=== PATIENT | male | born 1950 | race Caucasian/White ===

== ENCOUNTER 2023-05-08 10:45 | Outpatient (OUT) | payer MEDICARE, BC, SELFPAY ==
[2023-05-08 12:44] LABS: SARS-CoV-2 Ag NEGATIVE (NEGATIVE)
[2023-05-08 15:11] LABS: SARS-CoV-2 NAA NOT DETECTED (NOT DETECTE)
== END 2023-05-08 10:46 | disposition home or self-care (01) ==
PROVIDERS: Family Provider Internal Medicine Interventional Cardiology; PCP Internal Medicine; Visit Provider Internal Medicine
DX: Z20.822 Contact with and (suspected) exposure to COVID-19 (principal)
CPT/HCPCS: 87635; 87811; U0003

== ENCOUNTER 2023-05-28 11:34 | Outpatient (OUT) | payer MEDICARE, BC, SELFPAY ==
--- NOTE | 2023-05-28 10:40 | NM_ITS ---
Patient: ML HASSAN Exam Date: 05/28/2023 : 1950 Gender:M Ordering : DR LIDIA HANDLEY M.D. Admission #: [id number] Family : DR Viet Proctor D.O. Order #: [id number] CLICK HERE TO VIEW EXAM RADIOLOGY REPORT PROCEDURE: NM MARIANELA PERF SPECT REST STR COMPARISON: None. INDICATIONS: CHEST PAIN, FATIGUE, CORONARY ARTERY DISEASE TECHNIQUE: Exam Description: Stress/Rest one day protocol gated SPECT Rest Imagin.0 mCi Tc-99m Cardiolite IV on 05/28/2023 Stress Imaging 30.3 mCi Tc-99m Cardiolite IV on 05/28/2023 Exercise Protocol: 0.4 mg Lexiscan given IV Heart Rate (bpm): Rest: 75 Max: 103 PMHR: 71 Blood Pressure: Rest: 136/78 Max: 162/78 Symptoms: Rest and peak stress ECG findings were normal and the exercise portion of the study was normal per attending physician Dr. Enrike Proctor . For more details please see separate cardiac stress test report. FINDINGS: QUALITY OF STUDY: Excellent. PERFUSION DEFECT: LOCATION: Basal inferior. Mid-inferior. Apical inferior. [place]. SIZE: Medium (3-4 segments). SEVERITY: Severe. TYPE: Persistent. WALL MOTION: Normal. LV SIZE: Normal. 121 mL. TID / TCD: None; 0.9 LVEF: Normal. Calculated EF 63%. SUMMARY: Myocardial perfusion imaging study has ABNORMAL findings. CONCLUSION: 1. No acute or reversible ischemia. 2. Significant fixed perfusion defect involving the apex and entire inferior wall. Diaphragm attenuation artifact is felt less likely. 3. Left ventricle volume is within normal limits, but approaches upper limits of normal. 4. Normal wall motion and ejection fraction. Dictated by: Huey Schilling M.D. on 05/29/2023 at 14:24 Approved by: Huey Schilling M.D. on 05/29/2023 at 14:27
[2023-05-28] MEDS: REGADENOSON 0.4 MG/5 ML SYRINGE IV (12:56)
--- NOTE | 2023-05-28 13:02 | PM.STRESS ---
Stress Test Stress Test Requesting physician: Willie Barfield Procedure: Lexiscan stress test General Information: Reason for Stress Test: [Evaluation of a patient with known coronary disease with exertional chest pain] Cardiac History and Risk Factors: [This patient is [age] years old with a personal history of coronary disease status post PTCA. Primary risk factors include remote history of tobacco use essential hypertension and hyperlipidemia.] Resting 12 - Lead Electrocardiogram: Normal sinus rhythm with a ventricular rate of 74 bpm. The IA interval is 0.48, QRS 0.16 and the QT is 0.40. There are Q waves inferiorly suggestive of remote inferior wall myocardial infarction. There is a right bundle stephen block with secondary ST-T wave changes. Stress Test: Protocol: [Lexiscan protocol] Exercise Capacity: [Not applicable] Blood Pressure Response: [The blood pressure decreased with an increase in heart rate which is appropriate for Lexiscan infusion] Rhythm: [The patient remained in sinus rhythm with rare PVCs during infusion] ST - Response: [There was no ST-T wave changes during infusion] Patient Response: [The patient denied chest pain during infusion] Interpretation: There was no objective evidence of myocardial ischemia during infusion. Cardiolite was injected with images in interpretation pending
== END 2023-05-28 11:35 | disposition home or self-care (01) ==
LOC: NM 11:34
PROVIDERS: Family Provider Internal Medicine Interventional Cardiology; PCP Internal Medicine; Visit Provider Internal Medicine Interventional Cardiology
DX: R07.9 Chest pain, unspecified (principal)
CPT/HCPCS: 78452; 93017; A9500; J2785

== ENCOUNTER 2023-09-30 13:11 | Outpatient (OUT) | payer MEDICARE, BC, SELFPAY ==
[2023-09-30 13:40] LABS: Erythrocyte Sedimentation Rate 8 mm/hr (<=20)
--- NOTE | 2023-09-30 14:00 | CA_ITS ---
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 PVR waveforms with normal upstroke and amplitude but loss of dicrotic notch. Right: - significant pressure gradient between the brachial and thigh cuff - abnormal SAHARA Left: - significant pressure gradient between the thigh and calf cuff - significant pressure gradient between the calf and DP cuff - abnormal SAHARA IMpression: - significant right inflow (femoral artery or above) arterial disease with moderate hemodynamic impairment of the right lower extremity at rest. (SAHARA 0.66) - significant left femoropopliteal and outflow (tibioperoneal) arterial disease with moderate hemodynamic impairment of the left lower extremity at rest. (SAHARA 0.71) Electronically Signed On 10-01-2023 6:47:11 EST by ELIZABETH CANNON
[2023-09-30 14:33] LABS: Uric Acid 7.3 mg/dL (3.5-7.2)
[2023-09-30 14:42] LABS: C Reactive Protein <0.50 mg/dL (<=0.50)
[2023-10-01 06:09] LABS: Rheumatoid Factor (RF) <10.0 IU/mL (<14.0)
[2023-10-02 15:09] LABS: Antinuclear Antibodies, IFA Positive (.)
== END 2023-09-30 13:12 | disposition home or self-care (01) ==
LOC: LAB 13:12
PROVIDERS: Family Provider Internal Medicine Interventional Cardiology; PCP Internal Medicine; Visit Provider Internal Medicine
DX: M06.4 Inflammatory polyarthropathy (principal); M35.3 Polymyalgia rheumatica; R25.2 Cramp and spasm; I70.213 Atherosclerosis of native arteries of extremities with intermittent claudication, bilateral legs
CPT/HCPCS: 36415; 84550; 85652; 86038; 86140; 86431; 93923

== ENCOUNTER 2023-11-05 07:56 | Outpatient (OUT) | payer MEDICARE, BC, SELFPAY ==
--- OUTSIDE RECORDS SUMMARY | 2023-11-05 08:00 | XMS_ITS | CCD ---
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 Name Role Phone ELTAHAWY, EHAB A Admitting Unavailable ELTAJENNIFERY, EHAB A Attending Unavailable VIET PROCTOR Referring Unavailable DAVIS, VITE Primary Care Unavailable Viet Proctor Primary Care Provider [phone] Viet Proctor Primary Care Provider VILMA DIOR Referring Unavailable VIET PROCTOR Primary Care Unavailable VILMA DIOR Admitting Unavailable VILMA DIOR Attending Unavailable VIET PROCTOR Primary Care Unavailable ABBY DANIELLE Referring Unavailable VIET PROCTOR Primary Care Unavailable Nick Montoya Unavailable Viet Proctor Unavailable Michael Maurer Unavailable DAVIS, DR JOHNSON Primary Care Unavailable Rajiv, Michael Attending Unavailable Rjaiv, Michael Admitting Unavailable BALL, DR JOHNSON Primary Care Unavailable BALL, DR JOHNSON Attending Unavailable BALL, DR JOHNSON Admitting Unavailable ELTAHAWY, DR MURILLO Consulting Unavailable DAVIS, DR JOHNSON Primary Care Unavailable DAVIS, DR JOHNSON Attending Unavailable BALL, DR JOHNSON Admitting Unavailable BALL, DR JOHNSON Consulting Unavailable DAVIS, DR JOHNSON Primary Care Unavailable DAVIS, DR JOHNSON Attending Unavailable BALL, DR JOHNSON Admitting Unavailable DANITZA, NICK Consulting Unavailable Rajiv, Michael Admitting Unavailable Rajiv, Michael Attending Unavailable BALL, DR JOHNSON Primary Care Unavailable Rajiv, Michael Consulting Unavailable ZIEBBERNADETTE, DR DUSTY Ledesma Consulting Unavailable BALL, DR JOHNSON Consulting Unavailable DAVIS, DR JOHNSON Primary Care Unavailable BALL, DR JOHNSON Attending Unavailable BALL, DR JOHNSON Admitting Unavailable ELTAHAWY, DR MURILLO Consulting Unavailable DAVIS, DR JOHNSON Consulting Unavailable DAVIS, DR JOHNSON Primary Care Unavailable DAVIS, DR JOHNSON Attending Unavailable BALL, DR JOHNSON Admitting Unavailable ZIEBER, DR DUSTY Ledesma Consulting Unavailable Rajiv, Michael Consulting Unavailable DAVIS, DR JOHNSON Primary Care Unavailable Rajiv, Michael Attending Unavailable Rajiv, Michael Admitting Unavailable West, Michael Consulting Unavailable West, Michael Admitting Unavailable West, Michael Attending Unavailable BALL, DR JOHNSON Primary Care Unavailable ZIEBER, DR DUSTY Ledesma Consulting Unavailable West, Michael Consulting Unavailable BALL, DR JOHNSON Primary Care Unavailable West, Michael Attending Unavailable West, Michael Admitting Unavailable ZIEBER, DR DUSTY Ledesma Consulting Unavailable West, Michael Consulting Unavailable BALL, DR JOHNSON Primary Care Unavailable West, Michael Attending Unavailable West, Michael Admitting Unavailable ZIEBER, DR DUSTY Ledesma Consulting Unavailable West, Michael Admitting Unavailable West, Michael Attending Unavailable BALL, DR JOHNSON Primary Care Unavailable West, Michael Consulting Unavailable West, Michael Consulting Unavailable BALL, DR JOHNSON Primary Care Unavailable West, Michael Attending Unavailable West, Michael Admitting Unavailable West, Michael Admitting Unavailable West, Michael Attending Unavailable BALL, DR JOHNSON Primary Care Unavailable West, Michael Consulting Unavailable West, Michael Admitting Unavailable West, Michael Attending Unavailable BALL, DR JOHNSON Primary Care Unavailable West, Michael Consulting Unavailable West, Michael Admitting Unavailable West, Michael Attending Unavailable BALL, DR JOHNSON Primary Care Unavailable West, Michael Consulting Unavailable West, Michael Admitting Unavailable West, Michael Attending Unavailable BALL, DR JOHNSON Primary Care Unavailable West, Michael Consulting Unavailable ELTAHAWY, DR MURILLO Admitting Unavailable ELTAHAWY, DR MURILLO Attending Unavailable BALL, DR JOHNSON Primary Care Unavailable ELTAHAWY, DR MURILLO Consulting Unavailable West, Michael Admitting Unavailable West, Michael Attending Unavailable BALL, DR JOHNSON Primary Care Unavailable West, Michael Consulting Unavailable ZIEBER, DR DUSTY Ledesma Consulting Unavailable West, Michael Admitting Unavailable West, Michael Attending Unavailable BALL, DR JOHNSON Primary Care Unavailable West, Michael Consulting Unavailable VIET PROCTOR Primary Care Unavailable GHAZARIAN, PRICILA Referring Unavailable DAVIS, VIET Primary Care Unavailable GHAZARIAN, PRICILA Referring Unavailable GHAZARIAN, PRICILA Referring Unavailable BALL, VIET Primary Care Unavailable DAVIS, VIET Primary Care Unavailable GHAZARIAN, PRICILA Admitting Unavailable GHAZARIAN, PRICILA Attending Unavailable EARL GOMEZ Consulting Unavailable ELTAHAWWILLIE Sdaler Attending Unavailable ELTAHAWYWILLIE Attending Unavailable FRENCH SANDOVAL Attending UnavailViet Brown DO Primary Care Provider Allergies Allergy Classification Reported Allergen(s) Allergy Type Date of Onset Reaction(s) Facility (3 sources) black walnut pollen extract; Translations: [[id number] A REDUCTASE INHIBITORS] Drug Allergy 3 [facility] Repository (20 sources) predniSONE; Translations: [PREDNISONE] Drug Allergy 3 dizziness [facility] Repository (5 sources) Hmg-Coa Reductase Inhibitors (Statins) Propensity to adverse reactions to drug 0 [place], [place] (6 sources) predniSONE Drug Allergy 3 Other (See Comments) [place] (1 source) black walnut pollen extract Drug Allergy 6 [place], [place] (20 sources) Statins Depletion Drug allergy anaphylaxis [facility] Other (1 source) ezetimibe Drug Allergy 2 [facility] Repository (1 source) Propofol Drug Allergy 0 [facility] Repository (7 sources) ezetimibe Drug Allergy 4 Unknown, Unknown Reaction [facility] (6 sources) HMG-CoA reductase inhibitor Drug allergy Unknown [employer] Other (6 sources) Statins Depletion *DIETARY PRODUCTS/DIETAR Y MANAGE Propensity to adverse reactions Unknown [employer] Other (4 sources) Allergies Reconciled Propensity to adverse reactions Unknown [employer] Other (2 sources) patient allergy list reviewed by nurse or physicia Propensity to adverse reactions 9 Comment:Done [employer] Other (1 source) [id number]-[id number] Reductase Inhibitor Allergy to substance 4 Anaphylaxis [facility] (1 source) HMG-CoA reductase inhibitor Propensity to adverse reactions to drug 3 Other (See Comments) [facility] Medications Current Medications Medication Drug Class(es) Dates Sig (Normalized) Sig (Original) acetaminophen 325 mg / HYDROcodone bitartrate 5 mg oral tablet (20 sources) Opioid Agonist Start: 09-22-2023 take 1 tablet by mouth every six hours Hydrocodone-Aceta minophen Active 1 TAB PO Every 6 hours September 22, 2023 12:00am Start: 01-01-2023 take 1 tablet by giovanni th every six hours HYDROcodone-Acetaminophen 5-325 MG 1 tab let as needed Orally every 6 hrs for 5 days Jan, Active Start: 05-30-2022 take 1 tablet by giovanni th every twelve hours HYDROcodone-Acetaminophen 5-325 MG 1 tab let Orally bid for 7 day(s) May, Active Start: 04-10-2020 End: 04-10-2020 HYDROcodone-acetaminophen (N ORCO) 5-325 MG per tablet 1 tablet [id number] actuat albuterol 0.09 mg/actuat metered dose inhaler (7 sources) beta2-Adrenergic Agonist Start: 09-22-2023 take 1 puff(s) by inhalation every six hours Albuterol Sulfate (Proair Hfa) 90 mcg/actuation HFA aerosol inhaler Active 2 PUFF INHALATION Every 6 hours September 22, 2023 12:00am Start: 02-22-2019 End: 09-22-2023 take 1 puff(s) by inhalation every four to six hours Albuterol Sulfate (Proair Hfa) 90 mcg/actuation Hfa Aerosol Inhaler Discontinued 1 PUFF INHALATION EVERY 4-6 HOURS February 21, 2019 11:00pm September 22, 2023 8:05am take 1 puff(s) by in halation every twelve hours albuterol (PROVENTIL HFA;VENTOLIN HFA) 90 mcg/actuation inhaler albuterol sulfate HFA 90 mcg/actuation aerosol inhaler INHALE 1 PUFF EVERY 12 HOURS 0 Active take 2 puff(s) by in halation every six hours as needed ProAir HFA 108 (90 Base) MCG/ACT 2 puffs as needed Inhalation every 6 hrs Active ALBUTEROL IN Inh reba into the lungs as needed 0 Active alendronic acid 70 mg oral tablet (20 sources) Bisphosphonate Start: 02-22-2019 take 1 tablet by mouth every week Alendronate (Fosamax) 70 mg Tablet Active 70 MG PO every week February 21, 2019 11:00pm 24 hr alfuzosin hydrochloride 10 mg extended release oral tablet (5 sources) alpha-Adrenergic Kp Start: 12-01-2019 take 1 tablet by mouth once daily alfuzosin (UROXATRAL) 10 MG extended release tablet Indications: Dysuria , BPH with obstruction/lower urinary tract symptoms Take 1 tablet by mouth daily 30 tablet 11 12/01/2019 Active 1 ml alirocumab 75 mg/ml auto-injector (20 sources) PCSK9 Inhibitor inject 1 mL by subcutaneous injection every other week alirocumab (PRALUENT PEN) 75 mg/mL pen injector Praluent Pen 75 mg/mL subcutaneous pen injector inject 1 (ONE) ml subcutaneously every 2 (TWO) weeks 0 Active Praluent 75 MG/M L as directed Subcutaneous Active Alirocumab (Praluent Pen) 75 mg/mL pen injector (1 source) Start: 09-22-2023 inject 75 mg by subcutaneous injection every other week Alirocumab (Praluent Pen) 75 mg/mL pen injector Active 75 MG SUBCUT Q14D September 22, 2023 12:00am ALPRAZolam 0.25 mg oral tablet (1 source) Benzodiazepine ALPRAZolam (XANAX) 0.25 mg tablet alprazolam 0.25 mg tablet 1 (one) Tablet 1-2 hours prior to testing 0 Active aspirin 325 mg oral tablet (20 sources) Platelet Aggregation Inhibitor, Nonsteroidal Anti-inflammatory Drug Start: 09-22-2023 take 325 mg by mouth once daily Aspirin Active 325 MG PO Daily September 22, 2023 12:00am aspirin 81 mg da rufina. 0 Active take 1 tablet by giovanni th every twenty-four hours Aspirin 325 MG 1 tablet Orally Once a da y Active azithromycin 250 mg oral tablet (6 sources) Macrolide Antimicrobial Start: 05-08-2023 Azithromycin 250 MG as directed Orally daily for 5 days May, Active calcium chloride 0.0014 meq/ml / potassium chloride 0.004 meq/ml / sodium chloride 0.103 meq/ml / sodium lactate 0.028 meq/ml injectable solution (2 sources) Start: 04-10-2020 lactated ringers infusion calcium citrate 250 mg / ergocalciferol 100 mg oral tablet (1 source) Provitamin D2 Compound take 1 tablet by mouth in the morning, then take 1 tablet by mouth once at bedtime calcium citrate-vitamin D2 250 mg-2.5 mcg (100 unit) per tablet Take 1 tablet by mouth in the morning and 1 tablet before bedtime. 0 Active carvedilol 3.125 mg oral tablet (5 sources) alpha-Adrenergic Kp, beta-Adrenergic Kp take 1 tablet by mouth in the morning, then take 1 tablet by mouth at bedtime carvediloL (COREG) 3.125 mg tablet Take 1 tablet (3.125 mg total) by mouth in the morning and 1 tablet (3.125 mg total) before bedtime. 0 Active clopidogrel 75 mg oral tablet (20 sources) P2Y12 Platelet Inhibitor Start: 02-22-2019 take 1 tablet by mouth once daily Clopidogrel (Plavix) 75 mg Tablet Active 75 MG PO Daily February 21, 2019 11:00pm docosahexaenoic acid 120 mg / eicosapentaenoic acid 180 mg oral capsule (4 sources) [place] 3 1000 MG CAPS Take by mouth daily 0 Active [place] 3 1000 MG CAPS Take by mouth 0 Active famotidine 40 mg oral tablet (20 sources) Histamine-2 Receptor Antagonist Start: 02-22-2019 take 40 mg by mouth twice daily Famotidine Active 40 MG PO Twice daily February 21, 2019 11:00pm take 1 tablet by mouth in the mo rning famotidine (PEPCID) 20 mg tablet Take 1 tablet (20 mg total) by mouth in the morning. 0 Active take 1 tablet by giovanni th every twenty-four hours Famotidine 40 MG 1 tablet at bedtime Ora ll Once a day for 30 day(s) Active 2 ml fentaNYL 0.05 mg/ml injection (4 sources) Opioid Agonist Start: 04-10-2020 fentaNYL (SUBL IMAZE) injection 50 mcg Start: 04-10-2020 fentaNYL (SUBL IMAZE) injection 25 mcg fluticasone propionate 0.05 mg/actuat metered dose nasal spray (20 sources) Corticosteroid Start: 02-22-2019 Fluticasone Pr opionate (Flonase Allergy Relief) 50 mcg/actuation [place],Suspension Active 1 SPRAY INTRANASAL Daily February 21, 2019 11:00pm take 1 spray(s) nasal route once daily Flonase 50 MCG/ACT 1 spray in each nostril Nasally Once a day for 30 day(s) Active fluticasone (MAILE NASE) 50 MCG/ACT nasal spray 1 spray by Each Nostril route as needed for Rhinitis 0 Active folic acid 0.8 mg oral capsule (20 sources) Start: 02-22-2019 take 0.8 mg by mouth once daily Folic Acid Active 0.8 MG PO Daily February 21, 2019 11:00pm take 1 tablet by giovanni th every twenty-four hours Folic Acid 1 MG 1 tablet Orally Once a day for 30 day(s) Active gabapentin 100 mg oral capsule (20 sources) Anti-epileptic Agent Start: 09-22-2023 take 2 capsules by mouth at bedtime Gabapentin Active 100 MG PO .COMPLEX September 22, 2023 12:00am 100 mg orally 1 capsule in the morning, 1 capsule in the afternoon and 2 capsules at bedtime; Start: 05-29-2022 take 2 capsules by m outh three times daily Gabapentin 100 MG 2 capsules Orally three times daily for 30 day(s) G89.29 Chronic pain May, Active Start: 05-29-2022 take 1 capsule by mo uth three times daily Gabapentin 100 MG 1 capsule Orally three times daily for 30 day(s) May, Active take 1 capsule by mo uth twice daily gabapentin (NEURONTIN) 300 mg capsule gabapentin 300 mg capsule TAKE 1 CAPSULE BY MOUTH TWICE DAILY 0 Active gemfibrozil 600 mg oral tablet (1 source) Peroxisome Proliferator Receptor alpha Agonist take 1 tablet by mouth twice daily before mealtime gemfibroziL (LOPID) 600 mg tablet gemfibrozil 600 mg tablet TAKE 1 TABLET BY MOUTH TWICE DAILY before meals 0 Active 1 ml hydrALAZINE hydrochloride 20 mg/ml injection (1 source) Arteriolar Vasodilator Start: 04-10-20 20 hydrALAZINE (APRESOLINE) injection 5 mg 4 ml labetalol hydrochloride 5 mg/ml cartridge (1 source) beta-Adrenergic Kp Start: 04-10-20 20 labetalol (NORMODYNE;TRANDATE) injection 5 mg lisinopril 2.5 mg oral tablet (20 sources) Angiotensin Converting Enzyme Inhibitor Start: 02-23-20 take 2.5 mg by mouth once daily Lisinopril Active 2.5 MG PO Daily February 21, 2019 11:00pm methotrexate 2.5 mg/ml oral solution (20 sources) Folate Analog Metabolic Inhibitor Start: 02-23-20 Methotrexate Active 8 TAB PO every 9 weeks February 21, 2019 11:00pm take 8 tablets by mouth once Met hotrexate 2.5 MG 8 tabs Orally every Thursday Active take 8 tablets by mouth once Met hotrexate 2.5 MG 8 tabs Orally every Thursday Active METHOTREXATE, ANTI-RHEUMATIC, PO (1 source) take 20 mg by mouth every week METHOTREXATE, ANTI-RHEUMATIC, PO Take 20 mg by mouth once a week thursday 0 Active methylPREDNISolone 4 mg oral tablet (6 sources) Corticosteroid take 1 tablet by mouth once daily methylPREDNISolone (MEDROL) 4 mg tablet methylprednisolone 4 mg tablet TAKE 1 TABLET BY MOUTH EVERY DAY 0 Active take 1 tablet by mouth once phoebe y methylPREDNISolone (MEDROL) 2 MG tablet Take 2 mg by mouth daily 0 Active montelukast 10 mg oral tablet (20 sources) Leukotriene Receptor Antagonist Start: 02-22-2019 take 1 tablet by mouth once daily in the evening Montelukast (Singulair) 10 mg Tablet Active 10 MG PO Every evening February 21, 2019 11:00pm Multiple Vitamins-Minerals (MULTIVITAMIN ADULT PO) (5 sources) Multiple Vitamins-Minerals (MULTIVITAMIN ADULT PO) Take by mouth 0 Active 24 hr niacin 500 mg extended release oral tablet (20 sources) Nicotinic Acid Start: 02-22-2019 take 1 tablet by mouth once daily at bedtime Niacin (Slo-Niacin) 500 mg Tablet Extended Release Active 500 MG PO Daily at bedtime February 21, 2019 11:00pm take 1 tablet by giovanni th once daily at breakfast niacin (VITAMIN B3) 500 mg tablet Take 1 tablet (500 mg total) by mouth daily with breakfast. 0 Active take 1 capsule by mouth once alison ly niacin 500 MG extended release capsule Take 500 mg by mouth nightly 0 Active nitroglycerin 0.4 mg sublingual tablet (20 sources) Nitrate Vasodilator Start: 02-22-2019 Nitroglyce rin (Nitrostat) 0.4 mg Tablet, Sublingual Active 0.4 MG SUBLINGUAL every 5 to 15 minutes February 21, 2019 11:00pm nitroglycerin (N ITROSTAT) 0.4 MG SL tablet nitroglycerin 0.[address] 1 tablet by sublingual route as needed. 0 Active omega 9-zzy-jyy-fish oil (Fish OiL) 300-1,000 mg capsule (1 source) omega 3-dha-epa- fish oil (Fish OiL) 300-1,000 mg capsule Take by mouth. 0 Active omega-3 acid ethyl esters (retirement) 1000 mg oral capsule (1 source) [place] 3 1000 MG CAPS Take by mouth 0 Active 2 ml ondansetron 2 mg/ml injection (1 source) Serotonin-3 Receptor Antagonist Start: End: ondansetron (ZOFRAN) injection 4 mg ProAir HFA 108 (90 Base) MCG/ACT (18 sources) take 2 puff(s) by inhalation every six hours as needed for cough ProAir HFA 108 (90 Base) MCG/ACT 2 puffs as needed Inhalation every 6 hrs as needed for SOB, cough for 30 days Active take 2 puff(s) by in halation every six hours as needed ProAir HFA 108 (90 Base) MCG/ACT 2 puffs as needed Inhalation every 6 hrs Active 3 ml sodium chloride 9 mg/ml injection (2 sources) Start: 04-10-2020 sodium chloride flush 0.9 % injection 10 mL spironolactone 25 mg oral tablet (20 sources) Aldosterone Antagonist Start: 09-22-2023 take 1 tablet by mouth once daily Spironolactone (Aldactone) 25 mg tablet Active 25 MG PO Daily September 22, 2023 12:00am sulfamethoxazole 800 mg / trimethoprim 160 mg oral tablet (17 sources) Dihydrofolate Reductase Inhibitor Antibacterial, Sulfonamide Antimicrobial Start: 08-27-2022 take 1 tablet by mouth every twelve hours Sulfamethoxazole-Tr imethoprim 800-160 MG 1 tablet Orally Twice a day for 5 days Aug, Active Start: 05-08-2020 End: 05-15-2020 take 1 tablet by mouth twice daily sulfamethoxazole-trimethoprim (BACTRIM D S) 800-160 MG per tablet Indications: Orchitis Take 1 tablet by mouth 2 times daily for 7 days 14 tablet 0 05/08/2020 05/15/2020 Active tiZANidine 4 mg oral capsule (20 sources) [place] alpha-2 Adrenergic Agonist Start: 02-22-2019 take 1 capsule by mouth once daily at bedtime Tizanidine (Zanaflex) 4 mg Capsule Active 4 MG PO Daily at bedtime February 21, 2019 11:00pm tiZANidine (MAHOGANY FLEX) 4 mg tablet tizanidine 4 mg tablet 0 Active take 2 tablets by mouth at bedti me Zanaflex 4 MG 2 tablets Orally at bedtime for 90 days Active traZODone hydrochloride 50 mg oral tablet (20 sources) Serotonin Reuptake Inhibitor Start: 02-22-2019 take 50 mg by mouth once daily Trazodone Active 50 MG PO Daily February 21, 2019 11:00pm take 2 tablets by mouth at bedti me traZODone (DESYREL) 50 mg tablet trazodone 50 mg tablet TAKE 2 TABLETS BY MOUTH AT BEDTIME 0 Active take 1 tablet by mouth once phoebe y traZODone (DESYREL) 100 MG tablet Take 100 mg by mouth nightly 0 Active Completed/Discontinued Medications Medication Drug Class(es) Dates Sig (Normalized) Sig (Original) acetaminophen 325 mg oral tablet (2 sources) Start: 04-10-2020 End: 04-10-2020 acetaminophen (TYLENOL) tablet 650 mg take 1 tablet by giovanni every six hours as needed for pain acetaminophen (TYLENOL EXTRA STRENGTH) 5 00 mg tablet Take 1 tablet (500 mg total) by mouth every 6 (six) hours as needed for pain. 0 Active 200 ml ciprofloxacin 2 mg/ml injection (1 source) Quinolone Antimicrobial Start: 04-10-2020 End: 04-10-2020 ciprofloxacin (CIPRO) IVPB 400 mg dimenhyDRINATE 50 mg oral tablet (1 source) Start: 04-10-2020 End: 04-10-2020 dimenhyDRINATE (DRAMAMINE) tablet 50 mg hydrocortisone acetate 25 mg rectal suppository (1 source) Corticosteroid Start: 02-22-2019 End: 09-22-2023 Hydrocortisone Acetate (Anusol-Hc) 25 mg Suppository Discontinued 25 MG LA Three times daily February 21, 2019 11:00pm September 22, 2023 8:06am Lidocaine (14 sources) Antiarrhythmic, Amide Local Anesthetic Start: 01-01-2023 Lidocaine Jan, 30 mg loratadine 10 mg oral capsule (1 source) Start: 02-22-2019 End: 09-22-2023 take 10 mg by mouth once daily Loratadine Discontinued 10 MG PO Daily February 21, 2019 11:00pm September 22, 2023 8:06am nebivolol 2.5 mg oral tablet (20 sources) Start: 02-22-2019 End: 09-22-2023 take 1 tablet by mouth once daily Nebivolol (Bystolic) 2.5 mg Tablet Discontinued 2.5 MG PO Daily February 21, 2019 11:00pm September 22, 2023 8:06am take 2 tablets by mo [facility] every twenty-four hours Bystolic 2.5 MG 2 tablets Orally Once a day for 30 day(s) Not-Taking oxyCODONE hydrochloride 5 mg oral tablet (20 sources) Opioid Agonist take 1 tablet by mouth every six hours oxyCODONE HCl 5 MG 1 tablet as needed Orally every 6 hrs Not-Taking pantoprazole 40 mg oral granules (20 sources) Proton Pump Inhibitor Start: 9 End: take 40 mg by mouth once daily Pantoprazole Discontinued 40 MG PO Daily February 21, 2019 11:00pm September 22, 2023 8:07am take 1 tablet by giovanni th every twenty-four hours Pantoprazole Sodium 40 MG 1 tablet Orall y Once a day for 30 day(s) Not-Taking pregabalin 75 mg oral capsule (1 source) Start: 02-22-2019 End: 09-22-2023 take 1 capsule by mouth twice daily Pregabalin (Lyrica) 75 mg Capsule Discontinued 75 MG PO Twice daily February 21, 2019 11:00pm September 22, 2023 8:07am tamsulosin hydrochloride 0.4 mg oral capsule (1 source) alpha-Adrenergic Kp Start: 02-22-2019 End: 09-22-2023 take 0.4 mg by mouth once daily Tamsulosin Discontinued 0.4 MG PO Daily February 21, 2019 11:00pm September 22, 2023 8:07am triamcinolone acetonide 40 mg/ml injectable suspension (14 sources) Corticosteroid Start: 01-01-2023 Kenalog-40 Jan, 40 mg 7 actuat umeclidinium 0.0625 mg/actuat / vilanterol 0.025 mg/actuat dry powder inhaler (1 source) Anticholinergic, beta2-Adrenergic Agonist Start: 02-22-2019 End: 09-22-2023 Umeclidinium-Alfonso nterol (Anoro Ellipta) 62.5-25 mcg/actuation Blister With Device Discontinued 1 INH INHALATION Q24H February 21, 2019 11:00pm September 22, 2023 8:08am Problems Active Problems Problem Classification Problem Date Documented Da te Episodic/Chronic Acute bronchitis (13 sources) Acute bronchitis; Translations: [Acute bronchitis due to other specified organisms] Onset: 5 Episodic Anxiety disorders (20 sources) Generalized anxiety disorder; Translations: [Generalized anxiety disorder] Onset: 5 Chronic Aortic and peripheral arterial embolism or thrombosis (5 sources) Thromboembolic disorder; 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 and thrombosis of unspecified site] Chronic Chronic obstructive pulmonary disease and bronchiectasis (20 sources) Mucopurulent chronic bronchitis; Translations: [Mucopurulent chronic bronchitis] Onset: 8 Chronic Coronary atherosclerosis and other heart disease (20 sources) Coronary arteriosclerosis; Translations: [Atherosclerotic heart disease of [place] coronary artery without angina pectoris] Onset: 2 Chronic Disorders of lipid metabolism (20 sources) Hypercholesterolemia; Translations: [Pure hypercholesterolemia, unspecified] Onset: 0 Chronic Diverticulosis and diverticulitis (11 sources) Diverticulosis of colon; Translations: [Diverticulosis of colon] Onset: 4 Chronic Esophageal disorders (10 sources) Gastro-esophageal reflux disease with esophagitis; Translations: [Gastroesophageal reflux disease with esophagitis without hemorrhage] Chronic Esophageal disorders (13 sources) Esophageal disorders; Translations: [Gastroesophageal reflux disease with esophagitis without hemorrhage] Essential hypertension (20 sources) Essential hypertension; Translations: [Essential (primary) hypertension] Onset: 3 Chronic Hyperplasia of prostate (20 sources) Benign prostatic hypertrophy with outflow obstruction; Translations: [Benign prostatic hypertrophy without outflow obstruction] Onset: 6 03-27-2020 Chronic Immunity disorders (5 sources) Drug-induced immunodeficiency ; 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 Immunizations and screening for infectious disease (13 sources) Encounter for immunization; Translations: [Contact with and (suspected) exposure to other viral communicable diseases] Onset: 2 Resolved: 1 Episodic Inflammatory conditions of male genital organs (1 source) Epididymitis Episodic Intestinal infection (9 sources) Infectious colitis, enteritis and gastroenteritis; Translations: [Infectious gastroenteritis and colitis, unspecified] Onset: 3 Resolved: 1 Episodic Mood disorders (16 sources) Recurrent major depression in remission; Translations: [Major depressive disorder, recurrent, in partial remission] Chronic Nausea and vomiting (1 source) Vomiting, unspecified; Translations: [Vomiting, unspecified] Onset: 3 Episodic Nonspecific chest pain (20 sources) Chest wall pain; Translations: [Other chest pain] Onset: 8 Episodic Nutritional deficiencies (6 sources) Vitamin D deficiency; Translations: [Vitamin D deficiency, unspecified] Onset: 8 Chronic Osteoarthritis (20 sources) Osteoarthritis of knee; Translations: [Unilateral primary osteoarthritis, left knee] Onset: 6 Chronic Other aftercare (2 sources) 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; Translations: [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] Onset: 3 Episodic Other circulatory disease (20 sources) History of cerebrovascular accident without residual deficits; Translations: [Personal history of transient ischemic attack (TIA), and cerebral infarction without residual deficits] Episodic Other circulatory disease (1 source) Personal history of transient ischemic attack (TIA), and cerebral infarction without residual deficits; Translations: [Prsnl hx of TIA (TIA), and cereb infrc w/o resid deficits] Episodic Other congenital anomalies (5 sources) Congenital spondylolysis of lumbosacral region; Translations: [Congenital spondylolysis, lumbosacral region] Onset: 7 Chronic Other connective tissue disease (8 sources) Polymyalgia rheumatica; Translations: [Polymyalgia rheumatica] Onset: 2 09-22-2023 Chronic Other connective tissue disease (1 source) Polymyalgia rheumatica; Translations: [Polymyalgia rheumatica] 09-22-2023 Chronic Other connective tissue disease (6 sources) H/O: musculoskeletal disease; Translations: [Personal history of other diseases of the musculoskeletal system and connective tissue] Episodic Other connective tissue disease (6 sources) Pain in limb; Translations: [Pain in soft tissues of limb] Episodic Other connective tissue disease (5 sources) Disorder of musculoskeletal system; Translations: [Other symptoms and signs involving the musculoskeletal system] Episodic Other connective tissue disease (1 source) Other symptoms and signs involving the musculoskeletal system; Translations: [Other symptoms and signs involving the musculoskeletal system] Episodic Other connective tissue disease (1 source) Cramp in lower limb; Translations: [Cramp and spasm] 09-22-2023 Episodic Other diseases of veins and lymphatics (20 sources) Peripheral venous insufficiency; Translations: [Venous insufficiency (chronic) (peripheral)] Episodic Other diseases of veins and lymphatics (1 source) Venous insufficiency (chronic) (peripheral); Translations: [Chronic venous insufficiency] Episodic Other ear and sense organ disorders (6 sources) Acute otitis externa; Translations: [Acute swimmers' ear] Episodic Other gastrointestinal disorders (1 source) Diarrhea, unspecified; Translations: [Diarrhea, unspecified] Onset: 3 Episodic Other injuries and conditions due to external causes (6 sources) History of fall; Translations: [History of falling] Episodic Other lower respiratory disease (2 sources) Other forms of dyspnea; Translations: [Other forms of dyspnea] Onset: 3 Episodic Other male genital disorders (5 sources) Torsion of testis; Translations: [Torsion of testis, unspecified] Episodic Other male genital disorders (1 source) Torsion of testis, unspecified; Translations: [Torsion of testis, unspecified] Episodic Other male genital disorders (1 source) Left testicular pain; Translations: [Left testicular pain] Other nervous system disorders (20 sources) Chronic pain; Translations: [Other chronic pain] Chronic Other nervous system disorders (20 sources) Intercostal neuralgia; Translations: [Other specified mononeuropathies] Chronic Other nervous system disorders (2 sources) Other chronic pain Chronic Other non-traumatic joint disorders (1 source) Pain in right knee Episodic Other non-traumatic joint disorders (1 source) Pain in left knee Episodic Other non-traumatic joint disorders (6 sources) Arthralgia of the pelvic region and thigh; Translations: [Pain in left hip] Episodic Other nutritional; endocrine; and metabolic disorders (20 sources) Obese class I; Translations: [Obesity, unspecified] Onset: 0 Chronic Other nutritional; endocrine; and metabolic disorders (2 sources) Obesity, unspecified; Translations: [Obesity, unspecified] Chronic Other nutritional; endocrine; and metabolic disorders (12 sources) Obesity; Translations: [Other obesity due to excess calories] Chronic Other nutritional; endocrine; and metabolic disorders (7 sources) Body mass index 30+ - obesity; Translations: [Body mass index (BMI) 33.0-33.9, adult] Chronic Other nutritional; endocrine; and metabolic disorders (1 source) Other obesity due to excess calories Chronic Other nutritional; endocrine; and metabolic disorders (1 source) Body mass index (BMI) 33.0-33.9, adult Chronic Other nutritional; endocrine; and metabolic disorders (6 sources) Morbid obesity; Translations: [Morbid (severe) obesity due to excess calories] Onset: 0 Chronic Other nutritional; endocrine; and metabolic disorders (5 sources) Obese class II; Translations: [Body mass index 35.0-35.9, adult] Onset: 0 Chronic Other skin disorders (6 sources) Actinic keratosis; Translations: [Actinic keratosis] Episodic Other skin disorders (6 sources) Other seborrheic keratosis; Translations: [Seborrheic keratosis] Episodic Other upper respiratory disease (5 sources) Seasonal allergic rhinitis; Translations: [Other seasonal allergic rhinitis] Chronic Other upper respiratory disease (6 sources) Allergic rhinitis; Translations: [Other allergic rhinitis] Onset: 8 Chronic Other upper respiratory disease (1 source) Other seasonal allergic rhinitis; Translations: [Other seasonal allergic rhinitis] Chronic Other upper respiratory infections (18 sources) Acute maxillary sinusitis; Translations: [Acute recurrent maxillary sinusitis] Onset: 7 Episodic Peripheral and visceral atherosclerosis (20 sources) Peripheral vascular disease, unspecified; Translations: [Atherosclerosis of [place] arteries of extremities with rest pain, bilateral legs] Onset: 2 Chronic Phlebitis; thrombophlebitis and thromboembolism (20 sources) Phlebitis and thrombophlebitis of superficial vessels of left lower extremity; Translations: [Phlebitis and thrombophlebitis of superficial vessels of right lower extremity] Onset: 2 Episodic Pulmonary heart disease (7 sources) Chronic pulmonary heart disease; Translations: [Other chronic pulmonary heart diseases] Onset: 5 01-08-2022 Chronic Residual codes; unclassified (20 sources) Obstructive sleep apnea syndrome; Translations: [Obstructive sleep apnea (adult) (pediatric)] Onset: 6 09-22-2023 Chronic Residual codes; unclassified (3 sources) Obstructive sleep apnea (adult) (pediatric); Translations: [Obstructive sleep apnea] Chronic Rheumatoid arthritis and related disease (2 sources) Inflammatory polyarthropathy; Translations: [Inflammatory polyarthropathy] 09-22-2023 Chronic Spondylosis; intervertebral disc disorders; other back problems (20 sources) Degeneration of thoracic intervertebral disc; Translations: [Other intervertebral disc degeneration, thoracic region] Onset: 2 Chronic Spondylosis; intervertebral disc disorders; other back problems (20 sources) Lumbar radiculopathy; Translations: [Radiculopathy, lumbar region] Onset: 5 Episodic Sprains and strains (6 sources) Strain of muscle of right shoulder; Translations: [Strain of muscle(s) and tendon(s) of the rotator cuff of right shoulder, initial encounter] Episodic Substance-related disorders (20 sources) Tobacco user; Translations: [Nicotine dependence, cigarettes, in remission] Chronic Unclassified (1 source) Patient encounter status; Translations: [Pre-op testing] Unclassified (1 source) Low back pain, unspecified; Translations: [Low back pain, unspecified] Onset: 7 Unclassified (1 source) Immunodeficiency due to drugs; Translations: [Immunodeficiency due to drugs] Varicose veins of lower extremity (13 sources) Varicose veins of bilateral lower extremities with pain; Translations: [Pain co-occurrent and due to varicose veins of bilateral legs] Onset: 2 Episodic Viral infection (10 sources) COVID-19; Translations: [Disease caused by 2019-nCoV] Onset: 2 Past or Other Problems Problem Classification Problem Date Documented Da te Episodic/Chronic Abdominal pain (7 sources) Left lower quadrant pain; Translations: [Abdominal pain] Onset: 10-17-2014 Episodic Bacterial infection; unspecified site (5 sources) Bacterial infectious disease; Translations: [Bacterial infection, unspecified, in conditions classified elsewhere and of unspecified site] Onset: 08-06-2017 Episodic Gastrointestinal hemorrhage (6 sources) Hemorrhage of rectum and anus; Translations: [Hemorrhage of rectum and anus] Onset: 11-26-2017 Episodic Genitourinary symptoms and ill-defined conditions (16 sources) Dysuria; Translations: [Must strain to pass urine] Onset: 04-09-2016 03-27-2020 Episodic Inflammation; infection of eye (except that caused by tuberculosis or sexually transmitteddisease) (6 sources) Serous conjunctivitis, except viral; Translations: [Serous conjunctivitis, except viral] Onset: 03-22-2018 Episodic Malaise and fatigue (9 sources) Malaise and fatigue; Translations: [Other malaise and fatigue] Onset: 03-11-2016 Episodic Other aftercare (4 sources) Encounter for surgical aftercare following surgery on the circulatory system; Translations: [ENC SURG [facility] FLW SURG CIRC SYS] Onset: 03-11-2022 Episodic Other and unspecified benign neoplasm (5 sources) Benign lipomatous tumor; Translations: [Benign lipomatous neoplasm of other sites] Onset: 12-14-2013 Episodic Other and unspecified benign neoplasm (1 source) Benign lipomatous neoplasm of other sites; Translations: [Benign lipomatous neoplasm of other sites] Onset: 12-14-2013 Episodic Other connective tissue disease (2 sources) Myalgia/myositis - multiple; Translations: [Unspecified myalgia and myositis] Onset: 12-15-2014 Episodic Other connective tissue disease (6 sources) Enthesopathy of hip region; Translations: [Enthesopathy of hip region] Onset: 04-09-2016 Episodic Other connective tissue disease (3 sources) Muscle pain; Translations: [Unspecified myalgia and myositis] Onset: 12-15-2014 Episodic Other ear and sense organ disorders (6 sources) Otitis externa; Translations: [Unspecified otitis externa, unspecified ear] Resolved: 10-14-2021 Chronic Other gastrointestinal disorders (6 sources) Smearing feces; Translations: [Fecal smearing] Onset: 11-26-2017 Episodic Other lower respiratory disease (13 sources) Dyspnea; Translations: [Other forms of dyspnea] Onset: 05-08-2014 01-08-2022 Episodic Other nervous system disorders (5 sources) Paresthesia; Translations: [Paresthesia of skin] Onset: 10-17-2014 Episodic Other nervous system disorders (1 source) Paresthesia of skin; Translations: [Paresthesia of skin] Onset: 10-17-2014 Episodic Other non-traumatic joint disorders (4 sources) Pain in right shoulder; Translations: [PAIN IN RIGHT SHOULDER] Onset: 04-22-2022 Episodic Other non-traumatic joint disorders (1 source) Trochanteric bursitis; Translations: [Pain in unspecified hip] Onset: 01-08-2022 01-08-2022 Episodic Other nutritional; endocrine; and metabolic disorders (6 sources) Overweight; Translations: [Overweight] Onset: 08-03-1959 Episodic Other nutritional; endocrine; and metabolic disorders (6 sources) Body mass index 25-29 - overweight; Translations: [Body mass index 29.0-29.9, adult] Onset: 08-03-1959 Episodic Other screening for suspected conditions (not mental disorders or infectious disease) (8 sources) Encounter for screening for malignant neoplasm of prostate; Translations: [Blood chemistry abnormal] Onset: 12-15-2014 Episodic Other upper respiratory infections (6 sources) Chronic sinusitis; Translations: [Chronic sinusitis, unspecified] Resolved: 10-24-2020 Chronic Otitis media and related conditions (6 sources) Eustachian tube salpingitis; Translations: [Unspecified Eustachian salpingitis, right ear] Onset: 01-07-2018 Episodic Residual codes; unclassified (5 sources) C/O - a back symptom; Translations: [Other symptoms referable to back] Onset: 10-12-2017 Episodic Screening and history of mental health and substance abuse codes (6 sources) History of tobacco use; Translations: [Personal history of tobacco use, presenting hazards to health] Onset: 08-27-2016 Episodic Spondylosis; intervertebral disc disorders; other back problems (1 source) Spondylosis; intervertebral disc disorders; other back problems; Translations: [Congenital spondylolysis, lumbosacral region] Onset: 08-27-2016 Superficial injury; contusion (6 sources) Nonvenomous insect bite of trunk without infection; Translations: [Insect bite (nonvenomous) of abdominal wall, initial encounter] Resolved: 10-14-2021 Episodic Unclassified (1 source) Unspecified myalgia and myositis; Translations: [Unspecified myalgia and myositis] Onset: 12-15-2014 Unclassified (1 source) Personal history of tobacco use, presenting hazards to health; Translations: [Personal history of tobacco use, presenting hazards to health] Onset: 08-27-2016 Unclassified (1 source) Unspecified retention of urine; Translations: [Unspecified retention of urine] Onset: 01-07-2018 Unclassified (1 source) Embolism and thrombosis of unspecified site; 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 and thrombosis of unspecified site] Unclassified (1 source) Special screening for malignant neoplasm of prostate; Translations: [Special screening for malignant neoplasm of prostate] Onset: 04-09-2016 Unclassified (1 source) Body mass index 33.0-33.9, adult; Translations: [Body mass index 33.0-33.9, adult] Onset: 08-03-1959 Unclassified (1 source) Body mass index 34.0-34.9, adult; Translations: [Body mass index 34.0-34.9, adult] Onset: 08-03-1959 Unclassified (1 source) Body mass index 35.0-35.9, adult; Translations: [Body mass index 35.0-35.9, adult] Onset: 08-03-1959 Unclassified (1 source) Diverticulosis of colon; Translations: [Diverticulosis of colon] Onset: 05-04-2018 Unclassified (1 source) Bacterial infection, unspecified, in conditions classified elsewhere and of unspecified site; Translations: [Bacterial infection, unspecified, in conditions classified elsewhere and of unspecified site] Onset: 08-06-2017 Unclassified (1 source) Osteoarthrosis, unspecified whether generalized or localized, pelvic region and thigh; Translations: [Osteoarthrosis, unspecified whether generalized or localized, pelvic region and thigh] Onset: 04-09-2016 Unclassified (1 source) Obstructive chronic bronchitis with acute bronchitis; Translations: [Obstructive chronic bronchitis with acute bronchitis] Onset: 08-06-2017 Unclassified (1 source) Thoracic or lumbosacral neuritis or radiculitis, unspecified; Translations: [Thoracic or lumbosacral neuritis or radiculitis, unspecified] Onset: 10-17-2014 Results Test Name Value Interpretation Reference Range Facility Office Visiton 06-18-2023 Follow-up visit [id number] Rick Hassan 1950 M Date Provider Department Center 06/18/2023 [facility] [place] Family History Problem Relation Age of Onset Lung cancer Mother Lung cancer Father Family Status - Relation Status Age at Mother Father Level of Service:46415 LA OFFICE/OUTPATIENT ESTABLISHED LOW MDM 20-29 MIN Normal [facility] Cult,Bloodon 06-17-2023 Cult,Blood Specimen Description .BLOOD Special Requests RIGHT AC 20ML Culture NO GROWTH 6 DAYS Report Status FINAL 06/17/2023 [facility] Comment on above: Performed By: #### T ROPI, LIP, BMP, LACDS, CDP #### [facility] [address] [place] [address] [employer]azier Apprentice: Michael Gamez MD Cult,Blood Specimen Description .BLOOD Special Requests RIGHT HAND 20ML Culture NO GROWTH 6 DAYS Report Status FINAL 06/17/2023 [facility] Comment on above: Performed By: #### T ROPI, LIP, BMP, LACDS, CDP #### [facility] [address], [place] [id number] [employer] Apprentice: Michael Gamez MD Organism ID [id number]/ Sension [id number] Organism ID w/ Sensi Specimen Description .FECES Culture SALMONELLA SPECIES Susceptibility to follow. Report Status FINAL 06/13/2023 [facility] Comment on above: Performed By: #### T ROPI, LIP, BMP, LACDS, CDP #### [facility] [address], [place] [id number] [employer] Apprentice: Michael Gamez MD Basic Metabolic Profon 06-13 Anion gap [Moles/Vol] 10 mmol/L Normal 9-17 [facility] Comment on above: Performed By: #### B JEANNA, MG #### [facility] [address], [place] [id number] [employer] Apprentice: Michael Gamez MD BUN/CRE Ratio 10 Normal 9-20 [facility] Comment on above: Performed By: #### B JEANNA, MG #### [facility] [address], [place] [id number] [employer] Apprentice: Michael Gamez MD Calcium [Mass/Vol] 8.8 mg/dL Normal 8.6-10.4 [facility] Comment on above: Performed By: #### B MP, MG #### [facility] [address], [place] [id number] [employer]ier Apprentice: Michael Gamez MD Chloride [Moles/Vol] 105 mmol/L Normal 98-107 [facility] Comment on above: Performed By: #### B MP, MG #### [facility] [address], [place] [phone] [employer]ier Apprentice: Michael Gamez MD CO2 [Moles/Vol] 19 mmol/L Low 20-31 [facility] Comment on above: Performed By: #### B MP, MG #### [facility] [address], [place] [id number] [employer] Apprentice: Michael Gamez MD Creatinine [Mass/Vol] 1.8 mg/dL High 0.7-1.2 [facility] Comment on above: Performed By: #### B MP, MG #### [facility] [address], [place] [id number] [employer]ier Apprentice: Michael Gamez MD GFR/1.73 sq M.predicted among non-blacks MDRD (S/P/Bld) [Vol rate/Area] 39 mL/min/{1.73_m2} Low >60 [facility] Comment on above: Result Comment: These results are not intended for use in patients <18 years of age. eGFR results are calculated without a race factor using the 2020 CKD-EPI equation. Careful clinical correlation is recommended, particularly when comparing to results calculated using previous equations. The CKD-EPI equation is less accurate in patients with extremes of muscle mass, extra-renal metabolism of creatine, excessive creatine ingestion, or following therapy that affects renal tubular secretion. Performed By: #### B MP, MG #### [facility] [address] [place] [address] [employer]ier Apprentice: Michael Gamez MD Glucose [Mass/Vol] 105 mg/dL High 70-99 [facility] Comment on above: Performed By: #### B MP, MG #### [facility] [address], [place] [id number] [employer] Apprentice: Michael Gamez MD Potassium [Moles/Vol] 3.9 mmol/L Normal 3.7-5.3 [facility] Comment on above: Performed By: #### B MP, MG #### [facility] [address], [place] [id number] [employer]ier Apprentice: Michael Gamez MD Sodium [Moles/Vol] 134 mmol/L Low 135-144 [facility] Comment on above: Performed By: #### B MP, MG #### [facility] [address], [place] [id number] [employer]ier Apprentice: Michael Gamez MD Urea nitrogen [Mass/Vol] 18 mg/dL Normal 8- [facility] Comment on above: Performed By: #### B MP, MG #### [facility] [address], [place] [id number] [employer]ier Apprentice: Michael Gamez MD Magnesiumon 06-13-2023 Magnesium [Mass/Vol] 2.1 mg/dL Normal 1.6-2.6 [facility] Comment on above: Performed By: #### B MP, MG #### [facility] [address], [place] [phone] [employer] Apprentice: Michael Gamez MD Basic Metabolic Profon 06-12 Anion gap [Moles/Vol] 9 mmol/L Normal - [facility] Comment on above: Performed By: #### T SHAAN, LIP, BMP, LACDS, CDP #### [facility] [address], [place] [id number] [employer] Apprentice: Michael Gamez MD BUN/CRE Ratio 14 Normal - [facility] Comment on above: Performed By: #### T SHAAN, LIP, BMP, LACDS, CDP #### [facility] [address], [place] [phone] [employer] Apprentice: Michael Gamez MD Calcium [Mass/Vol] 8.8 mg/dL Normal 8.6-10.4 [facility] Comment on above: Performed By: #### T ROPI, LIP, BMP, LACDS, CDP #### [facility] [address], [place] [id number] [employer] Apprentice: Michael Gamez MD Chloride [Moles/Vol] 108 mmol/L High 98-107 [facility] Comment on above: Performed By: #### T ROPI, LIP, BMP, LACDS, CDP #### [facility] [address] [place] [place], [place] [id number] [employer]ier Apprentice: Michael Gamez MD CO2 [Moles/Vol] 19 mmol/L Low 20-31 [facility] Comment on above: Performed By: #### T ROPI, LIP, BMP, LACDS, CDP #### [facility] [address], [place] [id number] [employer] Apprentice: Michael Gamez MD Creatinine [Mass/Vol] 2.2 mg/dL High 0.7-1.2 [facility] Comment on above: Performed By: #### T ROPDarlene, LIP, BMP, LACDS, CDP #### [facility] [address] [place] [address] [employer] Apprentice: Michael Gamez MD GFR/1.73 sq M.predicted among non-blacks MDRD (S/P/Bld) [Vol rate/Area] 30 mL/min/{1.73_m2} Low >60 [facility] Comment on above: Result Comment: These results are not intended for use in patients <18 years of age. eGFR results are calculated without a race factor using the 2020 CKD-EPI equation. Careful clinical correlation is recommended, particularly when comparing to results calculated using previous equations. The CKD-EPI equation is less accurate in patients with extremes of muscle mass, extra-renal metabolism of creatine, excessive creatine ingestion, or following therapy that affects renal tubular secretion. Performed By: #### T ROPI, LIP, BMP, LACDS, CDP #### [facility] [address] [place] [address] [employer] Apprentice: Michael Gamez MD Glucose [Mass/Vol] 120 mg/dL High 70-99 [facility] Comment on above: Performed By: #### T ROPI, LIP, BMP, LACDS, CDP #### [facility] [address], [place] [phone] [employer] Apprentice: Michael Gamez MD Potassium [Moles/Vol] 3.6 mmol/L Low 3.7-5.3 [facility] Comment on above: Performed By: #### T ROPI, LIP, BMP, LACDS, CDP #### [facility] [address] [place] [id number] [employer] Apprentice: Michael Gamez MD Sodium [Moles/Vol] 136 mmol/L Normal 135-144 [facility] Comment on above: Performed By: #### T ROPI, LIP, BMP, LACDS, CDP #### [facility] [address] [place] [address] [employer] Apprentice: Michael Gamez MD Urea nitrogen [Mass/Vol] 30 mg/dL High 8-23 [facility] Comment on above: Performed By: #### T ROPI, LIP, BMP, LACDS, CDP #### [facility] [address] [place] [address] [employer] Apprentice: Michael Gamez MD CBC with Diffon 06-12-2023 Abs. Basophil 0.04 k/uL Normal 0.00-0.20 [facility] Comment on above: Performed By: #### T ROPI, LIP, BMP, LACDS, CDP #### [facility] [address] [place] [id number] [employer] Apprentice: Michael Gamez MD Abs.Imm.Granulocyte 0.05 k/uL Normal 0.00-0.30 [facility] Comment on above: Performed By: #### T ROPI, LIP, BMP, LACDS, CDP #### [facility] [address] [place] [phone] [employer] Apprentice: Michael Gamez MD Abs.Neutrophil (Seg) 7.42 k/uL High 2.1-6.5 [facility] Comment on above: Performed By: #### T ROPI, LIP, BMP, LACDS, CDP #### [facility] [address] [place] [address] [employer] Apprentice: Michael Gamez MD Basophils/100 WBC (Bld) 0 % Normal 0-2 [facility] Comment on above: Performed By: #### T ROPI, LIP, BMP, LACDS, CDP #### [facility] [address] [place] [address] [employer] Apprentice: Michael Gamez MD Eosinophils (Bld) [#/Vol] 0.05 10*3/uL Normal 0.00-0.40 [facility] Comment on above: Performed By: #### T ROPI, LIP, BMP, LACDS, CDP #### [facility] [address] [place] [id number] [employer] Apprentice: Michael Gamez MD Eosinophils/100 WBC (Bld) 1 % Normal 0-5 [facility] Comment on above: Performed By: #### T ROPI, LIP, BMP, LACDS, CDP #### [facility] [address] [id number] [employer] Apprentice: Michael Gamez MD Erythrocyte distribution width (RBC) [Ratio] 13.4 % Normal 12.1-15.2 [facility] Comment on above: Performed By: #### T ROPI, LIP, BMP, LACDS, CDP #### [facility] [address] [phone] [employer] Apprentice: Michael Gamez MD Hematocrit (Bld) [Volume fraction] 36.7 % Low 41.0-53.0 [facility] Comment on above: Performed By: #### T ROPI, LIP, BMP, LACDS, CDP #### [facility] [address] [place] [address] [employer] Apprentice: Michael Gamez MD Hemoglobin (Bld) [Mass/Vol] 12.3 g/dL Low 13.5-17.5 [facility] Comment on above: Performed By: #### T ROPI, LIP, BMP, LACDS, CDP #### [facility] [address] [place] [address] [employer] Apprentice: Michael Gamez MD Immature granulocytes/100 WBC (Bld) 1 % Normal 0-5 [facility] Comment on above: Performed By: #### T ROPI, LIP, BMP, LACDS, CDP #### [facility] [address] [place] [address] [employer] Apprentice: Michael Gamez MD Lymphocytes (Bld) [#/Vol] 0.84 10*3/uL Low 1.00-4.80 [facility] Comment on above: Performed By: #### T ROPI, LIP, BMP, LACDS, CDP #### [facility] [address] [place] [address] [employer] Apprentice: Michael Gamez MD Lymphocytes/100 WBC (Bld) 9 % Low 13-44 [facility] Comment on above: Performed By: #### T ROPI, LIP, BMP, LACDS, CDP #### [facility] [address] [place] [address] [employer] Apprentice: Michael Gamez MD MCH (RBC) [Entitic mass] 30.4 pg Normal 26.0-34.0 [facility] Comment on above: Performed By: #### T ROPI, LIP, BMP, LACDS, CDP #### [facility] [address] [place] [address] [employer] Apprentice: Michael Gamez MD MCHC (RBC) [Mass/Vol] 33.5 g/dL Normal 31.0-37.0 [facility] Comment on above: Performed By: #### T ROPI, LIP, BMP, LACDS, CDP #### [facility] [address] [place] [address] [employer] Apprentice: Michael Gamez MD MCV (RBC) [Entitic vol] 90.6 fL Normal 80.0-100.0 [facility] Comment on above: Performed By: #### T ROPI, LIP, BMP, LACDS, CDP #### [facility] [address] [place] [address] [phone] [employer] Apprentice: Michael Gamez MD Monocytes (Bld) [#/Vol] 1.30 10*3/uL High 0.00-1.00 [facility] Comment on above: Performed By: #### T ROPI, LIP, BMP, LACDS, CDP #### [facility] [address] [place] [address] ([phone] [employer] Apprentice: Michael Gamez MD Monocytes/100 WBC (Bld) 13 % High 5-9 [facility] Comment on above: Performed By: #### T ROPI, LIP, BMP, LACDS, CDP #### [facility] [address] [place] [address] ([phone] [employer] Apprentice: Michael Gamez MD Neutrophil (Seg) 77 % High 39-75 [facility] Comment on above: Performed By: #### T ROPI, LIP, BMP, LACDS, CDP #### [facility] [address] [place] [address] ([phone] [employer] Apprentice: Michael Gamez MD Platelet mean volume (Bld) [Entitic vol] 11.1 fL Normal 6.0-12.0 [facility] Comment on above: Performed By: #### T ROPI, LIP, BMP, LACDS, CDP #### [facility] [address] [place] [address] [phone] [employer] Apprentice: Michael Gamez MD Platelets (Bld) [#/Vol] 143 10*3/uL Normal 140-450 [facility] Comment on above: Performed By: #### T ROPI, LIP, BMP, LACDS, CDP #### [facility] [address] [place] [address] [phone] [employer] Apprentice: Michael Gamez MD RBC (Bld) [#/Vol] 4.05 10*6/uL Low 4.50-5.90 [facility] Comment on above: Performed By: #### T ROPI, LIP, BMP, LACDS, CDP #### [facility] [address] [place] [address] [employer] Apprentice: Michael Gamez MD WBC (Bld) [#/Vol] 9.7 10*3/uL Normal 3.5-11.0 [facility] Comment on above: Performed By: #### T ROPI, LIP, BMP, LACDS, CDP #### [facility] [address] [place] [address] [employer] Apprentice: Michael Gamez MD Magnesiumon 06-12-2023 Magnesium [Mass/Vol] 2.2 mg/dL Normal 1.6-2.6 [facility] Comment on above: Performed By: #### T SHAAN, LIP, BMP, LACDS, CDP #### [facility] [address] [place] [address] [employer] Apprentice: Michael Gamez MD XR CHEST (2 VW)on 06-12-2023 XR CHEST (2 VW) EXAM: XR CHEST (2 VW ) HISTORY: SOB COMPARISON: 06/09/2023 IMPRESSION: FINDINGS/IMPRESSION: 1. Heart size upper normal. 2. Lungs clear. Interpreted by: Miguel Lucia Jr., MD Signed by: Miguel Lucia Jr., MD 06/12/23 Final result Normal [facility] Basic Metabolic Profon 06-11 Anion gap [Moles/Vol] 12 mmol/L Normal 9-17 [facility] Comment on above: Performed By: #### B MP, MG #### [facility] [address] [place] [address] [employer] Apprentice: Michael Gamez MD BUN/CRE Ratio 12 Normal - [facility] Comment on above: Performed By: #### B MP, MG #### [facility] [address], [place] [phone] [employer] Apprentice: Michael Gamez MD Calcium [Mass/Vol] 8.3 mg/dL Low 8.6-10.4 [facility] Comment on above: Performed By: #### B MP, MG #### [facility] [address], [place] [id number] [employer] Apprentice: Michael Gamez MD Chloride [Moles/Vol] 101 mmol/L Normal 98-107 [facility] Comment on above: Performed By: #### B MP, MG #### [facility] [address], [place] [id number] [employer] Apprentice: Michael Gamez MD CO2 [Moles/Vol] 18 mmol/L Low 20-31 [facility] Comment on above: Performed By: #### B MP, MG #### [facility] [address], [place] [phone] [employer] Apprentice: Michael Gamez MD Creatinine [Mass/Vol] 2.3 mg/dL High 0.7-1.2 [facility] Comment on above: Performed By: #### B MP, MG #### [facility] [address], [place] [phone] [employer] Apprentice: Michael Gamez MD GFR/1.73 sq M.predicted among non-blacks MDRD (S/P/Bld) [Vol rate/Area] 29 mL/min/{1.73_m2} Low >60 [facility] Comment on above: Result Comment: These results are not intended for use in patients <18 years of age. eGFR results are calculated without a race factor using the 2020 CKD-EPI equation. Careful clinical correlation is recommended, particularly when comparing to results calculated using previous equations. The CKD-EPI equation is less accurate in patients with extremes of muscle mass, extra-renal metabolism of creatine, excessive creatine ingestion, or following therapy that affects renal tubular secretion. Performed By: #### B MP, MG #### [facility] [address], [place] [phone] [employer] Apprentice: Michael Gamez MD Glucose [Mass/Vol] 122 mg/dL High 70-99 [facility] Comment on above: Performed By: #### B MP, MG #### [facility] [address], [place] [phone] [employer] Apprentice: Michael Gamez MD Potassium [Moles/Vol] 3.5 mmol/L Low 3.7-5.3 [facility] Comment on above: Performed By: #### B MP, MG #### [facility] [address], [place] [phone] [employer] Apprentice: Michael Gamez MD Sodium [Moles/Vol] 131 mmol/L Low 135-144 [facility] Comment on above: Performed By: #### B JEANNA, MG #### [facility] [address] [phone] [employer] Apprentice: Michael Gamez MD Urea nitrogen [Mass/Vol] 28 mg/dL High 8-23 [facility] Comment on above: Performed By: #### B JEANNA, MG #### [facility] [address] [phone] [employer] Apprentice: Michael Gamez MD C diff Ag + Toxinon 06-11-20 23 C diff Ag + Toxin Negative Normal NEG [facility] Comment on above: Result Comment: No C . difficile antigen and Toxin Detected. Performed By: #### T HIRAM GARDUNO, BMP, LACDS, CDP #### [facility] [address] [place] [address] [employer] Apprentice: Michael Gamez MD CBC with Diffon 06-11-2023 Abs. Basophil 0.04 k/uL Normal 0.00-0.20 [facility] Comment on above: Performed By: #### T HIRAM GARDUNO, BMP, LACDS, CDP #### [facility] [address] [phone] [employer] Apprentice: Michael Gamez MD Abs.Imm.Granulocyte 0.05 k/uL Normal 0.00-0.30 [facility] Comment on above: Performed By: #### T ROPI, LIP, BMP, LACDS, CDP #### [facility] [address] [phone] [employer] Apprentice: Michael Gamez MD Abs.Neutrophil (Seg) 6.91 k/uL High 2.1-6.5 [facility] Comment on above: Performed By: #### T ROPI, LIP, BMP, LACDS, CDP #### [facility] [address] [place] [address] [employer] Apprentice: Michael Gamez MD Basophils/100 WBC (Bld) 1 % Normal 0-2 [facility] Comment on above: Performed By: #### T ROPI, LIP, BMP, LACDS, CDP #### [facility] [address] [phone] [employer] Apprentice: Michael Gamez MD Eosinophils (Bld) [#/Vol] 0.01 10*3/uL Normal 0.00-0.40 [facility] Comment on above: Performed By: #### T ROPI, LIP, BMP, LACDS, CDP #### [facility] [address] [place] [address] [employer] Apprentice: Michael Gamez MD Eosinophils/100 WBC (Bld) 0 % Normal 0-5 [facility] Comment on above: Performed By: #### T ROPI, LIP, BMP, LACDS, CDP #### [facility] [address] [phone] Gl[employer] Apprentice: Michael Gamez MD Erythrocyte distribution width (RBC) [Ratio] 13.4 % Normal 12.1-15.2 [facility] Comment on above: Performed By: #### T ROPI, LIP, BMP, LACDS, CDP #### [facility] [address] [place] [address] [employer] Apprentice: Michael Gamez MD Hematocrit (Bld) [Volume fraction] 38.7 % Low 41.0-53.0 [facility] Comment on above: Performed By: #### T ROPI, LIP, BMP, LACDS, CDP #### [facility] [address] [place] [address] [employer] Apprentice: Michael Gamez MD Hemoglobin (Bld) [Mass/Vol] 12.9 g/dL Low 13.5-17.5 [facility] Comment on above: Performed By: #### T ROPI, LIP, BMP, LACDS, CDP #### [facility] [address] [place] [address] [employer] Apprentice: Michael Gamez MD Immature granulocytes/100 WBC (Bld) 1 % Normal 0-5 [facility] Comment on above: Performed By: #### T ROPI, LIP, BMP, LACDS, CDP #### [facility] [address] [place] [address] [employer] Apprentice: Michael Gamez MD Lymphocytes (Bld) [#/Vol] 0.81 10*3/uL Low 1.00-4.80 [facility] Comment on above: Performed By: #### T ROPI, LIP, BMP, LACDS, CDP #### [facility] [address] [place] [address] [employer] Apprentice: Michael Gamez MD Lymphocytes/100 WBC (Bld) 9 % Low 13-44 [facility] Comment on above: Performed By: #### T ROPI, LIP, BMP, LACDS, CDP #### [facility] [address] [phone] Glaz[employer] Apprentice: Michael Gamez MD MCH (RBC) [Entitic mass] 30.0 pg Normal 26.0-34.0 [facility] Comment on above: Performed By: #### T ROPI, LIP, BMP, LACDS, CDP #### [facility] [address] [place] [address] [employer] Apprentice: Michael Gamez MD MCHC (RBC) [Mass/Vol] 33.3 g/dL Normal 31.0-37.0 [facility] Comment on above: Performed By: #### T ROPI, LIP, BMP, LACDS, CDP #### [facility] [address] [place] [address] [employer] Apprentice: Michael Gamez MD MCV (RBC) [Entitic vol] 90.0 fL Normal 80.0-100.0 [facility] Comment on above: Performed By: #### T ROPI, LIP, BMP, LACDS, CDP #### [facility] [address] [place] [address] [employer] Apprentice: Michael Gamez MD Monocytes (Bld) [#/Vol] 0.82 10*3/uL Normal 0.00-1.00 [facility] Comment on above: Performed By: #### T ROPI, LIP, BMP, LACDS, CDP #### [facility] [address] [place] [address] [employer] Apprentice: Michael Gamez MD Monocytes/100 WBC (Bld) 10 % High 5-9 [facility] Comment on above: Performed By: #### T ROPI, LIP, BMP, LACDS, CDP #### [facility] [address] [place] [address] [employer] Apprentice: Michael Gamez MD Neutrophil (Seg) 80 % High 39-75 [facility] Comment on above: Performed By: #### T ROPI, LIP, BMP, LACDS, CDP #### [facility] [address] [place] [address] [employer] Apprentice: Michael Gamez MD Platelet mean volume (Bld) [Entitic vol] 10.6 fL Normal 6.0-12.0 [facility] Comment on above: Performed By: #### T ROPI, LIP, BMP, LACDS, CDP #### [facility] [address] [place], [place] [phone] ([phone] Glazier Apprentice: Michael Gamez MD Platelets (Bld) [#/Vol] 154 10*3/uL Normal 140-450 [facility] Comment on above: Performed By: #### T ROPI, LIP, BMP, LACDS, CDP #### [facility] [address], [place] [phone] ([phone] Glazier Apprentice: Michael Gamez MD RBC (Bld) [#/Vol] 4.30 10*6/uL Low 4.50-5.90 [facility] Comment on above: Performed By: #### T ROPI, LIP, BMP, LACDS, CDP #### [facility] [address], [place] [phone] ([phone] Glazier Apprentice: Michael Gamez MD WBC (Bld) [#/Vol] 8.6 10*3/uL Normal 3.5-11.0 [facility] Comment on above: Performed By: #### T ROPI, LIP, BMP, LACDS, CDP #### [facility] [address] [place] [address] ([phone]) [employer] Apprentice: Michael Gamez MD CT ABDOMEN PELVIS WO CONTRAS Ton 06-11-2023 CT ABDOMEN PELVIS WO CONTRAST EXAMINATION: CT ABDOMEN PELVIS WO CONTRAST, 06/11/2023 8:27 AM EST HISTORY: worsening renal failure, diarrhea COMPARISON: [place] CT abdomen pelvis TECHNIQUE: CT scan of the abdomen and pelvis was performed without IV contrast. CT dose reduction technique was used, including Automated Exposure Control. POSITIVES related to history: Slight stranding around the ascending colon raises the possibility of colitis. This is new from the prior study. There is marked diverticulosis of the sigmoid colon, without acute diverticulitis. NEGATIVES related to history: No hydronephrosis or urinary tract stones. COINCIDENTAL, unrelated to history: Enlarged prostate at 5.3 cm diameter. Plaque aorta, without aneurysm. Cholecystectomy. Hepatic steatosis. Heavy coronary artery calcifications. Likely subcutaneous injection site lower left abdominal wall. ROUTINE: Normal spleen, adrenal glands, pancreas and bladder. Bone windows negative. IMPRESSION: Consider the possibility of colitis in the ascending colon. Interpreted by: Miguel Lucia Jr., MD Signed by: Miguel Lucia Jr., MD 06/11/23 Final result Normal [facility] Lactic Acidon 06-11-2023 Lactate [Moles/Vol] 0.6 mmol/L Normal 0.5-2.2 [facility] Comment on above: Performed By: #### T ROPI, LIP, BMP, LACDS, CDP #### [facility] [address] [place] [address] [employer] Apprentice: Michael Gamez MD Liver Profileon 06-11-2023 Albumin [Mass/Vol] 3.7 g/dL Normal 3.5-5.2 [facility] Comment on above: Performed By: #### T ROPI, LIP, BMP, LACDS, CDP #### [facility] [address], [place] [phone] [employer] Apprentice: Michael Gamez MD Alkaline Phos 38 U/L Low 40-129 [facility] Comment on above: Performed By: #### T ROPI, LIP, BMP, LACDS, CDP #### [facility] [address] [place] [address] [employer] Apprentice: Michael Gamez MD ALT [Catalytic activity/Vol] 19 U/L Normal 5-41 [facility] Comment on above: Performed By: #### T ROPI, LIP, BMP, LACDS, CDP #### [facility] [address], [place] [phone] [employer] Apprentice: Michael Gamez MD AST [Catalytic activity/Vol] 43 U/L High <40 [facility] Comment on above: Performed By: #### T ROPI, LIP, BMP, LACDS, CDP #### [facility] [address], [place] [phone] [employer] Apprentice: Michael Gamez MD Bilirubin [Mass/Vol] 0.7 mg/dL Normal 0.3-1.2 [facility] Comment on above: Performed By: #### T ROPI, LIP, BMP, LACDS, CDP #### [facility] [address] [place] [address] [employer] Apprentice: Michael Gamez MD Bilirubin, Indirect Can not be calculated Normal 0.0-1 .0 [facility] Comment on above: Performed By: #### T ROPI, LIP, BMP, LACDS, CDP #### [facility] [address] [place] [address] Gl[employer] Apprentice: Michael Gamez MD Bilirubin.indirect [Mass/Vol] mg/dL Normal <0.3 [facility] Comment on above: Performed By: #### T ROPI, LIP, BMP, LACDS, CDP #### [facility] [address], [place] [phone] [employer]ier Apprentice: Michael Gamez MD Protein [Mass/Vol] 6.6 g/dL Normal 6.4-8.3 [facility] Comment on above: Performed By: #### T ROPI, LIP, BMP, LACDS, CDP #### [facility] [address] [place] [address] [employer] Apprentice: Michael Gamez MD Magnesiumon 06-11-2023 Magnesium [Mass/Vol] 2.0 mg/dL Normal 1.6-2.6 [facility] Comment on above: Performed By: #### B MP, MG #### [facility] [address] [place] [address] [employer] Apprentice: Michael Gamez MD Stool PCR [place] 06-11-20 Campylobacter sp PCR NEGATIVE: No Campylobacter spp. (jejuni or coli) DNA Detected Normal CAMNEG [facility] Comment on above: Performed By: #### T ROPI, LIP, BMP, LACDS, CDP #### [facility] [address] [place] [address] [employer] Apprentice: Michael Gamez MD E coli enterotox PCR NEGATIVE: No Enterotoxigenic E. coli (ETEC) Heat-labile and heat-stable (LT/ST) Normal EECNEG [facility] Comment on above: Result Comment: DNA Detected Performed By: #### T ROPI, LIP, BMP, LACDS, CDP #### [facility] [address] [place] [address] [employer]ier Apprentice: Michael Gamez MD Plesiomonas sp PCR Negative [facility] Comment on above: Performed By: #### T ROPI, LIP, BMP, LACDS, CDP #### [facility] [address] [place] [address] [employer]ier Apprentice: Michael Gamez MD Salmonella sp PCR Positive Abnormal SALNEG [facility] Comment on above: Result Comment: Resu lts reported to the appropriate Health Department Performed By: #### T ROPI, LIP, BMP, LACDS, CDP #### [facility] [address] [place] [address] [employer] Apprentice: Michael Gamez MD Shigatoxin gene PCR Negative Normal STXNEG [facility] Comment on above: Performed By: #### T ROPI, LIP, BMP, LACDS, CDP #### [facility] [address] [place] [address] [employer] Apprentice: Michael Gamez MD Shigella sp PCR Negative Normal SHINEG [facility] Comment on above: Performed By: #### T ROPI, LIP, BMP, LACDS, CDP #### [facility] [address] [facility] [place] [phone] [employer] Apprentice: Michael Gamez MD Vibrio sp PCR NEGATIVE: No Vibrio (V. vulnificus, V, parahaemolyticus and V. cholerae) DNA Normal VIBNEG [facility] Comment on above: Result Comment: Dete cted Performed By: #### T ROPI, LIP, BMP, LACDS, CDP #### [facility] [address] [place] [address] Gl[employer]ier Apprentice: Michael Gamez MD Yersinia gene PCR Negative Normal YERNEG [facility] Comment on above: Performed By: #### T ROPI, LIP, BMP, LACDS, CDP #### [facility] [address] [place] [address] [employer] Apprentice: Michael Gamez MD Basic Metab w/rfx MGon 06-10 Anion gap [Moles/Vol] 13 mmol/L Normal 9-17 [facility] Comment on above: Performed By: #### T ROPI, LIP, BMP, LACDS, CDP #### [facility] [address] [place] [address] [employer] Apprentice: Michael Gamez MD BUN/CRE Ratio 17 Normal 9-20 [facility] Comment on above: Performed By: #### T ROPI, LIP, BMP, LACDS, CDP #### [facility] [address] [place] [address] [employer] Apprentice: Michael Gamez MD Calcium [Mass/Vol] 9.2 mg/dL Normal 8.6-10.4 [facility] Comment on above: Performed By: #### T ROPI, LIP, BMP, LACDS, CDP #### [facility] [address] [place] [address] [employer] Apprentice: Michael Gamez MD Chloride [Moles/Vol] 97 mmol/L Low 98-107 [facility] Comment on above: Performed By: #### T ROPI, LIP, BMP, LACDS, CDP #### [facility] [address], [place] [phone] [employer] Apprentice: Michael Gamez MD CO2 [Moles/Vol] 20 mmol/L Normal 20-31 [facility] Comment on above: Performed By: #### T ROPI, LIP, BMP, LACDS, CDP #### [facility] [address] [facility] [address] Gl[employer]ier Apprentice: Michael Gamez MD Creatinine [Mass/Vol] 1.5 mg/dL High 0.7-1.2 [facility] Comment on above: Performed By: #### T ROPI, LIP, BMP, LACDS, CDP #### [facility] [address] [place] [address] [employer] Apprentice: Michael Gamez MD GFR/1.73 sq M.predicted among non-blacks MDRD (S/P/Bld) [Vol rate/Area] 48 mL/min/{1.73_m2} Low >60 [facility] Comment on above: Result Comment: These results are not intended for use in patients <18 years of age. eGFR results are calculated without a race factor using the 2020 CKD-EPI equation. Careful clinical correlation is recommended, particularly when comparing to results calculated using previous equations. The CKD-EPI equation is less accurate in patients with extremes of muscle mass, extra-renal metabolism of creatine, excessive creatine ingestion, or following therapy that affects renal tubular secretion. Performed By: #### T ROPI, LIP, BMP, LACDS, CDP #### [facility] [address] [place] [address] [employer] Apprentice: Michael Gamez MD Glucose [Mass/Vol] 147 mg/dL High 70-99 [facility] Comment on above: Performed By: #### T ROPI, LIP, BMP, LACDS, CDP #### [facility] [address] [place] [address] [employer] Apprentice: Michael Gamez MD Potassium [Moles/Vol] 3.9 mmol/L Normal 3.7-5.3 [facility] Comment on above: Performed By: #### T ROPI, LIP, BMP, LACDS, CDP #### [facility] [address], [place] [phone] [employer] Apprentice: Michael Gamez MD Sodium [Moles/Vol] 130 mmol/L Low 135-144 [facility] Comment on above: Performed By: #### T ROPI, LIP, BMP, LACDS, CDP #### [facility] [address], [place] [phone] [employer] Apprentice: Michael Gamez MD Urea nitrogen [Mass/Vol] 25 mg/dL High 8-23 [facility] Comment on above: Performed By: #### T ROPI, LIP, BMP, LACDS, CDP #### [facility] [address], [place] [phone] [employer] Apprentice: Michael Gamez MD Basic Metabolic Profon 06-10 Anion gap [Moles/Vol] 12 mmol/L Normal 9-17 [facility] Comment on above: Performed By: #### B MP #### [facility] [address], [place] [phone] [employer] Apprentice: Michael Gamez MD BUN/CRE Ratio 14 Normal 9-20 [facility] Comment on above: Performed By: #### B MP #### [facility] [address], [place] 09[address] [employer] Apprentice: Michael Gamez MD Calcium [Mass/Vol] 8.3 mg/dL Low 8.6-10.4 [facility] Comment on above: Performed By: #### B MP #### [facility] [address], [place] [phone] [employer] Apprentice: Michael Gamez MD Chloride [Moles/Vol] 103 mmol/L Normal 98-107 [facility] Comment on above: Performed By: #### B MP #### [facility] [address], [place] [phone] [employer] Apprentice: Michael Gamez MD CO2 [Moles/Vol] 18 mmol/L Low 20-31 [facility] Comment on above: Performed By: #### B MP #### [facility] [address] [place] [address] [employer] Apprentice: Michael Gamez MD Creatinine [Mass/Vol] 1.6 mg/dL High 0.7-1.2 [facility] Comment on above: Performed By: #### B MP #### [facility] [address], [place] [phone] [employer] Apprentice: Michael Gamez MD GFR/1.73 sq M.predicted among non-blacks MDRD (S/P/Bld) [Vol rate/Area] 45 mL/min/{1.73_m2} Low >60 [facility] Comment on above: Result Comment: These results are not intended for use in patients <18 years of age. eGFR results are calculated without a race factor using the 2020 CKD-EPI equation. Careful clinical correlation is recommended, particularly when comparing to results calculated using previous equations. The CKD-EPI equation is less accurate in patients with extremes of muscle mass, extra-renal metabolism of creatine, excessive creatine ingestion, or following therapy that affects renal tubular secretion. Performed By: #### B MP #### [facility] [address] [place] [address] [employer]azier Apprentice: Michael Gamez MD Glucose [Mass/Vol] 119 mg/dL High 70-99 [facility] Comment on above: Performed By: #### B MP #### [facility] [address] [place] [address] [employer]azier Apprentice: Michael Gamez MD Potassium [Moles/Vol] 3.4 mmol/L Low 3.7-5.3 [facility] Comment on above: Performed By: #### B MP #### [facility] [address] [place] [address] Glazier Apprentice: Michael Gamez MD Sodium [Moles/Vol] 133 mmol/L Low 135-144 [facility] Comment on above: Performed By: #### B MP #### [facility] [address], [place] [id number] [employer]ier Apprentice: Michael Gamez MD Urea nitrogen [Mass/Vol] 23 mg/dL Normal 8-23 [facility] Comment on above: Performed By: #### B MP #### [facility] [address] [id number] Glazier Apprentice: Michael Gamez MD C diff Ag + Toxinon 06-10-20 23 Specimen Description .FECES Normal [facility] Comment on above: Performed By: #### T HIRAM GARDUNO, BMP, LACNOEL, CDP #### [facility] [address] [id number] Glazier Apprentice: Michael Gamez MD CBC with Diffon 06-10-2023 Abs. Basophil 0.03 k/uL Normal 0.00-0.20 [facility] Comment on above: Performed By: #### T SHAAN, LIP, BMP, LACDS, CDP #### [facility] [address] [id number] Glazier Apprentice: Michael Gamez MD Abs.Imm.Granulocyte 0.08 k/uL Normal 0.00-0.30 [facility] Comment on above: Performed By: #### T SHAAN, LIP, BMP, LACDS, CDP #### [facility] [address] [id number] Glazier Apprentice: Michael Gamez MD Abs.Neutrophil (Seg) 12.23 k/uL High 2.1-6.5 [facility] Comment on above: Performed By: #### T SHAAN, LIP, BMP, LACDS, CDP #### [facility] [address] [id number] Glazier Apprentice: Michael Gamez MD Basophils/100 WBC (Bld) 0 % Normal 0-2 [facility] Comment on above: Performed By: #### T ROPI, LIP, BMP, LACDS, CDP #### [facility] [address] [place] [address] Gl[employer]ier Apprentice: Michael Gamez MD Eosinophils (Bld) [#/Vol] 0.00 10*3/uL Normal 0.00-0.40 [facility] Comment on above: Performed By: #### T ROPI, LIP, BMP, LACDS, CDP #### [facility] [address] [place] [address] [employer]ier Apprentice: Michael Gamez MD Eosinophils/100 WBC (Bld) 0 % Normal 0-5 [facility] Comment on above: Performed By: #### T ROPI, LIP, BMP, LACDS, CDP #### [facility] [address] [id number] Glazier Apprentice: Michael Gamez MD Erythrocyte distribution width (RBC) [Ratio] 13.3 % Normal 12.1-15.2 [facility] Comment on above: Performed By: #### T ROPI, LIP, BMP, LACDS, CDP #### [facility] [address] [place] [address] Glazier Apprentice: Michael Gamez MD Hematocrit (Bld) [Volume fraction] 44.6 % Normal 41.0-53.0 [facility] Comment on above: Performed By: #### T ROPI, LIP, BMP, LACDS, CDP #### [facility] [address] [place] [address] Glazier Apprentice: Michael Gamez MD Hemoglobin (Bld) [Mass/Vol] 15.0 g/dL Normal 13.5-17.5 [facility] Comment on above: Performed By: #### T ROPI, LIP, BMP, LACDS, CDP #### [facility] [address] [place] [address] [employer]ier Apprentice: Michael Gamez MD Immature granulocytes/100 WBC (Bld) 1 % Normal 0-5 [facility] Comment on above: Performed By: #### T ROPI, LIP, BMP, LACDS, CDP #### [facility] [address] [place] [address] Glazier Apprentice: Michael Gamez MD Lymphocytes (Bld) [#/Vol] 0.68 10*3/uL Low 1.00-4.80 [facility] Comment on above: Performed By: #### T ROPI, LIP, BMP, LACDS, CDP #### [facility] [address] [place] [address] Gl[employer]ier Apprentice: Michael Gamez MD Lymphocytes/100 WBC (Bld) 5 % Low 13-44 [facility] Comment on above: Performed By: #### T ROPI, LIP, BMP, LACDS, CDP #### [facility] [address] [place] [address] Glazier Apprentice: Michael Gamez MD MCH (RBC) [Entitic mass] 30.6 pg Normal 26.0-34.0 [facility] Comment on above: Performed By: #### T ROPI, LIP, BMP, LACDS, CDP #### [facility] [address] [place] [address] Glazier Apprentice: Mihcael Gamez MD MCHC (RBC) [Mass/Vol] 33.6 g/dL Normal 31.0-37.0 [facility] Comment on above: Performed By: #### T ROPI, LIP, BMP, LACDS, CDP #### [facility] [address] [place] [address] Glazier Apprentice: Michael Gamez MD MCV (RBC) [Entitic vol] 91.0 fL Normal 80.0-100.0 [facility] Comment on above: Performed By: #### T ROPI, LIP, BMP, LACDS, CDP #### [facility] [address] [place] [address] [phone] Gl[employer] Apprentice: Michael Gamez MD Monocytes (Bld) [#/Vol] 0.98 10*3/uL Normal 0.00-1.00 [facility] Comment on above: Performed By: #### T ROPI, LIP, BMP, LACDS, CDP #### [facility] [address] [place] [address] [phone] Gl[employer]ier Apprentice: Michael Gamez MD Monocytes/100 WBC (Bld) 7 % Normal 5-9 [facility] Comment on above: Performed By: #### T ROPI, LIP, BMP, LACDS, CDP #### [facility] [address] [place] [address] [phone] Glazier Apprentice: Michael Gamez MD Neutrophil (Seg) 87 % High 39-75 [facility] Comment on above: Performed By: #### T ROPI, LIP, BMP, LACDS, CDP #### [facility] [address] [place] [address] [phone] Glazier Apprentice: Michael Gamez MD Platelet mean volume (Bld) [Entitic vol] 10.2 fL Normal 6.0-12.0 [facility] Comment on above: Performed By: #### T ROPI, LIP, BMP, LACDS, CDP #### [facility] [address] [place] [address] [phone] Glazier Apprentice: Michael Gamez MD Platelets (Bld) [#/Vol] 164 10*3/uL Normal 140-450 [facility] Comment on above: Performed By: #### T ROPI, LIP, BMP, LACDS, CDP #### [facility] [address] [place] [address] [phone] Glazier Apprentice: Michael Gamez MD RBC (Bld) [#/Vol] 4.90 10*6/uL Normal 4.50-5.90 [facility] Comment on above: Performed By: #### T ROPI, LIP, BMP, LACDS, CDP #### [facility] [address] [place] [address] Glazier Apprentice: Michael Gamez MD WBC (Bld) [#/Vol] 14.0 10*3/uL High 3.5-11.0 [facility] Comment on above: Performed By: #### T ROPI, LIP, BMP, LACDS, CDP #### [facility] [address], [place] [phone] Gl[employer]ier Apprentice: Michael Gamez MD Magnesiumon 06-10-2023 Magnesium [Mass/Vol] 2.0 mg/dL Normal 1.6-2.6 [facility] Comment on above: Performed By: #### T ROPI, LIP, BMP, LACDS, CDP #### [facility] [address] [place] [address] [employer]ier Apprentice: Michael Gamez MD Basic Metabolic Profon 06-09 Anion gap [Moles/Vol] 15 mmol/L Normal 9-17 [facility] Comment on above: Performed By: #### T ROPI, LIP, BMP, LACDS, CDP #### [facility] [address] [place] [address] [employer]azier Apprentice: Michael Gamez MD BUN/CRE Ratio 20 Normal - [facility] Comment on above: Performed By: #### T ROPI, LIP, BMP, LACDS, CDP #### [facility] [address], [place] [id number] Glazier Apprentice: Michael Gamez MD Calcium [Mass/Vol] 10.3 mg/dL Normal 8.6-10.4 [facility] Comment on above: Performed By: #### T ROPI, LIP, BMP, LACDS, CDP #### [facility] [address] [place] [address] Glazier Apprentice: Michael Gamez MD Chloride [Moles/Vol] 99 mmol/L Normal 98-107 [facility] Comment on above: Performed By: #### T ROPI, LIP, BMP, LACDS, CDP #### [facility] [address] [place] [address] Glazier Apprentice: Michael Gamez MD CO2 [Moles/Vol] 20 mmol/L Normal 20-31 [facility] Comment on above: Performed By: #### T ROPI, LIP, BMP, LACDS, CDP #### [facility] [address] [place] [address] Glazier Apprentice: Michael Gamez MD Creatinine [Mass/Vol] 1.2 mg/dL Normal 0.7-1.2 [facility] Comment on above: Performed By: #### T SHAAN, LIP, BMP, LACDS, CDP #### [facility] [address] [place] [address] [employer]ier Apprentice: Michael Gamez MD GFR/1.73 sq M.predicted among non-blacks MDRD (S/P/Bld) [Vol rate/Area] mL/min/{1.73_m2} Normal >60 [facility] Comment on above: Result Comment: These results are not intended for use in patients <18 years of age. eGFR results are calculated without a race factor using the 2020 CKD-EPI equation. Careful clinical correlation is recommended, particularly when comparing to results calculated using previous equations. The CKD-EPI equation is less accurate in patients with extremes of muscle mass, extra-renal metabolism of creatine, excessive creatine ingestion, or following therapy that affects renal tubular secretion. Performed By: #### T ROPI, LIP, BMP, LACDS, CDP #### [facility] [address] [place] [address] Glazier Apprentice: Michael Gamez MD Glucose [Mass/Vol] 162 mg/dL High 70-99 [facility] Comment on above: Performed By: #### T ROPI, LIP, BMP, LACDS, CDP #### [facility] [address], [place] [phone] Gl[employer]ier Apprentice: Michael Gamez MD Potassium [Moles/Vol] 3.5 mmol/L Low 3.7-5.3 [facility] Comment on above: Performed By: #### T SHAAN, LIP, BMP, LACDS, CDP #### [facility] [address], [place] [id number] [employer]ier Apprentice: Michael Gamez MD Sodium [Moles/Vol] 134 mmol/L Low 135-144 [facility] Comment on above: Performed By: #### T SHAAN, LIP, BMP, LACDS, CDP #### [facility] [address] [place] [address] Glazier Apprentice: Michael Gamez MD Urea nitrogen [Mass/Vol] 24 mg/dL High 8-23 [facility] Comment on above: Performed By: #### T SHAAN, LIP, BMP, LACDS, CDP #### [facility] [address] [place] [address] Glazier Apprentice: Michael Gamez MD C diff Ag + Toxinon 06-09-20 23 C diff Ag + Toxin Negative Normal NEG [facility] Comment on above: Result Comment: No C . difficile antigen and Toxin Detected. Performed By: #### T SHAAN, LIP, BMP, LACDS, CDP #### [facility] [address] [place] [address] Glazier Apprentice: Michael Gamez MD Specimen Description .FECES Normal [facility] Comment on above: Performed By: #### T SHAAN LIP, BMP, LACDS, CDP #### [facility] [address] [place] [address] Glazier Apprentice: Michael Gamez MD CBC with Diffon 06-09-[address] (Bld) [Interp] Platelet morphology normal. Normal [facility] Comment on above: Result Comment: Scan manas to verify automated differential. Performed By: #### T ROPI, LIP, BMP, LACDS, CDP #### [facility] [address] [place] [address] Glazier Apprentice: Michael Gamez MD Abs. Basophil 0.02 k/uL Normal 0.00-0.20 [facility] Comment on above: Performed By: #### T ROPI, LIP, BMP, LACDS, CDP #### [facility] [address] [place] [address] Glazier Apprentice: Michael Gamez MD Abs.Imm.Granulocyte 0.07 k/uL Normal 0.00-0.30 [facility] Comment on above: Performed By: #### T ROPI, LIP, BMP, LACDS, CDP #### [facility] [address] [place] [address] Glazier Apprentice: Michael Gamez MD Abs.Neutrophil (Seg) 13.43 k/uL High 2.1-6.5 [facility] Comment on above: Performed By: #### T ROPI, LIP, BMP, LACDS, CDP #### [facility] [address] [place] [address] Gl[employer]ier Apprentice: Michael Gamez MD Basophils/100 WBC (Bld) 0 % Normal 0-2 [facility] Comment on above: Performed By: #### T ROPI, LIP, BMP, LACDS, CDP #### [facility] [address] [place] [address] Glazier Apprentice: Michael Gamez MD Eosinophils (Bld) [#/Vol] 0.01 10*3/uL Normal 0.00-0.40 [facility] Comment on above: Performed By: #### T ROPI, LIP, BMP, LACDS, CDP #### [facility] [address] [place] [address] Glazier Apprentice: Michael Gamez MD Eosinophils/100 WBC (Bld) 0 % Normal 0-5 [facility] Comment on above: Performed By: #### T ROPI, LIP, BMP, LACDS, CDP #### [facility] [address] [phone] Glazier Apprentice: Michael Gamez MD Erythrocyte distribution width (RBC) [Ratio] 13.1 % Normal 12.1-15.2 [facility] Comment on above: Performed By: #### T ROPI, LIP, BMP, LACDS, CDP #### [facility] [address] [place] [address] Glazier Apprentice: Michael Gamez MD Hematocrit (Bld) [Volume fraction] 46.9 % Normal 41.0-53.0 [facility] Comment on above: Performed By: #### T ROPI, LIP, BMP, LACDS, CDP #### [facility] [address] [place] [address] Glazier Apprentice: Michael Gamez MD Hemoglobin (Bld) [Mass/Vol] 15.9 g/dL Normal 13.5-17.5 [facility] Comment on above: Performed By: #### T ROPI, LIP, BMP, LACDS, CDP #### [facility] [address] [phone] Glazier Apprentice: Michael Gamez MD Immature granulocytes/100 WBC (Bld) 1 % Normal 0-5 [facility] Comment on above: Performed By: #### T ROPI, LIP, BMP, LACDS, CDP #### [facility] [address] [phone] Glazier Apprentice: Michael Gamez MD Lymphocytes (Bld) [#/Vol] 0.74 10*3/uL Low 1.00-4.80 [facility] Comment on above: Performed By: #### T ROPI, LIP, BMP, LACDS, CDP #### [facility] [address] [phone] Glazier Apprentice: Michael Gamez MD Lymphocytes/100 WBC (Bld) 5 % Low 13-44 [facility] Comment on above: Performed By: #### T ROPI, LIP, BMP, LACDS, CDP #### [facility] [address] [place] [address] Glazier Apprentice: Michael Gamez MD MCH (RBC) [Entitic mass] 30.1 pg Normal 26.0-34.0 [facility] Comment on above: Performed By: #### T ROPI, LIP, BMP, LACDS, CDP #### [facility] [address] [place] [address] Glazier Apprentice: Michael Gamez MD MCHC (RBC) [Mass/Vol] 33.9 g/dL Normal 31.0-37.0 [facility] Comment on above: Performed By: #### T ROPI, LIP, BMP, LACDS, CDP #### [facility] [address] [place] [address] Glazier Apprentice: Michael Gamez MD MCV (RBC) [Entitic vol] 88.8 fL Normal 80.0-100.0 [facility] Comment on above: Performed By: #### T ROPI, LIP, BMP, LACDS, CDP #### [facility] [address] [place] [address] Glazier Apprentice: Michael Gamez MD Monocytes (Bld) [#/Vol] 1.22 10*3/uL High 0.00-1.00 [facility] Comment on above: Performed By: #### T ROPI, LIP, BMP, LACDS, CDP #### [facility] [address] [place] [address] Glazier Apprentice: Michael Gamez MD Monocytes/100 WBC (Bld) 8 % Normal 5-9 [facility] Comment on above: Performed By: #### T ROPI, LIP, BMP, LACDS, CDP #### [facility] [address] [place] [address] ([phone]) Glazier Apprentice: Michael Gamez MD Neutrophil (Seg) 87 % High 39-75 [facility] Comment on above: Performed By: #### T ROPI, LIP, BMP, LACDS, CDP #### [facility] [address] [place] [address] ([phone]) Glazier Apprentice: Michael Gamez MD Platelet mean volume (Bld) [Entitic vol] 10.7 fL Normal 6.0-12.0 [facility] Comment on above: Performed By: #### T ROPI, LIP, BMP, LACDS, CDP #### [facility] [address] [place] [address] (500) Glazier Apprentice: Michael Gamez MD Platelets (Bld) [#/Vol] 178 10*3/uL Normal 140-450 [facility] Comment on above: Performed By: #### T ROPI, LIP, BMP, LACDS, CDP #### [facility] [address] [place] [address] (106) Glazier Apprentice: Michael Gamez MD RBC (Bld) [#/Vol] 5.28 10*6/uL Normal 4.50-5.90 [facility] Comment on above: Performed By: #### T ROPI, LIP, BMP, LACDS, CDP #### [facility] [address], [place] [phone] ([phone] Glazier Apprentice: Michael Gamez MD WBC (Bld) [#/Vol] 15.5 10*3/uL High 3.5-11.0 [facility] Comment on above: Performed By: #### T ROPI, LIP, BMP, LACDS, CDP #### [facility] [address] [place] [address] (435) Glazier Apprentice: Michael Gamez MD Lactate, Sepsison 06-09-2023 Lactic Acid, Sepsis 1.5 mmol/L Normal 0.5-1.9 [facility] Comment on above: Performed By: #### T SHAAN, LIP, BMP, LACDS, CDP #### [facility] [address] [place] [address] Glazier Apprentice: Michael Gamez MD Lipaseon 06-09-2023 Lipase [Catalytic activity/Vol] 21 U/L Normal 13-60 [facility] Comment on above: Performed By: #### T SHAAN LIP, BMP, LACDS, CDP #### [facility] [address] [place] [address] Glazier Apprentice: Michael Gamez MD [id number] 06-09-2023 SARS-CoV-2 (COVID-19) RNA SUSAN+probe Ql (Unsp spec) Not detected Normal NOTDET [facility] Comment on above: Result Comment: Rapid NAAT: The specimen is NEGATIVE for SARS-CoV-2, the novel coronavirus associated with COVID-19. The ID NOW COVID-19 assay is designed to detect the virus that causes COVID-19 in patients with signs and symptoms of infection who are suspected of COVID-19. An individual without symptoms of COVID-19 and who is not shedding SARS-CoV-2 virus would expect to have a negative (not detected) result in this assay. Negative results should be treated as presumptive and, if inconsistent with clinical signs and symptoms or necessary for patient management, should be tested with an alternative molecular assay. Negative results do not preclude SARS-CoV-2 infection and should not be used as the sole basis for patient management decisions. Fact sheet for Healthcare Providers: https://www.fda.gov/media/280285/download Fact sheet for Patients: https://www.fda.gov/media/561654/download Methodology: Isothermal Nucleic Acid Amplification Performed By: #### T SHAAN LIP, BMP, LACDS, CDP #### [facility] [address] [place] [address] Glazier Apprentice: Michael Gamez MD Troponinon 06-09-2023 Troponin, High Sens 33 ng/L High 0-22 [facility] Comment on above: Result Comment: High Sensitivity Troponin values cannot be compared with other Troponin methodologies. Performed By: #### T ROPI, LIP, BMP, LACDS, CDP #### [facility] [address], [place] [id number] Glazier Apprentice: Michael Gamez MD Troponin, High Sens 30 ng/L High 0-22 [facility] Comment on above: Result Comment: High Sensitivity Troponin values cannot be compared with other Troponin methodologies. Performed By: #### T ROPI, LIP, BMP, LACDS, CDP #### [facility] [address] [place] [address] Glazier Apprentice: Michael Gamez MD Urinalysis, Routineon 2022 Bilirubin, SemiQt,Ur Negative Normal NEG [facility] Comment on above: Performed By: #### T ROPI, LIP, BMP, LACDS, CDP #### [facility] [address] [place] [address] Glazier Apprentice: Michael Gamez MD Blood, Urine 2+ Abnormal NEG [facility] Comment on above: Performed By: #### T ROPI, LIP, BMP, LACDS, CDP #### [facility] [address] [place] [address] Glazier Apprentice: Michael Gamez MD Clarity (U) Clear Normal CLEAR [facility] Comment on above: Performed By: #### T ROPI, LIP, BMP, LACDS, CDP #### [facility] [address] [place] [address] Glazier Apprentice: Michael Gamez MD Color (U) Yellow Normal YEL [facility] Comment on above: Performed By: #### T ROPI, LIP, BMP, LACDS, CDP #### [facility] [address], [place] [phone] Glazier Apprentice: Michael Gamez MD Comment Normal [facility] Comment on above: Performed By: #### T ROPI, LIP, BMP, LACDS, CDP #### [facility] [address] [place] [address] Glazier Apprentice: Michael Gamez MD Glucose Ql (U) Negative Normal NEG [facility] Comment on above: Performed By: #### T ROPI, LIP, BMP, LACDS, CDP #### [facility] [address] [place] [address] Glazier Apprentice: Michael Gamez MD Ketones Ql (U) Negative Normal NEG [facility] Comment on above: Performed By: #### T ROPI, LIP, BMP, LACDS, CDP #### [facility] [address] [place] [address] Glazier Apprentice: Michael aGmez MD Leukocyte esterase Test strip Ql (U) Negative Normal NEG [facility] Comment on above: Performed By: #### T ROPI, LIP, BMP, LACDS, CDP #### [facility] [address] [place] [address] [employer]azier Apprentice: Michael Gamez MD Nitrite,Ur Negative Normal NEG [facility] Comment on above: Performed By: #### T ROPI, LIP, BMP, LACDS, CDP #### [facility] [address] [place] [address] Glazier Apprentice: Michael Gamez MD PH,Ur 5.0 Normal 5.0-8.0 [facility] Comment on above: Performed By: #### T ROPI, LIP, BMP, LACDS, CDP #### [facility] [address] [place] [address] Glazier Apprentice: Michael Gamez MD Protein Ql (U) 2+ mg/dL Abnormal NEG [facility] Comment on above: Performed By: #### T ROPI, LIP, BMP, LACDS, CDP #### [facility] [address], [place] [id number] Gl[employer]ier Apprentice: Michael Gamez MD Spec. [place],Ur 1.025 Normal 1.005-1.030 [facility] Comment on above: Performed By: #### T ROPI, LIP, BMP, LACDS, CDP #### [facility] [address], [place] [phone] Gl[employer]ier Apprentice: Michael Gamez MD Urobilinogen,Ur Normal Normal 0.0-1.0 [facility] Comment on above: Performed By: #### T ROPI, LIP, BMP, LACDS, CDP #### [facility] [address] [place] [address] Glazier Apprentice: Michael Gamez MD Urinalysis,Microon 3 ----- Normal [facility] Comment on above: Performed By: #### T ROPI, LIP, BMP, LACDS, CDP #### [facility] [address] [place] [address] Glazier Apprentice: Michael Gamez MD Casts 0 TO 2 Normal [facility] Comment on above: Result Comment: FINE GRANULAR Performed By: #### T ROPI, LIP, BMP, LACDS, CDP #### [facility] [address] [place] [address] Glazier Apprentice: Michael Gamez MD Epithelial cells LM Ql (Urine sed) NONE SEEN Normal [facility] Comment on above: Performed By: #### T ROPI, LIP, BMP, LACDS, CDP #### [facility] [address], [place] [id number] Gl[employer]ier Apprentice: Michael Gamez MD Mucus Strands 1+ Abnormal NONE [facility] Comment on above: Performed By: #### T ROPI, LIP, BMP, LACDS, CDP #### [facility] [address], [place] [id number] Gl[employer]ier Apprentice: Michael Gamez MD Urine RBC's 2 TO 5 Normal 0-2 [facility] Comment on above: Performed By: #### T SHAAN LIP, BMP, LACDS, CDP #### [facility] [address] [place], [place] [id number] Glazier Apprentice: Michael Gamez MD Urine WBC's 0 TO 2 Normal 0 [facility] Comment on above: Performed By: #### T SHAAN LIP, BMP, LACDS, CDP #### [facility] [address] [place] [address] [employer]azier Apprentice: Michael Gamez MD XR CHEST PORTABLEon 06-09-20 XR CHEST PORTABLE EXAM: XR CHEST LEO BLE HISTORY: sob COMPARISON: None. TECHNIQUE: An AP upright portable view of the chest FINDINGS: The lungs are clear of consolidations and no effusions are identified. The heart size is within normal limits, with note made of a coronary arterial stent. There are mild to moderate degenerative changes of the spine. IMPRESSION: No acute pulmonary findings. Interpreted by: Callie Valencia MD Signed by: Callie Valencia MD 06/09/23 Final result Normal [facility] Office Visiton 05-21-2023 Follow-up visit [id number] Rick Hassan H 1950 M Date Provider Department Center 05/21/2023 271-WILLIE BARFIELD [facility] Family History Problem Relation Age of Onset Lung cancer Mother Lung cancer Father Family Status - Relation Status Age at Mother Father Level of Service:99700 LA OFFICE/OUTPATIENT ESTABLISHED MOD MDM 30-39 MIN Normal [facility] Orders Onlyon 05-21-2023 Orders Only [id number] Rick Hassan er H 1950 M Date Provider Department Center 05/21/2023 VEENA BANKS Family History Problem Relation Age of Onset Lung cancer Mother Lung cancer Father Family Status - Relation Status Age at Mother Father Normal [facility] CBC AUTO DIFFon 11-11-2022 BASO # 0.1 103/ul Normal 0.0-0.1 [facility] Comment on above: Performed By: #### C BC ####[facility] [address] [place] [id number]. Selam Card Basophils/100 WBC (Bld) 1.0 % Normal 0.2-2.0 [facility] Comment on above: Performed By: #### C BC ####[facility] S[address]voo[address] [place] [id number]. Selam Card EO # 0.3 103/ul Normal 0.0-0.7 [facility] Comment on above: Performed By: #### C BC ####[facility] [address] [place], [place] [id number]. Selam Card Eosinophils/100 WBC (Bld) 4.1 % Normal 0.9-7.0 [facility] Comment on above: Performed By: #### C BC ####[facility] [address] [place], [place] [address]Dr. Selam Card Erythrocyte distribution width (RBC) [Ratio] 12.9 % Normal 11.0-15.0 [facility] Comment on above: Performed By: #### C BC ####[facility] Y[address] [place], [place] [id number]. Selam Card Hematocrit (Bld) [Volume fraction] 42.8 % Normal 42.0-54.0 [facility] Comment on above: Performed By: #### C BC ####[facility] [address]qs[address] [place], [place] [id number]. Selam Card Hemoglobin (Bld) [Mass/Vol] 14.0 g/dL Normal 14.0-18.0 [facility] Comment on above: Performed By: #### C BC ####[facility] Z[address]vftzaiz[address] [place] [id number]. Selam Card IG # 0.06 10e3/ul Critically high 0.00-0.03 [facility] Comment on above: Performed By: #### C BC ####[facility] P[address]ziwnind[address] [place] [id number]. Selam Card IG % 0.9 % Critically high 0.0-0.5 [facility] Comment on above: Performed By: #### C BC ####[facility] Rfahxvvteu[address] [place] [id number]. Selam Card LYMPH # 1.5 103/ul Normal 1.2-3.8 [facility] Comment on above: Performed By: #### C BC ####[facility] I[address]scamb[address]ux[address] [place] [id number]. Selam Card Lymphocytes/100 WBC (Bld) 20.7 % Normal 20.5-60.0 [facility] Comment on above: Performed By: #### C BC ####[facility] V[address]ukicxrx[address] [place] [id number]. Selam Card MANUAL DIFF REQ NO Normal [facility] Comment on above: Performed By: #### C BC ####[facility] Skxmq[address]fggw[address] [place] [id number]. Selam Card MCH (RBC) [Entitic mass] 30.1 pg Normal 25.9-34.0 [facility] Comment on above: Performed By: #### C BC ####[facility] Qjrpboqsae[address] [place] [id number]. Selam Card MCHC (RBC) [Mass/Vol] 32.7 g/dL Normal 29.9-35.2 [facility] Comment on above: Performed By: #### C BC ####[facility] B[address]jbbtqllo[address] [place] [id number]. Selam Card MCV (RBC) [Entitic vol] 92.0 fL Normal 80.0-94.0 [facility] Comment on above: Performed By: #### C BC ####[facility] Ngxtzkzrer[address] [place] [id number]. Selam Card MONO # 0.9 103/ul Critically high 0.3-0.8 [facility] Comment on above: Performed By: #### C BC ####[facility] Se[address]ai[address]hyh[address] [place] [id number]. Selam Card Monocytes/100 WBC (Bld) 13.0 % Critically high 1.7-12.0 [facility] Comment on above: Performed By: #### C BC ####[facility] Cehijlznwj[address] [place] [id number]. Selam Card NEUT # 4.2 103/ul Normal 1.4-6.5 [facility] Comment on above: Performed By: #### C BC ####[facility] Ynmxyuxmmo[address] [place] [id number]. Selam Card Neutrophils/100 WBC (Bld) 60.3 % Normal 43.0-75.0 [facility] Comment on above: Performed By: #### C BC ####[facility] U[address]ocfrv[address] [place] [id number]. Selam Card Platelet mean volume (Bld) [Entitic vol] 10.3 fL Normal 9.5-13.5 [facility] Comment on above: Performed By: #### C BC ####[facility] Mcllovntmg[address] [place] [id number]. Selam Card PLT 201 103/ul Normal 150-450 [facility] Comment on above: Performed By: #### C BC ####[facility] Dqyvdfowru68[address] [place] [id number]. Selam Card RBC 4.65 106/ul Critically low 4.70-6.10 [facility] Comment on above: Performed By: #### C BC ####[facility] Jehhsgowrq46[address] [place] [id number]. Selam Card WBC 7.0 103/ul Normal 4.0-11.0 [facility] Comment on above: Performed By: #### C BC ####[facility] Gcodhxajyd[address] [place] [id number]. Selam Card LIPID PROFILEon 11-11-2022 CHOL-HDL RATIO NORM SEE BELOW Normal [facility] Comment on above: Result Comment: 3.3 - 4.4 LOW RISK 4.4 - 7.1 AVERAGE RISK 7.1 - 11.0 MODERATE RISK >11.0 HIGH RISK Performed By: #### L IPID, BMP ####[facility] F[address]ydkljeu[address] [place] [id number]. Selam Card Cholesterol [Mass/Vol] 140 mg/dL Normal <=200 [facility] Comment on above: Performed By: #### L IPID, BMP ####[facility] [address]umn[address] [place] [id number]. Selam Card Cholesterol in HDL [Mass/Vol] 50 mg/dL Normal 40-60 [facility] Comment on above: Performed By: #### L IPID, BMP ####[facility] Rmpwchubxn4[address] [place] [phone]. Selam Card Cholesterol in LDL [Mass/Vol] 55.2 mg/dL Normal [facility] Comment on above: Performed By: #### L IPID, BMP ####[facility] [address] [place] [address]Dr. Irinatevin Kyaw Cholesterol.total/C holesterol in HDL [Mass ratio] 2.8 {ratio} Normal [facility] Comment on above: Performed By: #### L IPID, BMP ####[facility] Gfmevnvxpx[address] [place] [id number]. Selam Card HDL NORMAL > or = 60 mg/dl - LO W CARDIOVASCULAR RISK <40 mg/dl - HIGH CARDIOVASCULAR RISK Normal [facility] Comment on above: Performed By: #### L IPID, BMP ####[facility] Bkmidvudex70[address] [place] [id number]. Selam Card LDL CALC NORMAL SEE BELOW Normal [facility] Comment on above: Result Comment: <100 mg/dl OPTIMAL 100 - 129 mg/dl NEAR OR ABOVE OPTIMAL 130 - 159 mg/dl BORDERLINE HIGH 160 - 189 mg/dl HIGH >190 mg/dl VERY HIGH Performed By: #### L IPID, BMP ####[facility] Oty[address]jwpbwb[address] [place] [address]Dr. Irinatevin Card Triglyceride [Mass/Vol] 174 mg/dL Critically high <=150 [facility] Comment on above: Performed By: #### L IPID, BMP ####[facility] Ffgffltrvx8[address] [place] [id number]. Irinatevin Kyaw VLDL CALC 34.8 mg/dL Normal [facility] Comment on above: Performed By: #### L IPID, BMP ####[facility] [address] [place], [place] [address]Dr. Selam Card PROF CHEM 8 (BAS METB)on Anion gap [Moles/Vol] 11.1 mmol/L Normal [facility] Comment on above: Performed By: #### L IPID, BMP ####[facility] [address] [place], [place] [address]Dr. Selam Card Calcium [Mass/Vol] 9.6 mg/dL Normal 8.5-10.1 [facility] Comment on above: Performed By: #### L IPID, BMP ####[facility] [address]os[address] [place], [place] [address]Dr. Selam Card Chloride [Moles/Vol] 104 mmol/L Normal 98-107 [facility] Comment on above: Performed By: #### L IPID, BMP ####[facility] Bh[address]ef[address]ord[address] [place], [place] [address]Dr. Selam Card CO2 [Moles/Vol] 29.1 mmol/L Normal 21.0-32.0 [facility] Comment on above: Performed By: #### L IPID, BMP ####[facility] Qe[address]rztxuc[address] [place], [place] [address]Dr. Selam Card Creatinine [Mass/Vol] 1.13 mg/dL Normal 0.70-1.30 [facility] Comment on above: Performed By: #### L IPID, BMP ####[facility] [address]dfgc[address] [place], [place] [address]Dr. Selam Card EGFR-AF VENEZUELAN >60 Normal >=60 [facility] Comment on above: Performed By: #### L IPID, BMP ####[facility] [address]rs[address] [place], [place] [address]Dr. Selam Card EGFR-NON AF VENEZUELAN >60 Normal >=60 [facility] Comment on above: Performed By: #### L IPID, BMP ####[facility] Ll[address]azxjnm[address] [place], [place] [address]Dr. Selam Card Glucose [Mass/Vol] 113 mg/dL Critically high 74-106 [facility] Comment on above: Performed By: #### L IPID, BMP ####[facility] Jszzvhvegc[address] [place] [address]Dr. Selam Card Potassium [Moles/Vol] 4.2 mmol/L Normal 3.5-5.1 [facility] Comment on above: Performed By: #### L IPID, BMP ####[facility] Lak[address]yx[address] [place] [address]Dr. Selam Card Sodium [Moles/Vol] 140 mmol/L Normal 136-145 [facility] Comment on above: Performed By: #### L IPID, BMP ####[facility] Oinlcgqdvx[address] [place] [address]Dr. Selam Card Urea nitrogen [Mass/Vol] 23.0 mg/dL Critically high 7.0-18.0 [facility] Comment on above: Performed By: #### L IPID, BMP ####[facility] [address]et[address]vyed[address] [place], [place] [address]Dr. Selam Card Urea nitrogen/Creatinine [Mass ratio] 20.4 mg/mg Normal [facility] Comment on above: Performed By: #### L IPID, BMP ####[facility] [address] [place], [place] [address]Dr. Selam Card XR SHOULDER RT INJon 022 XR SHOULDER RT INJ EXAMINATION: XR SHOULDER RT INJ HISTORY: Pain of right shoulder joint , chronic COMPARISON: No relevant comparison available. FLUOROSCOPY TIME: Fluoro time measures 40 seconds and 4 images were obtained. TECHNIQUE: A joint injection was performed in the usual sterile manner after obtaining informed consent. Standard level fluoroscopic mode of operation utilized. FINDINGS: JOINT: Right hip. NEEDLE: 22 gauge, 3.5 spinal needle. MEDICATION: 2cc buffered 1% lidocaine for subcutaneous anesthesia 2cc Omnipaque-300 iodinated contrast to visualize the joint space Mixture of Kenalog 40 mg, 0.5% Bupivacaine 2 mL and Omnipaque 300 7 mL was injected into the joint space. TECHNIQUE: Anterior approach with prior localization of the femoral artery. A single stick was successful in gaining access to the joint space. CLINICAL: Minimal improvement following injection (6/10 preinjection; 5/10 post injection). COMPLICATIONS: None. OTHER: Negative. IMPRESSION: 1. Technically successful right shoulder injection. 2. Clinical follow-up for long-term results. Electronically authenticated by: DUSTY SCHILLING Date: 2022-04-22 14:35 Normal [facility] VC CONSULT FOLLOWUPon 2021 VC CONSULT FOLLOWUP Patient: NICHOLAS HASSAN Exam Date: 04/15/2022 : 1950 Gender:M Ordering : DR MICHAEL MAURER M.D. Admission #: [id number] Family : Order #: [id number] CLICK HERE TO VIEW EXAM RADIOLOGY REPORT PROCEDURE: VEIN CENTER CONSULTATION FOLLOWUP VEIN CENTER - OFFICE VISIT FOLLOW UP COMPARISON: VC CONSULT FOLLOWUP, 03/11/2022. VC CONSULT FOLLOWUP, 02/24/2022. PROGRESS NOTES: The patient reports no significant discomfort following micro foam chemical ablation of the right leg. The patient did not require oral analgesics. The patient did wear his compression stocking as directed. The patient has followed our recommendations to walk 20-30 minutes once or twice per day since the procedure. The patient reports marked improvement in his initial presenting symptoms. The he did express concern over multiple thrombosed varicosities. I discussed with him that these would continue to resolve likely taking 6-12 months before completely disappearing. The hemosiderin staining would continue to improve for 12-24 months, additional permanent staining could be treated with a piqo laser in the aesthetics portion of our practice, self pay cosmetic procedures. Review of the ultrasound performed the same day demonstrates occlusive thrombus extending throughout the treated right leg incompetent varicose veins. No significant residual incompetent varicose veins are observed. The patient had extensive bilateral reticular and spider veins which he did not want treatment of at this time. At this time the patient's treatments are complete, I encouraged him to return in 1-2 years for follow-up examination to track the progression of his venous disease. IMPRESSION: 1. Successful ablation of right leg incompetent varicose veins 2. Persistent bilateral reticular and spider veins which are not painful and the patient did not want treated PLAN: Follow-up in 1-2 years, sooner if needed Nurse notes, history and physical were reviewed and confirmed, see attached forms. The nurse was present throughout the physical exam and consultation Dictated by: Michael Maurer MD on 04/15/2022 at 10:57 Approved by: Michael Maurer MD on 04/15/2022 at 11:00 Normal [facility] VC EXT VENOUS LT LIMITEDon 0 04-15-2022 VC EXT VENOUS LT LIMITED Patient: ML HASSAN Exam Date: 04/15/2022 : 1950 Gender:M Ordering : DR MICHAEL MAURER M.D. Admission #: [id number] Family : Order #: [id number] CLICK HERE TO VIEW EXAM RADIOLOGY REPORT PROCEDURE: VEIN CENTER EXTREMITY VENOUS LEFT LIMITED COMPARISON: VC EXT VENOUS LT LIMITED, 01/29/2022. VC EXT VENOUS LT LIMITED, 01/01/2022. INDICATIONS: Phlebitis of superficial veins of lower extremity I80.02 TECHNIQUE: Lower extremity townsend scale and Duplex Doppler evaluation of the deep venous system from the inguinal ligament through the calf veins. FINDINGS: REGION: Left lower extremity. THROMBI: Negative for DVT. Varithena induced thrombus seen at dist/ant calf and is seen through to prox/med calf. COMPRESSIBILITY: Noncompressibility corresponding to thrombus FLOW: Absent flow corresponding to thrombus *Exam performed in accordance with [facility] practice guidelines- Peripheral venous ultrasound, October 27, 2009. CONCLUSION: Post ablation occlusion of left leg treated varicose veins Dictated by: Michael Maurer MD on 04/15/2022 at 10:56 Approved by: Michael Maurer MD on 04/15/2022 at 10:57 Normal [facility] VC INJ FOAM SCLERO W US MLTI on 04-10-2022 VC INJ FOAM SCLERO W US MLTI Patient: ML HASSAN Exam Date: 04/10/2022 : 1950 Gender:M Ordering : DR MICHAEL MAURER M.D. Admission #: [id number] Family : Order #: [id number] CLICK HERE TO VIEW EXAM RADIOLOGY REPORT PROCEDURE: VEIN CENTER INJECTION FOAM SCLEROSING SOLUTION WITH ULTRASOUND MULTIPLE VEINS COMPARISON: VC INJ FOAM SCLERO W US MLTI, 02/25/2022. VC INJ FOAM SCLERO W US MLTI, 02/18/2022. Pre-operative Diagnosis: CEAP class C5 venous insufficiency with pain, tenderness, edema and incompetent left great saphenous vein and branch saphenous tributary/varicose veins, chronic venous insufficiency left leg secondary to venous incompetence Post-operative Diagnosis: CEAP class C5 venous insufficiency with pain, tenderness, edema and incompetent left great saphenous vein and branch saphenous tributary/varicose veins, chronic venous insufficiency left leg secondary to venous incompetence Procedure Performed: 1. Ultrasound-guided microfoam chemical ablation with Varithena(r) 2. Intraoperative ultrasound guidance Physician: Michael Maurer M.D. Anesthesia: None Indications for Procedure: 71-year-old male who presents with a long history of lower extremity pain since dilated varicose veins swelling resulting in leg ulcerations. The patient failed o conservative medical therapy including medical compression stockings, exercise and analgesics. Prior procedures include intravenous laser ablation and micro foam chemical ablation Multiple incompetent varicosities of the left leg. Duplex scan showed reflux and enlarged diameters up to 4 mm. The patient underwent informed consent including management options where the complications of infection, bleeding, pain, and skin injury were discussed. Particular attention was spent discussing thrombus extension and deep vein thrombosis as well as the possibility of pulmonary embolus and treatment with oral or injectable blood thinners. Procedure: The patient walked to the procedure room. All applicable staff donned appropriate apparel. A procedure timeout was performed to confirm correct patient, correct extremity, correct procedure, and correct room set-up including presence of all applicable supplies, devices, and drugs. A duplex ultrasound, performed by myself confirmed the location and incompetence of left leg varicose veins and their course marked on the skin together with the dilated tributaries. The extent of treatment of the vein and the associated varicosities was determined through ultrasound mapping. The patient was placed on the operating room table. The limb was prepped. The skin was punctured with a butterfly needle through the skin with the venous access needle and advanced under ultrasound guidance. The target limb was positioned at 45 degrees of elevation in relation to the torso. The Varithena(r) canister was previously activated and the canister was primed and purged as required in the instructions for use. A 5 mL aliquot of Varithena(r) was drawn into a sterile syringe. Injection into a 4 mm varicose vein anteromedial proximal lower leg, this flowed into multiple varicose veins in the thigh ventrally reaching what appears to be tributaries of the great saphenous vein. Varithena(r) was slowly administered at 0.5-1.0 cc/second with close observation by ultrasound of its course in the injected vein. A total volume of 5 mL of Varithena(r) was used. During administration of Varithena(r), the patient was asked to dorsiflex the ankle to limit flow of Varithena(r) into perforating veins. Once appropriate spasm had been confirmed in the treated veins, the vascular catheter was removed from the leg and light pressure was applied over the puncture site for hemostasis The common femoral and deep superficial veins were then evaluated for flow and compressibility prior to dressing placement. The lower extremity was kept elevated at 45 degrees above the horizontal and cording material was applied over the saphenous segments and tributaries to allow for eccentric compression over the target vessels including the targeted saphenous vein(s). A multilayer dressing was applied consisting of foam pads, coban and thigh-high 20-30 mm Hg compression elastic support hose were placed on the patient. The leg was lowered only after compression had been applied and the patient was immediately ambulatory. The patient ambulated 10 minutes under supervision and was without apparent concerns at time of release Post-care instructions include advising patient to keep post-treatment bandages in place and dry for 48 hours, avoid extended periods of inactivity, avoid heavy exercise for one week, wear compression stockings on the treated leg continuously for two weeks, to walk daily for 10 minutes over the next month. The patient was instructed to take an anti-inflammatory medicine as needed and to follow up for color duplex scan of the GSV, the treate (more content not included)... Normal [facility] VC CONSULT FOLLOWUPon 2021 VC CONSULT FOLLOWUP Patient: NICHOLAS HASSAN Exam Date: 03/11/2022 : 1950 Gender:M Ordering : DR MICHAEL MAURER M.D. Admission #: [id number] Family : Order #: [id number] CLICK HERE TO VIEW EXAM RADIOLOGY REPORT PROCEDURE: VEIN CENTER CONSULTATION FOLLOWUP VEIN CENTER - OFFICE VISIT FOLLOW UP COMPARISON: VC CONSULT FOLLOWUP, 02/24/2022. VC CONSULT FOLLOWUP, 01/29/2022. PROGRESS NOTES: The patient reports that moderate discomfort of the right medial calf and mild discomfort of the left leg related to micro foam chemical ablation. The patient has worn his compression stockings as directed. The patient has not required oral analgesics. The patient has followed our recommendations to walk 20-30 minutes once or twice per day since the procedure. Physical exam demonstrates multiple thrombosed varicose veins along the medial right lower leg corresponding to the patient's pain. Multiple thrombosed varicose veins throughout the left leg to be palpated. No areas of erythema or warmth to suggest cellulitis. No active ulceration. Scattered areas of hemosiderin staining are observed. Review of the ultrasound performed the same day demonstrates occlusive thrombus extending throughout the bilateral varicose veins. 2 cm short segment of deep vein thrombus is again observed in the right mid posterior tibial vein with no clot propagation compared to the previous exam. The patient expressed a desire to pause treatments to allow some healing to occur. The patient did not want to continue aspirin which I do not feel is necessary at this time given the lack of clot propagation in the right posterior tibial vein. IMPRESSION: 1. Successful ablation of left leg incompetent varicose veins 2. Mild right leg thrombophlebitis related to superficial vein treatments PLAN: 1. Discontinue aspirin 2. Micro foam chemical ablation , to be scheduled by the patient when desired Nurse notes, history and physical were reviewed and confirmed, see attached forms. The nurse was present throughout the physical exam and consultation Dictated by: Michael Maurer MD on 03/11/2022 at 11:23 Approved by: Michael Maurer MD on 03/11/2022 at 11:28 Normal [facility] VC EXT VENOUS KG LIMITEDon 03-11-2022 VC EXT VENOUS KG LIMITED Patient: ML HASSAN Exam Date: 03/11/2022 : 1950 Gender:M Ordering : DR MICHAEL MAURER M.D. Admission #: [id number] Family : Order #: [id number] CLICK HERE TO VIEW EXAM RADIOLOGY REPORT PROCEDURE: VEIN CENTER EXTREMITY VENOUS BILATERAL LIMITED COMPARISON: None. INDICATIONS: Phlebitis of superficial veins of lower extremity I80.03 TECHNIQUE: Lower extremity townsend scale and Duplex Doppler evaluation of the deep venous system from the inguinal ligament through the calf veins. FINDINGS: REGION: Right lower extremity. THROMBI: 2 cm echogenic thrombus mid calf in the posterior tibial vein. COMPRESSIBILITY: Noncompressibility corresponding to thrombus REGION: Left lower extremity. THROMBI: Micro foam chemically induced thrombus visualized in all areas treated including distal/medial calf and proximal/lateral calf. COMPRESSIBILITY: Noncompressibility corresponding to thrombus FLOW: Absent flow corresponding to thrombus OTHER: Patent varicose vein visualized mid/medial thigh 5.0 mm with 0.7s reflux. Patent varicose vein mid/posterior thigh 4.0 mm with 0.7s reflux. *Exam performed in accordance with [facility] practice guidelines- Peripheral venous ultrasound, October 27, 2009. CONCLUSION: 1. Stable small segment 2 cm thrombus in the right posterior tibial vein 2. Post ablation occlusion of left leg varicose veins with residual varicose veins measuring up to 5 mm Dictated by: Michael Maurer MD on 03/11/2022 at 11:08 Approved by: Michael Maurer MD on 03/11/2022 at 11:10 Normal [facility] VC INJ FOAM SCLERO W US MLTI on 02-25-2022 VC INJ FOAM SCLERO W US MLTI Patient: ML HASSAN Exam Date: 02/25/2022 : 1950 Gender:M Ordering : DR MICHAEL MAURER M.D. Admission #: [id number] Family : Order #: [id number] CLICK HERE TO VIEW EXAM RADIOLOGY REPORT PROCEDURE: VEIN CENTER INJECTION FOAM SCLEROSING SOLUTION WITH ULTRASOUND MULTIPLE VEINS COMPARISON: VC INJ FOAM SCLERO W US MLTI, 02/18/2022. Pre-operative Diagnosis: CEAP class C5 venous insufficiency with pain, tenderness, edema and incompetent branch saphenous vein, chronic venous insufficiency left leg secondary to venous incompetence Post-operative Diagnosis: CEAP class C5 venous insufficiency with pain, tenderness, edema and incompetent branch saphenous vein, chronic venous insufficiency left leg secondary to venous incompetence Procedure Performed: 1. Ultrasound-guided microfoam chemical ablation with Varithena(r) 2. Intraoperative ultrasound guidance Physician: Dusty Schilling M.D. Anesthesia: None. Indications for Procedure: 71 year old male. Symptoms including muscle cramping, pain, dilated veins for many years despite conservative medical therapy including medical compression stockings, exercise and analgesics. Prior procedures include: Endovenous laser ablation and microfoam chemical ablation. Multiple incompetent varicosities of the left leg. Duplex scan showed reflux and enlarged diameters up to 5 mm. The patient has undergone informed consent including management options where the complications of infection, bleeding, pain, and skin injury were discussed. Particular attention was spent discussing thrombus extension and deep vein thrombosis as well as the possibility of pulmonary embolus and treatment with oral or injectable blood thinners. Procedure: The patient walked to the procedure room. All applicable staff donned appropriate apparel. A procedure timeout was performed to confirm correct patient, correct extremity, correct procedure, and correct room set-up including presence of all applicable supplies, devices, and drugs. A duplex ultrasound, performed by myself confirmed the location and incompetence of branch saphenous varicosities and their course was marked on the skin together with the dilated tributaries. The extent of treatment of the veins and the associated varicosities was determined through ultrasound mapping. The skin was prepped and then punctured with a butterfly needle and advanced under ultrasound guidance. The Varithena(r) canister was activated and the canister was primed and purged as required in the instructions for use. Varithena(r) was drawn into a sterile syringe. Varithena(r) was slowly administered at 0.5-1.0 cc/second with close observation by ultrasound of its course in the vessels. Total volume utilized was: 12 mL (8 mL within an incompetent 5 mm branch saphenous varicosity of the distal medial lower leg; 4 Ruth within an incompetent 4 mm branch saphenous varicosity within the proximal lateral lower leg). Following administration of Varithena(r), the leg was elevated and the patient was asked to repeatedly dorsiflex the ankle to limit flow of Varithena(r) into perforating veins. Once appropriate spasm had been confirmed in the treated veins, the vascular catheter was removed from the leg and light pressure was applied over the puncture site for hemostasis The common femoral and deep superficial veins were then evaluated for flow and compressibility prior to dressing placement. The lower extremity was kept elevated at 45 degrees above the horizontal and cording material was applied over the saphenous segments and tributaries to allow for eccentric compression over the target vessels including the targeted saphenous vein(s). A multilayer dressing was applied consisting of foam pads, coban and thigh-high 20-30 mm Hg compression elastic support hose were placed on the patient. The leg was lowered only after compression had been applied and the patient was immediately ambulatory. The patient ambulated 10 minutes under supervision and was without apparent concerns at time of release Post-care instructions include advising patient to keep post-treatment bandages in place and dry for 48 hours, avoid extended periods of inactivity, avoid heavy exercise for one week, wear compression stockings on the treated leg continuously for two weeks, to walk daily for 10 minutes over the next month. The patient was instructed to take an anti-inflammatory medicine as needed and to follow up for color duplex scan of the Saphenous veins, the treated branch saphenous varicosities, the adjacent deep veins, and additional treatment within 7 days. PERSONNEL: Mg Garvey R.N. Dictated by: Dusty Schilling M.D. on 02/25/2022 at 12:34 Approved by: Dusty Schilling M.D. on 02/25/2022 at 13:14 Normal [facility] VC CONSULT FOLLOWUPon 2021 VC CONSULT FOLLOWUP Patient: NICHOLAS HASSAN Exam Date: 02/24/2022 : 1950 Gender:M Ordering : DR MICHAEL MAURER M.D. Admission #: [id number] Family : Order #: [id number] CLICK HERE TO VIEW EXAM RADIOLOGY REPORT PROCEDURE: VEIN CENTER CONSULTATION FOLLOWUP VEIN CENTER - OFFICE VISIT FOLLOW UP COMPARISON: VC EXT VENOUS RT LIMITED, 02/24/2022. VC CONSULT FOLLOWUP, 01/29/2022. PROGRESS NOTES: The patient reports that tenderness within medial calf region in area of recent treatment. There has been interval reduction in varicosities. The patient has followed our recommendations to walk 20-30 minutes once or twice per day since the procedure. Physical exam demonstrates firm, thrombosed superficial veins within treated right leg. Persistent varicosities are identified along the left. Review of the ultrasound performed the same day demonstrates occlusive thrombus extending throughout the treated vein, see separate report, consistent with a successful ablation. Short segment of thrombus within 1 of the posterior tibial veins. The patient expressed a desire to proceed with treatment of remaining incompetent branch saphenous varicosities. The patient was informed that treatment was a process and would require several procedures/sessions. IMPRESSION: 1. Successful ablation of the treated branch saphenous veins of right lower extremity 2. Persistent incompetent branch saphenous veins and leg symptoms on left. 3. Short segment of deep vein thrombus within 1 of the right posterior tibial veins. PLAN: 1. Patient is currently on Plavix and baby aspirin. Will increase aspirin to a full strength 325 mg for 3 weeks and monitor deep vein thrombus within the posterior tibial vein. 2. Microfoam chemical ablation of incompetent branch saphenous varicosities within left leg. Nurse notes, history and physical were reviewed and confirmed, see attached forms. The nurse was present throughout the physical exam and consultation Dictated by: Dusty Schilling M.D. on 02/24/2022 at 09:30 Approved by: Dusty Schilling M.D. on 02/24/2022 at 09:39 Normal [facility] VC EXT VENOUS RT LIMITEDon 0 02-24-2022 VC EXT VENOUS RT LIMITED Patient: ML HASSAN. Exam Date: 02/24/2022 : 1950 Gender:M Ordering : DR MICHAEL MAURER M.D. Admission #: [id number] Family : Order #: [id number] CLICK HERE TO VIEW EXAM RADIOLOGY REPORT PROCEDURE: VEIN CENTER EXTREMITY VENOUS RIGHT LIMITED COMPARISON: VC EXT VENOUS RT LIMITED, 12/11/2021. INDICATIONS: Phlebitis and thrombophlebitis of superficial veins of right lower extremity I80.01 TECHNIQUE: Lower extremity townsend scale and Duplex Doppler evaluation of the deep venous system from the inguinal ligament through the calf veins. FINDINGS: REGION: Right lower extremity. THROMBI: Positive for DVT. Positive for DVT in right anterior PTV at proximal and mid. Varithena induced thrombus visualized at mid/med calf extending to proximal calf and at dist/med thigh extending to mid. COMPRESSIBILITY: Non-compressible segments. FLOW: Areas of no flow. OTHER: CONCLUSION: 1. Successful ablation of treated branch saphenous varicosities within left lower extremity. 2. Segment of deep vein thrombus within 1 of the posterior tibial veins. Dictated by: Dusty Schilling M.D. on 02/24/2022 at 09:05 Approved by: Dusty Schilling M.D. on 02/24/2022 at 09:07 Normal [facility] VC INJ FOAM SCLERO W US MLTI on 02-18-2022 VC INJ FOAM SCLERO W US MLTI Patient: ML HASSANElizabeth Exam Date: 02/18/2022 : 1950 Gender:M Ordering : DR MICHAEL MAURER M.D. Admission #: [id number] Family : Order #: [id number] CLICK HERE TO VIEW EXAM RADIOLOGY REPORT PROCEDURE: VEIN CENTER INJECTION FOAM SCLEROSING SOLUTION WITH ULTRASOUND MULTIPLE VEINS COMPARISON: None. Pre-operative Diagnosis: CEAP class C5 venous insufficiency with pain, tenderness, edema and incompetent branch saphenous vein, chronic venous insufficiency right leg secondary to venous incompetence Post-operative Diagnosis: CEAP class C5 venous insufficiency with pain, tenderness, edema and incompetent branch saphenous vein, chronic venous insufficiency right leg secondary to venous incompetence Procedure Performed: 1. Ultrasound-guided microfoam chemical ablation with Varithena(r) 2. Intraoperative ultrasound guidance Physician: Dusty Schilling M.D. Anesthesia: None. Indications for Procedure: 71 year old male. Symptoms including lower extremity varicose veins, pain, muscle cramping for many years despite conservative medical therapy including medical compression stockings, exercise and analgesics. Prior procedures include: Endovenous laser ablation. Endovenous laser ablation was initially planned for today, but upon preparing for the procedure thrombus was noted within the right small saphenous vein head its proximal extent, which while gaining access to the small saphenous vein propagated throughout the remainder of the small saphenous vein except for the distal 4 cm. Endovenous laser ablation of the small saphenous vein was not performed. 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 Duplex scan showed reflux and enlarged diameters up to 5 mm. The patient has undergone informed consent including management options where the complications of infection, bleeding, pain, and skin injury were discussed. Particular attention was spent discussing thrombus extension and deep vein thrombosis as well as the possibility of pulmonary embolus and treatment with oral or injectable blood thinners. Procedure: The patient walked to the procedure room. All applicable staff donned appropriate apparel. A procedure timeout was performed to confirm correct patient, correct extremity, correct procedure, and correct room set-up including presence of all applicable supplies, devices, and drugs. A duplex ultrasound, performed by myself confirmed the location and incompetence of branch saphenous varicosities and their course was marked on the skin together with the dilated tributaries. The extent of treatment of the veins and the associated varicosities was determined through ultrasound mapping. The skin was prepped and then punctured with a butterfly needle and advanced under ultrasound guidance. The Varithena(r) canister was activated and the canister was primed and purged as required in the instructions for use. Varithena(r) was drawn into a sterile syringe. Varithena(r) was slowly administered at 0.5-1.0 cc/second with close observation by ultrasound of its course in the vessels. Total volume utilized was: 12 mL (8 mL within a 5 mm incompetent branch saphenous varicosity of the right mid anterior medial lower leg; 4 mL within an incompetent 5 mm branch saphenous varicosity of the right mid medial upper leg). Following administration of Varithena(r), the leg was elevated and the patient was asked to repeatedly dorsiflex the ankle to limit flow of Varithena(r) into perforating veins. Once appropriate spasm had been confirmed in the treated veins, the vascular catheter was removed from the leg and light pressure was applied over the puncture site for hemostasis The common femoral and deep superficial veins were then evaluated for flow and compressibility prior to dressing placement. The lower extremity was kept elevated at 45 degrees above the horizontal and cording material was applied over the saphenous segments and tributaries to allow for eccentric compression over the target vessels including the targeted saphenous vein(s). A multilayer dressing was applied consisting of foam pads, coban and thigh-high 20-30 mm Hg compression elastic support hose were placed on the patient. The leg was lowered only after compression had been applied and the patient was immediately ambulatory. The patient ambulated 10 minutes under supervision and was without apparent concerns at time of release Post-care instructions include advising patient to keep post-treatment bandages in place and dry for 48 hours, avoid extended periods of inactivity, avoid heavy exercise for one week, wear compression stockings on the treated leg continuously for two weeks, to walk daily for 10 minutes over the next month. The patient was instructed to take an anti-inflammatory medicine as needed and to follow up for color duplex scan of the Saphenous veins, the treated branch saphenous jordin (more content not included)... Normal [facility] VC CONSULT FOLLOWUPon 2021 VC CONSULT FOLLOWUP Patient: NICHOLAS HASSAN BRIAN ColeenElizabeth Exam Date: 01/29/2022 : 1950 Gender:M Ordering : DR MICHAEL MAURER M.D. Admission #: [id number] Family : Order #: [id number] CLICK HERE TO VIEW EXAM RADIOLOGY REPORT PROCEDURE: VEIN CENTER CONSULTATION FOLLOWUP VEIN CENTER - OFFICE VISIT FOLLOW UP COMPARISON: VC CONSULT FOLLOWUP, 01/01/2022. VC CONSULT FOLLOWUP, 12/11/2021. PROGRESS NOTES: The patient reports no significant discomfort following intravenous laser ablation of the left small saphenous vein. The patient did wear his compression stocking. The patient has followed our recommendations to walk 20-30 minutes once or twice per day since the procedure. Patient reports significant improvement in his initial presenting symptoms in the left leg and is very happy with the progress to date. Physical exam demonstrates minimal scattered bruising related to tumescence injection. No areas of erythema or warmth to suggest cellulitis or thrombophlebitis. No active ulceration. Multiple thrombosed varicose veins are visualized and palpated throughout the left lower leg. Review of the ultrasound performed the same day demonstrates occlusive thrombus extending throughout the treated left small saphenous vein with heat induced thrombus 4.7 mm from the saphenous popliteal junction. Small segment of nonocclusive deep vein thrombus identified in in associated single gastrocnemius vein. I did not recommend any treatment for this at this time. The patient expressed a desire to proceed with treatment of incompetent right small saphenous vein with intravenous laser ablation. IMPRESSION: 1. Successful ablation of the left small saphenous vein 2. Persistent incompetent right small saphenous vein PLAN: Intravenous laser ablation right small saphenous vein Nurse notes, history and physical were reviewed and confirmed, see attached forms. The nurse was present throughout the physical exam and consultation Dictated by: Michael Maurer MD on 01/29/2022 at 09:45 Approved by: Michael Maurer MD on 01/29/2022 at 09:48 Normal [facility] VC EXT VENOUS LT LIMITEDon 0 01-29-2022 VC EXT VENOUS LT LIMITED Patient: ML HASSAN Exam Date: 01/29/2022 : 1950 Gender:M Ordering : DR MICHAEL MAURER M.D. Admission #: [id number] Family : Order #: [id number] CLICK HERE TO VIEW EXAM RADIOLOGY REPORT PROCEDURE: VEIN CENTER EXTREMITY VENOUS LEFT LIMITED COMPARISON: VC EXT VENOUS LT LIMITED, 01/01/2022. INDICATIONS: Phlebitis and thrombophlebitis of superficial veins of left lower extremity I80.02 TECHNIQUE: Lower extremity townsend scale and Duplex Doppler evaluation of the deep venous system from the inguinal ligament through the calf veins. FINDINGS: REGION: Left lower extremity. THROMBI: Heat induced thrombus in the SSV 4.7mm from the SPJ and extends to the distal calf. Non-occlusive short-segment thrombus and a single gastrocnemius vein consistent with clot propagation. COMPRESSIBILITY: Noncompressibility corresponding to thrombus FLOW: Decreased flow corresponding thrombus OTHER: Multiple incompetent varicosities remain. *Exam performed in accordance with [facility] practice guidelines- Peripheral venous ultrasound, October 27, 2009. CONCLUSION: Post ablation occlusion of the small saphenous vein with heat induced thrombus 4.7 mm from the saphenous popliteal junction Short-segment of associated deep vein thrombus from clot propagation in a single gastrocnemius vein Dictated by: Michael Maurer MD on 01/29/2022 at 09:33 Approved by: Michael Maurer MD on 01/29/2022 at 09:35 Normal [facility] VC ENDOVENOUS ABL 1ST V LTon 01-22-2022 VC ENDOVENOUS ABL 1ST V LT Patient: ML HASSAN Exam Date: 01/22/2022 : 1950 Gender:M Ordering : DR MICHAEL MAURER M.D. Admission #: [id number] Family : Order #: [id number] CLICK HERE TO VIEW EXAM RADIOLOGY REPORT PROCEDURE: VEIN CENTER ENDOVENOUS ABLATION FIRST VEIN LEFT COMPARISON: VC ENDOVENOUS ABL 1ST V LT, 12/25/2021. INDICATIONS: Pain co-occurrent and due to varicose veins of bilateral legs I83.813 OPERATIVE REPORT: The risks and benefits of the procedure had been previously discussed, and were rediscussed at length. Informed written consent was obtained by and Mg Garvey assisted. Time out procedure was performed. The left lower extremity was prepared and draped in the usual sterile fashion to allow knee flexion in the sterile field. Duplex ultrasound probe was draped in a sterile cover, sterile transmission gel was used. Venous mapping was performed with the areas of dilation and large tributaries marked. The total length was 12 cm from the entry mid calf to 3 cm below the saphenous popliteal junction. The diameter of the greater saphenous vein ranged from 7.0 mm. A 30 gauge needle and 1% buffered lidocaine was used to anesthetize the entry site. A 4 mm incision was made with a scalpel and the saphenous vein was entered percutaneously under direct ultrasound guidance with a micropuncture set, a single stick was successful in gaining access. A micro-guide wire was inserted and the needle removed. A micro-set including a dilator was inserted over the microwire and the needle and dilator were removed. A 0.018 guide wire was inserted through the micro-set and threaded through the saphenous vein to the saphenofemoral junction. The dilator was removed and an introducer sheath was inserted over the wire until the end of the sheath entered the saphenofemoral junction. The dilator and wire were removed and the 600 micron fiber was introduced and placed and positioned so that it extended beyond the sheath and was 3 cm peripheral to the saphenofemoral femoral junction. Final position of the fiber was determined by ultrasound guidance and duplex imaging. Tumescent anesthetic was delivered by ultrasound guidance. One hundred cc of fluid was delivered along the entire course of the saphenous vein. The solution consisted of 500 cc of normal saline with 20mL of 1% lidocaine and 10 mL of sodium bicarbonate. A final positioning check was made. The energy source was turned on by means of the foot pedal and the fiber and sheath were withdrawn. The total number of Joules delivered was 671. The laser was active for 84 seconds under continuous pulse, average laser use of 8 J. Laser start time 1:44 p.m. January 22, 2022. Laser stop time 1:45 p.m. January 22, 2022. A duplex ultrasound revealed compressibility and flow at the saphenofemoral junction immediately after the procedure. Hemostasis at the access site was achieved. The skin incision of the saphenous vein was closed with a 4 x 4. A compression stocking was applied. Postop instructions were given. A follow up appointment was recommended and scheduled. The patient tolerated the procedure well and was discharged in good condition. CONCLUSION: 1. Technically successful endovenous laser ablation of the left small saphenous vein. Dictated by: Dusty Schilling M.D. on 01/22/2022 at 13:53 Approved by: Dusty Schilling M.D. on 01/22/2022 at 13:55 Normal [facility] VC CONSULT FOLLOWUPon 2021 VC CONSULT FOLLOWUP Patient: NICHOLAS HASSAN Exam Date: 01/01/2022 : 1950 Gender:M Ordering : DR MICHAEL MAURER M.D. Admission #: [id number] Family : Order #: [id number] CLICK HERE TO VIEW EXAM RADIOLOGY REPORT PROCEDURE: VEIN CENTER CONSULTATION FOLLOWUP VEIN CENTER - OFFICE VISIT FOLLOW UP COMPARISON: VC CONSULT FOLLOWUP, 12/11/2021. PROGRESS NOTES: The patient reports mild pain following intravenous laser ablation of the left great saphenous vein. The patient did wear his compression stocking. The patient did not require oral analgesics. The patient has followed our recommendations to walk 20-30 minutes once or twice per day since the procedure. Physical exam demonstrates moderate bruising with the largest area measuring 20 x 10 cm along the medial mid to distal left thigh. Thrombosed left great saphenous vein can be palpated. There is small amount of raised erythema at the insertion site of the catheter possibly related to adhesive from a bandage. The patient does report that this area itches. No mass or flocculence could be palpated to suggest an abscess. Review of the ultrasound performed the same day demonstrates occlusive thrombus extending throughout the left great saphenous vein with heat induced thrombus 1.7 cm from the saphenofemoral junction. The patient expressed a desire to proceed with treatment of incompetent left small saphenous vein with intravenous laser ablation. IMPRESSION: 1. Successful ablation of the left great saphenous vein 2. Persistent incompetent bilateral small saphenous veins PLAN: Intravenous laser ablation left small saphenous vein Nurse notes, history and physical were reviewed and confirmed, see attached forms. The nurse was present throughout the physical exam and consultation Dictated by: Michael Maurer MD on 01/01/2022 at 09:57 Approved by: Michael Maurer MD on 01/01/2022 at 10:10 Normal [facility] VC EXT VENOUS LT LIMITEDon 0 01-01-2022 VC EXT VENOUS LT LIMITED Patient: ML HASSAN Exam Date: 01/01/2022 : 1950 Gender:M Ordering : DR MICHAEL MAURER M.D. Admission #: [id number] Family : Order #: [id number] CLICK HERE TO VIEW EXAM RADIOLOGY REPORT PROCEDURE: VEIN CENTER EXTREMITY VENOUS LEFT LIMITED COMPARISON: None. INDICATIONS: Phlebitis and thrombophlebitis of superficial veins of left lower extremity I80.02 TECHNIQUE: Lower extremity townsend scale and Duplex Doppler evaluation of the deep venous system from the inguinal ligament through the calf veins. FINDINGS: REGION: Left lower extremity. THROMBI: Negative for DVT. Heat induced thrombus in the GSV 1.7 cm from the SFJ and extends to the mid calf. Associated varicosities in mid calf also partially thrombosed. COMPRESSIBILITY: Noncompressibility corresponding to thrombus FLOW: Absent flow corresponding to thrombus *Exam performed in accordance with [facility] practice guidelines- Peripheral venous ultrasound, October 27, 2009. CONCLUSION: Post ablation occlusion of the left great saphenous vein with heat induced thrombus 1.7 cm from the saphenofemoral junction Dictated by: Michael Maurer MD on 01/01/2022 at 09:55 Approved by: Michael Maurer MD on 01/01/2022 at 09:56 Normal [facility] VC ENDOVENOUS ABL 1ST V LTon 12-25-2021 VC ENDOVENOUS ABL 1ST V LT Patient: ML HASSAN Exam Date: 12/25/2021 : 1950 Gender:M Ordering : DR MICHAEL MAURER M.D. Admission #: [id number] Family : Order #: [id number] CLICK HERE TO VIEW EXAM RADIOLOGY REPORT PROCEDURE: VEIN CENTER ENDOVENOUS ABLATION FIRST VEIN LEFT GREAT SAPHENOUS VEIN COMPARISON: VC VENOUS REFLUX KG LMT, 11/25/2021. INDICATIONS: Pain co-occurrent and due to varicose veins of bilateral legs I83.813 OPERATIVE REPORT: The risks and benefits of the procedure had been previously discussed, and were rediscussed at length. Informed written consent was obtained by and Mg verduzco. Time out procedure was performed. The left lower extremity was prepared and draped in the usual sterile fashion to allow knee flexion in the sterile field. Duplex ultrasound probe was draped in a sterile cover, sterile transmission gel was used. Venous mapping was performed with the areas of dilation and large tributaries marked. The total length was 41 cm from the entry mid calf to 3 cm below the saphenofemoral junction. The vein beneath this area was tortuous and not amenable to laser ablation. The diameter of the greater saphenous vein ranged from 5-11 mm. A 30 gauge needle and 1% buffered lidocaine was used to anesthetize the entry site. A 4 mm incision was made with a scalpel and the saphenous vein was entered percutaneously under direct ultrasound guidance with a micropuncture set, a single stick was successful in gaining access. A micro-guide wire was inserted and the needle removed. A micro-set including a dilator was inserted over the microwire and the needle and dilator were removed. A 0.018 guide wire was inserted through the micro-set and threaded through the saphenous vein to the saphenofemoral junction. The dilator was removed and an introducer sheath was inserted over the wire until the end of the sheath entered the saphenofemoral junction. The dilator and wire were removed and the 600 micron fiber was introduced and placed and positioned so that it extended beyond the sheath and was 3 cm peripheral to the saphenofemoral femoral junction. Final position of the fiber was determined by ultrasound guidance and duplex imaging. Tumescent anesthetic was delivered by ultrasound guidance. 275 cc of fluid was delivered along the entire course of the saphenous vein. The solution consisted of 500 cc of normal saline with 20mL of 1% lidocaine and 10 mL of sodium bicarbonate. A final positioning check was made. The energy source was turned on by means of the foot pedal and the fiber and sheath were withdrawn. The total number of Joules delivered was 1964. The laser was active for 246 seconds under continuous pulse, average laser use of 8 J. Laser start time 1:04 p.m. December 25, 2021. Laser stop time 1:09 p.m. December 25, 2021. A duplex ultrasound revealed compressibility and flow at the saphenofemoral junction immediately after the procedure. Hemostasis at the access site was achieved. The skin incision of the saphenous vein was closed with a 4 x 4. A compression stocking was applied. Postop instructions were given. A follow up appointment was recommended and scheduled. The patient tolerated the procedure well and was discharged in good condition. CONCLUSION: 1. Technically successful endovenous laser ablation of the left great saphenous vein. Dictated by: Michael Maurer MD on 12/25/2021 at 14:07 Approved by: Michael Maurer MD on 12/25/2021 at 14:09 Normal [facility] VC CONSULT FOLLOWUPon 2021 VC CONSULT FOLLOWUP Patient: NICHOLAS HASSAN BRIAN Mana Exam Date: 12/11/2021 : 1950 Gender:M Ordering : DR MICHAEL MAURER M.D. Admission #: [id number] Family : Order #: [id number] CLICK HERE TO VIEW EXAM RADIOLOGY REPORT PROCEDURE: VEIN CENTER CONSULTATION FOLLOWUP VEIN CENTER - OFFICE VISIT FOLLOW UP COMPARISON: None. PROGRESS NOTES: The patient reports mild to moderate discomfort of the right leg following intravenous laser ablation. The patient also complains of numbness along the anterior distal ankle and distal foot. The patient did not take any oral analgesics. The patient did wear his compression stocking as directed. The patient has followed our recommendations to walk 20-30 minutes once or twice per day since the procedure. Physical exam demonstrates 2 areas of bruising along the medial thigh related to tumescent injection. The patient has an area of numbness estimated to be approximately 20 x 10 cm along the anterior and medial ankle extending to the dorsal foot and distal dorsal forefoot. No areas of ulceration. No areas of warmth or erythema to suggest cellulitis or thrombophlebitis. Review of the ultrasound performed the same day demonstrates occlusive thrombus extending throughout the treated right great saphenous vein with heat induced thrombus 8 mm from the saphenofemoral junction. No deep vein thrombus. The patient expressed a desire to proceed with treatment of the left great saphenous vein with intravenous laser ablation. After this the patient would like to continue with treatment of incompetent varicose veins/tributaries with micro foam chemical ablation before treatment of the small saphenous veins. IMPRESSION: 1. Successful ablation of the right great saphenous vein 2. Persistent incompetent left great saphenous vein PLAN: Endovenous laser ablation left great saphenous vein Nurse notes, history and physical were reviewed and confirmed, see attached forms. The nurse was present throughout the physical exam and consultation Dictated by: Michael Maurer MD on 12/11/2021 at 08:55 Approved by: Michael Maurer MD on 12/11/2021 at 08:57 Normal [facility] VC EXT VENOUS RT LIMITEDon 0 12-11-2021 VC EXT VENOUS RT LIMITED Patient: SONYA ML Mana Exam Date: 12/11/2021 : 1950 Gender:M Ordering : DR MICHAEL MAURER M.D. Admission #: [id number] Family : Order #: [id number] CLICK HERE TO VIEW EXAM RADIOLOGY REPORT PROCEDURE: VEIN CENTER EXTREMITY VENOUS RIGHT LIMITED COMPARISON: None. INDICATIONS: Phlebitis and thrombophlebitis of superficial veins of right lower extremity I80.01 TECHNIQUE: Lower extremity townsend scale and Duplex Doppler evaluation of the deep venous system from the inguinal ligament through the calf veins. FINDINGS: REGION: Right lower extremity. THROMBI: Negative for DVT. Heat induced thrombus in right GSV 8.6 mm from SFJ and extends to the distal calf. COMPRESSIBILITY: Noncompressibility corresponding to thrombus FLOW: Absent flow corresponding to thrombus. *Exam performed in accordance with [facility] practice guidelines- Peripheral venous ultrasound, October 27, 2009. CONCLUSION: Post ablation occlusion of the right great saphenous vein with heat induced thrombus 8.6 mm from the saphenofemoral junction Dictated by: Michael Maurer MD on 12/11/2021 at 08:33 Approved by: Michael Maurer MD on 12/11/2021 at 08:38 Normal [facility] LIPID PROFILEon 12-03-2021 CHOL-HDL RATIO NORM SEE BELOW Normal [facility] Comment on above: Result Comment: 3.3 - 4.4 LOW RISK 4.4 - 7.1 AVERAGE RISK 7.1 - 11.0 MODERATE RISK >11.0 HIGH RISK Performed By: #### L IPID, LIVER #### [facility] [address] [address] [address] Selam Card Cholesterol [Mass/Vol] 131 mg/dL Normal <=200 [facility] Comment on above: Performed By: #### L IPID, LIVER #### [facility] [address] [address] [address] Selam Card Cholesterol in HDL [Mass/Vol] 50 mg/dL Normal 40-60 [facility] Comment on above: Performed By: #### L IPID, LIVER #### [facility] [address] [address] [address] Selam aCrd Cholesterol in LDL [Mass/Vol] 45.8 mg/dL Normal [facility] Comment on above: Performed By: #### L IPID, LIVER #### [facility] [address] [address] [address] Selam Card Cholesterol.total/C holesterol in HDL [Mass ratio] 2.6 {ratio} Normal [facility] Comment on above: Performed By: #### L IPID, LIVER #### [facility] [address] [address] [address] Selam Card HDL NORMAL > or = 60 mg/dl - LO W CARDIOVASCULAR RISK <40 mg/dl - HIGH CARDIOVASCULAR RISK Normal [facility] Comment on above: Performed By: #### L IPID, LIVER #### [facility] [address] [address] [address] Selam Card LDL CALC NORMAL SEE BELOW Normal [facility] Comment on above: Result Comment: <100 mg/dl OPTIMAL 100 - 129 mg/dl NEAR OR ABOVE OPTIMAL 130 - 159 mg/dl BORDERLINE HIGH 160 - 189 mg/dl HIGH >190 mg/dl VERY HIGH Performed By: #### L IPID, LIVER #### [facility] [address] [address] [address] Selam Card Triglyceride [Mass/Vol] 176 mg/dL Critically high <=150 [facility] Comment on above: Performed By: #### L IPID, LIVER #### [facility] [address] [address] [address] Selam Card VLDL CALC 35.2 mg/dL Normal [facility] Comment on above: Performed By: #### L IPID, LIVER #### [facility] [address] [address] [address] Selam Card LIVER PROFILEon 12-03-2021 Albumin [Mass/Vol] 4.0 g/dL Normal 3.4-5.0 [facility] Comment on above: Performed By: #### L IPID, LIVER #### [facility] [address] [place] [address] Dr. Selam Card Albumin/Globulin [Mass ratio] 1.3 {ratio} Normal [facility] Comment on above: Performed By: #### L IPID, LIVER #### [facility] [address] [address] [address] Selam Card ALP [Catalytic activity/Vol] 44 U/L Critically low 46-116 [facility] Comment on above: Performed By: #### L IPID, LIVER #### [facility] [address] [address] [address] Selam Card ALT [Catalytic activity/Vol] 27 U/L Normal 16-63 [facility] Comment on above: Performed By: #### L IPID, LIVER #### [facility] [id number] Selam Card AST [Catalytic activity/Vol] 25 U/L Normal 15-37 [facility] Comment on above: Performed By: #### L IPID, LIVER #### [facility] [address] [address] [address] Selam Card BILI, CONJUGATED 0.2 mg/dL Normal 0.0-0.2 [facility] Comment on above: Performed By: #### L IPID, LIVER #### [facility] [address] [address] [address] Selam Card Bilirubin [Mass/Vol] 1.0 mg/dL Normal 0.2-1.0 [facility] Comment on above: Performed By: #### L IPID, LIVER #### [facility] [address] [address] [address] Selam Card Globulin (S) [Mass/Vol] 3.1 g/dL Normal [facility] Comment on above: Performed By: #### L IPID, LIVER #### [facility] [id number] Selam Card Protein [Mass/Vol] 7.1 g/dL Normal 6.1-8.2 [facility] Comment on above: Performed By: #### L IPID, LIVER #### [facility] [id number] Selam Card VC ENDOVENOUS ABL 1ST V RTon 12-02-2021 VC ENDOVENOUS ABL 1ST V RT Patient: ML HASSAN Exam Date: 12/02/2021 : 1950 Gender:M Ordering : DR MICHAEL MAURER M.D. Admission #: [id number] Family : Order #: [id number] CLICK HERE TO VIEW EXAM RADIOLOGY REPORT PROCEDURE: VEIN CENTER ENDOVENOUS ABLATION FIRST VEIN RIGHT GREAT SAPHENOUS VEIN COMPARISON: VC VENOUS REFLUX KG LMT, 11/25/2021. INDICATIONS: Pain co-occurrent and due to varicose veins of bilateral legs I83.813 OPERATIVE REPORT: The risks and benefits of the procedure had been previously discussed, and were rediscussed at length. Informed written consent was obtained by and Mg verduzco. Time out procedure was performed. The right lower extremity was prepared and draped in the usual sterile fashion to allow knee flexion in the sterile field. Duplex ultrasound probe was draped in a sterile cover, sterile transmission gel was used. Venous mapping was performed with the areas of dilation and large tributaries marked. The total length was 67 cm from the entry 3 cm above the medial malleolus to 3 cm below the saphenofemoral junction. The diameter of the greater saphenous vein ranged from 4-10 mm. A 30 gauge needle and 1% buffered lidocaine was used to anesthetize the entry site. A 4 mm incision was made with a scalpel and the saphenous vein was entered percutaneously under direct ultrasound guidance with a micropuncture set, a single stick was successful in gaining access. A micro-guide wire was inserted and the needle removed. A micro-set including a dilator was inserted over the microwire and the needle and dilator were removed. A 0.018 guide wire was inserted through the micro-set and threaded through the saphenous vein to the saphenofemoral junction. The dilator was removed and an introducer sheath was inserted over the wire until the end of the sheath entered the saphenofemoral junction. The dilator and wire were removed and the 600 micron fiber was introduced and placed and positioned so that it extended beyond the sheath and was 3 cm peripheral to the saphenofemoral femoral junction. Final position of the fiber was determined by ultrasound guidance and duplex imaging. Tumescent anesthetic was delivered by ultrasound guidance. 350 cc of fluid was delivered along the entire course of the saphenous vein. The solution consisted of 500 cc of normal saline with 20mL of 1% lidocaine and 10 mL of sodium bicarbonate. A final positioning check was made. The energy source was turned on by means of the foot pedal and the fiber and sheath were withdrawn. The total number of Joules delivered was 3191. The laser was active for 399 seconds under continuous pulse, average laser use of 8 J. Laser start time 11:59 a.m. December 02, 2021. Laser stop time 12:08 a.m. December 02, 2021. A duplex ultrasound revealed compressibility and flow at the saphenofemoral junction immediately after the procedure. Hemostasis at the access site was achieved. The skin incision of the saphenous vein was closed with a 4 x 4. A compression stocking was applied. Postop instructions were given. A follow up appointment was recommended and scheduled. The patient tolerated the procedure well and was discharged in good condition. CONCLUSION: 1. Technically successful endovenous laser ablation of the right great saphenous vein. Dictated by: Michael Maurer MD on 12/02/2021 at 12:11 Approved by: Michael Maurer MD on 12/02/2021 at 12:13 Normal [facility] CREATININEon 11-27-2021 Creatinine [Mass/Vol] 1.03 mg/dL Normal 0.70-1.30 [facility] Comment on above: Performed By: #### C AMANDA ####[facility] [place], [place] [address]Dr. Selam Card EGFR-AF VENEZUELAN >60 Normal >=60 [facility] Comment on above: Performed By: #### C AMANDA ####[facility] [address] [place], [place] [address]Dr. Selam Card EGFR-NON AF VENEZUELAN >60 Normal >=60 [facility] Comment on above: Performed By: #### C AMANDA ####[facility] [address] [place], [place] [address]Dr. Selam Card CTA ABD ARIAS WWO CON LE RUNO FFon 11-27-2021 CTA ABD ARIAS WWO CON LE RUNOFF EXAMINATION: CTA ABD ARIAS WWO CON LE RUNOFF HISTORY: Atherosclerosis of arteries of the extremities COMPARISON: No relevant comparison available. TECHNIQUE: After obtaining the patient's consent, CT images of the abdomen, pelvis, and lower extremities were obtained without and with non-ionic intravenous contrast material. Multi-planar reformatted/3-D images were created to optimize visualization of vascular anatomy. Dose reduction techniques were achieved by using automated exposure control and/or adjustment of mA and/or kV according to patient size and/or use of iterative reconstruction technique. FINDINGS: AORTA: No aneurysm or dissection. Mild-moderate atherosclerotic disease of aorta and major branches. ILIAC: Mild atherosclerotic disease. No aneurysm or dissection. RIGHT LEG: Moderate atherosclerotic narrowing of the popliteal artery; otherwise mild atherosclerotic disease of the right leg. LEFT LEG: Mild-moderate atherosclerotic narrowing of the popliteal artery; otherwise mild atherosclerotic disease of the left leg. LUNG BASES: No visible pulmonary or pleural disease. LIVER: Fatty infiltration. BILIARY: Cholecystectomy. PANCREAS: No lesion, fluid collection, ductal dilatation, or atrophy. SPLEEN: No enlargement or focal lesion. ADRENALS: No mass or enlargement. KIDNEYS: No mass, obstruction, or calcification. BOWEL/MESENTERY: Marked diverticulosis of the descending and sigmoid colon without acute inflammatory changes. No visible mass, obstruction, or bowel wall thickening. Normal appendix. RETROPERITONEUM: No mass or adenopathy. ABDOMINAL WALL: No mass or hernia. URINARY BLADDER: No visible focal wall thickening, lesion, or calculus. PELVIC NODES: No adenopathy. PELVIC ORGANS: No visible mass. Pelvic organs appropriate for patient age. BONES: No bony lesion or fracture. OTHER: IMPRESSION: 1. Moderate atherosclerotic narrowing of the popliteal arteries, right greater than left. Otherwise overall mild atherosclerotic disease of the aorta, iliac arteries, and lower extremities. Electronically authenticated by: DUSYT SCHILLING Date: 2021-11-27 10:48 Normal [facility] VC COMP CONSULTATIONon 11-25 VC COMP CONSULTATION Patient: ML HASSAN Exam Date: 11/25/2021 : 1950 Gender:M Ordering : DR MICHAEL MAURER M.D. Admission #: [id number] Family : Order #: [id number] CLICK HERE TO VIEW EXAM RADIOLOGY REPORT PROCEDURE: VC VEIN CENTER CONSULTATION VEIN CENTER - OFFICE VISIT INITIAL COMPARISON: None. PROGRESS NOTES: 71-year-old male who presents with a 20 year history of lower extremity varicose veins with bulging dilated pains and muscle cramps. The patient's symptoms are bilateral, left greater than right. The patient describes the pain which is aching burning itching and rates the pain as a 5 on a scale of 1-10. The patient's symptoms have progressively increased most severe in the last several years. The patient's symptoms are significantly exacerbated by prolonged sitting or standing and partially relieved by rest, leg elevation, knee high compression stockings and over the counter Tylenol. The patient has itching has become severe, left greater than right. Scratching results and tenderness with a subsequent 2 cm wound along the left medial mid lower leg which is now closed. The patient denies any signs and symptoms to suggest arterial ischemia and is able to walk 1.5 miles on a track which he does almost daily. 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 The patient a family history of varicose veins. The patient has a history unprovoked deep vein thrombus 45 years ago with no recurrence. Past surgical history significant for deep to or pedraza of the right testicle, coronary artery angioplasty with stent placement. Medical history significant for BPH, allergic rhinitis, lumbar and cervical disc disease, transit ischemic attack, polymyalgia rheumatica, obstructive sleep apnea, generalized anxiety disorder and gastroesophageal reflux disease. Long medical history, see separate report. See separate history and physical for medication list. No prior treatment for varicose or spider veins. Nursing notes were reviewed. After history and physical exam I discussed at length the pathophysiology of venous hypertension and possible treatments, therapies and strategies available. We discussed at length the importance of elevating the lower extremities above the level of the heart, increased physical activity and compression stocking use. We discussed alternatives including conservative therapy with bilateral thigh-high compression stockings, surgical interventions including ligation and stripping and phlebectomy. We discussed intravenous laser ablation, micro foam chemical ablation and injection sclerotherapy at length. The patient's questions were answered. I discussed at length the patient's arterial disease and recommended CT angiogram with bilateral lower extremity runoff for further evaluation. Ultrasound venous reflux study performed the same day was discussed at length with the patient. The report demonstrates severe bilateral great saphenous vein venous insufficiency. Moderate bilateral small saphenous vein venous insufficiency. Mild right anterior accessory saphenous vein venous insufficiency. Extensive bilateral arterial atherosclerotic plaque most significant in the left popliteal artery. Bilateral incompetent branch saphenous tributary/varicose veins PHYSICAL EXAM: The right leg demonstrates moderate hemosiderin staining below the knee. Mild subcutaneous edema. Moderate to severe diffuse varicose, reticular and spider veins. The left leg demonstrates moderate hemosiderin staining below the knee. Mild subcutaneous edema. Moderate to severe diffuse varicose, reticular and spider veins. 2 cm healing ulceration medial mid lower leg. Both thighs, legs and feet were symmetrically warm to the touch. Good posterior tibial and dorsalis pedis pulses were present bilaterally. IMPRESSION: 1. Severe bilateral great saphenous vein, moderate bilateral small saphenous vein, mild right anterior accessory saphenous vein venous insufficiency with associated dilatation 2. Moderate bilateral lower extremity incompetent branch saphenous tributaries/varicose veins 3. Mild bilateral lower extremity subcutaneous edema with hemosiderin staining and healing left leg venous stasis ulcer 4. Bilateral flow significant arterial disease 5. CEAP: C5, Ep, Asp, Pr PLAN: 1. CT angiogram abdomen and pelvis with bilateral lower extremity runoff to evaluate atherosclerotic disease 2. Endovenous laser ablation left great saphenous vein followed by right great saphenous vein followed by left small saphenous vein followed by right small saphenous vein 3. Bilateral micro foam chemical ablation incompetent branch saphenous tributary/varicose veins 4. Injection sclerotherapy bilateral reticular and spider veins 5. Long-term use of bilateral thigh-high 20-30 mm compression stockings 6. Elevated legs and increased physical activity for sy (more content not included)... Normal [facility] VC VENOUS REFLUX KG LMTon 0 11-25-2021 VC VENOUS REFLUX KG LMT Patient: ML HASSAN Exam Date: 11/25/2021 : 1950 Gender:M Ordering : DR MICHAEL MAURER M.D. Admission #: [id number] Family : Order #: [id number] CLICK HERE TO VIEW EXAM RADIOLOGY REPORT PROCEDURE: VEIN CENTER ULTRASOUND VENOUS REFLUX BILATERAL LIMTED COMPARISON: None. INDICATIONS: Pain co-occurrent and due to varicose veins of bilateral legs I83.813 TECHNIQUE: Duplex imaging of the lower extremity to assess the deep and superficial venous system for the presence of deep or superficial venous incompetence and to document the location and severity of disease. The study includes evaluation of the great saphenous vein (GSV), anterior accessory saphenous vein (AASV) and small saphenous vein (SSV). Patient scanned in reverse Trendelenburg and standing. FINDINGS: RIGHT LOWER EXTREMITY: Saphenofemoral Junction Reflux: Yes 10.0mm 1.4 sec GSV: Diam (mm) Reflux/ Time (sec) Proximal Thigh 7.4 Yes 3.0 Mid Thigh 9.0 Yes 4.9 Distal Thigh 7.3 Yes 4.9 Prox Calf 10.7 Yes 3.2 Mid Calf 6.9 Yes 1.1 Saphenopopliteal Junction Reflux: 7.3mm Yes 2.6 SSV: Proximal Calf 5.5 Yes 0.6 Mid Calf 4.3 Yes 1.8 AASV: Proximal Thigh 5.6 Yes 0.8 Mid Thigh 3.6 Yes 2.2 Distal Thigh Thrombi: Chronic non occlusive thrombus in the SSV. Compressibility: Partially compressible segements in the SSV. Flow: Deep venous reflux noted. Preforator: Multiple perforators in the lower leg medial and lateral. Largest is 5.2 mm with 1.6s reflux. Tech Note: 70% area of reduction in right SUPPLY CHAIN ENGINEER noted. Incompetent SFJ/GSV, SPJ/SSV, AASV, and multiple varicose veins throughout leg. Incompetent varicosity mid/medial lower leg measures 4.7 mm with 1.2 seconds of reflux. Distal/medial thigh varicose vein measures 4.7 mm with 2.8 seconds of reflux. LEFT LOWER EXTREMITY: Saphenofemoral Junction Reflux: Yes 10.6 mm 4.0 sec GSV: Diam (mm) Reflux/Time (sec) Proximal Thigh 12.1 Yes 1.7 Mid Thigh 10.9 Yes 5.0 Distal Thigh 9.9 Yes 2.0 Prox Calf 8.5 Yes 3.8 Mid Calf 4.8 Yes 2.8 Saphenopopliteal Junction Relux: 7.0 mm Yes 0.7 SSV: Proximal Calf 7.0 Yes 3.5 Mid Calf 4.2 Yes 1.2 AASV: Proximal Thigh 6.2 Yes 0.5 Mid Thigh 5.5 Yes 0.4 Distal Thigh Thrombi: Chronic non occlusive thrombus in the GSV and SSV. Compressibility: Non compressible and partially compressible segments of GSV and SSV. Flow: Deep venous reflux visualized. Editing Intern: Multiple perforators lower leg. Largest is mid/medial calf and measures 3.9 mm with 0.6 s reflux. Tech Note: Significant area of plaque in left popliteal artery with elevated velocities up to 373 cm/s. Incompetent SFJ/GSV, SPJ/SSV, AASV, and multiple varicosities. Varicose vein posterior lateral calf measures 3.9 mm with 0.4 seconds of reflux. Incompetent varicosity medial/prox calf measures 4.6 mm with 1.8 seconds of reflux. Medial/anterior mid lower leg varicose vein measures 6.4 mm with 1.6 seconds of reflux. CONCLUSION: 1. Severe bilateral great saphenous vein venous insufficiency with associated dilatation 2. Moderate bilateral small saphenous vein venous insufficiency with associated dilatation 3. Mild right anterior accessory saphenous vein venous insufficiency 4. Chronic bilateral nonocclusive small saphenous and left great saphenous vein thrombus 5. Extensive bilateral atherosclerotic plaque with elevated flow velocities bilaterally most significant along the left popliteal artery 6. Bilateral incompetent branch saphenous tributaries/varicose veins Dictated by: Michael Maurer MD on 11/25/2021 at 12:58 Approved by: Michael Maurer MD on 11/25/2021 at 13:02 Normal [facility] Cult,Urineon 05-09-2020 Cult,Urine Specimen Description .CLEAN CATCH URINE Special Requests NOT REPORTED Culture NO GROWTH Report Status FINAL 05/09/2020 Normal [facility] [facility] Comment on above: Performed By: #### U RC #### [facility] [employer] [address] [place] [address] Glazier Apprentice: Andrei Pryor MD [facility] [address] [place] [address] [place] [address] Glazier Apprentice: Clifford Fofana MD Urinalysis w/ Microon 2019 ----- Normal [facility] Comment on above: Performed By: #### U AMIC #### [facility] [address] [place] [place] [address] Glazier Apprentice: Clifford Fofana MD Bacteria LM.HPF (Urine sed) [#/Area] TRACE Abnormal NONE [facility] Comment on above: Performed By: #### U AMIC #### [facility] [address] [place] [address] Glazier Apprentice: Clifford Fofana MD Epithelial cells LM.HPF (Urine sed) [#/Area] 0 TO 2 Normal 0-5 [facility] Comment on above: Performed By: #### U AMIC #### [facility] [address] [place] [address] Glazier Apprentice: Clifford Fofana MD RBC (U) [#/Vol] 2 TO 5 Normal 0-2 [facility] Comment on above: Performed By: #### U AMIC #### [facility] [address] [place] [address] Glazier Apprentice: Clifford Fofana MD WBC (U) [#/Vol] 5 TO 10 Normal 0-5 [facility] Comment on above: Performed By: #### U AMIC #### [facility] [address] [place] [address] [place] [place], [place] [id number] Glazier Apprentice: Clifford Fofana MD Acetoacetic Acid,Ur Negative Normal NEG [facility] Comment on above: Performed By: #### U AMIC #### [facility] [address] [place] [address] [place] [place], [place] [id number] Glazier Apprentice: Clifford Fofana MD Bilirubin, SemiQt,Ur Negative Normal NEG [facility] Comment on above: Performed By: #### U AMIC #### [facility] [address] [place] [address] [place] [place], [place] [id number] Glazier Apprentice: Clifford Fofana MD Color (U) YELLOW Normal YEL [facility] Comment on above: Performed By: #### U AMIC #### [facility] [address] [place] [address] Glazier Apprentice: Clifford Fofana MD Glucose Ql (U) Negative Normal NEG [facility] Comment on above: Performed By: #### U AMIC #### [facility] [address] [place], [place] [id number] Glazier Apprentice: Clifford Fofana MD Hemoglobin, Ur 2+ Abnormal NEG [facility] Comment on above: Performed By: #### U AMIC #### [facility] [address] [place], [place] [id number] Glazier Apprentice: Clifford Fofana MD Leukocyte esterase Test strip Ql (U) TRACE Abnormal NEG [facility] Comment on above: Performed By: #### U AMIC #### [facility] [address] [place], [facility]83 Glazier Apprentice: Clifford Fofana MD Nitrite,Ur Negative Normal NEG [facility] Comment on above: Performed By: #### U AMIC #### [facility] [address] [place] [id number] Glazier Apprentice: Clifford Fofana MD pH (U) 6.0 [pH] Normal 5.0-9.0 [facility] Comment on above: Performed By: #### U AMIC #### [facility] [address] [place], [facility]83 Glazier Apprentice: Clifford Fofana MD Protein Ql (U) Negative Normal NEG [facility] Comment on above: Performed By: #### U AMIC #### [address] [place] [id number] Glazier Apprentice: Clifford Fofana MD Specific gravity (U) [Rel density] 1.020 Normal 1.010-1.020 [facility] Comment on above: Performed By: #### U AMIC #### [facility] [address] [place], [facility]83 Glazier Apprentice: Clifford Fofana MD Turbidity CLEAR Normal CLEAR [facility] Comment on above: Performed By: #### U AMIC #### [facility] [address] [place] [address] Glazier Apprentice: Clifford Fofana MD Urobilinogen,Ur Normal Normal NORM [facility] Comment on above: Performed By: #### U AMIC #### [facility] [address] [place] [address] Glazier Apprentice: Clifford Fofana MD Amorphous sediment LM Ql (Urine sed) NOT REPORTED Normal [facility] Comment on above: Performed By: #### U AMIC #### [facility] [address] [place] [address] Glazier Apprentice: Clifford Fofana MD Casts LM.LPF (Urine sed) [#/Area] NOT REPORTED Normal [facility] Comment on above: Performed By: #### U AMIC #### [facility] [address] [place] [place] [address] Glazier Apprentice: Clifford Fofana MD Comment NOT REPORTED Normal [facility] Comment on above: Performed By: #### U AMIC #### [facility] [address] [place] [place] [address] Glazier Apprentice: Clifford Fofana MD Crystals LM Nom (Urine sed) NOT REPORTED Normal [facility] Comment on above: Performed By: #### U AMIC #### [facility] [address] [place] [address] Glazier Apprentice: Clifford Fofana MD Epithelial, Renal NOT REPORTED Normal 0 [facility] Comment on above: Performed By: #### U AMIC #### [facility] [address] [place], [place] [id number] Glazier Apprentice: Clifford Fofana MD Mucus Strands NOT REPORTED Normal [facility] Comment on above: Performed By: #### U AMIC #### [facility] [address] [place], [place] [id number] Glazier Apprentice: Clifford Fofana MD Other Observations NOT REPORTED [facility] Comment on above: Performed By: #### U AMIC #### [facility] [address] [place], [place] 145[address]83 Glazier Apprentice: Clifford Fofana MD Trichomonas NOT REPORTED Normal NONE [facility] Comment on above: Performed By: #### U AMIC #### [facility] [address] [place] [place] [address] Glazier Apprentice: Clifford Fofana MD Yeast LM Ql (Urine sed) NOT REPORTED Normal NONE [facility] Comment on above: Performed By: #### U AMIC #### [facility] [address] [place] [place] [address] Glazier Apprentice: Clifford Fofana MD Urinalysis with Microscopico n 05-08-2020 Amorphous, UA NOT REPORTED None [facility] Bacteria, UA TRACE Abnormal None [place], [place] Bilirubin Urine Negative NEGATIVE [facility], [place] Casts UA NOT REPORTED /LPF [place], [place] Color, UA YELLOW YELLOW [place], [place] Crystals, UA NOT REPORTED None /HPF [facility], [place] Epithelial Cells UA 0 TO 2 [place] Glucose, Ur Negative NEGATIVE [place] Interpretation and review of laboratory results Abnormal [place] Ketones Ql (U) Negative NEGATIVE [place], [place] Leukocyte esterase Test strip Ql (U) TRACE Abnormal NEGATIVE [place] Mucus, UA NOT REPORTED None [place], [place] Nitrite, Urine Negative NEGATIVE [place], [place] Other Observations UA NOT REPORTED NOT REQ. [facility], [place] pH, UA 6.0 [place] Protein (U) [Mass/Vol] Negative NEGATIVE [place] RBC (U) [#/Vol] 2 TO 5 [facility] [place] Renal Epithelial, UA NOT REPORTED 0 /HPF [facility], [place] Specific [place], UA 1.020 [place], [place] Trichomonas, UA NOT REPORTED None [facility] [place] Turbidity UA CLEAR CLEAR [place] Urinalysis Comments NOT REPORTED [facility], [place] Urine Hgb 2+ Abnormal NEGATIVE [facility], [place] Urobilinogen, Urine Normal Normal [place], [place] WBC, UA 5 TO 10 [place] Yeast, UA NOT REPORTED None [facility], [place] OPERATIVE REPORTon 0 OPERATIVE REPORT [address] [address] OPERATIVE REPORT PATIENT NAME: ML HASSAN : 1950 MED REC NO: [id number] ROOM: ACCOUNT NO: [id number] ADMIT DATE: 04/10/2020 PROVIDER: Vilma Dior DATE OF PROCEDURE: 04/10/2020 SURGEON: Dr. Vilma Dior. SENIOR INSIGHT MANAGER: None. PREOPERATIVE DIAGNOSES: 1. BPH with lower urinary tract symptoms. 2. Urinary urgency. 3. Urinary frequency. 4. Urinary weak stream. POSTOPERATIVE DIAGNOSES: 1. BPH with lower urinary tract symptoms. 2. Urinary urgency. 3. Urinary frequency. 4. Urinary weak stream. PROCEDURE PERFORMED: Photoselective vaporization of the prostate with GreenLight laser XPS. ANESTHESIA: General. COMPLICATIONS: None. ESTIMATED BLOOD LOSS: Minimal. SPECIMENS: Previous UroLift tabs, given to the patient. PROSTHESIS: A 22-Afghan three-way Arellano catheter. DISPOSITION: Stable. FINDINGS: Trilobar hyperplasia of the prostate. INDICATIONS: The patient is a 69-year-old male with previous history of UroLift, now here for definitive therapy in the form of PVP GreenLight. DESCRIPTION OF PROCEDURE: The patient was taken back to the operating room after informed consent including all risks, benefits, and alternatives were obtained. The patient was transferred from the [facility] onto the operating table, where he was induced under general anesthesia, given IV Cipro for preoperative antibiotic prophylaxis. To begin the case, he was prepped and draped in normal sterile fashion, placed in dorsal lithotomy. He had a 24-Afghan sheath with 30-degree lens passed through the urethra and into the bladder. Once in the bladder, we identified the ureteral orifices. They were somewhat distorted due to the previous UroLift procedure. We were able to then ablate the prostate. We used power level of 80 up to 160. We did encounter several UroLift tabs. Once these were identified, we did grasp them and removed them to the back table. We did give this specimen cup full of these tabs to the patient. At this point in time, care and precaution were taken not to resect past the verumontanum. We did create an adequate TUR defect and hemostasis was achieved. We did use 165,000 joules of energy. We then removed the scope, inserted a 22-Afghan three-way Arellano catheter, hand irrigated to clear. He was then awoken from general anesthesia, transferred to the [facility], and taken to the PACU in satisfactory condition by Nursing and Anesthesia Teams. PLAN: The patient will be discharged home per PACU criteria and follow up with us in two days for Arellano catheter removal. VILMA CHACONDAYAMI [id number] Doc#: [id number] CC: Normal [facility] CBC Auto Differentialon Basophils (Bld) [#/Vol] 0.00 10*3/uL [place] Basophils/100 WBC (Bld) 0 % 0 - 2 % [place] Differential Type YES [place], [place] Eosinophils (Bld) [#/Vol] 0.20 10*3/uL [place] Eosinophils/100 WBC (Bld) 3 % 0 - 5 % [place] Erythrocyte distribution width (RBC) [Ratio] 13.4 % 12.1 - 15.2 % [place] Hematocrit (Bld) [Volume fraction] 42.7 % 41 - 53 % [place] Hemoglobin (Bld) [Mass/Vol] 14.4 g/dL 13.5 - 17.5 g/dL [place] Lymphocytes (Bld) [#/Vol] 1.40 10*3/uL [place] Lymphocytes/100 WBC (Bld) 17 % 13 - 44 % [place] MCH (RBC) [Entitic mass] 31.3 pg 26 - 34 pg [place] MCHC (RBC) [Mass/Vol] 33.8 g/dL 31 - 37 g/dL [place] MCV (RBC) [Entitic vol] 92.6 fL 80 - 100 fL [place] Monocytes (Bld) [#/Vol] 0.70 10*3/uL [place] Monocytes/100 WBC (Bld) 9 % 5 - 9 % [place] Platelet mean volume (Bld) [Entitic vol] NOT REPORTED 6 - 12 fL [place], [place] Platelets (Bld) [#/Vol] NOT REPORTED [place] Platelets (Bld) [#/Vol] 207 10*3/uL [place] RBC (Bld) [#/Vol] 4.61 10*6/uL 4.5 - 5.9 m/uL [place] RBC morphology finding Nom (Bld) NOT REPORTED [place] Segmented neutrophils/100 WBC (Bld) 71 % 39 - 75 % [place] Segs Absolute 5.60 [place], [place] WBC (Bld) [#/Vol] NOT REPORTED per 100 WBC [place], [place] WBC (Bld) [#/Vol] 7.9 10*3/uL [place] WBC Morphology NOT REPORTED [place], [place] COVID-19on 04-06-2020 SARS-CoV-2 Not Detected Not Detected [place], [place] Comment on above: The specimen is NEGATIVE for SARS-CoV-2, the novel coronavirus associated with COVID-19. A negative result does not rule out COVID-19. This test has been authorized by the FDA under an Emergency Use Authorization (EUA) for use by authorized laboratories. [place] SARS-CoV-2 Reagents for [employer] are designed to detect the virus that causes COVID-19 in patients with signs and symptoms of infection who are suspected of COVID-19. An individual without symptoms of COVID-19 and who is not shedding SARS-CoV-2 virus would expect to have a negative (not detected) result in this assay. Fact sheet for Healthcare Providers: https://www.fda.gov/media/879207/download Fact sheet for Patients: https://www.fda.gov/media/914505/download METHODOLOGY: RT-PCR SARS-CoV-2, PCR [place], [place] SARS-CoV-2, Rapid [place], [place] Source .NASOPHARYNGEAL SWAB [facility] AMY Otheron 04-06-2020 Immature granulocytes (Bld) [#/Vol] NOT REPORTED [place] Cult,Urineon 12-03-2019 Cult,Urine Specimen Description .CLEAN CATCH URINE Special Requests NOT REPORTED Culture NO GROWTH Report Status FINAL 12/02/2019 Normal [facility] Comment on above: Performed By: #### U RC #### [facility] [address] [place], [place] [id number] Glazier Apprentice: Andrei Pryor MD [facility] [address] [place] [address] Glazier Apprentice: Clifford Fofana MD Urinalysis w/ Microon 2019 ----- Normal [facility] Comment on above: Performed By: #### U AMIC #### [facility] [address] [place] [place] [address] Glazier Apprentice: Clifford Fofana MD Acetoacetic Acid,Ur Negative Normal NEG [facility] Comment on above: Performed By: #### U AMIC #### [facility] [address] [place] [place] [address] Glazier Apprentice: Clifford Fofana MD Bacteria LM.HPF (Urine sed) [#/Area] TRACE Abnormal NONE [facility] Comment on above: Performed By: #### U AMIC #### [facility] [address] [place] [address] Glazier Apprentice: Clifford Fofana MD Bilirubin, SemiQt,Ur Negative Normal NEG [facility] Comment on above: Performed By: #### U AMIC #### [facility] [address] [place] [address] Glazier Apprentice: Clifford Fofana MD Color (U) YELLOW Normal YEL [facility] Comment on above: Performed By: #### U AMIC #### [facility] [address] [place] [address] Glazier Apprentice: Clifford Fofana MD Epithelial cells LM.HPF (Urine sed) [#/Area] None Normal 0-5 [facility] Comment on above: Performed By: #### U AMIC #### [facility] [address] [place], [place] [id number] Glazier Apprentice: Clifford Fofana MD Glucose Ql (U) Negative Normal NEG [facility] Comment on above: Performed By: #### U AMIC #### [facility] [address] [place], [place] [phone] Glazier Apprentice: Clifford Fofana MD Hemoglobin, Ur Negative Normal NEG [facility] Comment on above: Performed By: #### U AMIC #### [facility] [address] [place] [address] [place]. [place], [place] 6637183 Glazier Apprentice: Clifford Fofana MD Leukocyte esterase Test strip Ql (U) Negative Normal NEG [facility] Comment on above: Performed By: #### U AMIC #### [facility] [address] [place] [address] [place]. [place], [place] [id number] Glazier Apprentice: Clifford Fofana MD Nitrite,Ur Negative Normal NEG [facility] Comment on above: Performed By: #### U AMIC #### [facility] [address] [place] [address] Dr. [place], [place] 998[address]83 Glazier Apprentice: Clifford Fofana MD pH (U) 5.5 [pH] Normal 5.0-9.0 [facility] Comment on above: Performed By: #### U AMIC #### [facility] [address] [place], [place] [phone] Glazier Apprentice: Clifford Fofana MD Protein Ql (U) Negative Normal NEG [facility] Comment on above: Performed By: #### U AMIC #### [facility] [address] [place], [place] [id number] Glazier Apprentice: Clifford Fofana MD RBC (U) [#/Vol] None Normal 0-2 [facility] Comment on above: Performed By: #### U AMIC #### [facility] [address] [place], [place] [address]83 Glazier Apprentice: Clifford Fofana MD Specific gravity (U) [Rel density] >1.030 High 1.010-1.020 [facility] Comment on above: Performed By: #### U AMIC #### [facility] [address] [place], [place] [id number] Glazier Apprentice: Clifford Fofana MD Turbidity CLEAR Normal CLEAR [facility] Comment on above: Performed By: #### U AMIC #### [facility] [address] [place] [place] [address] Glazier Apprentice: Clifford Fofana MD Urobilinogen,Ur Normal Normal NORM [facility] Comment on above: Performed By: #### U AMIC #### [facility] [address] [place] [address] Glazier Apprentice: Clifford Fofana MD WBC (U) [#/Vol] None Normal 0-5 [facility] Comment on above: Performed By: #### U AMIC #### [facility] [address] [place] [address] Glazier Apprentice: Clifford Fofana MD Amorphous sediment LM Ql (Urine sed) NOT REPORTED Normal [facility] Comment on above: Performed By: #### U AMIC #### [facility] [address] [place], [facility]83 Glazier Apprentice: Clifford Fofana MD Casts LM.LPF (Urine sed) [#/Area] NOT REPORTED Normal [facility] Comment on above: Performed By: #### U AMIC #### [facility] [address] [place] [address] Glazier Apprentice: Clifford Fofana MD Comment NOT REPORTED Normal [facility] Comment on above: Performed By: #### U AMIC #### [facility] [address] [place] [address] Glazier Apprentice: Clifford Fofana MD Crystals LM Nom (Urine sed) NOT REPORTED Normal [facility] Comment on above: Performed By: #### U AMIC #### [facility] [address] [place] [address] Glazier Apprentice: Clifford Fofana MD Epithelial, Renal NOT REPORTED Normal 0 [facility] Comment on above: Performed By: #### U AMIC #### [facility] [address] [place] [address] Glazier Apprentice: Clifford Fofana MD Mucus Strands NOT REPORTED Normal [facility] Comment on above: Performed By: #### U AMIC #### [facility] [address] [place] [place] [address] Glazier Apprentice: Clifford Fofana MD Other Observations NOT REPORTED [facility] Comment on above: Performed By: #### U AMIC #### [facility] [address] [place] [address] Glazier Apprentice: Clifford Fofana MD Trichomonas NOT REPORTED Normal [facility] Comment on above: Performed By: #### U AMIC #### [facility] [address] [place] [address] Glazier Apprentice: Clifford Fofana MD Yeast LM Ql (Urine sed) NOT REPORTED Normal [facility] Comment on above: Performed By: #### U AMIC #### [facility] [address] [place], [place] [address] Glazier Apprentice: Clifford Fofana MD Urinalysis with Microscopico n 12-01-2019 Amorphous, UA NOT REPORTED None [facility] [place] [place] Bacteria, UA TRACE Abnormal None [facility] [place] Bilirubin Urine Negative NEGATIVE [facility] [place] Casts UA NOT REPORTED /LPF [facility] [place] Color, UA YELLOW YELLOW [facility], [place] Crystals, UA NOT REPORTED None /HPF [facility] [place] Epithelial Cells UA None [facility], [place] Glucose, Ur Negative NEGATIVE [facility], [place] Interpretation and review of laboratory results Abnormal [facility], [place] Ketones Ql (U) Negative NEGATIVE [facility] Leukocyte esterase Test strip Ql (U) Negative NEGATIVE [facility], [place] Mucus, UA NOT REPORTED None [facility], [place] Nitrite, Urine Negative NEGATIVE [facility], [place] Other Observations UA NOT REPORTED NOT REQ. [facility], [place] pH, UA 5.5 [facility], [place] Protein (U) [Mass/Vol] Negative NEGATIVE [facility], [place] RBC (U) [#/Vol] None [facility] Renal Epithelial, UA NOT REPORTED 0 /HPF [facility], [place] Specific [place], UA >1.030 High [facility], [place] Trichomonas, UA NOT REPORTED None [facility] [place] Turbidity UA CLEAR CLEAR [facility], [place] Urinalysis Comments NOT REPORTED [facility] Urine Hgb Negative NEGATIVE [facility] Urobilinogen, Urine Normal Normal [facility], [place] WBC, UA None [facility], [place] Yeast, UA NOT REPORTED None [facility], [place] - [facility], [place] Cardiovascular Lab Reporton 07-29-2018 Cardiovascular Lab Report [facility] Patient Name: [facility]a [facility] MR #: [id number] Physician: Willie Barfield, Department of M.D. Medicine Service Date: 07/29/2018 Division of Birthdate: 1950 Cardiology Room #: 3AB [id number] Adult Cardiovascular Services [place] [address] Cardiovascular Laboratory Report FINAL IMPRESSIONS: 1. Severe de Thanh stenosis of the left anterior descending coronary artery successfully treated by balloon angioplasty and Synergy drug-eluting stent placement. 2. Patent stents in the left anterior descending with mild in-stent restenosis. 3. Mild plaque disease of the left circumflex coronary artery. 4. Normal global left ventricular systolic function by noninvasive imaging. RECOMMENDATIONS/PLAN: 1. Aspirin 81 mg lifelong. 2. Plavix 75 mg daily for minimum of 6 months. 3. Aggressive cardiovascular risk factor modification. 4. Optimization of medical management; high-intensity statin therapy, a beta-kp, +/- an angiotensin-converting enzyme inhibitor are indicated. 5. Follow up with ok in the [facility] in the next 2-4 weeks. 6. Follow up with Dr. Proctor as scheduled. PROCEDURES: Bilateral selective coronary angiography, percutaneous balloon angioplasty and Synergy drug-eluting stent placement of the left anterior descending coronary artery, placement of a 6-Afghan MynxGrip closure device. METHODS: After risks, benefits, and alternatives were explained, written informed consent was obtained. The patient was prepped and draped in usual sterile fashion over the right groin. Using 1% lidocaine solution, local infiltration anesthesia was achieved. This was accomplished using a micropuncture kit. A 6-Afghan 11 cm sheath was exchanged in without difficulty. Baseline femoral angiography was performed. Bilateral selective coronary angiography was performed using JL4 and JR4 catheters. After reviewing the images, it was elected to proceed with an interventional procedure. A 6-Afghan XB 3.5 guide catheter was advanced over J-wire and coaxially engaged into the left coronary ostium. A 0.014 run-through NS wire was advanced through the catheter across the target lesion and positioned distally. Balloon angioplasty was performed using a 3.0 x 15 mm noncompliant balloon. An inadequate result was treated using a 3.5 x 24 mm Synergy drug-eluting stent. Repeat imaging showed an optimal result. The wire was removed. Final images showed JOSELIN-3 flow with no dissection, thrombus, or distal wire trauma. At this point, it was elected to conclude the procedure. A 6-Afghan MynxGrip closure device was deployed; however, hemostasis was not secured. Therefore, manual pressure was held. Overall, the patient tolerated the procedure well. There were no overt complications. He was to be transferred to the holding area in stable condition. FINDINGS: Hemodynamics: AO 139/67 (95). LEFT VENTRICULOGRAPHY: This was not performed. Ejection fraction is 55% by noninvasive imaging. CORONARY ARTERIES: Left main coronary artery. This arises from the left coronary cusp. It bifurcates into the left anterior descending and left circumflex coronary arteries and is free of significant stenoses. Left anterior descending coronary artery. This is a large co-dominant vessel giving rise to the posterior descending artery. It shows evidence of previously placed stent in the proximal and distal portion of the vessel with mild in-stent restenosis. The proximal stent has a 30% in-stent restenosis. In the midportion of the vessel, there is an 85%-90%. eccentric stenosis. This was reduced to 0% by balloon angioplasty and placement of a 3.5 x 24 mm Synergy drug-eluting stent. Final images showed JOSELIN-3 flow with no dissection, thrombus, or distal wire trauma. Left circumflex coronary artery. This shows mild plaque in mid vessel 30% stenosis and gives rise to three moderate to large obtuse marginal branches before continuing as a small AV groove branch. It appears to be a co-dominant vessel, giving rise to posterolateral branches also. Right coronary artery. This is a small nondominant vessel that shows mild plaque. Limited femoral angiography that shows mild plaque and anatomy suitable for closure device. INDICATIONS: Angina and abnormal stress test. Electronically Signed by: Willie Barfield M.D. 08/13/2018 02:44 P Willie Barfield M.D. Date Dict: 07/29/2018/09:07 Linda/Willie Barfield M.D. Date Trans: 07/29/2018 10:45 Leonardo [id number] cc: Viet Proctor D.O. [address] [place] [id number] [facility] Coding Summary.on 05-28-2018 Coding Summary. CODING DATE: 018 FINAL [facility] STATUS: Home (Routine DC) PAYOR: [facility] APC DESCRIPTION 5376 Level 6 Urology and Related Services ADMIT DX: REASON FOR VISIT DX: N40.1 Benign prostatic hyperplasia with lower urinary tract symptoms FINAL DX: PRINCIPAL: N40.1 Benign prostatic hyperplasia with lower urinary tract symptoms SECONDARY: R39.11 Hesitancy of micturition N39.43 Post-void dribbling Z87.891 Personal history of nicotine dependence M19.90 Unspecified osteoarthritis, unspecified site J44.9 Chronic obstructive pulmonary disease, unspecified F32.9 Major depressive disorder, single episode, unspecified I10 Essential (primary) hypertension I25.2 Old myocardial infarction PYMT PROC APC STAT DESCRIPTION DOCTOR NAME DATE NOTE: The code number assigned matches the documented diagnosis and / or procedure in the patient's chart. However, the narrative phrase printed from the coding software may appear abbreviated, or result in slightly different terminology. Revised Coded By: Emely Bravo Revised Date Saved: 05/28/2018 10:45 am Normal [facility] Main OR Intraoperative Recor don 05-27-2018 Main OR Intraoperative Record IntraOp Document Type FTURO Summary Primary Physician: Ariel Santiago Jr., MD Finalized Date/Time: 05/27/18 15:05:27 Pt. Name: ML HASSAN /Sex: 1950 Male Med Rec #: [id number] Physician: Ariel Santiago Jr., MD Financial #: [id number] Pt. Type: O Room/Bed: / Admit/Disch: 05/27/18 13:43:59 - Institution: Case Times FTURO Entry 1 Patient Times In Room 05/27/18 14:36:00 Out Room 05/27/18 15:07:00 Procedure Times Start 05/27/18 14:40:00 Stop 05/27/18 15:00:00 Anesthesia Times Last Modified By: Iliana GAN, DIEGOORLiz 05/27/18 15:05:10 Case Attendance FTURO Entry 1 Entry 2 Entry 3 Case Attendee Ariel Santiago Jr., MD, RN, DIEGOORLiz CST, Umu Mitchell Role Performed Surgeon - Primary Manager Application Development - Primary Scrub - Primary Time In 05/27/18 14:40:00 05/27/18 14:36:00 05/27/18 14:36:00 Time Out 05/27/18 15:07:00 05/27/18 15:07:00 05/27/18 15:07:00 Procedure CYSTOSCOPY LOCAL CYSTOSCOPY LOCAL CYSTOSCOPY LOCAL UROLIFT(.) UROLIFT(.) UROLIFT(.) Comments Last Modified By: RUSLAN Barrientos RN, Lou Ann Blank RN, CNOR, Lou Ann Blank RN, CNOR, Lou Ann 05/27/18 15:05:11 05/27/18 15:05:11 05/27/18 15:05:11 Surgical Procedures FTURO Entry 1 Procedure Description Procedure CYSTOSCOPY LOCAL UROLIFT Modifiers . Surgeon Description CYSTOSCOPY LOCAL WITH UROLIFT [id number] x 4 and arellano insertion Primary Procedure Yes Primary Surgeon Ariel Santiago Jr., MD Start 05/27/18 14:40:00 Stop 05/27/18 15:00:00 Anesthesia Type Local Surgical Service Urology Wound Class 2 - Clean-Contaminated Last Modified By: RUSLAN Barrientos RN, Lou Ann 05/27/18 15:00:48 General Case Data FTURO Pre-Care Text: Classifies surgical wound, implements aseptic technique, initiates traffic control Entry 1 Case Information OR URO 1 FT Case Level None Wound Class 2 - Clean-Contaminated Specialty Urology Preop Diagnosis BPH WITH LUTS Postop Same As Preop Yes Postop Diagnosis BPH WITH LUTS Outcomes Met? Yes Last Modified By: RUSLAN Barrientos RN, Lou Ann 05/27/18 12:41:21 Post-Care Text: The patient is free from signs and symptoms of infection EU IntraOp - FTURO Pre-Care Text: Implements protective measures prior to operative or invasive procedure, confirms identity before the operative or invasive procedure, verifies operative procedure, surgical site, and laterality Entry 1 EU Perioperative Protocols Procedure(s) CYSTOSCOPY LOCAL Patient Identity ID Band Check, Patient UROLIFT(.) Verified (select at Participation least 2): Consents / H and P HandP, Surgery/Procedure Operative Site N/A Verified Consent Marking Verified Surgical Site Yes Laterality Verified n/a Verified Procedure Verified Yes Correct Patient Yes Position Verified Availability Equipment, Implant, Time Out Ariel Santiago Jr., MD, Verified (If Medication Participants [place] Chapel[place]mu salazar CST, Applicable) RUSLAN Barrientos RN, Lou Ann Time Out Complete 05/27/18 14:41:00 Allergies Reviewed? Yes Allergies Reviewed Self/Patient With Body Position Low Lithotomy Prep Area penis Prep Agents Betadine Solution Skin. Condition Warm, Dry Additional None Specimens Collected Vitals - EU Blood Pressure Pulse Respirations SPO2 EBL 0 IandO - EU Total Intake 0 mL Total Output 0 mL Outcomes Met? Yes Last Modified By: RUSLAN Barrientos RN, Lou Ann 05/27/18 15:01:33 Post-Care Text: The patient is free from signs and symptoms of injury caused by extraneous objects Implant Log FTURO Pre-Care Text: Records devices implanted during the operative or invasive procedure Entry 1 Implant/Explant Implant Implant Identification Description urolift Lot Number [id number] [employer] neotract Expiration Date 09/11/19 Usage Data Implant Site prostate Quantity 4 Outcomes Met? Yes Last Modified By: RUSLAN Barrientos RN, Lou Ann 05/27/18 14:38:02 Post-Care Text: The patient is free from signs and symptoms of injury caused by extraneous objects General Comments: one missed fired for total of 5 open Case Comments Finalized By: RUSLAN Barrientos RN, Lou Ann Document Signatures Signed By: RUSLAN Barrientos RN, Lou Ann 05/27/18 15:05 Normal [facility] Main OR Preoperative Recordo n 05-27-2018 Main OR Preoperative Record Holding Area Document Type FTURO Summary Primary Physician: Ariel Santiago Jr., MD Finalized Date/Time: 05/27/18 15:39:25 Pt. Name: ML HASSAN Coleen Morrell/Sex: 1950 Male Med Rec #: [id number] Physician: Ariel Santiago Jr., MD Financial #: [id number] Pt. Type: O Room/Bed: / Admit/Disch: 05/27/18 13:43:59 - Institution: Case Times Holding FTURO Pre-Care Text: Verifies consent for planned procedure, identifies individual values and wishes concerning care, includes family members in perioperative teaching Secures patient's records' belongings, and valuables, maintains patient's dignity and privacy, and maintains patient confidentiality Entry 1 In Holding 05/27/18 13:53:00 Outcomes Met? Yes Last Modified By: Susan Carranza LPN 05/27/18 13:54:01 Post-Care Text: The patient participates in decisions affecting his or her perioperative plan of care The patient's right to privacy is maintained Surgery Checklist FTURO Entry 1 Patient Birthday, ID Band Procedure History and Physical, Identification: Check, Patient Verification: Surgical Consent, With Participation Patient NPO after Midnight: n/a Personal Items: Jewelry Personal Items ring Complaints of Pain: Yes Comment: Skin Integrity Intact, Tiro, Warm, & Dry Vitals - EU Blood Pressure 146/71 Pulse 73 bpm Respirations 18 br/min SPO2 RN Reviewed Yes Last Modified By: RUSLAN Barrientos RN, Lou Ann 05/27/18 15:16:57 Finalized By: RUSLAN Barrientos RN, Lou Ann Document Signatures Signed By: Susan Carranza LPN 05/27/18 13:57 RUSLAN Barrientos RN, Lou Ann 05/27/18 15:16 RUSLAN Barrientos RN, Lou Ann 05/27/18 15:39 Normal [facility] Operative Reporton Operative Report Patient: NICHOLAS HASSAN Age: 68 years Sex: Male : 1950 Associated Diagnoses: None Author: Jack Bolaños MD, Ariel Read Procedure Operative Information Details: Date/ Time: 05/27/18 15:02:00. Pre-Op Dx: BPH w/ LUTS - N40.1. Post-Op Dx: Same. Anesthesia Type: Local. Procedure: Cystoscopy with UroLift Prostatic Urethral Lift. Complications: None. Risks/Benefits/Informed Consent: Surgical risks, benefits, details of the procedure have been explained to the patient, Full informed consent has been obtained. Indications: This patient has bladder outlet obstructive symptoms refractory to medications, He is strongly desirous to try the Urolift procedure. Intraoperative Information Prepped: Patient received 1 hour prior to procedure (10 mg diazepam, 5/325 mg of [place]), Local Anesthesia (60cc 2% Xylocaine liquid inserted into bladder, 20cc Xylocaine 2% jelly inserted into urethra, Penile clamp applied for 20 min dwell prior to procedure with patient in sitting position). Procedure: A 20F cystoscope was inserted into the bladder, The cystoscopy bridge was replaced with a UroLift delivery device, The first treatment site was the patient's left side approximately 1.5 cm distal to the bladder neck, The distal tip of the delivery device was then angled laterally approximately 20 degrees at this position to compress the lateral lobe, The trigger was pulled, thereby deploying a needle containing the implant through the prostate, The needle was then retracted, allowing one end of the implant to be delivered to the capsular surface of the prostate, The implant was then tensioned to assure capsular seating and removal of slack monofilament, The device was then angled back toward midline and slowly advanced proximally (typically 3-4mm) until cystoscopic verification of the monofilament being centered in the delivery bay, The urethral end piece was then affixed to the monofilament thereby tailoring the size of the implant, Excess filament was then severed, The delivery device was then readvanced into the bladder, The delivery device was then replaced with cystoscope and bridge and the implant location and opening effect was confirmed cystoscopically, The same procedure was then repeated on the right side, Two additional implants were delivered just proximal to the veru montanum, again one on right and one on left side of the prostate, following the same technique, A persistent area of obstruction was identified and a fifth Urolift implant was inserted following the same technique, A final cystoscopy was conducted first to inspect the location and state of each implant, And second, to confirm the presence of a continuous anterior channel was present through the prostatic urethra with irrigation flow turned off, All instruments were removed, The patient was then allowed to sit up, A 16 Fr Arellano catheter was placed at the end of the procedure, It was noted that the first implant placed on the patient's left side failed to do deploy correctly. This was removed with grasping forceps at the conclusion of the implant procedure.. Specimens Removed: None. Devices Implanted: 5 Urolift implants. Postoperative Information Discharge: The patient tolerated the procedure well and was subsequently discharged home. Normal [facility] Comment on above: Result Comment: Elec tronically Signed By: Jack Bolaños MD, Ariel Read\.braxton\Date and Time Signed: 05/27/18 15:05 EDT Vital Signs Date Time Vital Sign Value Performing Clinician Facility 10-30-2023 12:08-0400 Diastolic blood pressure 76 mm[Hg] Harry Ledesma MD Work Phone: [facility] 10-30-2023 12:08-0400 Heart rate 74 /min Harry Ledesma MD Work Phone: [facility] 10-30-2023 12:08-0400 Systolic blood pressure 128 mm[Hg] Harry Ledesma MD Work Phone: [facility] 10-30-2023 12:07-0400 Body height 180.3 cm Harry Ledesma MD Work Phone: [facility] 10-30-2023 12:07-0400 Body mass index (BMI) [Ratio] 33.89 kg/m2 Harry Ledesma MD Work Phone: [facility] 10-30-2023 12:07-0400 Body weight 110.22 kg Harry Ledesma MD Work Phone: [facility] 10-30-2023 12:07-0400 Respiratory rate 18 /min Harry Ledesma MD Work Phone: [facility] 09-22-2023 10:31-0500 Body height 180.34 cm [facility] 09-22-2023 10:31-0500 Body mass index (BMI) [Ratio] 33.7 kg/m2 [facility] 09-22-2023 10:31-0500 Body weight 109.54 kg [facility] 09-22-2023 10:31-0500 Diastolic blood pressure 80 mm[Hg] [facility] 09-22-2023 10:31-0500 Heart rate 67 /min [facility] 09-22-2023 10:31-0500 Respiratory rate 12 /min [facility] 09-22-2023 10:31-0500 Systolic blood pressure 156 mm[Hg] [facility] 06-17-2023 15:45-0500 Body height 180.34 cm Viet Ball Other [facility] Other 06-17-2023 15:45-0500 Body mass index (BMI) [Ratio] 33.36 kg/m2 Viet Ball Other [employer] [facility] Other 06-17-2023 15:45-0500 Body weight 108.5 kg Viet Ball Other [employer] Other 06-17-2023 15:45-0500 Diastolic blood pressure 81 mm[Hg] Viet Ball Other [employer] Other 06-17-2023 15:45-0500 Respiratory rate 12 /min Viet Ball Other [employer] Other 06-17-2023 15:45-0500 Systolic blood pressure 175 mm[Hg] Viet Ball Other [employer] Other 01-01-2023 11:00-0400 Body height 180.34 cm Viet Ball Other [employer] Other 01-01-2023 11:00-0400 Body mass index (BMI) [Ratio] 33.5 kg/m2 Viet Ball Other [employer] Other 01-01-2023 11:00-0400 Body weight 108.95 kg Viet Ball Other [employer] Other 01-01-2023 11:00-0400 Diastolic blood pressure 69 mm[Hg] Viet Ball Other [employer] Other 01-01-2023 11:00-0400 Respiratory rate 12 /min Viet Ball Other [employer] Other 01-01-2023 11:00-0400 Systolic blood pressure 127 mm[Hg] Viet Ball Other [employer] Other 11-10-2022 15:00-0400 Body height 180.34 cm Viet Ball Other [employer] Other 11-10-2022 15:00-0400 Body mass index (BMI) [Ratio] 34.06 kg/m2 Viet Ball Other [employer] Other 11-10-2022 15:00-0400 Body weight 110.77 kg Viet Ball Other [employer] Other 11-10-2022 15:00-0400 Diastolic blood pressure 70 mm[Hg] Viet Ball Other [employer] Other 11-10-2022 15:00-0400 Respiratory rate 12 /min Viet Ball Other [employer] Other 11-10-2022 15:00-0400 Systolic blood pressure 128 mm[Hg] Viet Ball Other [employer] Other 08-27-2022 11:30-0500 Body height 180.34 cm Viet Ball Other [employer] Other 08-27-2022 11:30-0500 Body mass index (BMI) [Ratio] 33.02 kg/m2 Viet Ball Other [employer] Other 08-27-2022 11:30-0500 Body temperature 96.9 [degF] Viet Ball Other [employer] Other 08-27-2022 11:30-0500 Body weight 107.41 kg Viet Ball Other [employer] Other 08-27-2022 11:30-0500 Diastolic blood pressure 84 mm[Hg] Viet Ball Other [employer] Other 08-27-2022 11:30-0500 SaO2% (BldA) [Mass fraction] 95 % Viet Ball Other [employer] Other 08-27-2022 11:30-0500 Systolic blood pressure 132 mm[Hg] Viet Ball Other [employer] Other 07-03-2022 16:30-0500 Body height 180.34 cm Nick Montoya Other [employer] Other 07-03-2022 16:30-0500 Body mass index (BMI) [Ratio] 33.75 kg/m2 Nick Danitza Other [employer] Other 07-03-2022 16:30-0500 Body weight 109.77 kg Nick Danitza Other [employer] Other 07-03-2022 16:30-0500 Diastolic blood pressure 60 mm[Hg] Nick Danitza Other [employer] Other 07-03-2022 16:30-0500 SaO2% (BldA) [Mass fraction] 97 % Nick Montoya Other [employer] Other 07-03-2022 16:30-0500 Systolic blood pressure 110 mm[Hg] Nick Danitza Other [employer] Other 06-16-2022 11:30-0500 Body height 180.34 cm Nick Montoya Other [employer] Other 06-16-2022 11:30-0500 Body mass index (BMI) [Ratio] 33.47 kg/m2 Nickbethany Montoya Other [employer] Other 06-16-2022 11:30-0500 Body weight 108.86 kg Nick Danitza Other [employer] Other 06-16-2022 11:30-0500 Diastolic blood pressure 60 mm[Hg] Nick Danitza Other [employer] Other 06-16-2022 11:30-0500 SaO2% (BldA) [Mass fraction] 97 % Nick Montoya Other [employer] Other 06-16-2022 11:30-0500 Systolic blood pressure 120 mm[Hg] Nick Montoya Other [employer] Other 05-29-2022 15:00-0400 Body height 180.34 cm Nick Montoya Other [employer] Other 05-29-2022 15:00-0400 Body mass index (BMI) [Ratio] 34.59 kg/m2 Nick Montoya Other [employer] Other 05-29-2022 15:00-0400 Body weight 112.49 kg Nick Montoya Other [employer] Other 05-29-2022 15:00-0400 SaO2% (BldA) [Mass fraction] 97 % Nick Montoya Other [employer] Other 04-10-2020 16:15-0400 BP Diastolic 74 mm[Hg] [facility] [place] 04-10-2020 16:15-0400 BP Systolic 170 mm[Hg] [facility]am [facility] [place] , [place] 04-10-2020 16:15-0400 Pulse (Heart Rate) 72 /min [facility] [place] 04-10-2020 16:15-0400 Pulse Oximetry 96 % [facility] [place] 04-10-2020 16:00-0400 Respiratory Rate 16 /min [facility]ma Simpson[facility] [place] 04-10-2020 15:15-0400 Body Temperature 97.2 [degF] [facility] [place] 04-10-2020 11:43-0400 BMI (Body Mass Index) 33.47 kg/m2 Vilma Carter [facility] 04-10-2020 11:43-0400 Body weight 108.86 kg [facility] [place] 04-10-2020 11:43-0400 Height 180.3 cm [facility] Encounters Encounter Date Encounter Type Care Provider Facility Start: 10-29-2023 End: 10-29-2023 Office outpatient new 45 minutes Harry Ledesma MD Work Phone: [facility] Comment on above: Claudication (CMS-HC C) (Primary Dx); PAD (peripheral artery disease) (CMS-HCC); Varicose veins of bilateral lower extremities with pain Start: 10-13-2023 End: 10-13-2023 ambulatory FRENCH SANDOVAL Not Available Start: 09-22-2023 End: 09-22-2023 ambulatory [facility] Work Phone: Start: 09-22-2023 End: 09-22-2023 Patient encounter procedure [facility] Work Phone: Start: 06-18-2023 End: 06-18-2023 ambulatory [facility] Start: 06-17-2023 End: 06-17-2023 ambulatory Viet Proctor Other [place] [employer] Other Start: 06-17-2023 Telephone encounter Viet Narayan [facility] Start: 06-17-2023 Transitional care manage srvc 14 day discharge Viet Proctor [facility] Start: 06-16-2023 End: 06-17-2023 [facility] Start: 06-15-2023 End: 06-16-2023 ambulatory [facility] Start: 06-14-2023 Telephone encounter Viet Narayan [facility] Start: 06-14-2023 End: 06-15-2023 ambulatory VIET PROCTOR [facility] Other Start: 06-09-2023 End: 06-13-2023 Evaluation and management of inpatient VIET PROCTOR [facility] Start: 05-21-2023 End: 05-21-2023 [facility] Start: 05-08-2023 End: 05-08-2023 ambulatory Viet Proctor Other [employer] Other Start: 05-08-2023 Office outpatient vi sit 15 minutes Viet Proctor [facility] Start: 05-08-2023 Telephone encounter Viet Proctor [facility] Start: 01-01-2023 End: 01-01-2023 ambulatory Viet Proctor Other [employer] Other Start: 01-01-2023 Office outpatient vi sit 15 minutes Viet Prcotor [facility] Start: 12-10-2022 End: 12-10-2022 ambulatory Viet Proctor Other [employer] Other Start: 12-10-2022 Telephone encounter Viet Davis [facility] Start: 11-11-2022 End: 11-12-[address] WILLIE BARFIELD Facility:[facility] Start: 11-10-2022 End: 11-10-2022 ambulatory Viet Proctor Other [employer] Other Start: 11-10-2022 Patient encounter procedure Viet Proctor [facility] Start: 10-06-2022 End: 10-06-2022 ambulatory Viet Davis Other [employer] Other Start: 10-06-2022 Telephone encounter Viet Davis RICE [facility] Start: 09-10-2022 End: 09-11-[address] VIET PROCTOR Facility:[facility] Start: 09-02-2022 End: 09-02-2022 ambulatory Viet Davis Other [employer] Other Start: 09-02-2022 Telephone encounter Viet RICE [facility] Start: 09-01-2022 End: 09-01-2022 ambulatory Viet Proctor Other [employer] Other Start: 09-01-2022 Telephone encounter Viet RICE [facility] Start: 08-27-2022 End: 08-27-2022 ambulatory Viet Proctor Other [employer] Other Start: 08-27-2022 Office outpatient vi sit 25 minutes Viet Proctor [facility] Start: 08-22-2022 End: 08-22-2022 ambulatory Viet Proctor Other [employer] Other Start: 08-22-2022 Telephone encounter Viet RICE [facility] Start: 08-15-2022 End: 08-15-2022 ambulatory Viet Proctor Other [employer] Other Start: 08-15-2022 Telephone encounter Viet RICE [facility] Start: 07-03-2022 End: 07-03-2022 ambulatory Nick Montoya Other [employer] Other Start: 07-03-2022 Office outpatient vi sit 25 minutes Nick Danitza [facility] Start: 06-24-2022 (Procedure) Short Nick Montoya [facility] Start: 06-24-2022 End: 06-24-2022 ambulatory Nick Danitza Other [employer] Other Start: 06-16-2022 End: 06-16-2022 ambulatory Nick Danitza Other [employer] Other Start: 06-16-2022 Office outpatient vi sit 25 minutes Nick Danitza [facility] Start: 06-05-2022 (Procedure) Short Nick Montoya [facility] Start: 06-05-2022 End: 06-05-2022 ambulatory Nick Danitza Other [employer] Other Start: 05-29-2022 End: 05-29-2022 ambulatory Nick Montoya Other [employer] Other Start: 05-29-2022 Office outpatient ne w 45 minutes Nick Montoya [facility] Start: 05-15-2022 End: 06-20-[address] VIET PROCTOR Facility:[facility] Start: 04-22-2022 End: 04-22-[address] VIET PROCTOR Facility:[facility] Start: 04-15-2022 Adult health examination Viet Proctor Other [employer] Other Start: 04-15-2022 End: 04-16-2022 ambulatory Michael Maurer Facility:H1 Start: 04-10-2022 End: 04-11-2022 ambulatory Michael Maurer Facility:H1 Start: 03-11-2022 End: 03-12-2022 ambulatory Michael Maurer Facility:H1 Start: 02-28-2022 End: 02-28-[address] VIET PROCTOR Facility:H1 Start: 02-25-2022 End: 02-26-2022 ambulatory Michael Maurer Facility:H1 Start: 02-24-2022 End: 02-25-2022 ambulatory Michael Maurer Facility:H1 Start: 02-18-2022 End: 02-19-2022 ambulatory Michael Maurer Facility:H1 Start: 01-29-2022 End: 01-30-2022 ambulatory Michael Maurer Facility:H1 Start: 01-22-2022 End: 01-23-2022 ambulatory Michael West Facility:H1 Start: 01-01-2022 End: 01-02-2022 ambulatory Michael Maurer Facility:H1 Start: 12-25-2021 End: 12-26-2021 ambulatory Michael West Facility:H1 Start: 12-11-2021 End: 12-12-2021 ambulatory Michael West Facility:H1 Start: 12-03-2021 End: 12-04-[address] WILLIE BARFIELD Facility:H1 Start: 12-02-2021 End: 12-03-2021 ambulatory Michael Maurer Facility:H1 Start: 11-27-2021 End: 11-28-2021 ambulatory [facility] Facility:H1 Start: 11-25-2021 End: 11-26-2021 ambulatory [facility] Facility:H1 Start: 05-08-2020 End: 05-09-2020 Patient encounter procedure ABBY Jakub [facility] Start: 05-08-2020 End: 05-08-2020 Subsequent hospital visit by physician Viet Proctor [facility] Laboratory Comment on above: Groin pain, left; Left testicular pain Start: 04-10-2020 End: 04-10-2020 Patient encounter procedure [facility] Start: 04-10-2020 End: 04-10-2020 Subsequent hospital visit by physician Vilma Dior Work Phone: [facility] OR Start: 04-06-2020 End: 04-06-2020 Subsequent hospital visit by physician Viet Proctor [facility] Laboratory Comment on above: BPH with obstruction /lower urinary tract symptoms; Pre-op testing Start: 04-06-2020 End: 04-06-2020 Subsequent hospital visit by physician Dwight Covid19 Pat Screening Schedule [facility] PRE ADMIT Comment on above: Arrived Start: 12-01-2019 End: 12-02-2019 Patient encounter procedure [facility] Start: 12-01-2019 End: 12-01-2019 Subsequent hospital visit by physician Viet Proctor [facility] Laboratory Comment on above: Dysuria Start: 07-29-2018 End: 07-30-2018 Patient encounter procedure WILLIE Linda BARFIELD Facility:[facility] Procedures Date Procedure Procedure Detail Performing Clinician Start: 11-11-2022 PSA screening Michael vicente Comment on above: Performed By: #### P [facility] ####[facility] [id number] [place], [place] [address]NsElizabeth Irinatevin Card Start: 05-08-2020 Culture bacterial quanttative colony count urine VILMA DIOR Start: 05-08-2020 Urnls dip stick/tabl et reagent auto microscopy VILMA DIOR Start: 05-08-2020 Urnls dip stick/tabl et reagent auto microscopy Abby Danielle Work Phone: Start: 04-10-2020 DISCHARGE PATIENT DANIELA DIOR Start: 04-10-2020 Continuous pulse oximetry VILMA DIOR Start: 04-10-2020 ENCOURAGE DEEP BREAT OSCAR AND COUGHING VILMA DIOR Start: 04-10-2020 INITIATE OXYGEN THER APY PROTOCOL VILMA DIOR Start: 04-10-2020 NURSING COMMUNICATION Leandro DIOR Start: 04-10-2020 BEDREST VILMA CHACONAudra HECK Start: 04-10-2020 NOTIFY PHYSICIAN (SPECIFY) VILMA DIOR Start: 04-10-2020 VITAL SIGNS VILMA HECK Start: 04-10-2020 DIET NPO, NOW VILMA CHACON DAYAMI Start: 04-10-2020 INITIATE OXYGEN THER APY PROTOCOL VILMA DIOR Start: 04-10-2020 NOTIFY PHYSICIAN (SPECIFY) VILMA DIOR Start: 04-10-2020 NURSING COMMUNICATION Leandro DIOR Start: 04-10-2020 PLACE INTERMITTENT PNEUMATIC COMPRESSION DEVICE VILMA DIOR Start: 04-10-2020 VOID FINAL ASSEMBLER BOAT TO OR BEN LETY DIOR Start: 04-10-2020 FULL CODE VILMA HECK Start: 04-10-2020 INSERT PERIPHERAL IV TH RICHARD DIOR Start: 04-10-2020 VERIFY INFORMED CONSENT VILMA DIOR Start: 04-10-2020 VITAL SIGNS VILMA AVNI HECK Start: 04-06-2020 COVID-19 Earl goss Work Phone: Start: 04-06-2020 Blood count complete auto&auto difrntl wbc Kristina Penaloza [employer] Work Phone: Start: 12-01-2019 Culture bacterial quanttative colony count urine VILMA DIOR Start: 12-01-2019 Urnls dip stick/tabl et reagent auto microscopy VILMA DIOR Start: 12-01-2019 Urnls dip stick/tabl et reagent auto microscopy Vilma Dior Work Phone: Start: 11-26-2017 Screening for malign ant neoplasm of colon Viet Proctor Other Start: 09-16-2017 General examination of patient Viet Proctor Other Start: 04-09-2016 Screening for malign ant neoplasm of prostate Viet Proctor Other Depression screening Benjami juana Proctor Other Plan of Treatment Date Care Activity Detail Author Start: 01-14-2024 End: 01-14-2024 Patient encounter procedure 01/14/2024 10:40 AM EDT Office Visit [facility] [address] [place] [address] Harry Ledesma MD [address] [place] [address] [facility] Start: 04-03-2023 COVID-19 Vaccine ( season) COVID-19 Vaccine () [facility] Start: 04-03-2023 Influenza vaccination Influenza Vacc ine [facility] Start: 01-09-2023 Adult BMI Screening Adult BMI Screen ing [facility] Start: 05-31-2020 End: 05-31-2020 Office Visit 05/31/2020 Office Visit Urology Abby Danielle, PA-C [address] [place] [address] [facility] [address] [place] [address] [facility]rology Start: 04-12-2020 End: 04-12-2020 Office Visit 04/12/2020 Office Visit Urology Vilma Dior MD [address] [place] [address], [address] [place] [address] [facility]rology Start: 04-10-2020 End: 04-10-2020 Hospital Encounter [facility] OR Comment on above: CYSTOSCOPY TRANSURET HRAL RESECTION PROSTATE LASER-PVP GREENLIGHT Start: 04-03-2020 Influenza vaccination [facility] [place] Start: 01-09-2020 End: 01-09-2020 Office Visit 01/09/2020 Office Visit Urology Vilma Dior MD [address] [place] [address], [address] [place] [address] [facility] Start: 12-01-2019 Annual Wellness Visi t (AWV) Annual Wellness Visit (AWV) [place], [place] Start: 2013 Fall Risk Screening Fall Risk Screen ing [facility] Start: 2013 Pneumococcal 65+ yea rs Vaccine (1 of 1 - PPSV23) Pneumococcal 65+ years Vaccine (1 of 1 - PPSV23) [place], [place] Start: 1998 Administration of varicella zoster vaccine Zoster (Shingles) Vaccine (1 of 2) [facility] Start: 1998 Screening for malign ant neoplasm of colon Colon cancer screen colonoscopy [place], [place] Start: 1998 Shingles Vaccine (1 of 2) Pedraza gles Vaccine (1 of 2) [place], [place] Start: 1988 Lipid panel Lipid screen [place], [place] Start: 1967 DTaP,Tdap and Td Vac cines (1 - Tdap) DTaP,Tdap and Td Vaccines (1 - Tdap) [facility] Start: 1967 DTaP/Tdap/Td vaccine (1 - Tdap) DTaP/Tdap/Td vaccine (1 - Tdap) [place], [place] Start: 1966 Adult BMI Follow Up Plan Adult BMI Follow Up Plan [facility] Start: 1960 Depression Screening Depression Scre ening [facility] Start: 1960 Tobacco Screening Tobacco Screening [facility] Start: 1948 Abdominal aortic ane urysm screening AAA screen [place], [place] Start: 1948 Creatinine measurement Creatinine mo nitoring [place], [place] Start: 1948 Hepatitis C screening Hepatitis C sc reen [place], [place] Start: 1948 Medicare Annual Well ness Visit Medicare Annual Wellness Visit [facility] Start: 1948 Potassium monitoring Potassium monit oring [place], [place] End: 12-01-2019 Culture, Urine Culture, Urine Microbiology Routine Dysuria 1 Occurrences starting 12/01/2019 until 12/01/2019 [place] Comment on above: 1 Occurrences starti ng 12/01/2019 until 12/01/2019 Culture, Urine [place] End: 05-08-2020 Culture, Urine Culture, Urine Microbiology Routine Groin pain, left Left testicular pain 1 Occurrences starting 05/08/2020 until 05/08/2020 [place] Comment on above: 1 Occurrences starti ng 05/08/2020 until 05/08/2020 Oxygen therapy [[facility]ini [facility]] Initiate Oxygen Therapy Protocol Respiratory Care Routine Daily until discontinued starting 04/10/2020 [facility], [place] Comment on above: Daily until disconti nued starting 04/10/2020 Phase I & II - meter ed glucose Phase I & II - metered glucose Point of Care Testing Routine As Needed until discontinued starting 04/10/2020 [facility] [place] Comment on above: As Needed until disc ontinued starting 04/10/2020 Rheumatoid factor [Units/volume] in Serum or Plasma [facility] Immunizations Immunization Date Immunization Notes Care Provider Fa itz 06-04-2023 influenza virus vaccine, unspecified formulation [facility] 06-04-2023 influenza, high dose seasonal, preservative-free Viet Proctor Other [facility] Other 05-21-2022 influenza, high dose seasonal, preservative-free Viet Proctor Other [facility] Other 05-21-2022 influenza virus vaccine, split virus (incl. purified surface antigen) Viet Proctor Other [facility] Other 05-21-2022 influenza virus vaccine, unspecified formulation [facility] 06-26-2021 COVID-19 Vaccine Moderna - Documentation Purposes Only Viet Proctor Other [facility] 06-12-2021 COVID-19 Vaccine Moderna - Documentation Purposes Only Viet Proctor Other [facility] 05-13-2021 influenza virus vaccine, split virus (incl. purified surface antigen) Viet Proctor Other [facility] Other 05-13-2021 influenza virus vaccine, unspecified formulation [facility] 10-12-2020 COVID-19 Vaccine Moderna - Documentation Purposes Only Viet Proctor Other [facility] 09-14-2020 COVID-19 Vaccine Moderna - Documentation Purposes Only Viet Proctor Other [facility] 05-15-2020 influenza virus vaccine, split virus (incl. purified surface antigen) Viet Proctor Other [place] [employer] Other 05-15-2020 influenza virus vaccine, unspecified formulation [facility] 05-09-2019 influenza virus vaccine, split virus (incl. purified surface antigen) Viet Proctor Other [facility] Other 05-09-2019 influenza virus vaccine, unspecified formulation [facility] 04-20-2018 influenza virus vaccine, split virus (incl. purified surface antigen) Viet Proctor Other [facility] Other 04-20-2018 influenza virus vaccine, unspecified formulation [facility] 05-13-2017 influenza virus vaccine, split virus (incl. purified surface antigen) Viet Proctor Other [facility] Other 05-13-2017 influenza virus vaccine, unspecified formulation [facility] 06-02-2016 pneumococcal polysaccharide vaccine, 23 valent Viet Proctor Other [facility] 04-09-2016 influenza virus vaccine, split virus (incl. purified surface antigen) Viet Proctor Other [facility] Other 04-09-2016 influenza virus vaccine, unspecified formulation [facility] 05-17-2015 pneumococcal conjuga te vaccine, 13 valent Viet Proctor Other [facility] 05-10-2015 influenza virus vaccine, split virus (incl. purified surface antigen) Viet Proctor Other [facility] Other 05-10-2015 influenza virus vaccine, unspecified formulation [facility] 05-18-2013 tetanus and diphther ia toxoids, adsorbed, preservative free, for adult use (5 Lf of tetanus toxoid and 2 Lf of diphtheria toxoid) Viet Proctor Other [facility] pneumococcal Conjuga te, unspecified formulation; Translations: [Need for prophylactic vaccination against Streptococcus pneumoniae (pneumococcus)] Viet Proctor Other [employer] Other Payers Date Payer Category Payer Medicare MEDICARE MEDICAR E PART A AND B xxxxxxxxxxx 2019-Present [phone] [address] [address] [place] [address] xxxxxxxxxxx [id number] 2019 Unknown BCBS ANTHEM MEDI CARE SUPP xxxxxxxxxxxx 2019-Present [address] [place] [address] xxxxxxxxxxxx [id number] 2019 Unknown ANTHEM TRADITION AL [id number] 2019-Present [phone] [address] [place] [address] [id number] .[id number] 2013 Medicare MEDICARE MEDICAR E PART A & B [id number] 2013-Present [phone] [address] [place] [address] [id number] .[id number] 1959 Medicare [id number] [id number] .[id number] 1959 Unknown [id number] 1.2.840.263071.1.13.239.2.7.3 .[id number] 1948 Unknown [id number] 2.16.840.1.574959.3.579.2.647 1948 Unknown [id number] 2.16.840.1.598850.3.579.2.173 1948 Unknown [id number] 2.16.840.1.917926.3.579.2.173 1948 Unknown [id number] 2.16.840.1.120660.3.579.2.173 1948 Unknown [id number] 2.16.840.1.868899.3.579.2.593 1948 Unknown [id number] 2.16.840.1.926766.3.579.2.593 1948 Unknown [id number] 2.16.840.1.790188.3.579.2.593 1948 Unknown [id number] 2.16.840.1.624247.3.579.2.593 1948 Unknown [id number] 2.16.840.1.395454.3.579.2.593 1948 Unknown [id number] 2.16.840.1.850257.3.579.2.593 1948 Unknown [id number] 2.16.840.1.399598.3.579.2.593 1948 Unknown [id number] 2.16.840.1.647469.3.579.2.593 1948 Unknown [id number] 2.16.840.1.882806.3.579.2.593 1948 Unknown [id number] 2.16.840.1.941659.3.579.2.593 1948 Unknown [id number] 2.16.840.1.102410.3.579.2.593 1948 Unknown [id number] 2.16.840.1.811263.3.579.2.593 1948 Unknown [id number] 2.16.840.1.465464.3.579.2.593 1948 Unknown [id number] 2.16.840.1.269073.3.579.2.593 1948 Unknown [id number] 2.16.840.1.209535.3.579.2.593 1948 Unknown [id number] 2.16.840.1.189082.3.579.2.593 1948 Unknown [id number] 2.16.840.1.103639.3.579.2.593 1948 Unknown [id number] 2.16.840.1.983380.3.579.2.593 1948 Unknown [id number] 2.16.840.1.645774.3.579.2.593 1948 Unknown [id number] 2.16.840.1.666203.3.579.2.593 1948 Unknown [id number] 2.16.840.1.092872.3.579.2.174 1948 Unknown [id number] 2.16.840.1.021117.3.579.2.174 1948 Unknown [id number] 2.16.840.1.067947.3.579.2.174 1948 Unknown [id number] 2.16.840.1.797107.3.579.2.174 1948 Unknown [id number] 2.16.840.1.579037.3.579.2.125 9 Medicare Medicare-OP No Part B [id number] Self-pay Self Pay [id number] Unknown [id number] Unknown [facility] [id number] Social History Date Type Detail Facility Start: 12-01-2019 End: 09-22-2023 Tobacco smoking status NHIS Former smoker [facility] End: 08-03-1989 History of tobacco use [facility]Y HESS Start: 12-01-2019 End: 10-30-2023 Cigarettes smoked current (pack per day) - Reported [facility] Start: 12-01-2019 End: 05-08-2020 Alcohol intake [facility] (finding) [facility] Pieter HESS Y Start: 12-01-2019 [facility] Comment [facility] Start: [facility]igned At Not on file [facility] Start: 03-30-2020 End: 05-08-2020 Tobacco use and exposure Never used [facility] Exposure to SARS-CoV -2 (event) Not sure [facility] Start: 01-10-2019 End: 10-30-2023 Sex Assigned At [facility] [employer] Other Start: 1950 Sex Assigned At Male [facility] Start: 01-09-2022 Tobacco smoking status [facility] Tobacco smoking consumption unknown [facility] Unknown [facility] Clinical Notes 05-29-2022 to 10-29-2023 Harry Ledesma MD - 10/29/2023 2:00 PM EDT Note Date & Type Note Facility 10-29-2023 History of Present illness Narrative Images from the original note were not included. [facility] [address] [facility] [address] Subjective: Patient ID: Ml Hassan is a 73 y.o. male. Chief Complaint No chief complaint on file. History of Present Illness: 73-year-old gentleman with history of bilateral lower extremity varicose veins and pain had ablation in the past done. Does not use compression stockings regularly. Comes in with bilateral lower extremity claudication. He has an SAHARA with PVR that I have personally evaluated and interpreted. He has SAHARA of 0.6 6 in the right and 0.71 in the left. His claudication is not associated with rest pain or tissue loss. He does not smoke. He is on aspirin Plavix. I discussed with him in length the management of claudication with supervised walking program. We will refer him to the cardiac rehab for supervised walking program. I advised continuing aspirin and Plavix and we will prescribe it as needed. We discussed cilostazol but we will hold off for now. We will also do compression stockings for his varicose veins and pain. Patient Active Problem List Diagnosis Coronary arteriosclerosis Pulmonary HTN (CMS-HCC) Polymyalgia rheumatica (CMS-HCC) Dyspnea Greater trochanteric pain syndrome Fatigue Claudication (CMS-HCC) Varicose veins of bilateral lower extremities with pain Current Outpatient Medications: acetaminophen (TYLENOL EXTRA STRENGTH) 500 mg tablet, Take 500 mg by mouth every 6 (six) hours as needed for pain., Disp: , Rfl: albuterol (PROVENTIL HFA;VENTOLIN HFA) 90 mcg/actuation inhaler, albuterol sulfate HFA 90 mcg/actuation aerosol inhaler INHALE 1 PUFF EVERY 12 HOURS, Disp: , Rfl: alirocumab (PRALUENT PEN) 75 mg/mL pen injector, Praluent Pen 75 mg/mL subcutaneous pen injector inject 1 (ONE) ml subcutaneously every 2 (TWO) weeks, Disp: , Rfl: ALPRAZolam (XANAX) 0.25 mg tablet, alprazolam 0.25 mg tablet 1 (one) Tablet 1-2 hours prior to testing, Disp: , Rfl: aspirin 81 mg, daily., Disp: , Rfl: calcium citrate-vitamin D2 250 mg-2.5 mcg (100 unit) per tablet, Take 1 tablet by mouth in the morning and 1 tablet before bedtime., Disp: , Rfl: carvediloL (COREG) 3.125 mg tablet, Take 3.125 mg by mouth in the morning and 3.125 mg before bedtime., Disp: , Rfl: clopidogreL (PLAVIX) 75 mg tablet, Take 75 mg by mouth in the morning., Disp: , Rfl: famotidine (PEPCID) 20 mg tablet, Take 20 mg by mouth in the morning., Disp: , Rfl: gabapentin (NEURONTIN) 300 mg capsule, gabapentin 300 mg capsule TAKE 1 CAPSULE BY MOUTH TWICE DAILY, Disp: , Rfl: gemfibroziL (LOPID) 600 mg tablet, gemfibrozil 600 mg tablet TAKE 1 TABLET BY MOUTH TWICE DAILY before meals, Disp: , Rfl: lisinopriL (PRINIVIL,ZESTRIL) 2.5 mg tablet, lisinopril 2.5 mg tablet TAKE 1 TABLET BY MOUTH EVERY DAY, Disp: , Rfl: methylPREDNISolone (MEDROL) 4 mg tablet, methylprednisolone 4 mg tablet TAKE 1 TABLET BY MOUTH EVERY DAY, Disp: , Rfl: montelukast (SINGULAIR) 10 mg tablet, Take 10 mg by mouth nightly., Disp: , Rfl: niacin (VITAMIN B3) 500 mg tablet, Take 500 mg by mouth daily with breakfast., Disp: , Rfl: nitroglycerin (NITROSTAT) 0.4 MG SL tablet, nitroglycerin 0.[address] 1 tablet by sublingual route as needed., Disp: , Rfl: omega 8-uth-oav-fish oil (Fish OiL) 300-1,000 mg capsule, Take by mouth., Disp: , Rfl: spironolactone (ALDACTONE) 25 mg tablet, spironolactone 25 mg tablet TAKE 1 TABLET BY MOUTH EVERY DAY or as directed, Disp: , Rfl: tiZANidine (ZANAFLEX) 4 mg tablet, tizanidine 4 mg tablet, Disp: , Rfl: traZODone (DESYREL) 50 mg tablet, trazodone 50 mg tablet TAKE 2 TABLETS BY MOUTH AT BEDTIME, Disp: , Rfl: Past Medical History: Diagnosis Date CAD (coronary artery disease) Diverticulosis Episode of recurrent major depressive disorder ([facility]) Gastroesophageal reflux disease without esophagitis Hyperlipidemia Primary hypertension Past Surgical History: Procedure Laterality Date CARDIAC CATHETERIZATION Left 07/29/2018 CHOLECYSTECTOMY HERNIA REPAIR OTHER SURGICAL HISTORY 02/29/2016 CATHETER PLACEMENT FOR CORONARY ANGIOGRAPHY WITH RIGHT AND LEFT HEART CATHETERIZATION INCLUDING INTRAPROCEDUREAL INJECTION(S) FOR LEFT VENTRICULOGRAPHY, WHEN PERFORMED No family history on file. Social History Socioeconomic History Marital status: Spouse name: Not on file Number of children: Not on file Years of education: Not on file Highest education level: Not on file Occupational History Not on file Tobacco Use Smoking status: Unknown Smokeless tobacco: Not on file Substance and Sexual Activity Alcohol use: Not on file Drug use: Never Sexual activity: Not on file Other Topics Concern Not on file Social History Narrative Not on file Social Determinants of Health Financial Resource Strain: Not on file Food Insecurity: Not on file Transportation Needs: Not on file Physical Activity: Not on file Stress: Not on file Social Connections: Not on file Interpersonal Safety: Not on file Housing Instability: Not on file Allergies Allergen Reactions Prednisone Other (See Comments) Other reaction(s): Intolerance Nervousness, hyper Bbkxykz-Xhs-Rad Reductase Inhibitors Other (See Comments) Other reaction(s): Intolerance Muscle aches and pains The following portions of the patient's history were reviewed and updated as appropriate: allergies, current medications, past family history, past medical history, past social history, past surgical history and problem list. Review of Systems: Review of Systems Constitutional: Negative. HENT: Negative. Respiratory: Negative. Cardiovascular: Negative. Gastrointestinal: Negative. Endocrine: Negative. Genitourinary: Negative. Musculoskeletal: Negative. Skin: Negative. Neurological: Negative. Hematological: Negative. Objective: Vitals There were no vitals taken for this visit. Physical Exam Physical Exam Constitutional: Appearance: Normal appearance. HENT: Head: Normocephalic and atraumatic. Eyes: Pupils: Pupils are equal, round, and reactive to light. Cardiovascular: Rate and Rhythm: Normal rate and regular rhythm. Pulmonary: Effort: Pulmonary effort is normal. Abdominal: General: Abdomen is flat. Musculoskeletal: General: Normal range of motion. Cervical back: Normal range of motion. Skin: General: Skin is warm. Comments: Bilateral lower extremity varicose veins Neurological: General: No focal deficit present. Mental Status: He is alert and oriented to person, place, and time. Studies Reviewed SAHARA PVR Assesment: Diagnoses and all orders for this visit: Claudication ([facility]) PAD (peripheral artery disease) ([facility]) - [facility] [place], [place] Varicose veins of bilateral lower extremities with pain Plan Plan: 73-year-old gentleman with history of bilateral lower extremity varicose veins and pain had ablation in the past done. Does not use compression stockings regularly. Comes in with bilateral lower extremity claudication. He has an SAHARA with PVR that I have personally evaluated and interpreted. He has SAHARA of 0.6 6 in the right and 0.71 in the left. His claudication is not associated with rest pain or tissue loss. He does not smoke. He is on aspirin Plavix. I discussed with him in length the management of claudication with supervised walking program. We will refer him to the cardiac rehab for supervised walking program. I advised continuing aspirin and Plavix and we will prescribe it as needed. We discussed cilostazol but we will hold off for now. We will also do compression stockings for his varicose veins and pain. I will see him in 3 months. Harry Ledesma MD documented in this encounter [facility] 06-18-2023 Note [facility] Cardiology Clinic Note Chief Complaint: Patient here for follow up stress test. Was recently hospitalized at [facility] with salmonella poisoning. Denies chest pain. HPI: Ml Hassan is a 73 y.o. male Here in routine follow-up Has no new cardiac complaints Spent a considerable amount of time explaining the results of his stress test which understandably were confusing. In addition, our own office staff had informed him that it was abnormal and that he would need a cath. Cardiology ROS: Review of Systems Constitutional: Positive for malaise/fatigue. Cardiovascular: Positive for dyspnea on exertion. Musculoskeletal: Positive for back pain. All other systems reviewed and are negative. Past Medical History He has a past medical history of Sciatica. Surgical History He has a past surgical history that includes Cholecystectomy; Hernia repair; and Cardiac catheterization (Left, 07/29/2018). Social History He reports that he quit smoking about 33 years ago. His smoking use included cigarettes. He has been exposed to tobacco smoke. He has never used smokeless tobacco. He reports that he does not currently use alcohol. No history on file for drug use. Family History Family History Problem Relation Name Age of Onset Lung cancer Mother Lung cancer Father Allergies Prednisone and Afmcazi-mtr-ykq reductase inhibitors Medications Current Outpatient Medications: albuterol 90 mcg/actuation inhaler, INHALE 1 PUFF EVERY 12 HOURS, Disp: , Rfl: alirocumab (Praluent Pen) 75 mg/mL pen injector, inject 1 (ONE) ml subcutaneously every 2 (TWO) weeks, Disp: , Rfl: ALPRAZolam (Xanax) 0.25 mg tablet, 1 (one) Tablet 1-2 hours prior to testing, Disp: , Rfl: aspirin 81 mg EC tablet, Take 1 tablet every day by oral route., Disp: , Rfl: carvedilol (Coreg) 3.125 mg tablet, Take 1 tablet (3.125 mg) by mouth in the morning and at bedtime., Disp: 180 tablet, Rfl: 3 clopidogrel (Plavix) 75 mg tablet, Take 1 tablet (75 mg) by mouth in the morning., Disp: 90 tablet, Rfl: 3 famotidine (Pepcid) 20 mg tablet, Take 1 tablet by mouth in the morning and at bedtime., Disp: , Rfl: folic acid (Folvite) 1 mg tablet, TAKE 1 TABLET BY MOUTH EVERY DAY after A meal, Disp: , Rfl: gabapentin (Neurontin) 300 mg capsule, Take 1 capsule by mouth in the morning and at bedtime., Disp: , Rfl: gemfibrozil (Lopid) 600 mg tablet, Take 1 tablet (600 mg) by mouth before breakfast and before evening meal., Disp: 180 tablet, Rfl: 3 lisinopril 2.5 mg tablet, Take 1 tablet (2.5 mg) by mouth in the morning., Disp: 90 tablet, Rfl: 3 methylPREDNISolone (Medrol) 2 mg tablet, Take 1 tablet every other day by oral route with meals., Disp: , Rfl: montelukast (Singulair) 10 mg tablet, Take 1 tablet by mouth in the morning., Disp: , Rfl: nitroglycerin (Nitrostat) 0.4 mg SL tablet, Place 1 tablet by sublingual route as needed., Disp: 100 tablet, Rfl: 2 spironolactone (Aldactone) 25 mg tablet, TAKE 1 TABLET BY MOUTH EVERY DAY or as directed, Disp: 90 tablet, Rfl: 3 tiZANidine (Zanaflex) 4 mg tablet, TAKE 2 TABLETS BY MOUTH EVERY DAY AT BEDTIME, Disp: , Rfl: traZODone (Desyrel) 50 mg tablet, Take 2 tablets by mouth at bedtime., Disp: , Rfl: Last Recorded Vitals BP 148/70 (BP Location: Right arm, Patient Position: Sitting) Pulse 72 Ht 1.803 m (5' 11 ) Wt 108 kg (239 lb) SpO2 99% BMI 33.33 kg/m??? Physical Examination: GENERAL: alert and oriented x3, well developed, in no acute distress. HEAD: atraumatic, normocephalic. EYES: REYNALDO, EOMI. NECK: trachea midline, no JVD present, no carotid bruits present. CARDIAC: S1, S2 present. RRR. No murmur, rubs, or gallops. RESPIRATORY: CTAB, no increased effort of breathing, no rales, rhonchi, or wheezing. ABDOMEN: soft, nontender, nondistended. EXTREMITIES: no lower extremity edema, peripheral pulses are 2+ bilaterally. No rash/skin discoloration present. NEURO: strength/sensation equal and symmetric in bilateral upper and lower extremities. PSYCH: appropriate mood, affect, and judgement. Investigations: His stress test was nonischemic. The inferior defect with diaphragm attenuation. He had no high risk findings such as 3 times daily. His ejection fraction was preserved. Wall motion was normal. Assessment: 1. Coronary arteriosclerosis I25.10: Atherosclerotic heart disease of [place] coronary artery without angina pectoris 2. Diastolic dysfunction - Euvolemic I50.30: Unspecified diastolic (congestive) heart failure lisinopril 2.5 mg tablet - TAKE 1 TABLET BY MOUTH EVERY DAY Qty: 90 tablet(s) Refills: 3 Pharmacy: [id number] 3. Polymyalgia rheumatica M35.3: Polymyalgia rheumatica POLYMYALGIA RHEUMATICA: CARE INSTRUCTIONS 4. Statin not tolerated - Rhabdomyolysis on prior statin therapy Z78.9: Other specified health status 5. Dyslipidemia E78.5: Hyperlipidemia, unspecified 6. Chronic venous insufficiency (more content not included)... [facility] 06-17-2023 Evaluation note Encounter Date Diagnosis Assessment Notes Jun, Obstructive sleep apnea (ICD-10 - G47.33) Not satisfied w/ how he feels in morning and wondering if he needs adjustments. This patient is aware of the benefits associated with GUADALUPE: With continued use, the patient reduces the risk for AR, CVA, HTN, cardiac dysrhythmias and sudden cardiac deaths.The patient is also aware of the association between GUADALUPE and morning headaches, daytime somnolence, fatigue and obesity, which also has been improved with continued use.The patient is compliant with treatment, wearing the equipment every night for greater than 4 hours.The patient is instructed to continue use of the CPAP for GUADALUPE treatment. Recommend retitration study Jun, Salmonella gastroenteritis (ICD-10 - A02.0) Most symptoms have resolved. Completed antibiotics therapy. [place] diet, avoid salads, juice, milk etc Jun, ASHD (arteriosclerotic heart disease) (ICD-10 - I25.10) This patient is stable without activity related CP, dyspnea or lightheadedness. They are instructed to continue exercise and AHA diet plan. Continue secondary prevention measures. Recently completed stress testing w/ fixed inferior wall defect. Jun, Primary hypertension (ICD-10 - I10) This patient is instructed to consume a healthy, low-fat, low-salt diet. They are also encouraged to continue exercise to achieve/maintain a normal BMI. Jun, Elevated cholesterol (ICD-10 - E78.00) Instructed on diet and exercise with continued statin therapy.Discussed the beneficial effects of lowering cholesterol in reducing the risk for cerebrovascular and cardiovascular disease. Jun, Mucopurulent chronic bronchitis (ICD-10 - J41.1) Continue inhalers as needed. Avoid smoke, fumes and dust. JESSICA as needed: allergies, exercise etc Push fluids, Mucolytics as needed, JESSICA as needed. Increase activity, continue abstinence [facility] Chief Complaint: Patient here for 1 year follow up CAD, pulmonary hypertension, and diastolic dysfunction. C/o severe fatigue, but mild SOB. Denies chest pain and LE edema. Hasn't been sleeping well and wonders if he needs another titration study for his cpap. Had SAHARA's in Sep 2022. C/o claudication. Saw Dr. Lester in January 2022. HPI: Ml Hassan is a 73 y.o. male With a history of coronary artery disease, hypertensionAnd claudication here in routine follow-up Has been experiencing more fatigue than usual recently. Particular when he walks to the [place] back he feels tired. He denies chest pain or chest burning which was his symptom prior to previous revascularization. He has no worsening shortness of breath. No orthopnea, no proximal nocturnal dyspnea, no lower extremity edema and no unintentional weight gain. He complains of a persistent cough that is likely related to gastroesophageal reflux disease. He is on trazodone and has been for many years Cardiology ROS: Review of Systems Constitutional: Positive for malaise/fatigue. Cardiovascular: Positive for dyspnea on exertion. Musculoskeletal: Positive for back pain. Past Medical History He has a past medical history of Sciatica. Surgical History He has a past surgical history that includes Cholecystectomy; Hernia repair; and Cardiac catheterization (Left, 07/29/2018). Social History He reports that he quit smoking about 33 years ago. His smoking use included cigarettes. He has been exposed to tobacco smoke. He has never used smokeless tobacco. He reports that he does not currently use alcohol. No history on file for drug use. Family History Family History Problem Relation Name Age of Onset Lung cancer Mother Lung cancer Father Allergies Prednisone and Fepechc-ylc-wms reductase inhibitors Medications Current Outpatient Medications: albuterol 90 mcg/actuation inhaler, INHALE 1 PUFF EVERY 12 HOURS, Disp: , Rfl: alirocumab (Praluent Pen) 75 mg/mL pen injector, inject 1 (ONE) ml subcutaneously every 2 (TWO) weeks, Disp: , Rfl: ALPRAZolam (Xanax) 0.25 mg tablet, 1 (one) Tablet 1-2 hours prior to testing, Disp: , Rfl: aspirin 81 mg EC tablet, Take 1 tablet every day by oral route., Disp: , Rfl: carvedilol (Coreg) 3.125 mg tablet, Take 1 tablet (3.125 mg) by mouth in the morning and at bedtime., Disp: 180 tablet, Rfl: 3 clopidogrel (Plavix) 75 mg tablet, Take 1 tablet (75 mg) by mouth in the morning., Disp: 90 tablet, Rfl: 3 famotidine (Pepcid) 20 mg tablet, Take 1 tablet by mouth in the morning and at bedtime., Disp: , Rfl: folic acid (Folvite) 1 mg tablet, TAKE 1 TABLET BY MOUTH EVERY DAY after A meal, Disp: , Rfl: gabapentin (Neurontin) 300 mg capsule, Take 1 capsule by mouth in the morning and at bedtime., Disp: , Rfl: gemfibrozil (Lopid) 600 mg tablet, Take 1 tablet by mouth before breakfast and before evening meal., Disp: , Rfl: lisinopril 2.5 mg tablet, Take 1 tablet (2.5 mg) by mouth in the morning., Disp: 90 tablet, Rfl: 3 methylPREDNISolone (Medrol) 2 mg tablet, Take 1 tablet every other day by oral route with meals., Disp: , Rfl: montelukast (Singulair) 10 mg tablet, Take 1 tablet by mouth in the morning., Disp: , Rfl: nitroglycerin (Nitrostat) 0.4 mg SL tablet, Place 1 tablet by sublingual route as needed., Disp: 100 tablet, Rfl: 2 spironolactone (Aldactone) 25 mg tablet, TAKE 1 TABLET BY MOUTH EVERY DAY or as directed, Disp: 90 tablet, Rfl: 3 tiZANidine (Zanaflex) 4 mg tablet, TAKE 2 TABLETS BY MOUTH EVERY DAY AT BEDTIME, Disp: , Rfl: traZODone (Desyrel) 50 mg tablet, Take 2 tablets by mouth at bedtime., Disp: , Rfl: Last Recorded Vitals BP 145/70 (BP Location: Left arm, Patient Position: Sitting) Pulse 73 Ht 1.803 m (5' 11 ) Wt 110 kg (243 lb) SpO2 99% BMI 33.89 kg/m??? Physical Examination: GENERAL: alert and oriented x3, well developed, in no acute distress. HEAD: atraumatic, normocephalic. EYES: REYNALDO, EOMI. NECK: trachea midline, no JVD present, no carotid bruits present. CARDIAC: S1, S2 present. RRR. No murmur, rubs, or gallops. RESPIRATORY: CTAB, no increased effort of breathing, no rales, rhonchi, or wheezing. ABDOMEN: soft, nontender, nondistended. EXTREMITIES: no lower extremity edema, peripheral pulses are 2+ bilaterally. No rash/skin discoloration present. NEURO: strength/sensation equal and symmetric in bilateral upper and lower extremities. PSYCH: appropriate mood, affect, and judgement. Assessment: 1. Coronary arteriosclerosis I25.10: Atherosclerotic heart disease of [place] coronary artery without angina pectoris 2. Diastolic dysfunction - Euvolemic I50.30: Unspecified diastolic (congestive) heart failure lisinopril 2.5 mg tablet - TAKE 1 TABLET BY MOUTH EVERY DAY Qty: 90 tablet(s) Refills: 3 Pharmacy: [id number] 3. Polymyalgia rheumatica M35.3: Polymyalgia rhe (more content not included)...[facility]10[facility] Evaluation note* Encounter Date Diagnosis Assessment Notes Treatment Notes Treatment Clinical Notes May, Acute bronchitis due to other specified organisms (ICD-10 - J20.8) Instructed to use robitussin or mucinex for cough, saline or flonase NS for congestion, tylenol for pain and fever. Instructed to use Robitussin or Mucinex for cough, saline or Flonase NS for congestion, Tylenol for pain and fever. May, Chronic obstructive pulmonary disease with (acute) lower respiratory infection (ICD-10 - J44.0) Continue Mucinex and saline NS. May, Chronic obstructive pulmonary disease with (acute) exacerbation (ICD-10 - J44.1) Continue inhalers for cough and pulmonary secretion clearance [facility] Other 06-01-2023 Evaluation note* Encounter Date Diagnosis Assessment Notes Treatment Notes Treatment Clinical Notes Jan, Primary osteoarthritis of both knees (ICD-10 - M17.0) Quad exercises, ice, heat and Voltaren Gel. Avoid squatting or kneeling. Jan, Primary hypertension (ICD-10 - I10) Jan, Pain in right knee (ICD-10 - M25.561) IA injection using anterior approach w/o complications. Instructed to rest and ice for today. May get worse before it improves. Jan, Pain in left knee (ICD-10 - M25.562) IA injection using anterior approach w/o complications. Instructed to rest and ice for today. May get worse before it improves. Jan, Other chronic pain (ICD-10 - G89.29) Jan, Other obesity due to excess calories (ICD-10 - E66.09) This patient has been instructed on a low-fat, high-fiber diet. They are instructed to reduce calories, portion sizes and snacks. It is recommended that they exercise for 30 minutes, 3-5 times weekly. Jan, Body mass index [BMI ] 33.0-33.9, adult (ICD-10 - Z68.33) [facility] Other 04-10-2023 Evaluation note* Encounter Date Diagnosis Assessment Notes Treatment Notes Treatment Clinical Notes Nov, ASHD (arteriosclerot ic heart disease) (ICD-10 - I25.10) Nov, Essential hypertensi on (ICD-10 - I10) This patient is instructed to consume a healthy, low-fat, low-salt diet. They are also encouraged to continue exercise to achieve/maintain a normal BMI. Nov, Elevated cholesterol (ICD-10 - E78.00) Diet and exercise with continued statin therapy. Nov, Obstructive sleep apnea (ICD-10 - G47.33) This patient is aware of the benefits associated with GUADALUPE: With continued use, the patient reduces the risk for AR, CVA, HTN, cardiac dysrhythmias and sudden cardiac deaths.The patient is also aware of the association between GUADALUPE and morning headaches, daytime somnolence, fatigue and obesity, which also has been improved with continued use.The patient is compliant with treatment, wearing the equipment every night for greater than 4 hours.The patient is instructed to continue use of the CPAP for GUADALUPE treatment. Nov, Chronic bronchitis, mucopurulent (ICD-10 - J41.1) Continued abstinence. Mucinex as needed for cough Nov, RICARDO (generalized anxiety disorder) (ICD-10 - F41.1) Healthy diet, exercise and keep active Nov, Gastroesophageal reflux disease with esophagitis without hemorrhage (ICD-10 - K21.00) Diet instructions: Smaller portions, avoid eating and laying flat, avoid eating or drinking prior to bedtime. Weight loss. Nov, Medicare annual wellness visit, subsequent (ICD-10 - Z00.00) Personalized health advice was given to the beneficiary including a written plan for screenings discussed and provided. Advanced care planning reviewed and/or information given as requested. Additional counseling was provided here today in regards to, [ ]. The above visit was performed by [ ], under direct supervision of [ ]. Document reviewed and amended by provider signed below. Nov, Screening PSA (prostate specific antigen) (ICD-10 - Z12.5) Nov, High risk medication use (ICD-10 - Z79.899) [facility] Other 01-31-2023 Evaluation note* Encounter Date Diagnosis Assessment Notes Treatment Notes Treatment Clinical Notes Aug, PAD (peripheral artery disease) (ICD-10 - I73.9) [facility] Other 01-30-2023 Evaluation note* Encounter Date Diagnosis Assessment Notes Treatment Notes Treatment Clinical Notes Aug, PAD (peripheral artery disease) (ICD-10 - I73.9) [facility] Other 01-25-2023 Evaluation note* Encounter Date Diagnosis Assessment Notes Treatment Notes Treatment Clinical Notes Aug, Essential hypertension (ICD-10 - I10) This patient is instructed to consume a healthy, low-fat, low-salt diet. They are also encouraged to continue exercise to achieve/maintain a normal BMI. Aug, ASCVD (arteriosclerotic cardiovascular disease) (ICD-10 - I25.10) This patient is stable without activity related CP, dyspnea or lightheadedness. They are instructed to continue exercise and AHA diet plan. Aug, Elevated cholesterol (ICD-10 - E78.00) Diet and exercise with continued Praluent injections. Will be discussing, w/ the Display Dec[employer], the benefits of once monthly dosing in order to save money. Aug, Epididymitis, left (ICD-10 - N45.1) Good support, avoid jarring activity. Increase Medrol to 16mg qd x 5 days. Add antibiotics Aug, Primary osteoarthritis of left knee (ICD-10 - M17.12) Quad exercises, ice/heat and Voltaren Gel. Aug, Chronic bronchitis, mucopurulent (ICD-10 - J41.1) Mucinex as needed. Aug, Lumbar spondylosis (ICD-10 - M47.816) The patient is instructed to avoid bending, twisting or lifting. They are to use intermittent heat and ice as needed. They may schedule a massage or gentle manipulation. They may safely use Tylenol as needed. Aug, Obesity (BMI 30.0-34.9) (ICD-10 - E66.9) This patient has been instructed on a low-fat, high-fiber diet. They are instructed to reduce calories, portion sizes and snacks. It is recommended that they exercise for 30 minutes, 3-5 times weekly. [facility] Other 12-01-2022 Evaluation note* Encounter Date Diagnosis Assessment Notes Treatment Notes Treatment Clinical Notes Jul, Lumbar radiculopathy (ICD-10 - M54.16) 72 y/o male here for follow up status post right L5 and S1 transforaminal epidural steroid injection under fluoroscopic guidance. Patient reports 50% pain relief as well as improved function in walking, standing and daily activities following the procedure. He continues to complain of residual pain and numbness in the right lower extremity. He is currently taking Tylenol ES as needed. Different treatment options were discussed in detail with the patient, and I recommend he gradually increase Gabapentin to 200mg three times daily as tolerated. If his symptoms persist, we can consider proceeding with another steroid injection in the future. Jul, Lumbosacral spondylosis (ICD-10 - M47.817) If his low back pain becomes more bothersome, we can consider proceeding with a lumbar facet medial branch nerve block followed by a RFA if applicable under fluoroscopic guidance. Jul, Chronic pain (ICD-10 - G89.29) Patient is aware he must hold Plavix 7 days prior to procedure. [facility] Other 11-14-2022 Evaluation note* Encounter Date Diagnosis Assessment Notes Treatment Notes Treatment Clinical Notes Jun, Lumbar degenerative disc disease (ICD-10 - M51.36) Continue with current treatment plan. Jun, Lumbar radiculopathy (ICD-10 - M54.16) 72 year old male here for follow up status post right L4 and L5 transforaminal epidural steroid injection under fluoroscopic guidance. Patient reports 60% pain relief as well as improved walking, standing and daily functions following procedure. He continues to complain of low back pain with residual right lower extremity pain, more so at night. Anatomy of spine as well as different treatment options were discussed in detail with patient in regards to patients condition.I recommend we proceed with another right L4, L5 transforaminal epidural steroid injection. Risks and benefits of procedure explained to patient; patient verbalizes understanding. In the meantime he can continue taking Gabapentin as prescribed. Jun, Lumbosacral spondylosis (ICD-10 - M47.817) Stable. Consider lumbar facet medial branch nerve blocks in the future if needed [facility] Other 10-27-2022 Evaluation note* Encounter Date Diagnosis Assessment Notes Treatment Notes Treatment Clinical Notes May, Lumbar degenerative disc disease (ICD-10 - M51.36) Proceed with treatment plan. May, Lumbar radiculopathy (ICD-10 - M54.16) 72 year old male presents with complaints of low back pain with radiation down the outer aspect of the right lower extremity to the foot. Prior to examining the patient I reviewed recent progress notes from the refering provider, Dr. Proctor. I independently reviewed his recent lumbar spine MRI which shows a disc bulge at L4-5 and narrowing at L5-S1 level. History, physical examination and available images are consistent with lumbar degenerative disc disease, lumbar radiculopathy and lumbosacral spondylosis. Discussed with patient different treatment options, patient is a candidate for a right L4, L5 transforaminal epidural steroid injection. Risks and benefits of procedure explained to patient; patient verbalizes understanding. In the meantime I will order Hydrocodone/Acetamin ophen as needed. I will also add Gabapentin. May, Lumbosacral spondylosis (ICD-10 - M47.817) Consider lumbar facet medial branch nerve blocks in the future if needed May, Other Medical deci phoebe making shows a new problem to me with further workup planned or suggested with the potential for extensive treatment options that were considered with the most applicable given this patient's situation as noted above. Treatment options considered include a combination of physical therapy approaches, pharmacologic management, and interventional procedures. Those most applicable to the patient were discussed at this time. Risk of complications and/or morbidity and mortality is high given that acute and chronic pain poses a threat to life and bodily function if undertreated, poorly treated or with failure to maintain adequate treatment and timely followup. Given the serious and fluctuating nature of pain with extensive consideration for whenever pain changes, there always remains the possibility of prolonged functional impairment requiring constant patient reassessment and high-level medical decision making. The amount and complexity of data reviewed is high given that patient labs, radiology reports, and other test were obtained, reviewed and summarized as applicable from the physician portal and/or outside medical records. Pertinent positive and negative findings were considered in medical decision-making. [facility] Other Evaluation noteNo InformationNort [employer] Other Evaluation note* Diagnosis Onset Date Resolution Status Inflammatory polyarthritis a cute Lumbar spondylosis acute PMR (polymyalgia rheumatica) acute Primary osteoarthritis of knees, bilateral acute [facility] Work Phone: Evaluation note* Diagnosis Claudication ([facility])- Primary Unspecified peripheral vascular disease PAD (peripheral artery disease) ([facility]) Unspecified peripheral vascular disease Varicose veins of bilateral lower extremities with pain documented in this encounter [facility] SystemHistory general Narrative - Reported* Type Description Date Medical History Polymyalgia rheumatica Medical History Stent placement -- heart attack 2006 Surgical History Stent placement, multiple Hospitalization History see above [facility] Other History general Narrative - Reported* Type Description Date Medical History Polymyalgia rheumatica Medical History Stent placement -- heart attack 2005 Medical History Obstructive sleep apnea Medical History Herniated intervertebral disc of lumbar spine Medical History Cigarette nicotine dependence in remission Medical History Lumbosacral spondylosis with rad iculopathy Medical History Chronic venous insufficiency Medical History Chronic bronchitis, mucopurulent Medical History ASCVD (arteriosclerotic cardiova scular disease) Medical History Essential hypertension Medical History Superficial phlebiti s and thrombophlebitis of left leg Medical History Superficial phlebiti s and thrombophlebitis of right lower extremity Medical History Varicose veins of lo wer extremity with pain, bilateral Medical History COPD with acute exacerbation Medical History Chronic obstructive pulmonary disease with (acute) lower respiratory infection Medical History History of TIA (transient ischem ic attack) Medical History Transient left leg weakness Medical History Dyspnea on effort Medical History BPH (benign prostati c hypertrophy) with urinary obstruction Medical History Acute seasonal aller gic rhinitis, unspecified trigger Medical History Lumbar spondylosis Medical History Major depressive dis order, recurrent, in partial remission Medical History RICARDO (generalized anxiety disorde r) Medical History Hyperlipidemia type II Medical History Other atherosclerosi s of [place] arteries of extremities, bilateral legs Medical History Mild obesity Medical History Gastroesophageal ref lux disease with esophagitis without hemorrhage Medical History Cervical spondylosis Medical History PMR (polymyalgia rheumatica) Medical History Acute recurrent maxillary sinusi tis Medical History Immunodeficiency due to drugs Medical History Actinic keratosis of scalp Medical History Seborrheic keratoses Surgical History Stent placement, multiple Surgical History Cystoscopy 09/27/2019 Surgical History Detorsed Right Testes 9 Surgical History Cholecystectomy 2010 Surgical History Colonoscopy 2008 Surgical History PCI/Stent 07/2018 Surgical History EGD 01/2018 Hospitalization History see above Tangible Play Other InstructionsNot on filedocumented in this encounter [facility] Family History Relationship Condition Age at Onset Recorded Date/T little daughter Crohn's disease Unknown Not Specified Diabetes mellitus Unknown Malignant neoplasm Unknown father Malignant neoplasm Unknown Unknown Advance Directives Documents on File Type Date Recorded Patient Rehabilitation Director Expl anation Advance Directives and Living Will Power of Planner Documents on File Type Date Recorded Patient Rehabilitation Director Expl anation ACP-Advance Directive ACP-Power of Planner Documents on File Type Date Recorded Patient Rehabilitation Director Expl anation ACP-Advance Directive ACP-Power of Planner Latest Code Status on File Code Status Date Activated Date Inactivated Comments Full Code 04/10/2020 11:22 AM Latest Code Status on File Code Status Date Activated Date Inactivated Comments Full Code 04/10/2020 11:22 AM 04/10/2020 6:55 PM Advance Directive Response Recorded Date/ Time Advance Directives No February 23 8:54am Assessments Diagnosis Dysuria Diagnosis BPH with obstruction/lower urinary tract symptoms Hypertrophy of prostate with urinary obstruction and other lower urinary tract symptoms (LUTS) Pre-op testing Preoperative examination, unspecified Diagnosis BPH with obstruction/lower urinary tract symptoms Hypertrophy of prostate with urinary obstruction and other lower urinary tract symptoms (LUTS) Diagnosis Groin pain, left Left testicular pain Discharge Instructions * Instructions* Breanna Beltran RN - 04/10/2020 SAME DAY SURGERY DISCHARGE INSTRUCTIONS 1. Do not drive or operate hazardous machinery for 24 hours. 2. Do not make important personal or business decisions for 24 hours. 3. Do not drink alcoholic beverages for 24 hours. 4. Do not smoke tobacco products for 24 hours. 5. Eat light foods (Jell-O, soups, etc....) and drink plenty of fluids (water, Sprite, etc...) up to 8 glasses per day, as you can tolerate. 6. Limit your activities for 24 hours. Do not engage in heavy work until your surgeon gives you permission. 7. Report the following signs or any questions regarding your physical condition to your surgeon immediately: Excessive swelling of, or around the wound area. Redness. Temperature of 100 degrees (F) or above. Excessive pain. 8. Call your surgeon for any questions regarding your surgery. CYSTOSCOPY DISCHARGE INSTRUCTIONS Possible burning during urination and/or blood tinged urine. Drink 6-8 glasses of water for the next day or so. (This helps to flush the urinary tract.) Arellano Catheter care as instructed. Call Dr. Dior ([phone]) if you develop: Fever over 100 degrees Prolonged soreness/pain Unusual bleeding/bruising Unable to urinate or if urine is bloody You cannot pass urine 8 hours after the test. You have pain in your belly or your back just below your rib cage. (This is called flank pain.) You have frequent urge to urinate but can pass only small amounts of urine. Call Dr. Dior office for follow-up appointment ([phone]). Arellano Catheter Care Instructions A urinary catheter is used when you cannot urinate by yourself. This may occur because of medical conditions, such as prostate enlargement and incontinence, or after surgery. Your doctor will decide how long you need to have the catheter. To care for your catheter: Make sure that urine is flowing out of the catheter into the drainage bag. Do not loop or kink the tubing so urine can flow out of catheter into drainage bag. Check the area around the urethra for inflammation or signs of infection, such as irritated, swollen, red or tender skin at the insertion site or drainage around the catheter. Keep the urinary drainage bag below the level of the bladder. Make sure that the urinary drainage bag does not drag and pull on the catheter. Do not let the drainage bag touch or lie on the floor. Cleaning the catheter: Always wash your hands before and after caring for your catheter. Clean the area around the drainage tube twice each day. Use soap and water to carefully wash around the drainage tube. Rinse well and dry with a clean towel. Do not tug or pull on the drainage tube. Caring for the drainage bag: Always wash your hands before and after emptying your drainage bag. Avoid disconnecting the catheter from the tubing unless instructed to do so by your doctor. Do not allow the ends of the tubings to touch anything. Clean the ends with a new alcohol pad or as directed by your doctor before you reconnect them. Empty the drainage bag when needed. Empty the bag every 3-6 hours or when it is half to two-thirds full. Call the doctor immediately if you experience any of the following: Fever over 100 degrees. Prolonged soreness/pain. Unusual bleeding/bruising. If urine is bloody or notice blood clots in urine. You cannot pass urine 8 hours after the test. Your urine has a foul odor or has a cloudy or milky appearance. You have pain in your belly or your back just below your rib cage. (This is called flank pain.) documented in this encounter History of Present Illness * Breanna Beltran RN - 04/10/2020 4:29 PM EDT Pt verbalized readiness to go home. Discharge instructions given to pt and . Arellano catheter care demonstrated and bag emptied. Verbalized understanding and all questions answered at this time. Discharge Criteria Inpatients must meet Criteria 1 through 7. All other patients are either YES or N/A. If a NO is chosen then Anesthesia or Surgeon must be notified. 1. Minimum 30 minutes after last dose of sedative medication, minimum 120 minutes after last dose of reversal agent. Yes 2. Systolic BP stable within 20 mmHg for 30 minutes & systolic BP between 90 & 180 or within 10 mmHg of baseline. Yes 3. Pulse between 60 and 100 or within 10 bpm of baseline. Yes 4. Spontaneous respiratory rate >/= 10 per minute. Yes 5. SaO2 >/= 95 or >/= baseline. Yes 6. Able to cough and swallow or return to baseline function. Yes 7. Alert and oriented or return to baseline mental status. Yes 8. Demonstrates controlled, coordinated movements, ambulates with steady gait, or return to baseline activity function. Yes 9. Minimal or no pain or nausea, or at a level tolerable and acceptable to patient. Yes 10. Takes and retains oral fluids as allowed. Yes 11. Procedural / perioperative site stable. Minimal or no bleeding. Yes 12. If GI endoscopy procedure, minimal or no abdominal distention or passing flatus. N/A 13. Written discharge instructions and emergency telephone number provided. Yes 14. Accompanied by a responsible adult. Yes * Mere Danielle SQUARING MACHINE OPERATOR - STORAGE BATTERY CHARGER - 04/04/2020 10:20 AM EDT Pt chart reviewed OK to proceed with scheduled PVP [employer] as of 04/04/20 * Svetlana Tariq, RN - 03/30/2020 3:16 PM EDT Patient instructed on the pre-operative, intra-operative, and post-operative process. Patient instructed on NPO status. Medication instructions and Pre operative instruction sheet reviewed over the phone. Instructed pt to stop taking omega 3, multivitamin and niacin as of 04/04/20 and to take coreg and pepcid with a small sip fo water prior to arriving to the hospital the day of surgery. Pt states he was instructed to stop plavix 4 days prior to surgery and continue his aspirin pre-op. documented in this encounter Chief Complaint and Reason for Visit Chief Complaint issues with both leg Reason for Visit Inflammatory polyart hritis Lumbar spondylosis PMR (polymyalgia rheumatica) Primary osteoarthritis of knees, bilateral Additional Source Comments (unrecognized sect ion and content) No Status Records FoundNo Status Records FoundNo Status Records FoundNo Status Records FoundNo Status Records FoundNo Status Records FoundNo Status Records Found INFORMATION SOURCE (unrecogn ized section and content) DATE CREATED AUTHOR 03/13/2019 [facility] DATE CREATED AUTHOR AUTHOR'S ORGANIZ ATION 05/11/2019 [facility] DATE CREATED AUTHOR AUTHOR'S ORGANIZ ATION 05/10/2020 [facility] DATE CREATED AUTHOR AUTHOR'S ORGANIZ ATION [facility]20[facility] DATE CREATED AUTHOR AUTHOR'S ORGANIZ ATION 06/18/2023 [facility] Gatito Olmedo sp[facility]oriya DATE CREATED AUTHOR AUTHOR'S ORGANIZ ATION 06/20/2023 [facility] DATE CREATED AUTHOR AUTHOR'S ORGANIZ ATION 10/14/2023 [facility] EPIC Reason for Visit (unrecogniz ed section and content) Status Reason Specialty Diagnoses / Procedures Referre d By Contact Referred To Contact Diagnoses BPH (benign prostatic hyperplasia) BPH Procedures LA LASER VAPORIZATION SURGERY PROSTATE, COMPLETE CYSTOSCOPY TRANSURETHRAL RESECTION PROSTATE LASER-PVP Vilma Sweeney MD [address] [place] [address], [address] [place] [address] [facility] Reason Comments Circulatory Problem New patient complain s of right toes cold/numbness . Achy and painful to back of bilateral lower legs at times. Patient notes achy limits distance he can walk. Previous laser treatment. Specialty Diagnoses / Procedures Referred By Contlora t Referred To Contact Vascular Surgery Diagnoses PAD (peripheral artery disease) ([facility]) Viet Proctor DO [address] [place] [address] [facility] [address] [place] [address] Referral ID Status Reason Start Date Expiration Date Visits Requested Visits Authorized [id number] Pending Review Specialty Services Required 10/07/2023 10/06/2024 1 1 Care Teams (unrecognized sec tion and content) Team Status: Active Member Role Status Dates Viet Proctor DO Primary Care Provider Active Team Status: Inactive Member Role Status Dates Viet Proctor DO Primary Care Provide r, Attending Provider Active Start: September 22, 2023 End: September 22, 2023 Tree Trimming Supervisor Relationship Specialty Start Date End Date Viet Proctor DO [address] [place] [address] PCP - General Internal Medicine 12/18/21 Goals (unrecognized section and content) Goals may be documented in a n alternate section FOR RECORDS PERTAINING TO PATIENTS WHO ARE OR HAVE BEEN ENROLLED IN A CHEMICAL DEPENDENCY/SUBSTANCEABUSE PROGRAM, SOME INFORMATION MAY BE OMITTED. This clinical summary was aggregated from multiple sources. Caution should be exercised in using it in the provision of clinical care. This summary normalizes information from multiple sources, and as a consequence, information in this document may materially change the coding, format and clinical context of patient data. In addition, data may be omitted in some cases. CLINICAL DECISIONS SHOULD BE BASED ON THE PRIMARY CLINICAL RECORDS. [facility]. provides no warranty or guarantee of the accuracy or completeness of information in this document.
[2023-11-05 08:56] LABS: Chol HDL Ratio 2.6; Cholesterol 135 mg/dL (<=200); HDL Cholesterol 52 mg/dL (40-60); LDL Cholesterol Calculated 54.2 mg/dL; Triglycerides 144 mg/dL (<=150); VLDL CHOLESTEROL 28.8 mg/dL
== END 2023-11-05 07:57 | disposition home or self-care (01) ==
LOC: LAB 07:57
PROVIDERS: Family Provider Internal Medicine Interventional Cardiology; PCP Internal Medicine; Visit Provider Internal Medicine Interventional Cardiology
DX: I25.10 Atherosclerotic heart disease of native coronary artery without angina pectoris (principal)
CPT/HCPCS: 36415; 80061

== ENCOUNTER 2023-11-05 07:58 | Outpatient (OUT) | payer MEDICARE, BC, SELFPAY ==
--- OUTSIDE RECORDS SUMMARY | 2023-11-05 08:01 | XMS_ITS | CCD ---
Author Organization [facility] Care Team Providers Care Talent Management Specialist Name Role Phone ELTAHAWY, EHAB A Admitting Unavailable ELTAJENNIFERY, EHAB A Attending Unavailable VIET PROCTOR Referring Unavailable DAVIS, VIET Primary Care Unavailable Viet Proctor Primary Care Provider Viet Proctor Primary Care Provider [phone] VILMA DIOR Referring Unavailable VIET PROCTOR Primary Care Unavailable VILMA DIOR Admitting Unavailable VILMA DIOR Attending Unavailable VIET PROCTOR Primary Care Unavailable ABBY DANIELLE Referring Unavailable VIET PROCTOR Primary Care Unavailable Nick Montoya Unavailable Viet Proctor Unavailable Michael Maurer Unavailable DAVIS, DR JOHNSON Primary Care Unavailable Rajiv, Michael Attending Unavailable Rajiv, Michael Admitting Unavailable BALL, DR JOHNSON Primary [...] Unavailable DAVIS, DR JOHNSON Primary Care Unavailable Rajvi, Michael Attending Unavailable Rajiv, Michael Admitting Unavailable [...] Attending Unavailable EARL GOMEZ Consulting Unavailable ELTAHAWWILLIE Sadler Attending Unavailable ELTAHAWYWILLIE Attending Unavailable FRENCH SANDOVAL Attending UnavailViet Brown DO Primary Care Provider Allergies Allergy Classification Reported Allergen(s) Allergy Type Date of Onset Reaction(s) Facility (3 sources) black walnut pollen extract; Translations: [[id number] A REDUCTASE INHIBITORS] Drug Allergy 3 [facility] Repository (20 sources) predniSONE; Translations: [PREDNISONE] Drug Allergy 3 dizziness [facility] Repository (5 sources) Hmg-Coa Reductase Inhibitors (Statins) Propensity to adverse reactions to drug 0 [place], [place] (6 sources) predniSONE Drug Allergy 3 Other (See Comments) [place] (1 source) black walnut pollen extract Drug Allergy 6 [place] (20 sources) Statins Depletion Drug allergy anaphylaxis [employer] [facility] [place] Other (1 source) ezetimibe Drug Allergy 2 [facility] Repository (1 source) Propofol Drug Allergy 0 [facility] Repository (7 sources) ezetimibe Drug Allergy 4 Unknown, Unknown Reaction [facility] (6 sources) HMG-CoA reductase inhibitor Drug allergy Unknown [employer] Other (6 sources) Statins Depletion *DIETARY PRODUCTS/DIETAR Y MANAGE Propensity to adverse reactions Unknown [facility] Other (4 sources) Allergies Reconciled Propensity to adverse reactions Unknown [facility] Other (2 sources) patient allergy list reviewed by nurse or physicia Propensity to adverse reactions 9 Comment:Done [employer] Other (1 source) Cdxnhnb-DTQ-JyH Reductase Inhibitor Allergy to substance 4 Anaphylaxis [facility] (1 source) HMG-CoA reductase inhibitor Propensity to adverse reactions to drug 3 Other (See Comments) [employer] Medications Current Medications Medication Drug Class(es) [...] ORCO) 5-325 MG per tablet 1 tablet [id number] 200 actuat albuterol 0.09 mg/actuat metered dose [...] acid 180 mg oral capsule (4 sources) Sobieski 3 1000 MG CAPS Take by mouth daily 0 Active Sobieski 3 1000 MG CAPS Take by mouth [...] Pr opionate (Flonase Allergy Relief) 50 mcg/actuation [place],Suspension Active 1 SPRAY INTRANASAL Daily February 21, [...] sublingual route as needed. 0 Active omega 5-dtd-wap-fish oil (Fish OiL) 300-1,000 mg capsule (1 source) omega 3-dha-epa- fish oil (Fish OiL) 300-1,000 mg capsule Take by mouth. 0 Active omega-3 acid ethyl esters (penitentiary) 1000 mg oral capsule (1 source) Sobieski 3 1000 MG CAPS Take by mouth [...] (Anusol-Hc) 25 mg Suppository Discontinued 25 MG [place] Three times daily February 21, 2019 11:00pm [...] 2023 8:06am take 2 tablets by mo [facility] every twenty-four hours Bystolic 2.5 [...] Coronary arteriosclerosis; Translations: [Atherosclerotic heart disease of [place] tribe coronary artery without angina pectoris] Onset: 2 [...] 6 Chronic Other aftercare (2 sources) Other manager long term care (current) drug therapy; Translations: [OTH SPECIALTY COOK CURRENT DRUG THERAPY] Onset: 3 Episodic Other [...] Peripheral vascular disease, unspecified; Translations: [Atherosclerosis of [place] arteries of extremities with rest pain, bilateral [...] Range Facility Office Visiton 06-18-2023 Follow-up visit [id number] Rick Hassan 1950 M Date Provider Department Center 06/18[facility]2023 [facility] Family History Problem Relation Age of Onset Lung cancer Mother Lung cancer Father Family Status - Relation Status Age at Mother Father Level of Service:[address] [place] OFFICE/OUTPATIENT ESTABLISHED LOW MDM 20-29 MIN Normal [facility] Cult,Bloodon 06-17-2023 Cult,Blood Specimen Description .BLOOD Special Requests RIGHT AC 20ML Culture NO GROWTH 6 DAYS Report Status FINAL 06/17/2023 [facility] Comment on above: Performed By: #### T ROPI, LIP, BMP, LACDS, CDP #### [facility] [address] [place] [address] Supervisor Engine Assembly: Michael Gamez MD Cult,Blood Specimen Description .BLOOD Special Requests RIGHT HAND 20ML Culture NO GROWTH 6 DAYS Report Status FINAL 06/17/2023 [facility] Comment on above: Performed By: #### T ROPI, LIP, BMP, LACDS, CDP #### [facility] [address] [place], [place] [id number] Supervisor Engine Assembly: Michael Gamez MD Organism ID w/ Sension [id number] Organism ID w/ Sensi Specimen Description .FECES Culture SALMONELLA SPECIES Susceptibility to follow. Report Status FINAL 06/13/2023 [facility] Comment on above: Performed By: #### T ROPI, LIP, BMP, LACDS, CDP #### [facility] [address] [place], [place] [id number] Supervisor Engine Assembly: Michael Gamez MD Basic Metabolic Profon 06-13 Anion gap [Moles/Vol] 10 mmol/L Normal 9-17 [facility] Comment on above: Performed By: #### B JEANNA, MG #### [facility] [address] [place], [place] [id number] Supervisor Engine Assembly: Michael Gamez MD BUN/CRE Ratio 10 Normal 9-20 [facility] Comment on above: Performed By: #### B JEANNA, MG #### [facility] [address] [place], [place] [id number] Supervisor Engine Assembly: Michael Gamez MD Calcium [Mass/Vol] 8.8 mg/dL Normal 8.6-10.4 [facility] Comment on above: Performed By: #### B MP, MG #### [facility] [address] [place], [place] [phone] Supervisor Engine Assembly: Michael Gamez MD Chloride [Moles/Vol] 105 mmol/L Normal 98-107 [facility] Comment on above: Performed By: #### B MP, MG #### [facility] [address] [place], [place] [id number] Supervisor Engine Assembly: Michael Gamez MD CO2 [Moles/Vol] 19 mmol/L Low 20-31 [facility] Comment on above: Performed By: #### B MP, MG #### [facility] [address] [place], [place] [id number] Supervisor Engine Assembly: Michael Gamez MD Creatinine [Mass/Vol] 1.8 mg/dL High 0.7-1.2 [facility] Comment on above: Performed By: #### B MP, MG #### [facility] [address] [place], [place] [id number] Supervisor Engine Assembly: Michael Gamez MD GFR/1.73 sq M.predicted among non-blacks MDRD (S/P/Bld) [Vol rate/Area] 39 mL/min/{1.73_m2} Low >60 [facility] Comment on above: Result Comment: These [...] Performed By: #### B MP, MG #### [facility] [address] [place] [address] Supervisor Engine Assembly: Michael Gamez MD Glucose [Mass/Vol] 105 mg/dL High 70-99 [facility] Comment on above: Performed By: #### B MP, MG #### [facility] [address] [place], [place] [phone] Supervisor Engine Assembly: Michael Gamez MD Potassium [Moles/Vol] 3.9 mmol/L Normal 3.7-5.3 [facility] Comment on above: Performed By: #### B MP, MG #### [facility] [address] [place], [place] [phone] Supervisor Engine Assembly: Michael Gamez MD Sodium [Moles/Vol] 134 mmol/L Low 135-144 [facility] Comment on above: Performed By: #### B MP, MG #### [facility] [address] [place], [place] [phone] Supervisor Engine Assembly: Michael Gamez MD Urea nitrogen [Mass/Vol] 18 mg/dL Normal 8- [facility] Comment on above: Performed By: #### B MP, MG #### [facility] [address] [place], [place] [id number] Supervisor Engine Assembly: Michael Gamez MD Magnesiumon 06-13-2023 Magnesium [Mass/Vol] 2.1 mg/dL Normal 1.6-2.6 [facility] Comment on above: Performed By: #### B MP, MG #### [facility] [address] [place], [place] [id number] Supervisor Engine Assembly: Michael Gamez MD Basic Metabolic Profon 06-12 Anion gap [Moles/Vol] 9 mmol/L Normal - [facility] Comment on above: Performed By: #### T SHAAN, LIP, BMP, LACDS, CDP #### [facility] [address] [place], [place] [id number] Supervisor Engine Assembly: Michael Gamez MD BUN/CRE Ratio 14 Normal - [facility] Comment on above: Performed By: #### T SHAAN, LIP, BMP, LACDS, CDP #### [facility] [address] [place], [place] [id number] Supervisor Engine Assembly: Michael Gamez MD Calcium [Mass/Vol] 8.8 mg/dL Normal 8.6-10.4 [facility] Comment on above: Performed By: #### T ROPI, LIP, BMP, LACDS, CDP #### [facility] [address] [place], [place] [phone] Supervisor Engine Assembly: Michael Gamez MD Chloride [Moles/Vol] 108 mmol/L High 98-107 [facility] Comment on above: Performed By: #### T ROPI, LIP, BMP, LACDS, CDP #### [facility] [address] [place], [place] [id number] Supervisor Engine Assembly: Michael Gamez MD CO2 [Moles/Vol] 19 mmol/L Low 20-31 [facility] Comment on above: Performed By: #### T ROPI, LIP, BMP, LACDS, CDP #### [facility] [address] [place], [place] [phone] Supervisor Engine Assembly: Michael Gamez MD Creatinine [Mass/Vol] 2.2 mg/dL High 0.7-1.2 [facility] Comment on above: Performed By: #### T ROPDarlene, LIP, BMP, LACDS, CDP #### [facility] [address] [place] [address] Supervisor Engine Assembly: Michael Gamez MD GFR/1.73 sq M.predicted among non-blacks MDRD (S/P/Bld) [Vol rate/Area] 30 mL/min/{1.73_m2} Low >60 [facility] Comment on above: Result Comment: These [...] T ROPI, LIP, BMP, LACDS, CDP #### [facility] [address] [place] [address] Supervisor Engine Assembly: Michael Gamez MD Glucose [Mass/Vol] 120 mg/dL High 70-99 [facility] Comment on above: Performed By: #### T ROPI, LIP, BMP, LACDS, CDP #### [facility] [address] [place], [place] [id number] Supervisor Engine Assembly: Michael Gamez MD Potassium [Moles/Vol] 3.6 mmol/L Low 3.7-5.3 [facility] Comment on above: Performed By: #### T ROPI, LIP, BMP, LACDS, CDP #### [facility] [address] [place] [id number] Supervisor Engine Assembly: Michael Gamez MD Sodium [Moles/Vol] 136 mmol/L Normal 135-144 [facility] Comment on above: Performed By: #### T ROPI, LIP, BMP, LACDS, CDP #### [facility] [address] [place] [address] Supervisor Engine Assembly: Michael Gamez MD Urea nitrogen [Mass/Vol] 30 mg/dL High 8-23 [facility] Comment on above: Performed By: #### T ROPI, LIP, BMP, LACDS, CDP #### [facility] [address] [place] [address] Supervisor Engine Assembly: Michael Gamez MD CBC with Diffon 06-12-2023 Abs. Basophil 0.04 k/uL Normal 0.00-0.20 [facility] Comment on above: Performed By: #### T ROPI, LIP, BMP, LACDS, CDP #### [facility] [address] [place] [id number] Supervisor Engine Assembly: Michael Gamez MD Abs.Imm.Granulocyte 0.05 k/uL Normal 0.00-0.30 [facility] Comment on above: Performed By: #### T ROPI, LIP, BMP, LACDS, CDP #### [facility] [address] [place] [id number] Supervisor Engine Assembly: Michael Gamez MD Abs.Neutrophil (Seg) 7.42 k/uL High 2.1-6.5 [facility] Comment on above: Performed By: #### T ROPI, LIP, BMP, LACDS, CDP #### [facility] [address] [place] [address] Supervisor Engine Assembly: Michael Gamez MD Basophils/100 WBC (Bld) 0 % Normal 0-2 [facility] Comment on above: Performed By: #### T ROPI, LIP, BMP, LACDS, CDP #### [facility] [address] [place] [address] Supervisor Engine Assembly: Michael Gamez MD Eosinophils (Bld) [#/Vol] 0.05 10*3/uL Normal 0.00-0.40 [facility] Comment on above: Performed By: #### T ROPI, LIP, BMP, LACDS, CDP #### [facility] [address] [place] [id number] Supervisor Engine Assembly: Michael Gamez MD Eosinophils/100 WBC (Bld) 1 % Normal 0-5 [facility] Comment on above: Performed By: #### T ROPI, LIP, BMP, LACDS, CDP #### [facility] [address] [place] [id number] Supervisor Engine Assembly: Michael Gamez MD Erythrocyte distribution width (RBC) [Ratio] 13.4 % Normal 12.1-15.2 [facility] Comment on above: Performed By: #### T ROPI, LIP, BMP, LACDS, CDP #### [facility] [address] [place] [phone] Supervisor Engine Assembly: Michael Gamez MD Hematocrit (Bld) [Volume fraction] 36.7 % Low 41.0-53.0 [facility] Comment on above: Performed By: #### T ROPI, LIP, BMP, LACDS, CDP #### [facility] [address] [place] [address] Supervisor Engine Assembly: Michael Gamez MD Hemoglobin (Bld) [Mass/Vol] 12.3 g/dL Low 13.5-17.5 [facility] Comment on above: Performed By: #### T ROPI, LIP, BMP, LACDS, CDP #### [facility] [address] [place] [address] Supervisor Engine Assembly: Michael Gamez MD Immature granulocytes/100 WBC (Bld) 1 % Normal 0-5 [facility] Comment on above: Performed By: #### T ROPI, LIP, BMP, LACDS, CDP #### [facility] [address] [place] [address] Supervisor Engine Assembly: Michael Gamez MD Lymphocytes (Bld) [#/Vol] 0.84 10*3/uL Low 1.00-4.80 [facility] Comment on above: Performed By: #### T ROPI, LIP, BMP, LACDS, CDP #### [facility] [address] [place] [address] Supervisor Engine Assembly: Michael Gamez MD Lymphocytes/100 WBC (Bld) 9 % Low 13-44 [facility] Comment on above: Performed By: #### T ROPI, LIP, BMP, LACDS, CDP #### [facility] [address] [place] [address] Supervisor Engine Assembly: Michael Gamez MD MCH (RBC) [Entitic mass] 30.4 pg Normal 26.0-34.0 [facility] Comment on above: Performed By: #### T ROPI, LIP, BMP, LACDS, CDP #### [facility] [address] [place] [address] Supervisor Engine Assembly: Michael Gamez MD MCHC (RBC) [Mass/Vol] 33.5 g/dL Normal 31.0-37.0 [facility] Comment on above: Performed By: #### T ROPI, LIP, BMP, LACDS, CDP #### [facility] [address] [place] [address] Supervisor Engine Assembly: Michael Gamez MD MCV (RBC) [Entitic vol] 90.6 fL Normal 80.0-100.0 [facility] Comment on above: Performed By: #### T ROPI, LIP, BMP, LACDS, CDP #### [facility] [address] [place] [address] ([phone] Supervisor Engine Assembly: Michael Gamez MD Monocytes (Bld) [#/Vol] 1.30 10*3/uL High 0.00-1.00 [facility] Comment on above: Performed By: #### T ROPI, LIP, BMP, LACDS, CDP #### [facility] [address] [place] [address] ([phone]) Supervisor Engine Assembly: Michael Gamez MD Monocytes/100 WBC (Bld) 13 % High 5-9 [facility] Comment on above: Performed By: #### T ROPI, LIP, BMP, LACDS, CDP #### [facility] [address] [place] [address] ([phone]) Supervisor Engine Assembly: Michael Gamez MD Neutrophil (Seg) 77 % High 39-75 [facility] Comment on above: Performed By: #### T ROPI, LIP, BMP, LACDS, CDP #### [facility] [address] [place] [address] (010) Supervisor Engine Assembly: Michael Gamez MD Platelet mean volume (Bld) [Entitic vol] 11.1 fL Normal 6.0-12.0 [facility] Comment on above: Performed By: #### T ROPI, LIP, BMP, LACDS, CDP #### [facility] [address] [place] [address] ([phone] Supervisor Engine Assembly: Michael Gamez MD Platelets (Bld) [#/Vol] 143 10*3/uL Normal 140-450 [facility] Comment on above: Performed By: #### T ROPI, LIP, BMP, LACDS, CDP #### [facility] [address] [place] [address] ([phone]) Supervisor Engine Assembly: Michael Gamez MD RBC (Bld) [#/Vol] 4.05 10*6/uL Low 4.50-5.90 [facility] Comment on above: Performed By: #### T ROPI, LIP, BMP, LACDS, CDP #### [facility] [address] [place] [address] Supervisor Engine Assembly: Michael Gamez MD WBC (Bld) [#/Vol] 9.7 10*3/uL Normal 3.5-11.0 [facility] Comment on above: Performed By: #### T ROPI, LIP, BMP, LACDS, CDP #### [facility] [address] [place] [address] Supervisor Engine Assembly: Michael Gamez MD Magnesiumon 06-12-2023 Magnesium [Mass/Vol] 2.2 mg/dL Normal 1.6-2.6 [facility] Comment on above: Performed By: #### T SHAAN, LIP, BMP, LACDS, CDP #### [facility] [address] [place] [address] Supervisor Engine Assembly: Michael Gamez MD XR CHEST (2 VW)on 06-12-2023 XR CHEST (2 VW) EXAM: XR CHEST (2 VW ) HISTORY: SOB COMPARISON: 06/09/2023 IMPRESSION: FINDINGS/IMPRESSION: 1. Heart size upper normal. 2. Lungs clear. Interpreted by: Miguel Lucia Jr., MD Signed by: Miguel Lucia Jr., MD 06/12/23 Final result Normal [facility] Basic Metabolic Profon 06-11 Anion gap [Moles/Vol] 12 mmol/L Normal 9-17 [facility] Comment on above: Performed By: #### B MP, MG #### [facility] [address] [place] [address] Supervisor Engine Assembly: Michael Gamez MD BUN/CRE Ratio 12 Normal - [facility] Comment on above: Performed By: #### B MP, MG #### [facility] [address] [place], [place] [phone] Supervisor Engine Assembly: Michael Gamez MD Calcium [Mass/Vol] 8.3 mg/dL Low 8.6-10.4 [facility] Comment on above: Performed By: #### B MP, MG #### [facility] [address] [place], [place] [phone] Supervisor Engine Assembly: Michael Gamez MD Chloride [Moles/Vol] 101 mmol/L Normal 98-107 [facility] Comment on above: Performed By: #### B MP, MG #### [facility] [address] [place], [place] [phone] Supervisor Engine Assembly: Michael Gamez MD CO2 [Moles/Vol] 18 mmol/L Low 20-31 [facility] Comment on above: Performed By: #### B MP, MG #### [facility] [address] [place], [place] [phone] Supervisor Engine Assembly: Michael Gamez MD Creatinine [Mass/Vol] 2.3 mg/dL High 0.7-1.2 [facility] Comment on above: Performed By: #### B MP, MG #### [facility] [address] [place], [place] [phone] Supervisor Engine Assembly: Michael Gamez MD GFR/1.73 sq M.predicted among non-blacks MDRD (S/P/Bld) [Vol rate/Area] 29 mL/min/{1.73_m2} Low >60 [facility] Comment on above: Result Comment: These [...] Performed By: #### B MP, MG #### [facility] [address] [place], [place] [phone] Supervisor Engine Assembly: Michael Gamez MD Glucose [Mass/Vol] 122 mg/dL High 70-99 [facility] Comment on above: Performed By: #### B MP, MG #### [facility] [address] [place], [place] [id number] Supervisor Engine Assembly: Michael Gamez MD Potassium [Moles/Vol] 3.5 mmol/L Low 3.7-5.3 [facility] Comment on above: Performed By: #### B MP, MG #### [facility] [address] [place], [place] [phone] Supervisor Engine Assembly: Michael Gamez MD Sodium [Moles/Vol] 131 mmol/L Low 135-144 [facility] Comment on above: Performed By: #### B JEANNA, MG #### [facility] [address] [place] [id number] Supervisor Engine Assembly: Michael Gamez MD Urea nitrogen [Mass/Vol] 28 mg/dL High 8-23 [facility] Comment on above: Performed By: #### B JEANNA, MG #### [facility] [address] [place] [id number] Supervisor Engine Assembly: Michael Gamez MD C diff Ag + Toxinon 06-11-20 23 C diff Ag + Toxin Negative Normal NEG [facility] Comment on above: Result Comment: No C . difficile antigen and Toxin Detected. Performed By: #### T HIRAM GARDUNO, BMP, LACDS, CDP #### [facility] [address] [place] [address] Supervisor Engine Assembly: Michael Gamez MD CBC with Diffon 06-11-2023 Abs. Basophil 0.04 k/uL Normal 0.00-0.20 [facility] Comment on above: Performed By: #### T HIRAM GARDUNO, BMP, LACDS, CDP #### [facility] [address] [place] [id number] Supervisor Engine Assembly: Michael Gamez MD Abs.Imm.Granulocyte 0.05 k/uL Normal 0.00-0.30 [facility] Comment on above: Performed By: #### T ROPI, LIP, BMP, LACDS, CDP #### [facility] [address] [place] [id number] Supervisor Engine Assembly: Michael Gamez MD Abs.Neutrophil (Seg) 6.91 k/uL High 2.1-6.5 [facility] Comment on above: Performed By: #### T ROPI, LIP, BMP, LACDS, CDP #### [facility] [address] [place] [address] Supervisor Engine Assembly: Michael Gamze MD Basophils/100 WBC (Bld) 1 % Normal 0-2 [facility] Comment on above: Performed By: #### T ROPI, LIP, BMP, LACDS, CDP #### [facility] [address] [place] [id number] Supervisor Engine Assembly: Michael Gamez MD Eosinophils (Bld) [#/Vol] 0.01 10*3/uL Normal 0.00-0.40 [facility] Comment on above: Performed By: #### T ROPI, LIP, BMP, LACDS, CDP #### [facility] [address] [place] [address] Supervisor Engine Assembly: Michael Gamez MD Eosinophils/100 WBC (Bld) 0 % Normal 0-5 [facility] Comment on above: Performed By: #### T ROPI, LIP, BMP, LACDS, CDP #### [facility] [address] [place] [id number] Supervisor Engine Assembly: Michael Gamez MD Erythrocyte distribution width (RBC) [Ratio] 13.4 % Normal 12.1-15.2 [facility] Comment on above: Performed By: #### T ROPI, LIP, BMP, LACDS, CDP #### [facility] [address] [place] [address] Supervisor Engine Assembly: Michael Gamez MD Hematocrit (Bld) [Volume fraction] 38.7 % Low 41.0-53.0 [facility] Comment on above: Performed By: #### T ROPI, LIP, BMP, LACDS, CDP #### [facility] [address] [place] [address] Supervisor Engine Assembly: Michael Gamez MD Hemoglobin (Bld) [Mass/Vol] 12.9 g/dL Low 13.5-17.5 [facility] Comment on above: Performed By: #### T ROPI, LIP, BMP, LACDS, CDP #### [facility] [address] [place] [address] Supervisor Engine Assembly: Michael Gamez MD Immature granulocytes/100 WBC (Bld) 1 % Normal 0-5 [facility] Comment on above: Performed By: #### T ROPI, LIP, BMP, LACDS, CDP #### [facility] [address] [place] [address] Supervisor Engine Assembly: Michael Gamez MD Lymphocytes (Bld) [#/Vol] 0.81 10*3/uL Low 1.00-4.80 [facility] Comment on above: Performed By: #### T ROPI, LIP, BMP, LACDS, CDP #### [facility] [address] [place] [address] Supervisor Engine Assembly: Michael Gamez MD Lymphocytes/100 WBC (Bld) 9 % Low 13-44 [facility] Comment on above: Performed By: #### T ROPI, LIP, BMP, LACDS, CDP #### [facility] [address] [place] [id number] Supervisor Engine Assembly: Michael Gamez MD MCH (RBC) [Entitic mass] 30.0 pg Normal 26.0-34.0 [facility] Comment on above: Performed By: #### T ROPI, LIP, BMP, LACDS, CDP #### [facility] [address] [place] [address] Supervisor Engine Assembly: Michael Gamez MD MCHC (RBC) [Mass/Vol] 33.3 g/dL Normal 31.0-37.0 [facility] Comment on above: Performed By: #### T ROPI, LIP, BMP, LACDS, CDP #### [facility] [address] [place] [address] Supervisor Engine Assembly: Michael Gamez MD MCV (RBC) [Entitic vol] 90.0 fL Normal 80.0-100.0 [facility] Comment on above: Performed By: #### T ROPI, LIP, BMP, LACDS, CDP #### [facility] [address] [place] [address] Supervisor Engine Assembly: Michael Gamez MD Monocytes (Bld) [#/Vol] 0.82 10*3/uL Normal 0.00-1.00 [facility] Comment on above: Performed By: #### T ROPI, LIP, BMP, LACDS, CDP #### [facility] [address] [place] [address] [employer]: Michael Gamez MD Monocytes/100 WBC (Bld) 10 % High 5-9 [facility] Comment on above: Performed By: #### T ROPI, LIP, BMP, LACDS, CDP #### [facility] [address] [place] [address] [employer]: Michael Gamez MD Neutrophil (Seg) 80 % High 39-75 [facility] Comment on above: Performed By: #### T ROPI, LIP, BMP, LACDS, CDP #### [facility] [address] [place] [address] [employer]: Michael Gamez MD Platelet mean volume (Bld) [Entitic vol] 10.6 fL Normal 6.0-12.0 [facility] Comment on above: Performed By: #### T ROPI, LIP, BMP, LACDS, CDP #### [facility] [address] [place], [place] [id number] [employer]: Michael Gamez MD Platelets (Bld) [#/Vol] 154 10*3/uL Normal 140-450 [facility] Comment on above: Performed By: #### T ROPI, LIP, BMP, LACDS, CDP #### [facility] [address] [place], [place] [phone] [employer]: Michael Gamez MD RBC (Bld) [#/Vol] 4.30 10*6/uL Low 4.50-5.90 [facility] Comment on above: Performed By: #### T ROPI, LIP, BMP, LACDS, CDP #### [facility] [address] [place], [place] [phone] [employer]: Michael Gamez MD WBC (Bld) [#/Vol] 8.6 10*3/uL Normal 3.5-11.0 [facility] Comment on above: Performed By: #### T ROPI, LIP, BMP, LACDS, CDP #### [facility] [address] [place] [address] [phone] [employer]: Michael Gamez MD CT ABDOMEN PELVIS WO CONTRAS Ton 06-11-2023 CT ABDOMEN PELVIS WO CONTRAST EXAMINATION: CT ABDOMEN PELVIS WO CONTRAST, 06/11/2023 8:27 AM EST HISTORY: worsening renal failure, diarrhea COMPARISON: [place] CT abdomen pelvis TECHNIQUE: CT scan of [...] Lucia Jr., MD 06/11/23 Final result Normal [facility] Lactic Acidon 06-11-2023 Lactate [Moles/Vol] 0.6 mmol/L Normal 0.5-2.2 [facility] Comment on above: Performed By: #### T ROPI, LIP, BMP, LACDS, CDP #### [facility] [address] [place] [address] [employer]: Michael Gamez MD Liver Profileon 06-11-2023 Albumin [Mass/Vol] 3.7 g/dL Normal 3.5-5.2 [facility] Comment on above: Performed By: #### T ROPI, LIP, BMP, LACDS, CDP #### [facility] [address] [place], [place] [phone] [employer]: Mcihael Gamez MD Alkaline Phos 38 U/L Low 40-129 [facility] Comment on above: Performed By: #### T ROPI, LIP, BMP, LACDS, CDP #### [facility] [address] [place] [address] [employer]: Michael Gamez MD ALT [Catalytic activity/Vol] 19 U/L Normal 5-41 [facility] Comment on above: Performed By: #### T ROPI, LIP, BMP, LACDS, CDP #### [facility] [address] [place], [place] [phone] [employer]: Michael Gamez MD AST [Catalytic activity/Vol] 43 U/L High <40 [facility] Comment on above: Performed By: #### T ROPI, LIP, BMP, LACDS, CDP #### [facility] [address] [place], [place] [id number] [employer]: Michael Gamez MD Bilirubin [Mass/Vol] 0.7 mg/dL Normal 0.3-1.2 [facility] Comment on above: Performed By: #### T ROPI, LIP, BMP, LACDS, CDP #### [facility] [address] [place] [address] [employer]: Michael Gamez MD Bilirubin, Indirect Can not be calculated Normal 0.0-1 .0 [facility] Comment on above: Performed By: #### T ROPI, LIP, BMP, LACDS, CDP #### [facility] [address] [place] [address] [employer]: Michael Gamez MD Bilirubin.indirect [Mass/Vol] mg/dL Normal <0.3 [facility] Comment on above: Performed By: #### T ROPI, LIP, BMP, LACDS, CDP #### [facility] [address] [place], [place] [phone] [employer]: Michael Gamez MD Protein [Mass/Vol] 6.6 g/dL Normal 6.4-8.3 [facility] Comment on above: Performed By: #### T ROPI, LIP, BMP, LACDS, CDP #### [facility] [address] [place] [address] [employer]: Michael Gamez MD Magnesiumon 06-11-2023 Magnesium [Mass/Vol] 2.0 mg/dL Normal 1.6-2.6 [facility] Comment on above: Performed By: #### B MP, MG #### [facility] [address] [place] [address] [employer]: Michael Gamez MD Stool PCR [place] 06-11-20 Campylobacter sp PCR NEGATIVE: No Campylobacter spp. (jejuni or coli) DNA Detected Normal CAMNEG [facility] Comment on above: Performed By: #### T ROPI, LIP, BMP, LACDS, CDP #### [facility] [address] [place] [address] [employer]: Michael Gamez MD E coli enterotox PCR NEGATIVE: No Enterotoxigenic E. coli (ETEC) Heat-labile and heat-stable (LT/ST) Normal EECNEG [facility] Comment on above: Result Comment: DNA Detected Performed By: #### T ROPI, LIP, BMP, LACDS, CDP #### [facility] [address] [place] [address] [employer]: Michael Gamez MD [facility] sp [facility] Comment on above: Performed By: #### T ROPI, LIP, BMP, LACDS, CDP #### [facility] [address] [place] [address] [employer]: Michael Gamez MD Salmonella sp PCR Positive Abnormal SALNEG [facility] Comment on above: Result Comment: Resu lts reported to the appropriate Health Department Performed By: #### T ROPI, LIP, BMP, LACDS, CDP #### [facility] [address] [place] [address] [employer]: Michael Gamez MD Shigatoxin gene PCR Negative Normal STXNEG [facility] Comment on above: Performed By: #### T ROPI, LIP, BMP, LACDS, CDP #### [facility] [address] [place] [address] [employer]: Michael Gamez MD Shigella sp PCR Negative Normal SHINEG [facility] Comment on above: Performed By: #### T ROPI, LIP, BMP, LACDS, CDP #### [facility] [address] [facility] [place] [phone] [employer]: Michael Gamez MD Vibrio sp PCR NEGATIVE: No Vibrio (V. vulnificus, V, parahaemolyticus and V. cholerae) DNA Normal VIBNEG [facility] Comment on above: Result Comment: Dete cted Performed By: #### T ROPI, LIP, BMP, LACDS, CDP #### [facility] [address] [place] [address] [employer]: Michael Gamez MD Yersinia gene PCR Negative Normal YERNEG [facility] Comment on above: Performed By: #### T ROPI, LIP, BMP, LACDS, CDP #### [facility] [address] [place] [address] [employer]: Michael Gamez MD Basic Metab w/rfx MGon 06-10 Anion gap [Moles/Vol] 13 mmol/L Normal 9-17 [facility] Comment on above: Performed By: #### T ROPI, LIP, BMP, LACDS, CDP #### [facility] [address] [place] [address] [employer]: Michael Gamez MD BUN/CRE Ratio 17 Normal 9-20 [facility] Comment on above: Performed By: #### T ROPI, LIP, BMP, LACDS, CDP #### [facility] [address] [place] [address] [employer]: Michael Gamez MD Calcium [Mass/Vol] 9.2 mg/dL Normal 8.6-10.4 [facility] Comment on above: Performed By: #### T ROPI, LIP, BMP, LACDS, CDP #### [facility] [address] [place] [address] [employer]: Michael Gamez MD Chloride [Moles/Vol] 97 mmol/L Low 98-107 [facility] Comment on above: Performed By: #### T ROPI, LIP, BMP, LACDS, CDP #### [facility] [address] [place], [place] [phone] [employer]: Michael Gamez MD CO2 [Moles/Vol] 20 mmol/L Normal 20-31 [facility] Comment on above: Performed By: #### T ROPI, LIP, BMP, LACDS, CDP #### [facility] [address] [facility] [address] [employer]: Michael Gamez MD Creatinine [Mass/Vol] 1.5 mg/dL High 0.7-1.2 [facility] Comment on above: Performed By: #### T ROPI, LIP, BMP, LACDS, CDP #### [facility] [address] [place] [address] [employer]: Michael Gamez MD GFR/1.73 sq M.predicted among non-blacks MDRD (S/P/Bld) [Vol rate/Area] 48 mL/min/{1.73_m2} Low >60 [facility] Comment on above: Result Comment: These [...] T ROPI, LIP, BMP, LACDS, CDP #### [facility] [address] [place] [address] [employer]: Michael Gamez MD Glucose [Mass/Vol] 147 mg/dL High 70-99 [facility] Comment on above: Performed By: #### T ROPI, LIP, BMP, LACDS, CDP #### [facility] [address] [place] [address] [employer]: Michael Gamez MD Potassium [Moles/Vol] 3.9 mmol/L Normal 3.7-5.3 [facility] Comment on above: Performed By: #### T ROPI, LIP, BMP, LACDS, CDP #### [facility] [address] [place], [place] [phone] [employer]: Michael Gamez MD Sodium [Moles/Vol] 130 mmol/L Low 135-144 [facility] Comment on above: Performed By: #### T ROPI, LIP, BMP, LACDS, CDP #### [facility] [address] [place], [place] [phone] [employer]: Michael Gamez MD Urea nitrogen [Mass/Vol] 25 mg/dL High 8-23 [facility] Comment on above: Performed By: #### T ROPI, LIP, BMP, LACDS, CDP #### [facility] [address] [place], [place] [phone] [employer]: Michael Gamez MD Basic Metabolic Profon 06-10 Anion gap [Moles/Vol] 12 mmol/L Normal 9-17 [facility] Comment on above: Performed By: #### B MP #### [facility] [address] [place], [place] [phone] [employer]: Michael Gamez MD BUN/CRE Ratio 14 Normal 9-20 [facility] Comment on above: Performed By: #### B MP #### [facility] [address] [place], [place] [phone] [employer]: Michael Gamez MD Calcium [Mass/Vol] 8.3 mg/dL Low 8.6-10.4 [facility] Comment on above: Performed By: #### B MP #### [facility] [address] [place], [place] [phone] [employer]: Michael Gamez MD Chloride [Moles/Vol] 103 mmol/L Normal 98-107 [facility] Comment on above: Performed By: #### B MP #### [facility] [address] [place], [place] [phone] [employer]: Michael Gamez MD CO2 [Moles/Vol] 18 mmol/L Low 20-31 [facility] Comment on above: Performed By: #### B MP #### [facility] [address] [place] [address] [employer]: Michael Gamez MD Creatinine [Mass/Vol] 1.6 mg/dL High 0.7-1.2 [facility] Comment on above: Performed By: #### B MP #### [facility] [address] [place], [place] [id number] [employer]: Michael Gamez MD GFR/1.73 sq M.predicted among non-blacks MDRD (S/P/Bld) [Vol rate/Area] 45 mL/min/{1.73_m2} Low >60 [facility] Comment on above: Result Comment: These [...] secretion. Performed By: #### B MP #### [facility] [address] [place] [address] [employer]: Michael Gamez MD Glucose [Mass/Vol] 119 mg/dL High 70-99 [facility] Comment on above: Performed By: #### B MP #### [facility] [address] [place] [address] [employer]: Michael Gamez MD Potassium [Moles/Vol] 3.4 mmol/L Low 3.7-5.3 [facility] Comment on above: Performed By: #### B MP #### [facility] [address] [place] [address] [employer]: Michael Gamez MD Sodium [Moles/Vol] 133 mmol/L Low 135-144 [facility] Comment on above: Performed By: #### B MP #### [facility] [address] [place], [place] [phone] [employer]: Michael Gamez MD Urea nitrogen [Mass/Vol] 23 mg/dL Normal 8-23 [facility] Comment on above: Performed By: #### B MP #### [facility] [address] [place] [id number] [employer]: Michael Gamez MD C diff Ag + Toxinon 06-10-20 23 Specimen Description .FECES Normal [facility] Comment on above: Performed By: #### T HIRAM GARDUNO, BMP, LACNOEL, CDP #### [facility] [address] [place] [id number] [employer]: Michael Gamez MD CBC with Diffon 06-10-2023 Abs. Basophil 0.03 k/uL Normal 0.00-0.20 [facility] Comment on above: Performed By: #### T SHAAN, LIP, BMP, LACDS, CDP #### [facility] [address] [place] [id number] [employer]: Michael Gamez MD Abs.Imm.Granulocyte 0.08 k/uL Normal 0.00-0.30 [facility] Comment on above: Performed By: #### T SHAAN, LIP, BMP, LACDS, CDP #### [facility] [address] [place] [id number] [employer]: Michael Gamez MD Abs.Neutrophil (Seg) 12.23 k/uL High 2.1-6.5 [facility] Comment on above: Performed By: #### T SHAAN, LIP, BMP, LACDS, CDP #### [facility] [address] [place] [id number] [employer]: Michael Gamez MD Basophils/100 WBC (Bld) 0 % Normal 0-2 [facility] Comment on above: Performed By: #### T ROPI, LIP, BMP, LACDS, CDP #### [facility] [address] [place] [address] [employer]: Michael Gamez MD Eosinophils (Bld) [#/Vol] 0.00 10*3/uL Normal 0.00-0.40 [facility] Comment on above: Performed By: #### T ROPI, LIP, BMP, LACDS, CDP #### [facility] [address] [place] [address] [employer]: Michael Gamez MD Eosinophils/100 WBC (Bld) 0 % Normal 0-5 [facility] Comment on above: Performed By: #### T ROPI, LIP, BMP, LACDS, CDP #### [facility] [address] [place] [id number] [employer]: Michael Gamez MD Erythrocyte distribution width (RBC) [Ratio] 13.3 % Normal 12.1-15.2 [facility] Comment on above: Performed By: #### T ROPI, LIP, BMP, LACDS, CDP #### [facility] [address] [place] [address] [employer]: Michael Gamez MD Hematocrit (Bld) [Volume fraction] 44.6 % Normal 41.0-53.0 [facility] Comment on above: Performed By: #### T ROPI, LIP, BMP, LACDS, CDP #### [facility] [address] [place] [address] [employer]: Michael Gamez MD Hemoglobin (Bld) [Mass/Vol] 15.0 g/dL Normal 13.5-17.5 [facility] Comment on above: Performed By: #### T ROPI, LIP, BMP, LACDS, CDP #### [facility] [address] [place] [address] [employer]: Michael Gamez MD Immature granulocytes/100 WBC (Bld) 1 % Normal 0-5 [facility] Comment on above: Performed By: #### T ROPI, LIP, BMP, LACDS, CDP #### [facility] [address] [place] [address] [employer]: Michael Gamez MD Lymphocytes (Bld) [#/Vol] 0.68 10*3/uL Low 1.00-4.80 [facility] Comment on above: Performed By: #### T ROPI, LIP, BMP, LACDS, CDP #### [facility] [address] [place] [address] [employer]: Michael Gamez MD Lymphocytes/100 WBC (Bld) 5 % Low 13-44 [facility] Comment on above: Performed By: #### T ROPI, LIP, BMP, LACDS, CDP #### [facility] [address] [place] [address] [employer]: Michael Gamez MD MCH (RBC) [Entitic mass] 30.6 pg Normal 26.0-34.0 [facility] Comment on above: Performed By: #### T ROPI, LIP, BMP, LACDS, CDP #### [facility] [address] [place] [address] [employer]: Michael Gamez MD MCHC (RBC) [Mass/Vol] 33.6 g/dL Normal 31.0-37.0 [facility] Comment on above: Performed By: #### T ROPI, LIP, BMP, LACDS, CDP #### [facility] [address] [place] [address] [employer]: Michael Gamez MD MCV (RBC) [Entitic vol] 91.0 fL Normal 80.0-100.0 [facility] Comment on above: Performed By: #### T ROPI, LIP, BMP, LACDS, CDP #### [facility] [address] [place] [address] ([phone] [employer]: Michael Gamez MD Monocytes (Bld) [#/Vol] 0.98 10*3/uL Normal 0.00-1.00 [facility] Comment on above: Performed By: #### T ROPI, LIP, BMP, LACDS, CDP #### [facility] [address] [place] [address] ([phone] [employer]: Michael Gamez MD Monocytes/100 WBC (Bld) 7 % Normal 5-9 [facility] Comment on above: Performed By: #### T ROPI, LIP, BMP, LACDS, CDP #### [facility] [address] [place] [address] (366) [employer]: Michael Gamez MD Neutrophil (Seg) 87 % High 39-75 [facility] Comment on above: Performed By: #### T ROPI, LIP, BMP, LACDS, CDP #### [facility] [address] [place] [address] ([phone]) [employer]: Michael Gamez MD Platelet mean volume (Bld) [Entitic vol] 10.2 fL Normal 6.0-12.0 [facility] Comment on above: Performed By: #### T ROPI, LIP, BMP, LACDS, CDP #### [facility] [address] [place] [address] ([phone] [employer]: Michael Gamez MD Platelets (Bld) [#/Vol] 164 10*3/uL Normal 140-450 [facility] Comment on above: Performed By: #### T ROPI, LIP, BMP, LACDS, CDP #### [facility] [address] [place] [address] ([phone] [employer]: Michael Gamez MD RBC (Bld) [#/Vol] 4.90 10*6/uL Normal 4.50-5.90 [facility] Comment on above: Performed By: #### T ROPI, LIP, BMP, LACDS, CDP #### [facility] [address] [place] [address] [employer]: Michael Gamez MD WBC (Bld) [#/Vol] 14.0 10*3/uL High 3.5-11.0 [facility] Comment on above: Performed By: #### T ROPI, LIP, BMP, LACDS, CDP #### [facility] [address] [place], [place] [phone] [employer]: Michael Gamez MD Magnesiumon 06-10-2023 Magnesium [Mass/Vol] 2.0 mg/dL Normal 1.6-2.6 [facility] Comment on above: Performed By: #### T ROPI, LIP, BMP, LACDS, CDP #### [facility] [address] [place] [address] [employer]: Michael Gamez MD Basic Metabolic Profon 06-09 Anion gap [Moles/Vol] 15 mmol/L Normal 9-17 [facility] Comment on above: Performed By: #### T ROPI, LIP, BMP, LACDS, CDP #### [facility] [address] [place] [address] [employer]: Michael Gamez MD BUN/CRE Ratio 20 Normal - [facility] Comment on above: Performed By: #### T ROPI, LIP, BMP, LACDS, CDP #### [facility] [address] [place], [place] [id number] [employer]: Michael Gamez MD Calcium [Mass/Vol] 10.3 mg/dL Normal 8.6-10.4 [facility] Comment on above: Performed By: #### T ROPI, LIP, BMP, LACDS, CDP #### [facility] [address] [place] [address] [employer]: Michael Gamez MD Chloride [Moles/Vol] 99 mmol/L Normal 98-107 [facility] Comment on above: Performed By: #### T ROPI, LIP, BMP, LACDS, CDP #### [facility] [address] [place] [address] [employer]: Michael Gamez MD CO2 [Moles/Vol] 20 mmol/L Normal 20-31 [facility] Comment on above: Performed By: #### T ROPI, LIP, BMP, LACDS, CDP #### [facility] [address] [place] [address] [employer]: Michael Gamez MD Creatinine [Mass/Vol] 1.2 mg/dL Normal 0.7-1.2 [facility] Comment on above: Performed By: #### T SHAAN, LIP, BMP, LACDS, CDP #### [facility] [address] [place] [address] [employer]: Michael Gamez MD GFR/1.73 sq M.predicted among non-blacks MDRD (S/P/Bld) [Vol rate/Area] mL/min/{1.73_m2} Normal >60 [facility] Comment on above: Result Comment: These [...] T ROPI, LIP, BMP, LACDS, CDP #### [facility] [address] [place] [address] [employer]: Michael Gamez MD Glucose [Mass/Vol] 162 mg/dL High 70-99 [facility] Comment on above: Performed By: #### T ROPI, LIP, BMP, LACDS, CDP #### [facility] [address] [place], [place] [id number] [employer]: Michael Gamez MD Potassium [Moles/Vol] 3.5 mmol/L Low 3.7-5.3 [facility] Comment on above: Performed By: #### T SHAAN, LIP, BMP, LACDS, CDP #### [facility] [address] [place], [place] [phone] [employer]: Michael Gamez MD Sodium [Moles/Vol] 134 mmol/L Low 135-144 [facility] Comment on above: Performed By: #### T SHAAN, LIP, BMP, LACDS, CDP #### [facility] [address] [place] [address] [employer]: Michael Gamez MD Urea nitrogen [Mass/Vol] 24 mg/dL High 8-23 [facility] Comment on above: Performed By: #### T SHAAN, LIP, BMP, LACDS, CDP #### [facility] [address] [place] [address] [employer]: Michael Gamez MD C diff Ag + Toxinon 06-09-20 23 C diff Ag + Toxin Negative Normal NEG [facility] Comment on above: Result Comment: No C . difficile antigen and Toxin Detected. Performed By: #### T SHAAN, LIP, BMP, LACDS, CDP #### [facility] [address] [place] [address] [employer]: Michael Gamez MD Specimen Description .FECES Normal [facility] Comment on above: Performed By: #### T SHAAN LIP, BMP, LACDS, CDP #### [facility] [address] [place] [address] [employer]: Michael Gamez MD CBC with Diffon 06-09-[address] (Bld) [Interp] Platelet morphology normal. Normal [facility] Comment on above: Result Comment: Scan maans to verify automated differential. Performed By: #### T ROPI, LIP, BMP, LACDS, CDP #### [facility] [address] [place] [address] [employer]: Michael Gamez MD Abs. Basophil 0.02 k/uL Normal 0.00-0.20 [facility] Comment on above: Performed By: #### T ROPI, LIP, BMP, LACDS, CDP #### [facility] [address] [place] [address] [employer]: Michael Gamez MD Abs.Imm.Granulocyte 0.07 k/uL Normal 0.00-0.30 [facility] Comment on above: Performed By: #### T ROPI, LIP, BMP, LACDS, CDP #### [facility] [address] [place] [address] [employer]: Michael Gamez MD Abs.Neutrophil (Seg) 13.43 k/uL High 2.1-6.5 [facility] Comment on above: Performed By: #### T ROPI, LIP, BMP, LACDS, CDP #### [facility] [address] [place] [address] [employer]: Michael Gamez MD Basophils/100 WBC (Bld) 0 % Normal 0-2 [facility] Comment on above: Performed By: #### T ROPI, LIP, BMP, LACDS, CDP #### [facility] [address] [place] [address] [employer]: Michael Gamez MD Eosinophils (Bld) [#/Vol] 0.01 10*3/uL Normal 0.00-0.40 [facility] Comment on above: Performed By: #### T ROPI, LIP, BMP, LACDS, CDP #### [facility] [address] [place] [address] [employer]: Michael Gamez MD Eosinophils/100 WBC (Bld) 0 % Normal 0-5 [facility] Comment on above: Performed By: #### T ROPI, LIP, BMP, LACDS, CDP #### [facility] [address] [place] [id number] [employer]: Michael Gamez MD Erythrocyte distribution width (RBC) [Ratio] 13.1 % Normal 12.1-15.2 [facility] Comment on above: Performed By: #### T ROPI, LIP, BMP, LACDS, CDP #### [facility] [address] [place] [address] [employer]: Michael Gamez MD Hematocrit (Bld) [Volume fraction] 46.9 % Normal 41.0-53.0 [facility] Comment on above: Performed By: #### T ROPI, LIP, BMP, LACDS, CDP #### [facility] [address] [place] [address] [employer]: Michael Gamez MD Hemoglobin (Bld) [Mass/Vol] 15.9 g/dL Normal 13.5-17.5 [facility] Comment on above: Performed By: #### T ROPI, LIP, BMP, LACDS, CDP #### [facility] [address] [place] [id number] [employer]: Michael Gamez MD Immature granulocytes/100 WBC (Bld) 1 % Normal 0-5 [facility] Comment on above: Performed By: #### T ROPI, LIP, BMP, LACDS, CDP #### [facility] [address] [id number] Supervisor Engine Assembly: Michael Gamez MD Lymphocytes (Bld) [#/Vol] 0.74 10*3/uL Low 1.00-4.80 [facility] Comment on above: Performed By: #### T ROPI, LIP, BMP, LACDS, CDP #### [facility] [address] [id number] [employer]visor [employer]: Michael Gamez MD Lymphocytes/100 WBC (Bld) 5 % Low 13-44 [facility] Comment on above: Performed By: #### T ROPI, LIP, BMP, LACDS, CDP #### [facility] [address] [place] [address] [employer]visor [employer]: Michael Gamez MD MCH (RBC) [Entitic mass] 30.1 pg Normal 26.0-34.0 [facility] Comment on above: Performed By: #### T ROPI, LIP, BMP, LACDS, CDP #### [facility] [address] [place] [address] [employer]visor [employer]: Michael Gamez MD MCHC (RBC) [Mass/Vol] 33.9 g/dL Normal 31.0-37.0 [facility] Comment on above: Performed By: #### T ROPI, LIP, BMP, LACDS, CDP #### [facility] [address] [place] [address] [employer]visor [employer]: Michael Gamez MD MCV (RBC) [Entitic vol] 88.8 fL Normal 80.0-100.0 [facility] Comment on above: Performed By: #### T ROPI, LIP, BMP, LACDS, CDP #### [facility] [address] [place] [address] [employer]visor [employer]: Michael Gamez MD Monocytes (Bld) [#/Vol] 1.22 10*3/uL High 0.00-1.00 [facility] Comment on above: Performed By: #### T ROPI, LIP, BMP, LACDS, CDP #### [facility] [address] [place] [address] [employer]visor [employer]: Michael Gamez MD Monocytes/100 WBC (Bld) 8 % Normal 5-9 [facility] Comment on above: Performed By: #### T ROPI, LIP, BMP, LACDS, CDP #### [facility] [address] [place] [address] ([phone]) [employer] Assembly: Michael Gamez MD Neutrophil (Seg) 87 % High 39-75 [facility] Comment on above: Performed By: #### T ROPI, LIP, BMP, LACDS, CDP #### [facility] [address] [place] [address] ([phone]) [employer]: Michael Gamez MD Platelet mean volume (Bld) [Entitic vol] 10.7 fL Normal 6.0-12.0 [facility] Comment on above: Performed By: #### T ROPI, LIP, BMP, LACDS, CDP #### [facility] [address] [place] [address] ([phone]) [employer] Assembly: Michael Gamez MD Platelets (Bld) [#/Vol] 178 10*3/uL Normal 140-450 [facility] Comment on above: Performed By: #### T ROPI, LIP, BMP, LACDS, CDP #### [facility] [address] [place] [address] ([phone]) Supervisor [employer] Assembly: Michael Gamez MD RBC (Bld) [#/Vol] 5.28 10*6/uL Normal 4.50-5.90 [facility] Comment on above: Performed By: #### T ROPI, LIP, BMP, LACDS, CDP #### [facility] [address] [place], [place] [phone] ([phone]) Supervisor [employer] Assembly: Michael Gamez MD WBC (Bld) [#/Vol] 15.5 10*3/uL High 3.5-11.0 [facility] Comment on above: Performed By: #### T ROPI, LIP, BMP, LACDS, CDP #### [facility] [address] [place] [address] ([phone]) [employer] Assembly: Michael Gamez MD Lactate, Sepsison 06-09-2023 Lactic Acid, Sepsis 1.5 mmol/L Normal 0.5-1.9 [facility] Comment on above: Performed By: #### T SHAAN, LIP, BMP, LACDS, CDP #### [facility] [address] [place] [address] Supervisor [employer] Assembly: Michael Gamez MD Lipaseon 06-09-2023 Lipase [Catalytic activity/Vol] 21 U/L Normal 13-60 [facility] Comment on above: Performed By: #### T SHAAN LIP, BMP, LACDS, CDP #### [facility] [address] [place] [address] Supervisor [employer] Assembly: Michael Gamez MD [id number] 06-09-2023 SARS-CoV-2 (COVID-19) RNA SUSAN+probe Ql (Unsp spec) Not detected Normal NOTDET [facility] Comment on above: Result Comment: Rapid [...] management decisions. Fact sheet for Healthcare Providers: https://www.fda.gov/media/328236/download Fact sheet for Patients: https://www.fda.gov/media/456517/download Methodology: Isothermal Nucleic Acid Amplification Performed By: #### T SHAAN LIP, BMP, LACDS, CDP #### [facility] [address] [place] [address] Supervisor [employer] Assembly: Michael Gamez MD Troponinon 06-09-2023 Troponin, High Sens 33 ng/L High 0-22 [facility] Comment on above: Result Comment: High Sensitivity Troponin values cannot be compared with other Troponin methodologies. Performed By: #### T ROPI, LIP, BMP, LACDS, CDP #### [facility] [address] [place], [place] [id number] Supervisor Engine Assembly: Michael Gamez MD Troponin, High Sens 30 ng/L High 0-22 [facility] Comment on above: Result Comment: High Sensitivity Troponin values cannot be compared with other Troponin methodologies. Performed By: #### T ROPI, LIP, BMP, LACDS, CDP #### [facility] [address] [place] [address] Supervisor [employer] Assembly: Michael Gamez MD Urinalysis, Routineon 2022 Bilirubin, SemiQt,Ur Negative Normal NEG [facility] Comment on above: Performed By: #### T ROPI, LIP, BMP, LACDS, CDP #### [facility] [address] [place] [address] Supervisor Engine Assembly: Michael Gamez MD Blood, Urine 2+ Abnormal NEG [facility] Comment on above: Performed By: #### T ROPI, LIP, BMP, LACDS, CDP #### [facility] [address] [place] [address] Supervisor [employer] Assembly: Michael Gamez MD Clarity (U) Clear Normal CLEAR [facility] Comment on above: Performed By: #### T ROPI, LIP, BMP, LACDS, CDP #### [facility] [address] [place] [address] Supervisor Engine Assembly: Michael Gamez MD Color (U) Yellow Normal YEL [facility] Comment on above: Performed By: #### T ROPI, LIP, BMP, LACDS, CDP #### [facility] [address] [place], [place] [phone] Supervisor Engine Assembly: Michael Gamez MD Comment Normal [facility] Comment on above: Performed By: #### T ROPI, LIP, BMP, LACDS, CDP #### [facility] [address] [place] [address] Supervisor Engine Assembly: Michael Gamez MD Glucose Ql (U) Negative Normal NEG [facility] Comment on above: Performed By: #### T ROPI, LIP, BMP, LACDS, CDP #### [facility] [address] [place] [address] Supervisor Engine Assembly: Michael Gamez MD Ketones Ql (U) Negative Normal NEG [facility] Comment on above: Performed By: #### T ROPI, LIP, BMP, LACDS, CDP #### [facility] [address] [place] [address] Supervisor Engine Assembly: Michael Gamez MD Leukocyte esterase Test strip Ql (U) Negative Normal NEG [facility] Comment on above: Performed By: #### T ROPI, LIP, BMP, LACDS, CDP #### [facility] [address] [place] [address] Supervisor [employer] Assembly: Michael Gamez MD Nitrite,Ur Negative Normal NEG [facility] Comment on above: Performed By: #### T ROPI, LIP, BMP, LACDS, CDP #### [facility] [address] [place] [address] Supervisor Engine Assembly: Michael Gamez MD PH,Ur 5.0 Normal 5.0-8.0 [facility] Comment on above: Performed By: #### T ROPI, LIP, BMP, LACDS, CDP #### [facility] [address] [place] [address] Supervisor [employer] Assembly: Michael Gamez MD Protein Ql (U) 2+ mg/dL Abnormal NEG [facility] Comment on above: Performed By: #### T ROPI, LIP, BMP, LACDS, CDP #### [facility] [address] [place], [place] [id number] Supervisor Engine Assembly: Michael Gamez MD Spec. [place],Ur 1.025 Normal 1.005-1.030 [facility] Comment on above: Performed By: #### T ROPI, LIP, BMP, LACDS, CDP #### [facility] [address] [place], [place] [phone] Supervisor Engine Assembly: Michael Gamez MD Urobilinogen,Ur Normal Normal 0.0-1.0 [facility] Comment on above: Performed By: #### T ROPI, LIP, BMP, LACDS, CDP #### [facility] [address] [place] [address] Supervisor Engine Assembly: Michael Gamez MD Urinalysis,Microon 3 ----- Normal [facility] Comment on above: Performed By: #### T ROPI, LIP, BMP, LACDS, CDP #### [facility] [address] [place] [address] Supervisor Engine Assembly: Michael Gamez MD Casts 0 TO 2 Normal [facility] Comment on above: Result Comment: FINE GRANULAR Performed By: #### T ROPI, LIP, BMP, LACDS, CDP #### [facility] [address] [place] [address] Supervisor Engine Assembly: Michael Gamez MD Epithelial cells LM Ql (Urine sed) NONE SEEN Normal [facility] Comment on above: Performed By: #### T ROPI, LIP, BMP, LACDS, CDP #### [facility] [address] [place], [place] [phone] Supervisor Engine Assembly: Michael Gamez MD Mucus Strands 1+ Abnormal NONE [facility] Comment on above: Performed By: #### T ROPI, LIP, BMP, LACDS, CDP #### [facility] [address] [place], [place] [phone] Supervisor Engine Assembly: Michael Gamez MD Urine RBC's 2 TO 5 Normal 0-2 [facility] Comment on above: Performed By: #### T SHAAN LIP, BMP, LACDS, CDP #### [facility] [address] [place], [place] [phone] Supervisor Engine Assembly: Michael Gamez MD Urine WBC's 0 TO 2 Normal 0 [facility] Comment on above: Performed By: #### T SHAAN LIP, BMP, LACDS, CDP #### [facility] [address] [place] [address] Supervisor Engine Assembly: Michael Gamez MD XR CHEST PORTABLEon 06-09-20 XR CHEST PORTABLE EXAM: XR CHEST ELO BLE HISTORY: sob COMPARISON: None. TECHNIQUE: An [...] Callie Valencia MD 06/09/23 Final result Normal [facility] Office Visiton 05-21-2023 Follow-up visit [id number] Rick Hassan H 1950 M Date Provider Department Center 05/21/2023 271-WILLIE BARFIELD [facility] Family History Problem Relation Age of Onset Lung cancer Mother Lung cancer Father Family Status - Relation Status Age at Mother Father Level of Service:07388 [place] OFFICE/OUTPATIENT ESTABLISHED MOD MDM 30-39 MIN Normal [facility] Orders Onlyon 05-21-2023 Orders Only [id number] Rick Hassan er H 1950 M Date Provider Department Center 05/21/2023 VEENA BANKS Family History Problem Relation Age of Onset Lung cancer Mother Lung cancer Father Family Status - Relation Status Age at Mother Father Normal [facility] CBC AUTO DIFFon 11-11-2022 BASO # 0.1 103/ul Normal 0.0-0.1 [facility] Comment on above: Performed By: #### C BC ####[facility] [address] [id number]. Selam Card Basophils/100 WBC (Bld) 1.0 % Normal 0.2-2.0 [facility] Comment on above: Performed By: #### C BC ####[facility] [address] [phone]. Selam Card EO # 0.3 103/ul Normal 0.0-0.7 [facility] Comment on above: Performed By: #### C BC ####[facility] [address] [place], [place] [address]Dr. Selam Card Eosinophils/100 WBC (Bld) 4.1 % Normal 0.9-7.0 [facility] Comment on above: Performed By: #### C BC ####[facility] [address] [place], [place] [address]Dr. Selam Card Erythrocyte distribution width (RBC) [Ratio] 12.9 % Normal 11.0-15.0 [facility] Comment on above: Performed By: #### C BC ####[facility] [address] [place], [place] [phone]. Selam Card Hematocrit (Bld) [Volume fraction] 42.8 % Normal 42.0-54.0 [facility] Comment on above: Performed By: #### C BC ####[facility] [address] [place], [place] [address]Dr. Selam Card Hemoglobin (Bld) [Mass/Vol] 14.0 g/dL Normal 14.0-18.0 [facility] Comment on above: Performed By: #### C BC ####[facility] [address] [id number]. Selam Card IG # 0.06 10e3/ul Critically high 0.00-0.03 [facility] Comment on above: Performed By: #### C BC ####[facility] [address] [phone]. Selam Card IG % 0.9 % Critically high 0.0-0.5 [facility] Comment on above: Performed By: #### C BC ####[facility] [address] [phone]. Selam Card LYMPH # 1.5 103/ul Normal 1.2-3.8 [facility] Comment on above: Performed By: #### C BC ####[facility] [address] [phone]. Selam Card Lymphocytes/100 WBC (Bld) 20.7 % Normal 20.5-60.0 [facility] Comment on above: Performed By: #### C BC ####[facility] [address] [phone]. Selam Card MANUAL DIFF REQ NO Normal [facility] Comment on above: Performed By: #### C BC ####[facility] [address] [phone]. Selam Card MCH (RBC) [Entitic mass] 30.1 pg Normal 25.9-34.0 [facility] Comment on above: Performed By: #### C BC ####[facility] [address] [phone]. Selam Card MCHC (RBC) [Mass/Vol] 32.7 g/dL Normal 29.9-35.2 [facility] Comment on above: Performed By: #### C BC ####[facility] [address] [phone]. Selam Card MCV (RBC) [Entitic vol] 92.0 fL Normal 80.0-94.0 [facility] Comment on above: Performed By: #### C BC ####[facility] [address] [phone]. Selam Card MONO # 0.9 103/ul Critically high 0.3-0.8 [facility] Comment on above: Performed By: #### C BC ####[facility] [address] [phone]. Selam Card Monocytes/100 WBC (Bld) 13.0 % Critically high 1.7-12.0 [facility] Comment on above: Performed By: #### C BC ####[facility] [address] [phone]. Selam Card NEUT # 4.2 103/ul Normal 1.4-6.5 [facility] Comment on above: Performed By: #### C BC ####[facility] [address] [phone]. Selam Card Neutrophils/100 WBC (Bld) 60.3 % Normal 43.0-75.0 [facility] Comment on above: Performed By: #### C BC ####[facility] [address] [phone]. Selam Card Platelet mean volume (Bld) [Entitic vol] 10.3 fL Normal 9.5-13.5 [facility] Comment on above: Performed By: #### C BC ####[facility] [address] [phone]. Selam Card PLT 201 103/ul Normal 150-450 [facility] Comment on above: Performed By: #### C BC ####[facility] [address] [phone]. Selam Card RBC 4.65 106/ul Critically low 4.70-6.10 [facility] Comment on above: Performed By: #### C BC ####[facility] [address] [place] [phone]. Selam Card WBC 7.0 103/ul Normal 4.0-11.0 [facility] Comment on above: Performed By: #### C BC ####[facility] [address] [phone]. Selam Card LIPID PROFILEon 11-11-2022 CHOL-HDL RATIO NORM SEE BELOW Normal [facility] Comment on above: Result Comment: 3.3 - 4.4 LOW RISK 4.4 - 7.1 AVERAGE RISK 7.1 - 11.0 MODERATE RISK >11.0 HIGH RISK Performed By: #### L IPID, BMP ####[facility] [address] [place] [phone]. Selam Card Cholesterol [Mass/Vol] 140 mg/dL Normal <=200 [facility] Comment on above: Performed By: #### L IPID, BMP ####[facility] [address] [place] [phone]. Selam Card Cholesterol in HDL [Mass/Vol] 50 mg/dL Normal 40-60 [facility] Comment on above: Performed By: #### L IPID, BMP ####[facility] [address] [place] [phone]. Selam Card Cholesterol in LDL [Mass/Vol] 55.2 mg/dL Normal [facility] Comment on above: Performed By: #### L IPID, BMP ####[facility] [address] [address]Dr. Irinatevin Kyaw Cholesterol.total/C holesterol in HDL [Mass ratio] 2.8 {ratio} Normal [facility] Comment on above: Performed By: #### L IPID, BMP ####[facility] [address] [place] [phone]. Selam Card HDL NORMAL > or = 60 mg/dl - LO W CARDIOVASCULAR RISK <40 mg/dl - HIGH CARDIOVASCULAR RISK Normal [facility] Comment on above: Performed By: #### L IPID, BMP ####[facility] [address] [place] [phone]. Selam Card LDL CALC NORMAL SEE BELOW Normal [facility] Comment on above: Result Comment: <100 mg/dl OPTIMAL 100 - 129 mg/dl NEAR OR ABOVE OPTIMAL 130 - 159 mg/dl BORDERLINE HIGH 160 - 189 mg/dl HIGH >190 mg/dl VERY HIGH Performed By: #### L IPID, BMP ####[facility] [address] [address]Dr. Irinatevin Card Triglyceride [Mass/Vol] 174 mg/dL Critically high <=150 [facility] Comment on above: Performed By: #### L IPID, BMP ####[facility] [address] [place] [phone]. Irinatevin Kyaw VLDL CALC 34.8 mg/dL Normal [facility] Comment on above: Performed By: #### L IPID, BMP ####[facility] [address] [place], [place] [address]Dr. Selam Card PROF CHEM 8 (BAS METB)on Anion gap [Moles/Vol] 11.1 mmol/L Normal [facility] Comment on above: Performed By: #### L IPID, BMP ####[facility] [address] [place], [place] [address]Dr. Selam Card Calcium [Mass/Vol] 9.6 mg/dL Normal 8.5-10.1 [facility] Comment on above: Performed By: #### L IPID, BMP ####[facility] [address] [place], [place] [address]Dr. Selam Card Chloride [Moles/Vol] 104 mmol/L Normal 98-107 [facility] Comment on above: Performed By: #### L IPID, BMP ####[facility] [address] [place], [place] [address]Dr. Selam Card CO2 [Moles/Vol] 29.1 mmol/L Normal 21.0-32.0 [facility] Comment on above: Performed By: #### L IPID, BMP ####[facility] [address] [place], [place] [address]Dr. Selam Card Creatinine [Mass/Vol] 1.13 mg/dL Normal 0.70-1.30 [facility] Comment on above: Performed By: #### L IPID, BMP ####[facility] [address] [place], [place] [address]Dr. Selam Card EGFR-AF LIBYAN >60 Normal >=60 [facility] Comment on above: Performed By: #### L IPID, BMP ####[facility] [address] [place], [place] [address]Dr. Selam Card EGFR-NON AF LIBYAN >60 Normal >=60 [facility] Comment on above: Performed By: #### L IPID, BMP ####[facility] [address] [place], [place] [address]Dr. Selam Card Glucose [Mass/Vol] 113 mg/dL Critically high 74-106 [facility] Comment on above: Performed By: #### L IPID, BMP ####[facility] [address] [place] [address]Dr. Selam Card Potassium [Moles/Vol] 4.2 mmol/L Normal 3.5-5.1 [facility] Comment on above: Performed By: #### L IPID, BMP ####[facility] [address] [address]Dr. Selam Card Sodium [Moles/Vol] 140 mmol/L Normal 136-145 [facility] Comment on above: Performed By: #### L IPID, BMP ####[facility] [address] [place] [address]Dr. Selam Card Urea nitrogen [Mass/Vol] 23.0 mg/dL Critically high 7.0-18.0 [facility] Comment on above: Performed By: #### L IPID, BMP ####[facility] [address] [place], [place] [address]Dr. Selam Card Urea nitrogen/Creatinine [Mass ratio] 20.4 mg/mg Normal [facility] Comment on above: Performed By: #### L IPID, BMP ####[facility] [address] [place], [place] [address]Dr. Selam Card XR SHOULDER RT INJon 022 [...] DUSTY SCHILLING Date: 2022-04-22 14:35 Normal [facility] VC CONSULT FOLLOWUPon 2021 VC CONSULT FOLLOWUP Patient: NICHOLAS HASSAN Exam Date: 04/15/2022 : 1950 Gender:M Ordering : DR MICHAEL MAURER M.D. Admission #: [id number] Family : Order #: [id number] CLICK HERE TO VIEW EXAM RADIOLOGY REPORT [...] Maurer MD on 04/15/2022 at 11:00 Normal [facility] VC EXT VENOUS LT LIMITEDon 0 04-15-2022 VC EXT VENOUS LT LIMITED Patient: ML HASSAN Exam Date: 04/15/2022 : 1950 Gender:M Ordering : DR MICHAEL MAURER M.D. Admission #: [id number] Family : Order #: [id number] CLICK HERE TO VIEW EXAM RADIOLOGY REPORT [...] Maurer MD on 04/15/2022 at 10:57 Normal [facility] VC INJ FOAM SCLERO W US MLTI on 04-10-2022 VC INJ FOAM SCLERO W US MLTI Patient: ML HASSAN Exam Date: 04/10/2022 : 1950 Gender:M Ordering : DR MICHAEL MAURER M.D. Admission #: [id number] Family : Order #: [id number] CLICK HERE TO VIEW EXAM RADIOLOGY REPORT [...] treate (more content not included)... Normal [facility] VC CONSULT FOLLOWUPon 2021 VC CONSULT FOLLOWUP Patient: NICHOLAS HASSAN Exam Date: 03/11/2022 : 1950 Gender:M Ordering : DR MICHAEL MAURER M.D. Admission #: [id number] Family : Order #: [id number] CLICK HERE TO VIEW EXAM RADIOLOGY REPORT [...] MD on 03/11/2022 at 11:28 Normal [facility] VC EXT VENOUS KG LIMITEDon 03-11-2022 VC EXT VENOUS KG LIMITED Patient: ML HASSAN Exam Date: 03/11/2022 : 1950 Gender:M Ordering : DR MICHAEL MAURER M.D. Admission #: [id number] Family : Order #: [id number] CLICK HERE TO VIEW EXAM RADIOLOGY REPORT [...] Maurer MD on 03/11/2022 at 11:10 Normal [facility] VC INJ FOAM SCLERO W US MLTI on 02-25-2022 VC INJ FOAM SCLERO W US MLTI Patient: ML HASSAN Exam Date: 02/25/2022 : 1950 Gender:M Ordering : DR MICHAEL MAURER M.D. Admission #: [id number] Family : Order #: [id number] CLICK HERE TO VIEW EXAM RADIOLOGY REPORT [...] Schilling M.D. on 02/25/2022 at 13:14 Normal [facility] VC CONSULT FOLLOWUPon 2021 VC CONSULT FOLLOWUP Patient: NICHOLAS HASSAN Exam Date: 02/24/2022 : 1950 Gender:M Ordering : DR MICHAEL MAURER M.D. Admission #: [id number] Family : Order #: [id number] CLICK HERE TO VIEW EXAM RADIOLOGY REPORT [...] Schilling M.D. on 02/24/2022 at 09:39 Normal [facility] VC EXT VENOUS RT LIMITEDon 0 02-24-2022 VC EXT VENOUS RT LIMITED Patient: ML HASSAN. Exam Date: 02/24/2022 : 1950 Gender:M Ordering : DR MICHAEL MAURER M.D. Admission #: [id number] Family : Order #: [id number] CLICK HERE TO VIEW EXAM RADIOLOGY REPORT [...] Schilling M.D. on 02/24/2022 at 09:07 Normal [facility] VC INJ FOAM SCLERO W US MLTI on 02-18-2022 VC INJ FOAM SCLERO W US MLTI Patient: ML HASSANElizabeth Exam Date: 02/18/2022 : 1950 Gender:M Ordering : DR MICHAEL MAURER M.D. Admission #: [id number] Family : Order #: [id number] CLICK HERE TO VIEW EXAM RADIOLOGY REPORT [...] jordin (more content not included)... Normal [facility] VC CONSULT FOLLOWUPon 2021 VC CONSULT FOLLOWUP Patient: NICHOLAS HASSAN BRIAN ColeenElizabeth Exam Date: 01/29/2022 : 1950 Gender:M Ordering : DR MICHAEL MAURER M.D. Admission #: [id number] Family : Order #: [id number] CLICK HERE TO VIEW EXAM RADIOLOGY REPORT [...] Maurer MD on 01/29/2022 at 09:48 Normal [facility] VC EXT VENOUS LT LIMITEDon 0 01-29-2022 VC EXT VENOUS LT LIMITED Patient: ML HASSAN Exam Date: 01/29/2022 : 1950 Gender:M Ordering : DR MICHAEL MAURER M.D. Admission #: [id number] Family : Order #: [id number] CLICK HERE TO VIEW EXAM RADIOLOGY REPORT [...] Maurer MD on 01/29/2022 at 09:35 Normal [facility] VC ENDOVENOUS ABL 1ST V LTon 01-22-2022 VC ENDOVENOUS ABL 1ST V LT Patient: ML HASSAN Exam Date: 01/22/2022 : 1950 Gender:M Ordering : DR MICHAEL MAURER M.D. Admission #: [id number] Family : Order #: [id number] CLICK HERE TO VIEW EXAM RADIOLOGY REPORT [...] Schilling M.D. on 01/22/2022 at 13:55 Normal [facility] VC CONSULT FOLLOWUPon 2021 VC CONSULT FOLLOWUP Patient: NICHOLAS HASSAN Exam Date: 01/01/2022 : 1950 Gender:M Ordering : DR MICHAEL MAURER M.D. Admission #: [id number] Family : Order #: [id number] CLICK HERE TO VIEW EXAM RADIOLOGY REPORT [...] Maurer MD on 01/01/2022 at 10:10 Normal [facility] VC EXT VENOUS LT LIMITEDon 0 01-01-2022 VC EXT VENOUS LT LIMITED Patient: ML HASSAN Exam Date: 01/01/2022 : 1950 Gender:M Ordering : DR MICHAEL MAURER M.D. Admission #: [id number] Family : Order #: [id number] CLICK HERE TO VIEW EXAM RADIOLOGY REPORT [...] Maurer MD on 01/01/2022 at 09:56 Normal [facility] VC ENDOVENOUS ABL 1ST V LTon 12-25-2021 VC ENDOVENOUS ABL 1ST V LT Patient: ML HASSAN Exam Date: 12/25/2021 : 1950 Gender:M Ordering : DR MICHAEL MAURER M.D. Admission #: [id number] Family : Order #: [id number] CLICK HERE TO VIEW EXAM RADIOLOGY REPORT [...] Maurer MD on 12/25/2021 at 14:09 Normal [facility] VC CONSULT FOLLOWUPon 2021 VC CONSULT FOLLOWUP Patient: NICHOLAS HASSAN BRIAN Mana Exam Date: 12/11/2021 : 1950 Gender:M Ordering : DR MICHAEL MAURER M.D. Admission #: [id number] Family : Order #: [id number] CLICK HERE TO VIEW EXAM RADIOLOGY REPORT [...] Maurer MD on 12/11/2021 at 08:57 Normal [facility] VC EXT VENOUS RT LIMITEDon 0 12-11-2021 VC EXT VENOUS RT LIMITED Patient: SONYA ML Mana Exam Date: 12/11/2021 : 1950 Gender:M Ordering : DR MICHAEL MAURER M.D. Admission #: [id number] Family : Order #: [id number] CLICK HERE TO VIEW EXAM RADIOLOGY REPORT [...] Maurer MD on 12/11/2021 at 08:38 Normal [facility] LIPID PROFILEon 12-03-2021 CHOL-HDL RATIO NORM SEE BELOW Normal [facility] Comment on above: Result Comment: 3.3 - 4.4 LOW RISK 4.4 - 7.1 AVERAGE RISK 7.1 - 11.0 MODERATE RISK >11.0 HIGH RISK Performed By: #### L IPID, LIVER #### [facility] [address] [address] [address] Selam Card Cholesterol [Mass/Vol] 131 mg/dL Normal <=200 [facility] Comment on above: Performed By: #### L IPID, LIVER #### [facility] [address] [address] [address] Selam Card Cholesterol in HDL [Mass/Vol] 50 mg/dL Normal 40-60 [facility] Comment on above: Performed By: #### L IPID, LIVER #### [facility] [address] [address] [address] Selam Card Cholesterol in LDL [Mass/Vol] 45.8 mg/dL Normal [facility] Comment on above: Performed By: #### L IPID, LIVER #### [facility] [address] [address] [address] Selam Card Cholesterol.total/C holesterol in HDL [Mass ratio] 2.6 {ratio} Normal [facility] Comment on above: Performed By: #### L IPID, LIVER #### [facility] [address] [address] [address] Selam Card HDL NORMAL > or = 60 mg/dl - LO W CARDIOVASCULAR RISK <40 mg/dl - HIGH CARDIOVASCULAR RISK Normal [facility] Comment on above: Performed By: #### L IPID, LIVER #### [facility] [address] [address] [address] Selam Card LDL CALC NORMAL SEE BELOW Normal [facility] Comment on above: Result Comment: <100 mg/dl OPTIMAL 100 - 129 mg/dl NEAR OR ABOVE OPTIMAL 130 - 159 mg/dl BORDERLINE HIGH 160 - 189 mg/dl HIGH >190 mg/dl VERY HIGH Performed By: #### L IPID, LIVER #### [facility] [address] [address] [address] Selam Card Triglyceride [Mass/Vol] 176 mg/dL Critically high <=150 [facility] Comment on above: Performed By: #### L IPID, LIVER #### [facility] [address] [address] [address] Selam Card VLDL CALC 35.2 mg/dL Normal [facility] Comment on above: Performed By: #### L IPID, LIVER #### [facility] [address] [address] [address] Selam Card LIVER PROFILEon 12-03-2021 Albumin [Mass/Vol] 4.0 g/dL Normal 3.4-5.0 [facility] Comment on above: Performed By: #### L IPID, LIVER #### [facility] [address] [place] [address] Dr. Selam Card Albumin/Globulin [Mass ratio] 1.3 {ratio} Normal [facility] Comment on above: Performed By: #### L IPID, LIVER #### [facility] [address] [address] [address] Selam Card ALP [Catalytic activity/Vol] 44 U/L Critically low 46-116 [facility] Comment on above: Performed By: #### L IPID, LIVER #### [facility] [address] [address] [address] Selam Card ALT [Catalytic activity/Vol] 27 U/L Normal 16-63 [facility] Comment on above: Performed By: #### L IPID, LIVER #### [facility] [id number] Selam Card AST [Catalytic activity/Vol] 25 U/L Normal 15-37 [facility] Comment on above: Performed By: #### L IPID, LIVER #### [facility] [address] [address] [address] Selam Card BILI, CONJUGATED 0.2 mg/dL Normal 0.0-0.2 [facility] Comment on above: Performed By: #### L IPID, LIVER #### [facility] [address] [address] [address] Selam Card Bilirubin [Mass/Vol] 1.0 mg/dL Normal 0.2-1.0 [facility] Comment on above: Performed By: #### L IPID, LIVER #### [facility] [address] [address] [address] Selam Card Globulin (S) [Mass/Vol] 3.1 g/dL Normal [facility] Comment on above: Performed By: #### L IPID, LIVER #### [facility] [id number] Selam Card Protein [Mass/Vol] 7.1 g/dL Normal 6.1-8.2 [facility] Comment on above: Performed By: #### L IPID, LIVER #### [facility] [id number] Sleam Card VC ENDOVENOUS ABL 1ST V RTon 12-02-2021 VC ENDOVENOUS ABL 1ST V RT Patient: ML HASSAN Exam Date: 12/02/2021 : 1950 Gender:M Ordering : DR MICHAEL MAURER M.D. Admission #: [id number] Family : Order #: [id number] CLICK HERE TO VIEW EXAM RADIOLOGY REPORT [...] MD on 12/02/2021 at 12:13 Normal [facility] CREATININEon 11-27-2021 Creatinine [Mass/Vol] 1.03 mg/dL Normal 0.70-1.30 [facility] Comment on above: Performed By: #### C AMANDA ####[facility] [address] [place], [place] [address]Dr. Selam Card EGFR-AF LIBYAN >60 Normal >=60 [facility] Comment on above: Performed By: #### C AMANDA ####[facility] [address] [place], [place] [address]Dr. Selam Card EGFR-NON AF LIBYAN >60 Normal >=60 [facility] Comment on above: Performed By: #### C AMANDA ####[facility] [address] [place], [place] [address]Dr. Selam Card CTA ABD ARIAS WWO CON [...] arteries, and lower extremities. Electronically authenticated by: DUSTY SCHILLING Date: 2021-11-27 10:48 Normal [facility] VC COMP CONSULTATIONon 11-25 VC COMP CONSULTATION Patient: ML HASSAN Exam Date: 11/25/2021 : 1950 Gender:M Ordering : DR MICHAEL MAURER M.D. Admission #: [id number] Family : Order #: [id number] CLICK HERE TO VIEW EXAM RADIOLOGY REPORT [...] sy (more content not included)... Normal [facility] VC VENOUS REFLUX KG LMTon 0 11-25-2021 VC VENOUS REFLUX KG LMT Patient: ML HASSAN Exam Date: 11/25/2021 : 1950 Gender:M Ordering : DR MICHAEL MAURER M.D. Admission #: [id number] Family : Order #: [id number] CLICK HERE TO VIEW EXAM RADIOLOGY REPORT [...] Note: 70% area of reduction in right SECURITY SOFTWARE ENGINEER noted. Incompetent SFJ/GSV, SPJ/SSV, AASV, and [...] and SSV. Flow: Deep venous reflux visualized. Outsole Molder: Multiple perforators lower leg. Largest is mid/medial [...] Maurer MD on 11/25/2021 at 13:02 Normal [facility] Cult,Urineon 05-09-2020 Cult,Urine Specimen Description .CLEAN CATCH URINE Special Requests NOT REPORTED Culture NO GROWTH Report Status FINAL 05/09/2020 Normal [facility] Comment on above: Performed By: #### U RC #### [facility] [employer] [address] [place] [address] Supervisor Engine Assembly: Andrei Pryor MD [facility] [address] [place] [address] [place] [address] Supervisor Engine Assembly: Clifford Fofana MD Urinalysis w/ Microon 2019 ----- Normal [facility] Comment on above: Performed By: #### U AMIC #### [facility] [address] [place] [address] Supervisor Engine Assembly: Clifford Fofana MD Bacteria LM.HPF (Urine sed) [#/Area] TRACE Abnormal NONE [facility] Comment on above: Performed By: #### U AMIC #### [facility] [address] [place] [address] Supervisor Engine Assembly: Clifford Fofana MD Epithelial cells LM.HPF (Urine sed) [#/Area] 0 TO 2 Normal 0-5 [facility] Comment on above: Performed By: #### U AMIC #### [facility] [address] [place] [address] Supervisor Engine Assembly: Clifford Fofana MD RBC (U) [#/Vol] 2 TO 5 Normal 0-2 [facility] Comment on above: Performed By: #### U AMIC #### [facility] [address] [place] [address] Supervisor Engine Assembly: Clifford Fofana MD WBC (U) [#/Vol] 5 TO 10 Normal 0-5 [facility] Comment on above: Performed By: #### U AMIC #### [facility] [address] [place] [address] Dr. [place], [place] [phone] Supervisor Engine Assembly: Clifford Fofana MD Acetoacetic Acid,Ur Negative Normal NEG [facility] Comment on above: Performed By: #### U AMIC #### [facility] [address] [place] [address] Dr. [place], [place] [phone] Supervisor Engine Assembly: Clifford Fofana MD Bilirubin, SemiQt,Ur Negative Normal NEG [facility] Comment on above: Performed By: #### U AMIC #### [facility] [address] [place] [address] Dr. [place], [place] [phone] Supervisor Engine Assembly: Clifford Fofana MD Color (U) YELLOW Normal YEL [facility] Comment on above: Performed By: #### U AMIC #### [facility] [address] [place] [address] Supervisor Engine Assembly: Clifford Fofana MD Glucose Ql (U) Negative Normal NEG [facility] Comment on above: Performed By: #### U AMIC #### [facility] [address] [place], [place] [phone] Supervisor Engine Assembly: Clifford Fofana MD Hemoglobin, Ur 2+ Abnormal NEG [facility] Comment on above: Performed By: #### U AMIC #### [facility] [address] [place], [place] [phone] Supervisor Engine Assembly: Clifford Fofana MD Leukocyte esterase Test strip Ql (U) TRACE Abnormal NEG [facility] Comment on above: Performed By: #### U AMIC #### [facility] [address] [place], [id number] Supervisor Engine Assembly: Clifford Fofana MD Nitrite,Ur Negative Normal NEG [facility] Comment on above: Performed By: #### U AMIC #### [facility] [address] [place] [phone] Supervisor Engine Assembly: Clifford Fofana MD pH (U) 6.0 [pH] Normal 5.0-9.0 [facility] Comment on above: Performed By: #### U AMIC #### [facility] [address] [place], [id number] Supervisor Engine Assembly: Clifford Fofana MD Protein Ql (U) Negative Normal NEG [facility] Comment on above: Performed By: #### U AMIC #### [address] [place] [phone] Supervisor Engine Assembly: Clifford Fofana MD Specific gravity (U) [Rel density] 1.020 Normal 1.010-1.020 [facility] Comment on above: Performed By: #### U AMIC #### [facility] [address] [place], [id number] Supervisor Engine Assembly: Clifford Fofana MD Turbidity CLEAR Normal CLEAR [facility] Comment on above: Performed By: #### U AMIC #### [facility] [address] [place] [address] Supervisor Engine Assembly: Clifford Fofana MD Urobilinogen,Ur Normal Normal NORM [facility] Comment on above: Performed By: #### U AMIC #### [facility] [address] [place] [address] Supervisor Engine Assembly: Clifford Fofana MD Amorphous sediment LM Ql (Urine sed) NOT REPORTED Normal [facility] Comment on above: Performed By: #### U AMIC #### [facility] [address] [place] [address] Supervisor Engine Assembly: Clifford Fofana MD Casts LM.LPF (Urine sed) [#/Area] NOT REPORTED Normal [facility] Comment on above: Performed By: #### U AMIC #### [facility] [address] [place] [address] Supervisor Engine Assembly: Clifford Fofana MD Comment NOT REPORTED Normal [facility] Comment on above: Performed By: #### U AMIC #### [facility] [address] [place] [address] Supervisor Engine Assembly: Clifford Fofana MD Crystals LM Nom (Urine sed) NOT REPORTED Normal [facility] Comment on above: Performed By: #### U AMIC #### [facility] [address] [place] [address] Supervisor Engine Assembly: Clifford Fofana MD Epithelial, Renal NOT REPORTED Normal 0 [facility] Comment on above: Performed By: #### U AMIC #### [facility] [address] [place], [place] [phone] Supervisor Engine Assembly: Clifford Fofana MD Mucus Strands NOT REPORTED Normal [facility] Comment on above: Performed By: #### U AMIC #### [facility] [address] [place], [place] [phone] Supervisor Engine Assembly: Clifford Fofana MD Other Observations NOT REPORTED [facility] Comment on above: Performed By: #### U AMIC #### [facility] [address] [place], [place] [phone] Supervisor Engine Assembly: Clifford Fofana MD Trichomonas NOT REPORTED Normal NONE [facility] Comment on above: Performed By: #### U AMIC #### [facility] [address] [place] [address] Supervisor Engine Assembly: Clifford Fofana MD Yeast LM Ql (Urine sed) NOT REPORTED Normal NONE [facility] Comment on above: Performed By: #### U AMIC #### [facility] [address] [place] [address] Supervisor Engine Assembly: Clifford Fofana MD Urinalysis with Microscopico n 05-08-2020 Amorphous, UA NOT REPORTED None [facility] [place] Bacteria, UA TRACE Abnormal None [place], [place] Bilirubin Urine Negative NEGATIVE [facility], [place] Casts UA NOT REPORTED /LPF [place], [place] Color, UA YELLOW YELLOW [place], [place] Crystals, UA NOT REPORTED None /HPF [facility], [place] Epithelial Cells UA 0 TO 2 [place], [place] Glucose, Ur Negative NEGATIVE [place] Interpretation and review of laboratory results Abnormal [place] Ketones Ql (U) Negative NEGATIVE [place], [place] Leukocyte esterase Test strip Ql (U) TRACE Abnormal NEGATIVE [place] Mucus, UA NOT REPORTED None [place], [place] Nitrite, Urine Negative NEGATIVE [place], [place] Other Observations UA NOT REPORTED NOT REQ. [facility], [place] pH, UA 6.0 [place] Protein (U) [Mass/Vol] Negative NEGATIVE [place] RBC (U) [#/Vol] 2 TO 5 [facility] [place] Renal Epithelial, UA NOT REPORTED 0 /HPF [facility], [place] Specific [place], UA 1.020 [place], [place] Trichomonas, UA NOT REPORTED None [facility] [place] Turbidity UA CLEAR CLEAR [place] Urinalysis Comments NOT REPORTED [facility], [place] Urine Hgb 2+ Abnormal NEGATIVE [facility], [place] Urobilinogen, Urine Normal Normal [place] WBC, UA 5 TO 10 [place] Yeast, UA NOT REPORTED None [facility], [place] OPERATIVE REPORTon 0 OPERATIVE REPORT [address] [address] OPERATIVE REPORT PATIENT NAME: ML HASSAN : 1950 MED REC NO: [id number] ROOM: ACCOUNT NO: [id number] ADMIT DATE: 04/10/2020 PROVIDER: Vilma Dior DATE OF PROCEDURE: 04/10/2020 SURGEON: Dr. Vilma Dior. SUPERVISOR WINDING DEPARTMENT: None. PREOPERATIVE DIAGNOSES: 1. BPH with lower [...] tabs, given to the patient. PROSTHESIS: A 22-Guinean three-way Arellano catheter. DISPOSITION: Stable. FINDINGS: Trilobar hyperplasia of the prostate. INDICATIONS: The patient is a 69-year-old male with previous history of UroLift, now here for definitive therapy in the form of PVP GreenLight. DESCRIPTION OF PROCEDURE: The patient was taken back to the operating room after informed consent including all risks, benefits, and alternatives were obtained. The patient was transferred from the [facility] onto the operating table, where he was induced under general anesthesia, given IV Cipro for preoperative antibiotic prophylaxis. To begin the case, he was prepped and draped in normal sterile fashion, placed in dorsal lithotomy. He had a 24-Guinean sheath with 30-degree lens passed through the [...] We then removed the scope, inserted a 22-Guinean three-way Arellano catheter, hand irrigated to clear. He was then awoken from general anesthesia, transferred to the [facility], and taken to the PACU in satisfactory condition by Nursing and Anesthesia Teams. PLAN: The patient will be discharged home per PACU criteria and follow up with us in two days for Arellano catheter removal. VILMA CHACONDAYAMI [id number] Doc#: [id number] CC: Normal [facility] CBC Auto Differentialon Basophils (Bld) [#/Vol] 0.00 10*3/uL [place] Basophils/100 WBC (Bld) 0 % 0 - 2 % [place] Differential Type YES [place], [place] Eosinophils (Bld) [#/Vol] 0.20 10*3/uL [place] Eosinophils/100 WBC (Bld) 3 % 0 - 5 % [place] Erythrocyte distribution width (RBC) [Ratio] 13.4 % 12.1 - 15.2 % [place] Hematocrit (Bld) [Volume fraction] 42.7 % 41 - 53 % [place] Hemoglobin (Bld) [Mass/Vol] 14.4 g/dL 13.5 - 17.5 g/dL [place] Lymphocytes (Bld) [#/Vol] 1.40 10*3/uL [place] Lymphocytes/100 WBC (Bld) 17 % 13 - 44 % [place] MCH (RBC) [Entitic mass] 31.3 pg 26 - 34 pg [place] MCHC (RBC) [Mass/Vol] 33.8 g/dL 31 - 37 g/dL [place] MCV (RBC) [Entitic vol] 92.6 fL 80 - 100 fL [place] Monocytes (Bld) [#/Vol] 0.70 10*3/uL [place] Monocytes/100 WBC (Bld) 9 % 5 - 9 % [place] Platelet mean volume (Bld) [Entitic vol] NOT REPORTED 6 - 12 fL [place] Platelets (Bld) [#/Vol] NOT REPORTED [place] Platelets (Bld) [#/Vol] 207 10*3/uL [place] RBC (Bld) [#/Vol] 4.61 10*6/uL 4.5 - 5.9 m/uL [place] RBC morphology finding Nom (Bld) NOT REPORTED [place] Segmented neutrophils/100 WBC (Bld) 71 % 39 - 75 % [place] Segs Absolute 5.60 [place], [place] WBC (Bld) [#/Vol] NOT REPORTED per 100 WBC [place], [place] WBC (Bld) [#/Vol] 7.9 10*3/uL [place] WBC Morphology NOT REPORTED [place] COVID-19on 04-06-2020 SARS-CoV-2 Not Detected Not Detected [place], [place] Comment on above: The specimen is NEGATIVE for SARS-CoV-2, the novel coronavirus associated with COVID-19. A negative result does not rule out COVID-19. This test has been authorized by the FDA under an Emergency Use Authorization (EUA) for use by authorized laboratories. Diffon SARS-CoV-2 Reagents for [employer] are designed to detect the virus that causes COVID-19 in patients with signs and symptoms of infection who are suspected of COVID-19. An individual without symptoms of COVID-19 and who is not shedding SARS-CoV-2 virus would expect to have a negative (not detected) result in this assay. Fact sheet for Healthcare Providers: https://www.fda.gov/media/143564/download Fact sheet for Patients: https://www.fda.gov/media/862792/download METHODOLOGY: RT-PCR SARS-CoV-2, PCR [place], [place] SARS-CoV-2, Rapid [place], [place] Source .NASOPHARYNGEAL SWAB [facility] AMY Otheron 04-06-2020 Immature granulocytes (Bld) [#/Vol] NOT REPORTED [place] Cult,Urineon 12-03-2019 Cult,Urine Specimen Description .CLEAN CATCH URINE Special Requests NOT REPORTED Culture NO GROWTH Report Status FINAL 12/02/2019 Normal [facility] Comment on above: Performed By: #### U RC #### [facility] [address] [place], [place] [phone] Supervisor Engine Assembly: Andrei Pryor MD [facility] [address] [place] [address] Supervisor Engine Assembly: Clifford Fofana MD Urinalysis w/ Microon 2019 ----- Normal [facility] Comment on above: Performed By: #### U AMIC #### [facility] [address] [place] [address] Supervisor Engine Assembly: Clifford Fofana MD Acetoacetic Acid,Ur Negative Normal NEG [facility] Comment on above: Performed By: #### U AMIC #### [facility] [address] [place] [address] Supervisor Engine Assembly: Clifford Fofana MD Bacteria LM.HPF (Urine sed) [#/Area] TRACE Abnormal NONE [facility] Comment on above: Performed By: #### U AMIC #### [facility] [address] [place] [address] Supervisor Engine Assembly: Clifford Fofana MD Bilirubin, SemiQt,Ur Negative Normal NEG [facility] Comment on above: Performed By: #### U AMIC #### [facility] [address] [place] [address] Supervisor Engine Assembly: Clifford Fofana MD Color (U) YELLOW Normal YEL [facility] Comment on above: Performed By: #### U AMIC #### [facility] [address] [place] [address] Supervisor Engine Assembly: Clifford Fofana MD Epithelial cells LM.HPF (Urine sed) [#/Area] None Normal 0-5 [facility] Comment on above: Performed By: #### U AMIC #### [facility] [address] [place], [place] [phone] Supervisor Engine Assembly: Clifford Fofana MD Glucose Ql (U) Negative Normal NEG [facility] Comment on above: Performed By: #### U AMIC #### [facility] [address] [place], [place] [phone] Supervisor Engine Assembly: Clifford Fofana MD Hemoglobin, Ur Negative Normal NEG [facility] Comment on above: Performed By: #### U AMIC #### [facility] [address] [place] [address] Dr. [place], [place] [phone] Supervisor Engine Assembly: Clifford Fofana MD Leukocyte esterase Test strip Ql (U) Negative Normal NEG [facility] Comment on above: Performed By: #### U AMIC #### [facility] [address] [place] [address] Dr. [place], [place] [phone] Supervisor Engine Assembly: Clifford Fofana MD Nitrite,Ur Negative Normal NEG [facility] Comment on above: Performed By: #### U AMIC #### [facility] [address] [place] [address] Dr. [place], [place] [phone] Supervisor Engine Assembly: Clifford Fofana MD pH (U) 5.5 [pH] Normal 5.0-9.0 [facility] Comment on above: Performed By: #### U AMIC #### [facility] [address] [place], [place] [phone] Supervisor Engine Assembly: Clifford Fofana MD Protein Ql (U) Negative Normal NEG [facility] Comment on above: Performed By: #### U AMIC #### [facility] [address] [place], [place] [phone] Supervisor Engine Assembly: Clifford Fofana MD RBC (U) [#/Vol] None Normal 0-2 [facility] Comment on above: Performed By: #### U AMIC #### [facility] [address] [place], [place] [phone] Supervisor Engine Assembly: Clifford Fofana MD Specific gravity (U) [Rel density] >1.030 High 1.010-1.020 [facility] Comment on above: Performed By: #### U AMIC #### [facility] [address] [place], [place] [phone] Supervisor Engine Assembly: Clifford Fofana MD Turbidity CLEAR Normal CLEAR [facility] Comment on above: Performed By: #### U AMIC #### [facility] [address] [place] [address] Supervisor Engine Assembly: Clifford Fofana MD Urobilinogen,Ur Normal Normal NORM [facility] Comment on above: Performed By: #### U AMIC #### [facility] [facility] [address] [place] [id number] Supervisor Engine Assembly: Clifford Fofana MD WBC (U) [#/Vol] None Normal 0-5 [facility] Comment on above: Performed By: #### U AMIC #### [facility] [address] [place] [id number] Supervisor Engine Assembly: Clifford Fofana MD Amorphous sediment LM Ql (Urine sed) NOT REPORTED Normal [facility] Comment on above: Performed By: #### U AMIC #### [facility] [address] [place], [facility] Supervisor Engine Assembly: Clifford Fofana MD Casts LM.LPF (Urine sed) [#/Area] NOT REPORTED Normal [facility] Comment on above: Performed By: #### U AMIC #### [facility] [address] [place] [address] Supervisor Engine Assembly: Clifford Fofana MD Comment NOT REPORTED Normal [facility] Comment on above: Performed By: #### U AMIC #### [facility] [address] [place] [address] Supervisor Engine Assembly: Clifford Fofana MD Crystals LM Nom (Urine sed) NOT REPORTED Normal [facility] Comment on above: Performed By: #### U AMIC #### [facility] [address] [place] [address] Supervisor Engine Assembly: Clifford Fofana MD Epithelial, Renal NOT REPORTED Normal 0 [facility] Comment on above: Performed By: #### U AMIC #### [facility] [address] [place] [address] Supervisor Engine Assembly: Clifford Fofana MD Mucus Strands NOT REPORTED Normal [facility] Comment on above: Performed By: #### U AMIC #### [facility] [address] [place] [address] Supervisor Engine Assembly: Clifford Fofana MD Other Observations NOT REPORTED [facility] Comment on above: Performed By: #### U AMIC #### [facility] [address] [place] [address] Supervisor Engine Assembly: Clifford Fofana MD Trichomonas NOT REPORTED Normal [facility] Comment on above: Performed By: #### U AMIC #### [facility] [address] [place] [address] Supervisor Engine Assembly: Clifford Fofana MD Yeast LM Ql (Urine sed) NOT REPORTED Normal [facility] Comment on above: Performed By: #### U AMIC #### [facility] [address] [place], [place] [address] Supervisor Engine Assembly: Clifford Fofana MD Urinalysis with Microscopico n 12-01-2019 Amorphous, UA NOT REPORTED None [facility] [place] [place] Bacteria, UA TRACE Abnormal None [facility] [place], [place] Bilirubin Urine Negative NEGATIVE [facility] [place] Casts UA NOT REPORTED /LPF [facility] [place], [place] Color, UA YELLOW YELLOW [facility], [place] Crystals, UA NOT REPORTED None /HPF [facility] [place], [place] Epithelial Cells UA None [facility], [place] Glucose, Ur Negative NEGATIVE [facility], [place] Interpretation and review of laboratory results Abnormal [facility], [place] Ketones Ql (U) Negative NEGATIVE [facility] Leukocyte esterase Test strip Ql (U) Negative NEGATIVE [facility], [place] Mucus, UA NOT REPORTED None [facility], [place] Nitrite, Urine Negative NEGATIVE [facility], [place] Other Observations UA NOT REPORTED NOT REQ. [facility], [place] pH, UA 5.5 [facility], [place] Protein (U) [Mass/Vol] Negative NEGATIVE [facility], [place] RBC (U) [#/Vol] None [facility] [place] Renal Epithelial, UA NOT REPORTED 0 /HPF [facility], [place] Specific [place], UA >1.030 High [facility], [place] Trichomonas, UA NOT REPORTED None [facility] [place] Turbidity UA CLEAR CLEAR [facility], [place] Urinalysis Comments NOT REPORTED [facility] Urine Hgb Negative NEGATIVE [facility], [place] Urobilinogen, Urine Normal Normal [facility], [place] WBC, UA None [facility], [place] Yeast, UA NOT REPORTED None [facility], [place] - [facility], [place] Cardiovascular Lab Reporton 07-29-2018 Cardiovascular Lab Report [facility] Patient Name: Sonya [facility] MR #: [id number] Physician: Willie Barfield, Department of M.D. Medicine Service Date: 07/29/2018 Division of Birthdate: 1950 Cardiology Room #: 3AB 571118 Adult Cardiovascular Services [place] [address] Cardiovascular Laboratory Report FINAL IMPRESSIONS: 1. Severe [...] inhibitor are indicated. 5. Follow up with vt in the [facility] in the next 2-4 weeks. 6. Follow up with Dr. Proctor as scheduled. PROCEDURES: Bilateral selective coronary angiography, percutaneous balloon angioplasty and Synergy drug-eluting stent placement of the left anterior descending coronary artery, placement of a 6-Guinean MynxGrip closure device. METHODS: After risks, benefits, and alternatives were explained, written informed consent was obtained. The patient was prepped and draped in usual sterile fashion over the right groin. Using 1% lidocaine solution, local infiltration anesthesia was achieved. This was accomplished using a micropuncture kit. A 6-Guinean 11 cm sheath was exchanged in without difficulty. Baseline femoral angiography was performed. Bilateral selective coronary angiography was performed using JL4 and JR4 catheters. After reviewing the images, it was elected to proceed with an interventional procedure. A 6-Guinean XB 3.5 guide catheter was advanced over [...] was elected to conclude the procedure. A 6-Guinean MynxGrip closure device was deployed; however, hemostasis [...] Barfield M.D. Date Trans: 07/29/2018 10:45 Leonardo [id number] cc: Viet Proctor D.O. [address] [place] [id number] [facility] Coding Summary.on 05-28-2018 Coding Summary. CODING DATE: 018 FINAL [facility] STATUS: Home (Routine DC) PAYOR: Medical [place] [employer] DESCRIPTION 5376 Level 6 Urology and [...] Revised Date Saved: 05/28/2018 10:45 am Normal [facility] Main OR Intraoperative Recor don 05-27-2018 Main OR Intraoperative Record IntraOp Document Type FTURO Summary Primary Physician: Ariel Santiago Jr., MD Finalized Date/Time: 05/27/18 15:05:27 Pt. Name: ML HASSAN /Sex: 1950 Male Med Rec #: [id number] Physician: Ariel Santiago Jr., MD Financial #: [id number] Pt. Type: O Room/Bed: / Admit/Disch: 05/27/18 [...] Umu Mitchell Role Performed Surgeon - Primary Medical Chemist - Primary Scrub - Primary Time In [...] . Surgeon Description CYSTOSCOPY LOCAL WITH UROLIFT [id number] x 4 and arellano insertion Primary Procedure [...] Santiago Jr., MD, Verified (If Medication Participants DorrisUmu salazar CST, Applicable) RUSLAN Barrientos RN, Lou [...] Implant Implant Identification Description urolift Lot Number [id number] Equipment Technician neotract Expiration Date 09/11/19 Usage Data Implant [...] Barrientos RN, Lou Ann 05/27/18 15:05 Normal [facility] Main OR Preoperative Recordo n 05-27-2018 Main OR Preoperative Record Holding Area Document Type FTURO Summary Primary Physician: Ariel Santiago Jr., MD Finalized Date/Time: 05/27/18 15:39:25 Pt. Name: ML HASSAN Coleen Morrell/Sex: 1950 Male Med Rec #: [id number] Physician: Ariel Santiago Jr., MD Financial #: [id number] Pt. Type: O Room/Bed: / Admit/Disch: 05/27/18 [...] of Pain: Yes Comment: Skin Integrity Intact, [place], Warm, & Dry Vitals - EU Blood Pressure 146/71 Pulse 73 bpm Respirations 18 br/min SPO2 RN Reviewed Yes Last Modified By: RUSLAN Barrientos RN, Lou Ann 05/27/18 15:16:57 Finalized By: RUSLAN Barrientos RN, Lou Ann Document Signatures Signed By: Susan Carranza LPN 05/27/18 13:57 RUSLAN Barrientos RN, Lou Ann 05/27/18 15:16 RUSLAN Barrientos RN, Lou Ann 05/27/18 15:39 Normal [facility] Operative Reporton Operative Report Patient: NICHOLAS HASSAN [...] procedure (10 mg diazepam, 5/325 mg of Bicknell), Local Anesthesia (60cc 2% Xylocaine liquid inserted [...] well and was subsequently discharged home. Normal [facility] Comment on above: Result Comment: Elec tronically Signed By: Jack Bolaños MD, Ariel Read\.braxton\Date and Time Signed: 05/27/18 15:05 EDT Vital Signs Date Time Vital Sign Value Performing Clinician Facility 10-30-2023 12:08-0400 Diastolic blood pressure 76 mm[Hg] Harry Ledesma MD Work Phone: [facility] 10-30-2023 12:08-0400 Heart rate 74 /min Harry Ledesma MD Work Phone: [facility] 10-30-2023 12:08-0400 Systolic blood pressure 128 mm[Hg] Harry Ledesma MD Work Phone: [facility] 10-30-2023 12:07-0400 Body height 180.3 cm Harry Ledesma MD Work Phone: [facility] 10-30-2023 12:07-0400 Body mass index (BMI) [Ratio] 33.89 kg/m2 Harry Ledesma MD Work Phone: [facility] 10-30-2023 12:07-0400 Body weight 110.22 kg Harry Ledesma MD Work Phone: [facility] 10-30-2023 12:07-0400 Respiratory rate 18 /min Harry Ledesma MD Work Phone: [facility] 09-22-2023 10:31-0500 Body height 180.34 cm [facility] 09-22-2023 10:31-0500 Body mass index (BMI) [Ratio] 33.7 kg/m2 [facility] 09-22-2023 10:31-0500 Body weight 109.54 kg [facility] 09-22-2023 10:31-0500 Diastolic blood pressure 80 mm[Hg] [facility] 09-22-2023 10:31-0500 Heart rate 67 /min [facility] 09-22-2023 10:31-0500 Respiratory rate 12 /min [facility] 09-22-2023 10:31-0500 Systolic blood pressure 156 mm[Hg] [facility] 06-17-2023 15:45-0500 Body height 180.34 cm Viet Ball Other [facility] [employer] Other 06-17-2023 15:45-0500 Body mass index (BMI) [Ratio] 33.36 kg/m2 Viet Ball Other [employer] [facility] [employer] Other 06-17-2023 15:45-0500 Body weight 108.5 kg Viet Ball Other [employer] Other 06-17-2023 15:45-0500 Diastolic blood pressure 81 mm[Hg] Viet Ball Other [employer] Other 06-17-2023 15:45-0500 Respiratory rate 12 /min Viet Ball Other [employer] Other 06-17-2023 15:45-0500 Systolic blood pressure 175 mm[Hg] Viet Ball Other [employer] Other 01-01-2023 11:00-0400 Body height 180.34 cm Viet Ball Other [employer] Other 01-01-2023 11:00-0400 Body mass index (BMI) [Ratio] 33.5 kg/m2 Viet Ball Other [employer] Other 01-01-2023 11:00-0400 Body weight 108.95 kg Viet Ball Other [employer] Other 01-01-2023 11:00-0400 Diastolic blood pressure 69 mm[Hg] Viet Ball Other [employer] Other 01-01-2023 11:00-0400 Respiratory rate 12 /min Viet Ball Other [employer] Other 01-01-2023 11:00-0400 Systolic blood pressure 127 mm[Hg] Viet Ball Other [employer] Other 11-10-2022 15:00-0400 Body height 180.34 cm Viet Ball Other [employer] Other 11-10-2022 15:00-0400 Body mass index (BMI) [Ratio] 34.06 kg/m2 Viet Ball Other [employer] Other 11-10-2022 15:00-0400 Body weight 110.77 kg Viet Ball Other [employer] Other 11-10-2022 15:00-0400 Diastolic blood pressure 70 mm[Hg] Viet Ball Other [employer] Other 11-10-2022 15:00-0400 Respiratory rate 12 /min Viet Ball Other [employer] Other 11-10-2022 15:00-0400 Systolic blood pressure 128 mm[Hg] Viet Ball Other [employer] Other 08-27-2022 11:30-0500 Body height 180.34 cm Viet Ball Other [employer] Other 08-27-2022 11:30-0500 Body mass index (BMI) [Ratio] 33.02 kg/m2 Viet Ball Other [employer] Other 08-27-2022 11:30-0500 Body temperature 96.9 [degF] Viet Ball Other [employer] Other 08-27-2022 11:30-0500 Body weight 107.41 kg Viet Ball Other [employer] Other 08-27-2022 11:30-0500 Diastolic blood pressure 84 mm[Hg] Viet Ball Other [employer] Other 08-27-2022 11:30-0500 SaO2% (BldA) [Mass fraction] 95 % Viet Ball Other [employer] Other 08-27-2022 11:30-0500 Systolic blood pressure 132 mm[Hg] Viet Ball Other [employer] Other 07-03-2022 16:30-0500 Body height 180.34 cm Nick Montoya Other [employer] Other 07-03-2022 16:30-0500 Body mass index (BMI) [Ratio] 33.75 kg/m2 Nick Dnaitza Other [employer] Other 07-03-2022 16:30-0500 Body weight 109.77 kg Nick Danitza Other [employer] Other 07-03-2022 16:30-0500 Diastolic blood pressure 60 mm[Hg] Nick Danitza Other [employer] Other 07-03-2022 16:30-0500 SaO2% (BldA) [Mass fraction] 97 % Nick Montoya Other [employer] Other 07-03-2022 16:30-0500 Systolic blood pressure 110 mm[Hg] Nick Danitza Other [employer] Other 06-16-2022 11:30-0500 Body height 180.34 cm Nick Montoya Other [employer] Other 06-16-2022 11:30-0500 Body mass index (BMI) [Ratio] 33.47 kg/m2 Nickbethany Montoya Other [employer] Other 06-16-2022 11:30-0500 Body weight 108.86 kg Nick Danitza Other [employer] Other 06-16-2022 11:30-0500 Diastolic blood pressure 60 mm[Hg] Nick Danitza Other [employer] Other 06-16-2022 11:30-0500 SaO2% (BldA) [Mass fraction] 97 % Nick Montoya Other [employer] Other 06-16-2022 11:30-0500 Systolic blood pressure 120 mm[Hg] Nick Montoya Other [employer] Other 05-29-2022 15:00-0400 Body height 180.34 cm Nick Montoya Other [employer] Other 05-29-2022 15:00-0400 Body mass index (BMI) [Ratio] 34.59 kg/m2 Nick Montoya Other [employer] Other 05-29-2022 15:00-0400 Body weight 112.49 kg Nick Montoya Other [employer] Other 05-29-2022 15:00-0400 SaO2% (BldA) [Mass fraction] 97 % Nick Montoya Other [employer] Other 04-10-2020 16:15-0400 BP Diastolic 74 mm[Hg] [facility]ma [employer] [place] 04-10-2020 16:15-0400 BP Systolic 170 mm[Hg] [facility]ma [employer] [place] 04-10-2020 16:15-0400 Pulse (Heart Rate) 72 /min [facility] [place] 04-10-2020 16:15-0400 Pulse Oximetry 96 % [facility] [place] 04-10-2020 16:00-0400 Respiratory Rate 16 /min [facility] [place] 04-10-2020 15:15-0400 Body Temperature 97.2 [degF] Vilma Dior [facility] [place] 04-10-2020 11:43-0400 BMI (Body Mass Index) 33.47 kg/m2 Vilma Carter [facility], [place] 04-10-2020 11:43-0400 Body weight 108.86 kg Vilma Dior [facility], [place] 04-10-2020 11:43-0400 Height 180.3 cm Vilma Dior [facility] [place] Encounters Encounter Date Encounter Type Care [...] Not Available Start: 09-22-2023 End: 09-22-2023 ambulatory [facility] Work Phone: Start: 09-22-2023 End: 09-22-2023 Patient encounter procedure [facility] Work Phone: Start: 06-18-2023 End: 06-18-2023 ambulatory [place] Start: 06-17-2023 End: 06-17-2023 ambulatory Viet Proctor Other [employer] Other Start: 06-17-2023 Telephone encounter Viet Narayan [facility] Start: 06-17-2023 Transitional care manage srvc 14 day discharge Viet Proctor [facility] Start: 06-16-2023 End: 06-17-2023 [facility] Start: 06-15-2023 End: 06-16-2023 ambulatory [facility] Start: 06-14-2023 Telephone encounter Viet Narayan [facility] Start: 06-14-2023 End: 06-15-2023 ambulatory VIET PROCTOR [employer] Other Start: 06-09-2023 End: 06-13-2023 Evaluation and management of inpatient VIET PROCTOR [facility] Start: 05-21-2023 End: 05-21-2023 [facility] [place] [facility] Start: 05-08-2023 End: 05-08-2023 ambulatory Viet Proctor Other [employer] Other Start: 05-08-2023 Office outpatient vi sit 15 minutes Viet Proctor [facility] Start: 05-08-2023 Telephone encounter Viet Proctor [facility] Start: 01-01-2023 End: 01-01-2023 ambulatory Viet Proctor Other [employer] Other Start: 01-01-2023 Office outpatient vi sit 15 minutes Viet Proctor [facility] Start: 12-10-2022 End: 12-10-2022 ambulatory Viet Proctor Other [employer] Other Start: 12-10-2022 Telephone encounter Viet Davis [facility] Start: 11-11-2022 End: 11-12-[address] WILLIE BARFIELD Facility:[facility] Start: 11-10-2022 End: 11-10-2022 ambulatory Viet Proctor Other [employer] Other Start: 11-10-2022 Patient encounter procedure Viet Proctor [facility] Start: 10-06-2022 End: 10-06-2022 ambulatory Viet Davis Other [employer] Other Start: 10-06-2022 Telephone encounter Viet Davis RICE [facility] Start: 09-10-2022 End: 09-11-[address] VIET PROCTOR Facility:[facility] Start: 09-02-2022 End: 09-02-2022 ambulatory Viet Davis Other [employer] Other Start: 09-02-2022 Telephone encounter Viet RICE [facility] Start: 09-01-2022 End: 09-01-2022 ambulatory Viet Proctor Other [employer] Other Start: 09-01-2022 Telephone encounter Viet RICE [facility] Start: 08-27-2022 End: 08-27-2022 ambulatory Viet Proctor Other [employer] Other Start: 08-27-2022 Office outpatient vi sit 25 minutes Viet Proctor [facility] Start: 08-22-2022 End: 08-22-2022 ambulatory Viet Proctor Other [employer] Other Start: 08-22-2022 Telephone encounter Viet RICE [facility] Start: 08-15-2022 End: 08-15-2022 ambulatory Viet Proctor Other [employer] Other Start: 08-15-2022 Telephone encounter Viet RICE [facility] Start: 07-03-2022 End: 07-03-2022 ambulatory Nick Montoya Other [employer] Other Start: 07-03-2022 Office outpatient vi sit 25 minutes Nick Danitza [facility] Start: 06-24-2022 (Procedure) Short Nick Montoya [facility] Start: 06-24-2022 End: 06-24-2022 ambulatory Nick Danitza Other [employer] Other Start: 06-16-2022 End: 06-16-2022 ambulatory Nick Danitza Other [employer] Other Start: 06-16-2022 Office outpatient vi sit 25 minutes Nick Danitza [facility] Start: 06-05-2022 (Procedure) Short Nick Montoya [facility] Start: 06-05-2022 End: 06-05-2022 ambulatory Nick Danitza Other [employer] Other Start: 05-29-2022 End: 05-29-2022 ambulatory Nick Montoya Other [employer] Other Start: 05-29-2022 Office outpatient ne w 45 minutes Nick Montoya [facility] Start: 05-15-2022 End: 06-20-[address] VIET PROCTOR Facility:[facility] Start: 04-22-2022 End: 04-22-[address] VIET PROCTOR Facility:[facility] Start: 04-15-2022 Adult health examination Viet Proctor Other [employer] Other Start: 04-15-2022 End: 04-16-2022 ambulatory Michael [...] Maurer Facility:[facility] Start: 11-27-2021 End: 11-28-2021 ambulatory [facility] Facility:[facility] Start: 11-25-2021 End: 11-26-2021 ambulatory [facility] Facility:[facility] Start: 05-08-2020 End: 05-09-2020 Patient encounter procedure [facility] Start: 05-08-2020 End: 05-08-2020 Subsequent hospital visit by physician Viet Proctor [facility] Laboratory Comment on above: Groin pain, left; Left testicular pain Start: 04-10-2020 End: 04-10-2020 Patient encounter procedure [facility] Start: 04-10-2020 End: 04-10-2020 Subsequent hospital visit by physician Vilma Dior Work Phone: [facility] OR Start: 04-06-2020 End: 04-06-2020 Subsequent hospital visit by physician Viet Proctor [facility] Laboratory Comment on above: BPH with obstruction /lower urinary tract symptoms; Pre-op testing Start: 04-06-2020 End: 04-06-2020 Subsequent hospital visit by physician Dwight Covid19 Pat Screening Schedule [facility] PRE ADMIT Comment on above: Arrived Start: 12-01-2019 End: 12-02-2019 Patient encounter procedure [facility] Start: 12-01-2019 End: 12-01-2019 Subsequent hospital visit by physician Viet Proctor [facility] Laboratory Comment on above: Dysuria Start: 07-29-2018 End: 07-30-2018 Patient encounter procedure WILLIE Linda BARFIELD Facility:[facility] Procedures Date Procedure Procedure Detail Performing Clinician Start: 11-11-2022 PSA screening Michael vicente Comment on above: Performed By: #### P [facility] ####[facility] [id number] [place], [place] [address]MfElizabeth Irinatevin Card Start: 05-08-2020 Culture bacterial quanttative [...] COMPRESSION DEVICE VILMA DIOR Start: 04-10-2020 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 [address] [place] [address] Harry Ledesma MD [address], [address] [place] [address] [facility] Start: 04-03-2023 COVID-19 Vaccine ( season) COVID-19 Vaccine () [facility] Start: 04-03-2023 Influenza vaccination Influenza Vacc ine [facility] Start: 01-09-2023 Adult BMI Screening Adult BMI Screen ing [facility] Start: 05-31-2020 End: 05-31-2020 Office Visit 05/31/2020 Office Visit Urology Abby Danielle, PA-C [address] [place] [address] [facility] [address] [place] [address] [facility] Start: 04-12-2020 End: 04-12-2020 Office Visit 04/12/2020 Office Visit Urology Vilma Dior MD [address] [place] [address], [address] [place] [address] [facility] Start: 04-10-2020 End: 04-10-2020 Hospital Encounter [facility] OR Comment on above: CYSTOSCOPY TRANSURET HRAL RESECTION PROSTATE LASER-PVP GREENLIGHT Start: 04-03-2020 Influenza vaccination [facility] [place] Start: 01-09-2020 End: 01-09-2020 Office Visit 01/09/2020 Office Visit Urology Vilma Dior MD [address] [place] [address], [address] [place] [address] [facility] Start: 12-01-2019 Annual Wellness Visi t (AWV) Annual Wellness Visit (AWV) [place], [place] Start: 2013 Fall Risk Screening Fall Risk Screen ing [facility] Start: 2013 Pneumococcal 65+ yea rs Vaccine (1 of 1 - PPSV23) Pneumococcal 65+ years Vaccine (1 of 1 - PPSV23) [place] Start: 1998 Administration of varicella zoster vaccine Zoster (Shingles) Vaccine (1 of 2) [facility] Start: 1998 Screening for malign ant neoplasm of colon Colon cancer screen colonoscopy [place], [place] Start: 1998 Shingles Vaccine (1 of 2) Pedraza gles Vaccine (1 of 2) [place] Start: 1988 Lipid panel Lipid screen [place], [place] Start: 1967 DTaP,Tdap and Td Vac cines (1 - Tdap) DTaP,Tdap and Td Vaccines (1 - Tdap) [facility] Start: 1967 DTaP/Tdap/Td vaccine (1 - Tdap) DTaP/Tdap/Td vaccine (1 - Tdap) [place], [place] Start: 1966 Adult BMI Follow Up Plan Adult BMI Follow Up Plan [facility] Start: 1960 Depression Screening Depression Scre ening [facility] Start: 1960 Tobacco Screening Tobacco Screening [facility] Start: 1948 Abdominal aortic ane urysm screening AAA screen [place], [place] Start: 1948 Creatinine measurement Creatinine mo [place]itoring [place], [place] Start: 1948 Hepatitis C screening Hepatitis C sc reen [place], [place] Start: 1948 Medicare Annual Well ness Visit Medicare Annual Wellness Visit [facility] Start: 1948 Potassium monitoring Potassium monit oring [place] End: 12-01-2019 Culture, Urine Culture, Urine Microbiology Routine Dysuria 1 Occurrences starting 12/01/2019 until 12/01/2019 [place] Comment on above: 1 Occurrences starti ng 12/01/2019 until 12/01/2019 Culture, Urine [place] End: 05-08-2020 Culture, Urine Culture, Urine Microbiology Routine Groin pain, left Left testicular pain 1 Occurrences starting 05/08/2020 until 05/08/2020 [place] Comment on above: 1 Occurrences starti ng 05/08/2020 until 05/08/2020 Oxygen therapy [[facility] [place] Data Set] Initiate Oxygen Therapy Protocol Respiratory Care Routine Daily until discontinued starting 04/10/2020 [facility], [place] Comment on above: Daily until disconti nued starting 04/10/2020 Phase I & II - meter ed glucose Phase I & II - metered glucose Point of Care Testing Routine As Needed until discontinued starting 04/10/2020 [facility], [place] Comment on above: As Needed until disc ontinued starting 04/10/2020 Rheumatoid factor [Units/volume] in Serum or Plasma [facility] Immunizations Immunization Date Immunization Notes Care Provider Fa itz 06-04-2023 influenza virus vaccine, unspecified formulation [facility] 06-04-2023 influenza, high dose seasonal, preservative-free Viet Proctor Other [facility] Other 05-21-2022 influenza, high dose seasonal, preservative-free Viet Proctor Other [facility] Other 05-21-2022 influenza virus vaccine, split virus (incl. purified surface antigen) Viet Proctor Other [facility] Other 05-21-2022 influenza virus vaccine, unspecified formulation [facility] 06-26-2021 COVID-19 Vaccine Moderna - Documentation Purposes Only Viet Proctor Other [facility] 06-12-2021 COVID-19 Vaccine Moderna - Documentation Purposes Only Viet Proctor Other [facility] 05-13-2021 influenza virus vaccine, split virus (incl. purified surface antigen) Viet Proctor Other [facility] Other 05-13-2021 influenza virus vaccine, unspecified formulation [facility] 10-12-2020 COVID-19 Vaccine Moderna - Documentation Purposes Only Viet Proctor Other [facility] 09-14-2020 COVID-19 Vaccine Moderna - Documentation Purposes Only Viet Proctor Other [facility] 05-15-2020 influenza virus vaccine, split virus (incl. purified surface antigen) Viet Proctor Other [facility] Other 05-15-2020 influenza virus vaccine, unspecified formulation [facility] 05-09-2019 influenza virus vaccine, split virus (incl. purified surface antigen) Viet Proctor Other [facility] Other 05-09-2019 influenza virus vaccine, unspecified formulation [facility] 04-20-2018 influenza virus vaccine, split virus (incl. purified surface antigen) Viet Proctor Other [facility] Other 04-20-2018 influenza virus vaccine, unspecified formulation [facility] 05-13-2017 influenza virus vaccine, split virus (incl. purified surface antigen) Viet Proctor Other [facility] Other 05-13-2017 influenza virus vaccine, unspecified formulation [facility] 06-02-2016 pneumococcal polysaccharide vaccine, 23 valent Viet Proctor Other [facility] 04-09-2016 influenza virus vaccine, split virus (incl. purified surface antigen) Viet Proctor Other [facility] Other 04-09-2016 influenza virus vaccine, unspecified formulation [facility] 05-17-2015 pneumococcal conjuga te vaccine, 13 valent Viet Proctor Other [facility] 05-10-2015 influenza virus vaccine, split virus (incl. purified surface antigen) Viet Proctor Other [facility] Other 05-10-2015 influenza virus vaccine, unspecified formulation [facility] 05-18-2013 tetanus and diphther ia toxoids, adsorbed, preservative free, for adult use (5 Lf of tetanus toxoid and 2 Lf of diphtheria toxoid) Viet Proctor Other [facility] pneumococcal Conjuga te, unspecified formulation; Translations: [Need for prophylactic vaccination against Streptococcus pneumoniae (pneumococcus)] Viet Proctor Other [facility] Other Payers Date Payer Category Payer Medicare MEDICARE MEDICAR E PART A AND B xxxxxxxxxxx 2019-Present [phone] [address] [address] [place] [address] xxxxxxxxxxx [id number] 2019 Unknown BCBS ANTHEM MEDI CARE SUPP xxxxxxxxxxxx 2019-Present [address] [place] [address] xxxxxxxxxxxx [id number] .[id number] 2019 Unknown ANTHEM TRADITION AL [id number] 2019-Present [phone] [address] [place] [address] [id number] .[id number] 2013 Medicare MEDICARE MEDICAR E PART A & B [id number] 2013-Present [phone] [address] [place] [address] [id number] .[id number] 1959 Medicare [id number] 1.2.840.190930.1.13.239.2.7.3 .292234.315 1959 Unknown [id number] 1.2.840.674293.1.13.239.2.7.3 .981412.315 1948 Unknown [id number] 2.16.840.1.513485.3.579.2.647 1948 Unknown [id number] 2.16.840.1.816000.3.579.2.173 1948 Unknown [id number] 2.16.840.1.838369.3.579.2.173 1948 Unknown [id number] 2.16.840.1.701681.3.579.2.173 1948 Unknown [id number] 2.16.840.1.484114.3.579.2.593 1948 Unknown [id number] 2.16.840.1.831463.3.579.2.593 1948 Unknown [id number] 2.16.840.1.251987.3.579.2.593 1948 Unknown [id number] 2.16.840.1.537115.3.579.2.593 1948 Unknown [id number] 2.16.840.1.865962.3.579.2.593 1948 Unknown [id number] 2.16.840.1.007041.3.579.2.593 1948 Unknown [id number] 2.16.840.1.215068.3.579.2.593 1948 Unknown [id number] 2.16.840.1.515516.3.579.2.593 1948 Unknown [id number] 2.16.840.1.470144.3.579.2.593 1948 Unknown [id number] 2.16.840.1.015964.3.579.2.593 1948 Unknown [id number] 2.16.840.1.655315.3.579.2.593 1948 Unknown [id number] 2.16.840.1.443934.3.579.2.593 1948 Unknown [id number] 2.16.840.1.191398.3.579.2.593 1948 Unknown [id number] 2.16.840.1.870222.3.579.2.593 1948 Unknown [id number] 2.16.840.1.121575.3.579.2.593 1948 Unknown [id number] 2.16.840.1.162238.3.579.2.593 1948 Unknown [id number] 2.16.840.1.903057.3.579.2.593 1948 Unknown [id number] 2.16.840.1.324278.3.579.2.593 1948 Unknown [id number] 2.16.840.1.305662.3.579.2.593 1948 Unknown [id number] 2.16.840.1.562013.3.579.2.593 1948 Unknown [id number] 2.16.840.1.614836.3.579.2.174 1948 Unknown [id number] 2.16.840.1.716007.3.579.2.174 1948 Unknown [id number] 2.16.840.1.407760.3.579.2.174 1948 Unknown [id number] 2.16.840.1.136731.3.579.2.174 1948 Unknown [id number] 2.16.840.1.045883.3.579.2.125 9 Medicare Medicare-OP No Part B [id number] Self-pay Self Pay [id number] Unknown [id number] Unknown [facility] [id number] Social History Date Type Detail Facility Start: 12-01-2019 End: 09-22-2023 Tobacco smoking status NHIS Former smoker [facility] End: 08-03-1989 History of tobacco use Current smoker [facility] Start: 12-01-2019 End: 10-30-2023 Cigarettes smoked current (pack per day) - Reported [facility] Start: 12-01-2019 End: 05-08-2020 Alcohol intake Ex-drinker (finding) [facility] Pieter HESS Y Start: 12-01-2019 [facility]: 1950 [facility] Start: 03-30-2020 End: 05-08-2020 Tobacco use and exposure Never used [facility] Exposure to SARS-CoV -2 (event) Not sure [facility] Start: 01-10-2019 End: 10-30-2023 Sex Assigned At [facility] Other Start: 1950 Sex Assigned At Male [facility] Start: 01-09-2022 Tobacco smoking status [facility] Tobacco smoking consumption unknown [facility] Childcare Unknown [facility] Clinical Notes 05-29-2022 to 10-29-2023 Harry Ledesma MD - 10/29/2023 2:00 PM EDT Note Date & Type Note Facility 10-29-2023 History of Present illness Narrative Images from the original note were not included. [facility] [address] [facility] [address] Subjective: Patient ID: Ml Hassan is a [...] route as needed., Disp: , Rfl: omega 9-jxv-smr-fish oil (Fish OiL) 300-1,000 mg capsule, Take [...] Diverticulosis Episode of recurrent major depressive disorder ([facility]) Gastroesophageal reflux disease without esophagitis Hyperlipidemia Primary [...] (See Comments) Other reaction(s): Intolerance Nervousness, hyper Upwiatb-Ujd-Vqf Reductase Inhibitors Other (See Comments) Other reaction(s): [...] and all orders for this visit: Claudication ([facility]) PAD (peripheral artery disease) ([facility]) - [facility] [place], [place] Varicose veins of bilateral lower extremities [...] Harry Ledesma MD documented in this encounter [facility] 06-18-2023 Note [facility] Cardiology Clinic Note Chief Complaint: Patient here for follow up stress test. Was recently hospitalized at [facility] with salmonella poisoning. Denies chest pain. HPI: [...] Mother Lung cancer Father Allergies Prednisone and Qqcovjw-paf-pje reductase inhibitors Medications Current Outpatient Medications: albuterol [...] Coronary arteriosclerosis I25.10: Atherosclerotic heart disease of siletz tribe coronary artery without angina pectoris 2. Diastolic dysfunction - Euvolemic I50.30: Unspecified diastolic (congestive) heart failure lisinopril 2.5 mg tablet - TAKE 1 TABLET BY MOUTH EVERY DAY Qty: 90 tablet(s) Refills: 3 Pharmacy: [id number] 3. Polymyalgia rheumatica M35.3: Polymyalgia rheumatica POLYMYALGIA RHEUMATICA: CARE INSTRUCTIONS 4. Statin not tolerated - Rhabdomyolysis on prior statin therapy Z78.9: Other specified health status 5. Dyslipidemia E78.5: Hyperlipidemia, unspecified 6. Chronic venous insufficiency (more content not included)... [facility] 06-17-2023 Evaluation note Encounter Date Diagnosis Assessment Notes Jun, Obstructive sleep apnea (ICD-10 - G47.33) Not satisfied w/ how he feels in morning and wondering if he needs adjustments. This patient is aware of the benefits associated with GUADALUPE: With continued use, the patient reduces the risk for NE, CVA, HTN, cardiac dysrhythmias and sudden cardiac [...] Most symptoms have resolved. Completed antibiotics therapy. Avery diet, avoid salads, juice, milk etc Jun, [...] JESSICA as needed. Increase activity, continue abstinence [facility] Chief Complaint: Patient [...] recently. Particular when he walks to the [place] back he feels tired. He denies chest [...] Mother Lung cancer Father Allergies Prednisone and Guoowlo-ges-kwe reductase inhibitors Medications Current Outpatient Medications: albuterol [...] Coronary arteriosclerosis I25.10: Atherosclerotic heart disease of [place]tz tribe coronary artery without angina pectoris 2. Diastolic dysfunction - Euvolemic I50.30: Unspecified diastolic (congestive) heart failure lisinopril 2.5 mg tablet - TAKE 1 TABLET BY MOUTH EVERY DAY Qty: 90 tablet(s) Refills: 3 Pharmacy: [facility] 3. Polymyalgia rheumatica M35.3: Polymyalgia rhe (more content not included)...[facility]10-06-2023 Evaluation note* Encounter Date Diagnosis Assessment [...] inhalers for cough and pulmonary secretion clearance [facility] Other 06-01-2023 Evaluation note* Encounter Date Diagnosis [...] [BMI ] 33.0-33.9, adult (ICD-10 - Z68.33) [facility] Other 04-10-2023 Evaluation note* Encounter Date Diagnosis [...] use, the patient reduces the risk for NE, CVA, HTN, cardiac dysrhythmias and sudden cardiac [...] High risk medication use (ICD-10 - Z79.899) [facility] Other 01-31-2023 Evaluation note* Encounter Date Diagnosis Assessment Notes Treatment Notes Treatment Clinical Notes Aug, PAD (peripheral artery disease) (ICD-10 - I73.9) [facility] Other 01-30-2023 Evaluation note* Encounter Date Diagnosis Assessment Notes Treatment Notes Treatment Clinical Notes Aug, PAD (peripheral artery disease) (ICD-10 - I73.9) [facility] Other 01-25-2023 Evaluation note* Encounter Date Diagnosis [...] Praluent injections. Will be discussing, w/ the Automatic Beading Lathe Operator, the benefits of once monthly dosing in [...] exercise for 30 minutes, 3-5 times weekly. [facility] Other 12-01-2022 Evaluation note* Encounter Date Diagnosis [...] hold Plavix 7 days prior to procedure. [facility] Other 11-14-2022 Evaluation note* Encounter Date Diagnosis [...] nerve blocks in the future if needed [facility] Other 10-27-2022 Evaluation note* Encounter Date Diagnosis [...] negative findings were considered in medical decision-making. [facility] Other Evaluation noteNo InformationNort [facility] Other Evaluation note* Diagnosis Onset Date Resolution Status Inflammatory polyarthritis a cute Lumbar spondylosis acute PMR (polymyalgia rheumatica) acute Primary osteoarthritis of knees, bilateral acute [facility] Work Phone: Evaluation note* Diagnosis Claudication ([facility])- Primary Unspecified peripheral vascular disease PAD (peripheral artery disease) ([facility]) Unspecified peripheral vascular disease Varicose veins of bilateral lower extremities with pain documented in this encounter [facility] [employer] SystemHistory general Narrative - Reported* Type Description Date Medical History Polymyalgia rheumatica Medical History Stent placement -- heart attack 2006 Surgical History Stent placement, multiple Hospitalization History see above [facility] Other History general Narrative - Reported* Type [...] II Medical History Other atherosclerosi s of s[place] tribe arteries of extremities, bilateral legs Medical History [...] History EGD 01/2018 Hospitalization History see above [facility] Other InstructionsNot on filedocumented in this encounter [facility] Summary Purpose Family History Relationship Condition Age at Onset Recorded Date/T little daughter Crohn's disease Unknown Not Specified Diabetes mellitus Unknown Malignant neoplasm Unknown father Malignant neoplasm Unknown Unknown Advance Directives Documents on File Type Date Recorded Patient Chemical Machine Tender Expl anation Advance Directives and Living Will Power of Integrated Circuit Ic Layout Designer Documents on File Type Date Recorded Patient Chemical Machine Tender Expl anation ACP-Advance Directive ACP-Power of Integrated Circuit Ic Layout Designer Documents on File Type Date Recorded Patient Chemical Machine Tender Expl anation ACP-Advance Directive ACP-Power of Integrated Circuit Ic Layout Designer Latest Code Status on File Code Status [...] Catheter care as instructed. Call Dr. Dior ([phone]) if you develop: Fever over 100 degrees [...] Call Dr. Dior office for follow-up appointment ([phone]). Arellano Catheter Care Instructions A urinary catheter [...] a responsible adult. 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 DATE CREATED AUTHOR AUTHOR'S ORGANIZ ATION 11/17/2022 [facility] DATE CREATED AUTHOR AUTHOR'S ORGANIZ ATION 06/18/2023 [facility] Gatito Olmedo [facility] DATE CREATED AUTHOR AUTHOR'S ORGANIZ ATION 06/20/2023 [facility] DATE CREATED AUTHOR AUTHOR'S ORGANIZ ATION 10/14/2023 [facility] dical Specialists EPIC Reason for Visit (unrecogniz ed section and content) Status Reason Specialty Diagnoses / Procedures Referre d By Contact Referred To Contact Diagnoses BPH (benign prostatic hyperplasia) BPH Procedures WI LASER VAPORIZATION SURGERY PROSTATE, COMPLETE CYSTOSCOPY TRANSURETHRAL RESECTION PROSTATE LASER-PVP Vilma Sweeney MD [address] [place] [address], [address] [place] [address] [facility] Reason Comments Circulatory Problem New patient complain s of right toes cold/numbness . Achy and painful to back of bilateral lower legs at times. Patient notes achy limits distance he can walk. Previous laser treatment. Specialty Diagnoses / Procedures Referred By Contlora t Referred To Contact Vascular Surgery Diagnoses PAD (peripheral artery disease) ([facility]) Viet Proctor DO [address] [place] [address] [facility] [address] [place] [address] Referral ID Status Reason Start Date Expiration Date Visits Requested Visits Authorized [id number] Pending Review Specialty Services Required 10/07/2023 10/06/2024 1 1 Care Teams (unrecognized sec tion and content) Team Status: Active Member Role Status Dates Viet Proctor DO Primary Care Provider Active Team Status: Inactive Member Role Status Dates Viet Proctor DO Primary Care Provide r, Attending Provider Active Start: September 22, 2023 End: September 22, 2023 Talent Management Specialist Relationship Specialty Start Date End Date Viet Proctor DO [address] [place] [address] PCP - General Internal Medicine [...] BE BASED ON THE PRIMARY CLINICAL RECORDS. [facility]. provides no warranty or guarantee of the accuracy or completeness of information in this document.
[2023-11-05 08:30] LABS: Basophils Absolute Auto 0.1 10^3/uL (0.0-0.1); Eosinophils Absolute Auto 0.2 10^3/uL (0.0-0.7); Eosinophils Percent Auto 2.8 % (0.9-7.0); Hematocrit 41.4 % (42.0-54.0); Hemoglobin 13.1 g/dL (14.0-18.0); Immature Granulocytes Abs Auto 0.06 10^3/uL (0.00-0.03); Immature Granulocytes Pct Auto 0.8 % (0.0-0.5); Lymphocytes Absolute Auto 1.5 10^3/uL (1.2-3.8); Lymphocytes Percent Auto 21.1 % (20.5-60.0); Mean Corpuscular HGB Conc 31.6 g/dL (29.9-35.2); Mean Corpuscular Hemoglobin 29.8 pg (25.9-34.0); Mean Corpuscular Volume 94.3 fL (80.0-94.0); Mean Platelet Volume 10.7 fL (9.5-13.5); Neutrophils Absolute Auto 4.3 10^3/uL (1.4-6.5); Neutrophils Percent Auto 60.3 % (43.0-75.0); Platelet Count 213 10^3/uL (150-450); Red Blood Count 4.39 10^6/uL (4.70-6.10); Red Cell Distribution Width 13.2 % (11.0-15.0); White Blood Count 7.1 10^3/uL (4.0-11.0)
[2023-11-05 09:39] LABS: Alanine Aminotransferase 26 U/L (16-63); Albumin Globulin Ratio 1.2; Albumin Level 3.7 g/dL (3.4-5.0); Alkaline Phosphatase 46 U/L (46-116); Aspartate Amino Transferase 20 U/L (15-37); BUN Creatinine Ratio 16.1; Bilirubin Total 0.7 mg/dL (0.2-1.0); Calcium 9.2 mg/dL (8.5-10.1); Chloride 103 mmol/L (98-107); Estimated GFR (African America 58 (>=60); Estimated GFR (Non-African Ame 48 (>=60); Globulin 3.2 g/dL; Glucose 100 mg/dL (74-106); Sodium 140 mmol/L (136-145); Total Protein 6.9 g/dL (6.4-8.2)
[2023-11-05 10:52] LABS: Prostate Specific Antigen Scrn 1.17 ng/mL (<=4.00)
== END 2023-11-05 07:59 | disposition home or self-care (01) ==
LOC: LAB 07:58
PROVIDERS: Family Provider Internal Medicine Interventional Cardiology; PCP Internal Medicine; Visit Provider Internal Medicine
DX: I25.10 Atherosclerotic heart disease of native coronary artery without angina pectoris (principal); I10 Essential (primary) hypertension; E78.00 Pure hypercholesterolemia, unspecified; M06.4 Inflammatory polyarthropathy; Z12.5 Encounter for screening for malignant neoplasm of prostate
CPT/HCPCS: 36415; 80053; 80061; 85025; G0103

== ENCOUNTER 2023-12-14 09:51 | Outpatient (OUT) | payer MEDICARE, BC, SELFPAY ==
--- NOTE | 2023-12-14 10:00 | CA_ITS ---
Patient Name: ML HASSAN MR#: [id number] : 1950 Exam Date: 12/14/2023 Ordering Doctor: DR LIDIA HANDLEY M.D. ECHOCARDIOGRAM REPORT PROCEDURE: CA ECHO DOPPLER COMPLETE INDICATIONS: Diastolic heart failure, h/o AZ. cardiac stent, hypertension COMPARISON: None. DESCRIPTION: COMPLETE ECHOCARDIOGRAM Real-time transthoracic echocardiography with 2D, M-mode, spectral and color flow Doppler performed. QUALITY: Technical quality was good. 71 , 240#, BSA 2.28 m2, BP 124/62 LEFT VENTRICLE: Normal chamber size. Mild concentric hypertrophy. Normal systolic function. LV EF: Normal left ventricular ejection fraction, (>55%). DIASTOLIC: Diastolic function is indeterminate. ATRIAL SEPTUM: Visually appears intact. LEFT ATRIUM: Mild dilatation. RIGHT ATRIUM: Mild dilatation. RIGHT VENTRICLE: Normal chamber size. Normal right ventricular systolic function. TRICUSPID VALVE: Normal mobility and thickness. No stenosis with trivial regurgitation. Unable to assess right-sided pressures due to lack of measurable tricuspid regurgitation. MITRAL VALVE: Normal mobility and thickness. No evidence of mitral valve stenosis. Mild mitral annular calcification. Mild mitral regurgitation. AORTIC VALVE: Normal trileaflet appearance. Thickened aortic valve. Normal leaflet mobility. No evidence of aortic valve stenosis. No aortic regurgitation. AORTIC ROOT: Normal diameter and appearance. Ascending aorta is normal in size. PULMONIC VALVE: Normal thickness and mobility. No stenosis. No regurgitation. PERICARDIUM: No evidence of pericardial effusion. IVC: Within normal limits. PLEURA: CONCLUSION: 1. Mild concentric left ventricular hypertrophy with normal systolic function. LVEF is 65%. 2. Normal right ventricular size and systolic function. 3. Mild biatrial dilatation. 4. No significant valvular dysfunction. Adult Echocardiography Procedure Report Left Ventricle LVEDD (3.7 - 5.6 cm): 4.75 cm LVESD (2.2 - 4.0 cm): 3.58 cm LVIVS thickness (0.6 - 1.2 cm): 1.29 cm LVPW thickness (0.5 - 1.0 cm): 0.99 cm e': 0.07 m/s E - e': 9.22 LVOT Max Gradient: 3.04 mm[Hg] LVOT Area (cm2): 0.87 m/s Peak Velocity (LVOT): 0.87 m/s Mean Velocity (LVOT): 0.52 m/s LVOT Diameter 2.46 cm Left Atrium LA Volume Index (2D A2C): 42.04 ml/m2 Left Atrium Systolic Dimension: 4.96 cm Mitral Valve MV E to A Ratio: 0.78 Mitral Valve A-Wave Peak Velocity: 0.87 m/s Mitral Valve E-Wave Peak Velocity: 0.68 m/s Right Ventricle Aorta AO Root Diam: 3.58 cm Ascending Ao Diam: 3.49 cm Aortic Valve AoV Area (Peak Parveen): 3.54 cm2, 3.54 cm2 AoV Area (VTI): 3.26 cm2, 3.26 cm2 Peak Velocity(Antegrade Flow): 1.17 m/s Peak Gradient(Antegrade Flow): 5.49 mm[Hg] Mean Velocity(Antegrade Flow): 0.80 m/s Mean Gradient(Antegrade Flow): 3.02 mm[Hg] Velocity Time Integral: 28.87 cm Tricuspid Valve Pulmonic Valve Mean Gradient: 2.40 mm[Hg] Mean Velocity: 0.71 m/s Peak Velocity: 1.15 m/s, 1.08 m/s Peak Gradient: 4.68 mm[Hg], 5.30 mm[Hg] Right Atrium Right Atrium Systolic Pressure: 55.26 ml, 55.26 ml Dictated by: Kedar Rinaldi M.D. on 12/15/2023 at 08:53 Approved by: Kedar Rinaldi M.D. on 12/15/2023 at 08:58
== END 2023-12-14 09:52 | disposition home or self-care (01) ==
LOC: CARD 09:52
PROVIDERS: Family Provider Internal Medicine Interventional Cardiology; PCP Internal Medicine; Visit Provider Internal Medicine Interventional Cardiology
DX: I50.32 Chronic diastolic (congestive) heart failure (principal)
CPT/HCPCS: 93306

== ENCOUNTER 2023-12-23 07:06 | Outpatient (RCR) | payer MEDICARE, BC, SELFPAY ==
--- NOTE | 2023-11-25 14:18 | PC.NURSE ---
Pt was here for [facility] rehab and BP was high upon arrival at 168/84. Pt states it has been running high like that and that Dr. Proctor is aware and pt is supposed to call Dr. Proctor at the end of the week to go over BP's with him. Pt states he feels fine and no symptoms. Pt brought his BP machine from home to check with what RN got and numbers were only 8 points off. Pt wanted to exercise and was on TM and BP went to 238/92 manual checked twice by this RN and once by Marcia PRUITT who got similar numbers. Pt was stopped and sat down to rest. Pt again was asymptomatic. Pt states he felt fine just a little SOB from walking on the TM at a incline. I talked with Breanna from [facility] about moving pt's apt with Dr. Lemos from December 20 to earlier and she was able to get him in this coming Thursday and pt agreed to this. Pt was also encouraged to go to the ER for HTN by this RN and Breanna from [facility] and pt states since his BP went to 168/82 with rest he will hold off on going to the ER. Breanna suggested to take a extra Lisinopril when pt gets home since he is on the low dose. Pt states he will do this. Pt encouraged to go to the ER if any symptoms at all start for him and he states he understands and will do this. I also contacted Dr. Proctor's office and updated them on high BP reading and I spoke with Linnette who states Dr. Proctor is not in today but will be back tomorrow. She said to have pt take BP in the AM and call office. I relayed this to pt who states he will do that. Pt was sent home from rehab with no symptoms and again I told him if anything starts to feel different he needs to go to the ER or call a ambulance. Pt states he understands and will do this if needed.
== END 2024-02-09 13:15 | disposition home or self-care (01) ==
LOC: CR 07:06
PROVIDERS: Family Provider Internal Medicine Interventional Cardiology; PCP Internal Medicine; Visit Provider Student in an Organized Health Care Education/Training Program
DX: I70.213 Atherosclerosis of native arteries of extremities with intermittent claudication, bilateral legs (principal)
CPT/HCPCS: 93668

== ENCOUNTER 2024-07-29 06:47 | Outpatient (OUT) | payer MEDICARE, BC, SELFPAY ==
--- OUTSIDE RECORDS SUMMARY | 2024-07-29 06:50 | XMS_ITS | CCD ---
Author Organization [facility] Care Team Providers Care Barrel Inspector Tight Name Role Phone SUNNYHAWY, EHAB A Admitting Unavailable ELTAHAWY, EHAB A Attending Unavailable VIET CANNON Referring Unavailable DAVIS, VIET Primary Care Unavailable Viet Cannon Primary Care Provider Viet Cannon Primary Care Provider VILMA SOTOMAYOR Referring Unavailable VIET CANNON Primary Care Unavailable VILMA SOTOMAYOR Admitting Unavailable VILMA SOTOMAYOR Attending Unavailable VIET CANNON Primary Care Unavailable ABBY DANIELLE Referring Unavailable DAVIS, VIET Mitchell Primary Care Unavailable Nick Bosch Unavailable Viet Cannon Unavailable Michael Vance Unavailable BALL, DR JOHNSON Primary Care Unavailable Rajiv, Michael Attending Unavailable Rajiv, Michael Admitting Unavailable BALL, DR JOHNSON Primary Care Unavailable DAVIS, DR JOHNSON Attending Unavailable BALL, DR JOHNSON Admitting Unavailable ELTAHAWY, DR MURILLO Consulting Unavailable BALL, DR JOHNSON Primary Care Unavailable BALL, DR JOHNSON Attending Unavailable BALL, DR JOHNSON Admitting Unavailable BALL, DR JOHNSON Consulting Unavailable DAVIS, DR JOHNSON Primary Care Unavailable BALL, DR JOHNSON Attending Unavailable BALL, DR JOHNSON Admitting Unavailable NICK BOSCH Consulting Unavailable Rajiv, Michael Admitting Unavailable West, Michael Attending Unavailable BALL, DR JOHNSON Primary Care Unavailable Rajiv, Michael Consulting Unavailable ZIEBER, DR DUSTY Ledesma Consulting Unavailable BALL, DR JOHNSON Consulting Unavailable BALL, DR JOHNSON Primary Care Unavailable BALL, DR JOHNSON Attending Unavailable BALL, DR JOHNSON Admitting Unavailable ELTAHAWY, DR MURILLO Consulting Unavailable DAVIS, DR JOHNSON Consulting Unavailable DAVIS, DR JOHNSON Primary Care Unavailable BALL, DR JOHNSON Attending Unavailable BALL, DR JOHNSON Admitting Unavailable ZIEBER, DR DUSTY Ledesma Consulting Unavailable Rajiv, Michael Consulting Unavailable BALL, DR JOHNSON Primary Care Unavailable Rajiv, Michael Attending Unavailable Rajiv, Michael Admitting Unavailable West, Michael Consulting Unavailable Rajiv, Michael Admitting Unavailable West, Michael Attending Unavailable [...] West, Michael Consulting Unavailable ZIEBER, DR DUSTY Ldeesma Consulting Unavailable West, Michael Admitting Unavailable West, Michael Attending Unavailable BALL, DR JOHNSON Primary Care Unavailable Rajiv, Michael Consulting Unavailable VIET CANNON Primary Care Unavailable GHAZARIAN, PRICILA Referring Unavailable VIET CANNON Primary Care Unavailable GHAZARIAN, PRICILA Referring Unavailable GHAZARIAN, PRICILA Referring Unavailable VIET CANNON Primary Care Unavailable VIET CANNON Primary Care Unavailable GHAZARIAN, PRICILA Admitting Unavailable GHAZARIAN, PRICILA Attending Unavailable JIA GOMEZ Consulting Unavailable Viet Cannon DO Primary Care Provider Joe Carter Attending Unavailable Joe Carter Attending Unavailable FRENCH SANDOVAL Attending UnavailROBERTA Laws Attending Unavailable ROBERTA AMES Referring Unavailable KWAKU, ROBERTA Vicente Attending Unavailable ROBERTA AMES Referring Unavailable ELTAHAWY, EH Attending Unavailable ELTAHAWY, EHAB Attending Unavailable KOMAL STRONG Attending Unavailable ELTAHAWY, WILLIE Attending Unavailable ELTAHAWY, EHAB Attending Unavailable ELTAHAWY, EHAB Attending Unavailable Allergies Allergy Classification Reported Allergen(s) Allergy Type Date of Onset Reaction(s) Facility (3 sources) black walnut pollen extract; Translations: [[id number] A REDUCTASE INHIBITORS] Drug Allergy 3 [facility] Repository (20 sources) predniSONE; Translations: [predniSONE] Drug Allergy 3 dizziness [facility] Repository (7 sources) Hmg-Coa Reductase Inhibitors (Statins); Translations: [statins] Propensity to adverse reactions to drug 0 [place], [place] (6 sources) predniSONE Drug Allergy 3 Other (See Comments) [place] (1 source) black walnut pollen extract Drug Allergy 6 [place], [place] (20 sources) Statins Depletion Drug allergy anaphylaxis [facility] [place] Other (1 source) ezetimibe Drug Allergy 2 [facility] Repository (3 sources) Propofol; Translations: [propofol] Drug Allergy 0 [facility] Repository (10 sources) ezetimibe Drug Allergy 4 Unknown, Unknown Reaction [facility] (6 sources) HMG-CoA reductase inhibitor Drug allergy Unknown [employer] Other (6 sources) Statins Depletion *DIETARY PRODUCTS/DIETAR Y MANAGE Propensity to adverse reactions Unknown [employer] Other (4 sources) Allergies Reconciled Propensity to adverse reactions Unknown [employer] Other (2 sources) patient allergy list reviewed by nurse or physicia Propensity to adverse reactions 9 Comment:Done [employer] Other (4 sources) Thhedwm-GBF-FlP Reductase Inhibitor Allergy to substance 4 Anaphylaxis [facility] (1 source) HMG-CoA reductase inhibitor Propensity to adverse reactions to drug 3 Other (See Comments) [employer] [facility] (2 sources) prednisoLONE; Translations: [prednisoLONE] Drug Allergy [facility] Repository Medications Current Medications Medication Drug Class(es) Dates Sig (Normalized) Sig (Original) acetaminophen 325 mg / HYDROcodone bitartrate 5 mg oral tablet (20 sources) Opioid Agonist Start: 09-22-2023 take 1 tablet by mouth every six hours Hydrocodone-Aceta minophen Active 1 TAB PO Every 6 hours September 22, 2023 1:00am Start: 01-01-2023 take 1 tablet by giovanni [...] ORCO) 5-325 MG per tablet 1 tablet [id number] actuat albuterol 0.09 mg/actuat metered dose inhaler (13 sources) beta2-Adrenergic Agonist Start: 09-22-2023 take 1 puff(s) by inhalation every six hours Albuterol Sulfate (Proair Hfa) 90 mcg/actuation HFA aerosol inhaler Active 2 PUFF INHALATION Every 6 hours September 22, 2023 1:00am Start: 02-22-2019 End: 09-22-2023 take 1 puff(s) by inhalation every four to six hours Albuterol Sulfate (Proair Hfa) 90 mcg/actuation Hfa Aerosol Inhaler Discontinued 1 PUFF INHALATION EVERY 4-6 HOURS February 22, 2019 12:00am September 22, 2023 9:05am take 1 puff(s) by in halation every [...] Active 70 MG PO every week February 22, 2019 12:00am 24 hr alfuzosin hydrochloride 10 mg extended [...] Alirocumab (Praluent Pen) 75 mg/mL pen injector (4 sources) Start: 09-22-2023 inject 75 mg by subcutaneous injection every other week Alirocumab (Praluent Pen) 75 mg/mL pen injector Active 75 MG SUBCUT Q14D September 22, 2023 1:00am Start: 09-22-2023 inject 75 mg by subc utaneous injection every other week Alirocumab (Praluent Pen) 75 mg/mL pen injector Active 75 MG SUBCUT Q14D September 22, 2023 12:00am ALPRAZolam 0.25 mg oral tablet (1 source) Benzodiazepine ALPRAZolam (XANA X) 0.25 mg tablet alprazolam 0.25 mg tablet 1 (one) Tablet 1-2 hours prior to testing 0 Active aspirin 325 mg oral tablet (20 sources) Platelet Aggregation Inhibitor, Nonsteroidal Anti-inflammatory Drug Start: take 325 mg by mouth once daily Aspirin Active 325 MG PO Daily September 22, 2023 1:00am aspirin 81 mg da rufina. 0 Active [...] 0 Active carvedilol 3.125 mg oral tablet (7 sources) alpha-Adrenergic Kp, beta-Adrenergic Kp Start: 11-30-2023 take 2 tablets by mouth twice daily at mealtime Carvedilol (Coreg) 3.125 mg tablet Active 6.25 MG PO Twice daily November 30, 2023 12:00am must administer with a meal/food take 1 tablet by giovanni th in the morning, then take 1 tablet [...] Tablet Active 75 MG PO Daily February 22, 2019 12:00am docosahexaenoic acid 120 mg / eicosapentaenoic acid 180 mg oral capsule (4 sources) [place] 3 1000 MG CAPS Take by mouth daily 0 Active [place] 3 1000 MG CAPS Take by mouth 0 Active Famotidine (20 sources) Histamine-2 Receptor Antagonist Start: 11-25-2023 take 1 tablet by mouth twice daily Famotidine Active 0 .ROUTE .COMPLEX 180 November 25, 2023 6:53am TAKE 1 TABLET BY MOUTH TWICE DAILY Start: 11-24-2023 End: 11-25-2023 take 20 mg by mouth twice daily Famotidine Discontinue d 20 MG PO Twice daily November 24, 2023 12:00am November 25, 2023 6:53am Start: 02-22-2019 End: 11-24-2023 take 40 mg by mouth twice daily Famotidine Discontinue d 40 MG PO Twice daily February 22, 2019 12:00am November 24, 2023 2:12pm take 1 tablet by giovanni th in the morning famotidine (PEPCID) 20 mg tablet Take 1 tablet (20 mg total) by mouth in the morning. 0 Active take 1 tablet by giovanni th every twenty-four hours Famotidine 40 MG 1 tablet at bedtime Orally Once a day for 30 day(s) Active 2 ml fentaNYL 0.05 mg/ml injection (4 sources) Opioid Agonist Start: 04-10-2020 fentaNYL (SUBL IMAZE) injection 50 mcg Start: 04-10-2020 fentaNYL (SUBL IMAZE) injection 25 mcg fluticasone propionate 0.05 mg/actuat metered dose nasal spray (20 sources) Corticosteroid Start: 02-22-2019 Fluticasone Pr opionate (Flonase Allergy Relief) 50 mcg/actuation [place],Suspension Active 1 SPRAY INTRANASAL Daily February 22, 2019 12:00am take 1 spray(s) nasal route once daily [...] Acid Active 0.8 MG PO Daily February 22, 2019 12:00am take 1 tablet by giovanni every twenty-four hours Folic Acid 1 MG 1 tablet Orally Once a day for 30 day(s) Active gabapentin 100 mg oral capsule (20 sources) Anti-epileptic Agent Start: 09-22-2023 take 2 capsules by mouth at bedtime Gabapentin Active 100 MG PO .COMPLEX September 22, 2023 1:00am 100 mg orally 1 capsule in the morning, 1 capsule in the afternoon and 2 capsules at bedtime; Start: 05-29-2022 take 2 capsules by m [facility] three times daily Gabapentin 100 MG 2 capsules Orally three times daily for 30 day(s) G89.29 Chronic pain May, Active Start: 05-29-2022 take 1 capsule by mo [facility] three times daily Gabapentin 100 MG 1 capsule Orally three times daily for 30 day(s) May, Active take 1 capsule by mo [facility] twice daily gabapentin (NEURONTIN) 300 mg capsule [...] injection (1 source) Arteriolar Vasodilator Start: 04-10-20 hydrALAZINE (APRESOLINE) injection 5 mg 4 ml labetalol hydrochloride 5 mg/ml cartridge (1 source) beta-Adrenergic Kp Start: 04-10-20 labetalol (NORMODYNE;TRANDATE) injection 5 mg lisinopril 2.5 mg oral tablet (20 sources) Angiotensin Converting Enzyme Inhibitor Start: 02-23-20 take 2.5 mg by mouth once daily Lisinopril Active 2.5 MG PO Daily February 22, 2019 12:00am methotrexate 2.5 mg/ml oral solution (20 sources) Folate Analog Metabolic Inhibitor Start: 02-23-20 Methotrexate Active 8 TAB PO every 9 weeks February 22, 2019 12:00am take 8 tablets by mouth once Met hotrexate 2.5 MG 8 tabs Orally every Thursday Active take 8 tablets by mouth once Met hotrexate 2.5 MG 8 tabs Orally every Thursday Active METHOTREXATE, ANTI-RHEUMATIC, PO (1 source) take 20 mg by mouth every week METHOTREXATE, ANTI-RHEUMATIC, PO Take 20 mg by mouth once a week thursday 0 Active methylPREDNISolone 4 mg oral tablet (9 sources) Corticosteroid Start: 024 take 1 tablet by mouth once daily Methylprednisolone (Medrol) 4 mg tablet Active 4 MG PO Daily September 22, 2023 1:00am take 1 tablet by mouth once phoebe y methylPREDNISolone (MEDROL) 2 MG tablet Take 2 mg by mouth daily 0 Active montelukast 10 mg oral tablet (20 sources) Leukotriene Receptor Antagonist Start: 11-03-2023 take 1 tablet by mouth once daily Montelukast Active 0 .ROUTE .COMPLEX November 03, 2023 1:01pm TAKE 1 TABLET BY MOUTH ONCE DAILY FOR 90 DAYS Start: 02-22-2019 End: 11-03-2023 take 1 tablet by mouth once daily in the evening Montelukast (Singulair) 10 mg Tablet Discontinued 10 MG PO Every evening February 22, 2019 12:00am November 03, 2023 1:01pm Multiple Vitamins-Minerals (MULTIVITAMIN ADULT PO) (5 sources) Multiple Vitamins-Minerals (MULTIVITAMIN ADULT PO) Take by mouth 0 Active 24 hr niacin 500 mg extended release oral tablet (20 sources) Nicotinic Acid Start: take 1 tablet by mouth once daily at bedtime Niacin (Slo-Niacin) 500 mg Tablet Extended Release Active 500 MG PO Daily at bedtime February 22, 2019 12:00am take 1 tablet by giovanni th once [...] SUBLINGUAL every 5 to 15 minutes February 22, 2019 12:00am nitroglycerin (N ITROSTAT) 0.4 MG SL tablet nitroglycerin 0.[address] 1 tablet by sublingual route as needed. 0 Active omega 5-see-fqp-fish oil (Fish OiL) 300-1,000 mg capsule (1 source) omega 3-dha-epa- fish oil (Fish OiL) 300-1,000 mg capsule Take by mouth. 0 Active omega-3 acid ethyl esters (skilled nursing) 1000 mg oral capsule (1 source) [place] 3 1000 MG CAPS Take by mouth [...] 25 MG PO Daily September 22, 2023 1:00am sulfamethoxazole 800 mg / trimethoprim 160 mg [...] 05/08/2020 05/15/2020 Active tiZANidine 4 mg oral tablet (20 sources) [place] alpha-2 Adrenergic Agonist Start: 01-07-2024 take 2 tablets by mouth at bedtime Tizanidine Active 0 .ROUTE .COMPLEX 180 January 07, 2024 4:57pm TAKE 2 TABLETS BY MOUTH AT BEDTIME Start: 02-22-2019 End: 01-07-2024 take 1 capsule by mouth once daily at bedtime Tizanidine (Zanaflex) 4 mg Capsule Discontinued 4 MG PO Daily at bedtime February 22, 2019 12:00am January 07, 2024 4:58pm tiZANidine (MAHOGANY FLEX) 4 mg tablet tizanidine 4 mg tablet 0 Active take 2 tablets by mo [facility] at bedtime Zanaflex 4 MG 2 tablets Orally at bedtime for 90 days Active Completed/Discontinued Medications Medication Drug Class(es) Dates Sig (Normalized) Sig (Original) acetaminophen 325 mg oral tablet (2 sources) Start: 04-10-2020 End: 04-10-2020 acetaminophen (TYLENOL) tablet 650 mg take 1 tablet by giovanni th every six hours as needed for pain [...] mg hydrocortisone acetate 25 mg rectal suppository (4 sources) Corticosteroid Start: 02-22-2019 End: 09-22-2023 Hydrocortisone Acetate (Anusol-Hc) 25 mg Suppository Discontinued 25 MG IN Three times daily February 22, 2019 12:00am September 22, 2023 9:06am Lidocaine (14 sources) Antiarrhythmic, Amide Local Anesthetic Start: 01-01-2023 Lidocaine Jan, 30 mg loratadine 10 mg oral capsule (4 sources) Start: 02-22-2019 End: 09-22-2023 take 10 mg by mouth once daily Loratadine Discontinued 10 MG PO Daily February 22, 2019 12:00am September 22, 2023 9:06am nebivolol 2.5 mg oral tablet (20 sources) Start: 02-22-2019 End: 09-22-2023 take 1 tablet by mouth once daily Nebivolol (Bystolic) 2.5 mg Tablet Discontinued 2.5 MG PO Daily February 22, 2019 12:00am September 22, 2023 9:06am take 2 tablets by mo [facility] every twenty-four hours Bystolic 2.5 MG 2 tablets Orally Once a day for 30 day(s) Not-Taking oxyCODONE hydrochloride 5 mg oral tablet (20 sources) Opioid Agonist take 1 tablet by mouth every six hours oxyCODONE HCl 5 MG 1 tablet as needed Orally every 6 hrs Not-Taking pantoprazole 40 mg oral granules (20 sources) Proton Pump Inhibitor Start: End: take 40 mg by mouth once daily Pantoprazole Discontinued 40 MG PO Daily February 22, 2019 12:00am September 22, 2023 9:07am [facility] Pantoprazole Sodium 40 MG 1 tablet Orall y Once a day for 30 day(s) Not-Taking pregabalin 75 mg oral capsule (4 sources) Start: 02-22-2019 End: 09-22-2023 take 1 capsule by mouth twice daily Pregabalin (Lyrica) 75 mg Capsule Discontinued 75 MG PO Twice daily February 22, 2019 12:00am September 22, 2023 9:07am tamsulosin hydrochloride 0.4 mg oral capsule (4 sources) alpha-Adrenergic Kp Start: 02-22-2019 End: 09-22-2023 take 0.4 mg by mouth once daily Tamsulosin Discontinued 0.4 MG PO Daily February 22, 2019 12:00am September 22, 2023 9:07am traZODone hydrochloride 50 mg oral tablet (20 sources) Serotonin Reuptake Inhibitor Start: 12-02-2023 End: 12-02-2023 take 100 mg by mouth once daily at bedtime Trazodone Discontinued 100 MG PO Daily at bedtime 60 30 December 02, 2023 8:42am December 02, 2023 1:10pm Start: 02-22-2019 End: 12-02-2023 take 50 mg by mouth once daily Trazodone Discontinued 50 MG PO Daily February 22, 2019 12:00am December 02, 2023 8:19am take 2 tablets by mo uth at bedtime traZODone (DESYREL) 50 mg tablet trazodone 50 mg tablet TAKE 2 TABLETS BY MOUTH AT BEDTIME 0 Active take 1 tablet by giovanni th once daily traZODone (DESYREL) 100 MG tablet Take 100 mg by mouth nightly 0 Active triamcinolone acetonide 40 mg/ml injectable suspension (14 sources) Corticosteroid Start: 01-01-2023 Kenalog-40 Jan, 40 mg 7 actuat umeclidinium 0.0625 mg/actuat / vilanterol 0.025 mg/actuat dry powder inhaler (4 sources) Anticholinergic, beta2-Adrenergic Agonist Start: 02-22-2019 End: 09-22-2023 Umeclidinium-Vilante rol (Anoro Ellipta) 62.5-25 mcg/actuation Blister With Device Discontinued 1 INH INHALATION Q24H February 22, 2019 12:00am September 22, 2023 9:08am Problems Active Problems Problem Classification Problem Date Documented Da te Episodic/Chronic Acute bronchitis (13 sources) Acute bronchitis; Translations: [Acute bronchitis due to other specified organisms] Onset: 5 Episodic Anxiety disorders (20 sources) Generalized anxiety disorder; Translations: [Generalized anxiety disorder] Onset: 5 Chronic Aortic and peripheral arterial embolism or thrombosis (5 sources) Thromboembolic disorder; 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 and thrombosis of unspecified site] Chronic Cardiac dysrhythmias (4 sources) Nonsustained ventricular tachycardia ; Translations: [Nonsustained ventricular tachycardia] 03-16-2024 Chronic Chronic obstructive pulmonary disease and bronchiectasis (20 sources) Mucopurulent chronic bronchitis; Translations: [Mucopurulent chronic bronchitis] Onset: 8 Chronic Conduction disorders (6 sources) Unspecified right bundle-branch block; Translations: [[place] type I incomplete atrioventricular block] Onset: 4 Chronic Coronary atherosclerosis and other heart disease (20 sources) Coronary arteriosclerosis; Translations: [Atherosclerotic heart disease of [place] coronary artery without angina pectoris] Onset: 2 [...] 6 Chronic Other aftercare (2 sources) Other shelter (current) drug therapy; Translations: [OTH PURSE SEINER CURRENT DRUG THERAPY] Onset: 3 Episodic Other [...] Onset: 7 Chronic Other connective tissue disease (11 sources) Polymyalgia rheumatica; Translations: [Polymyalgia rheumatica] Onset: 2 09-22-2023 Chronic Other connective tissue disease (2 sources) Polymyalgia rheumatica; Translations: [Polymyalgia rheumatica] 09-22-2023 Chronic [...] musculoskeletal system] Episodic Other connective tissue disease (4 sources) Cramp in lower limb; Translations: [Cramp and spasm] 09-22-2023 Episodic Other connective tissue disease (1 source) Cramp and spasm; Translations: [Cramp of limb] 09-22-2023 Episodic Other diseases of veins and lymphatics (20 sources) Peripheral venous insufficiency; Translations: [Venous insufficiency (chronic) (peripheral)] Episodic Other diseases of veins and lymphatics (1 source) Venous insufficiency (chronic) (peripheral); Translations: [Chronic venous insufficiency] Episodic Other ear and sense organ disorders (6 sources) Acute otitis externa; Translations: [Acute swimmers' ear] Episodic Other gastrointestinal disorders (1 source) Diarrhea, unspecified; Translations: [Diarrhea, unspecified] Onset: Episodic Other injuries and conditions due to external causes (6 sources) History of fall; Translations: [History of falling] Episodic Other male genital disorders (5 sources) [...] Obese class I; Translations: [Obesity, unspecified] Onset: Chronic Other nutritional; endocrine; and metabolic disorders [...] index 35.0-35.9, adult] Onset: 0 Chronic Other screening for suspected conditions (not mental disorders or infectious disease) (11 sources) Encounter for screening for malignant neoplasm of prostate; Translations: [Blood chemistry abnormal] Onset: 5 Episodic Other skin disorders (6 sources) Actinic keratosis; [...] Peripheral vascular disease, unspecified; Translations: [Atherosclerosis of [place] arteries of extremities with rest pain, bilateral [...] Onset: 6 09-22-2023 Chronic Residual codes; unclassified (5 sources) Obstructive sleep apnea (adult) (pediatric); Translations: [Obstructive sleep apnea (adult)(pediatric)] Chronic Rheumatoid arthritis and related disease (6 sources) Inflammatory polyarthropathy; Translations: [Inflammatory polyarthropathy] 09-22-2023 [...] Translations: [Nicotine dependence, cigarettes, in remission] Chronic Syncope (2 sources) Syncope and collapse; Translations: [Syncope and collapse] Onset: 4 Episodic Unclassified (1 source) Patient encounter status; Translations: [...] Translations: [Other malaise and fatigue] Onset: 03-11-2016 01-08-2022 Episodic Other aftercare (4 sources) Encounter for [...] of dyspnea] Onset: 05-08-2014 01-08-2022 Episodic Other lower respiratory disease (2 sources) Other forms of dyspnea; Translations: [Other forms of dyspnea] Onset: 05-21-2023 Episodic Other nervous system disorders (5 sources) [...] index 29.0-29.9, adult] Onset: 08-03-1959 Episodic Other upper respiratory infections (6 sources) [...] Value Interpretation Reference Range Facility Office Visiton 03-15-2024 Follow-up visit [id number] Ml Hassan 1950 M Date Provider Department Center 03/15/2024 KOMAL MUSTAFA [facility] Family History Problem Relation Age of Onset Lung cancer Mother Lung cancer Father Family Status - Relation Status Age at Mother Father Level of Service:41207 IN OFFICE/OUTPATIENT NEW MODERATE MDM 45 MINUTES Normal [facility] Office Visiton 03-07-2024 Follow-up visit [id number] Ml Hassan 1950 M Date Provider Department Center 03/07/2024 Karthik-WILLIE BARFIELD CHUN [place] Family History Problem Relation Age of Onset Lung cancer Mother Lung cancer Father Family Status - Relation Status Age at Mother Father Level of Service:88598 IN OFFICE/OUTPATIENT ESTABLISHED MOD MDM 30 MIN Normal [facility] 36on 02-18-2024 36 Left message for patient to call us back to discuss an event in question. Normal [facility] ED Note-Physicianon 12-30-19 24 ED Note-Physician Basic Information Time Seen: Isaias Caballero PA-C 12/24/2023 10:56 Chief Complaint pt to ER after a fall. Pt states that he just became weak and fell. Pt hit head, denies LOC. GCS 15. Pt c/o L wrist pain and L chest abrasion. pt takes daily ASA and Plavix History of Present Illness 73-year-old male comes into the ED for evaluation of injury status post fall. The patient states he was walking out of a gas station when he fell. He is not sure exactly how or why he fell. He does question if maybe he tripped over a lip in the concrete but does not recall this. He denies any syncope. There is no loss of conscious. Denies any chest pain shortness of breath headache or visual changes. He did strike his head and does have a hematoma, but again no loss of conscious. No nausea or vomiting. He does take aspirin and Plavix with a history of CAD. His primary pain complaint is to the left hand. Review of Systems A 10 point review of systems is negative except as noted above. Medical and Surgical History: Reviewed and noted Social history: Lives at home Tobacco: Denies Physical Exam Vitals & Measurements T: 36.7 ?C(Oral) HR: 56(Monitored) RR: 23 BP: 183/70 SpO2: 97% HT: 180 cm WT: 107 kg BMI: 33.02 Nurses notes and vital signs reviewed and patient is not hypoxic. General: The patient appears well and in no significant distress Patient is resting comfortably on the exam bed. Skin: Warm, dry, no pallor noted. Head: Forehead hematoma. Abrasion without laceration. No bony instability Neck: No JVD. Nontender, full range of motion Eye: Normal conjunctiva. Pupils equal and reactive Ears, Nose, Mouth, and Throat: Moist mucous membranes Cardiovascular: Strong distal pulses. Chest wall: Respiratory: Respirations are nonlabored. Back: Normal range of motion, no CVA tenderness. Musculoskeletal: Tenderness over the ulnar aspect of the left hand with soft tissue swelling. No ecchymosis. Maximally tender along the fifth metacarpal bone. Gastrointestinal: Soft and nontender. Urological: Neurological: Awake and alert. No focal deficits. Follows commands. GCS 15. Psychiatric: Cooperative. Medical Decision Making Laboratory studies reviewed and noted. CT head and neck are negative per radiologist. X-rays are significant for a fracture to the left fifth metacarpal. He is placed in an ulnar gutter splint. Manage neurovascular intact. EKG does show a right bundle branch block. Patient did have questions regarding this and was not sure if it was new. We were able to access records from [facility], and he has had EKGs dating back to 2008 that showed bradycardia with his right bundle branch block. Results discussed at length with the patient. Did offer him admission at his is not clear exactly what caused the fall. The patient does not feel that he needs to be admitted. He adamantly denies any loss of consciousness. He denies any associated headache, chest pain or shortness of breath. He is discharged home with PCP and orthopedic follow-up. Patient was encouraged to return to the ED if symptoms worsen or change. Assessment/Plan Fall (W19.XXXA: Unspecified fall, initial encounter) Fracture, metacarpal (S62.309A: Unspecified fracture of unspecified metacarpal bone, initial encounter for closed fracture) Ordered: acetaminophen-oxycodo ne, 1 tab(s), Oral, q6hr as needed for pain for 3 day(s), 15 tab(s), Refill(s) 0, [facility], 180, cm, 12/24/23 11:05:00 EDT, Height/Length Dosing, 107, kg, 12/24/23 11:05:00 EDT, Weight Dosing Head injury (S09.90XA: Unspecified injury of head, initial encounter) Right bundle branch block (I45.10: Unspecified right bundle-branch block) Orders: acetaminophen-oxycodo ne, 1 tab(s), Tab, Oral, Once, Stop date 12/24/23 12:10:00 EDT, STAT, Start date 12/24/23 12:10:00 EDT Sodium Chloride 0.9% intravenous solution 1,000 mL, 1,000 mL, IV, 20 mL/hr, STAT, Start date 12/24/23 11:02:00 EDT, 50 hour(s), Total volume (mL): 1,000 Apply Sling Basic Metabolic Panel CBC w/ Auto Diff CT Head or Brain w/o Contrast CT Spine Cervical w/o Contrast ECG 12 Lead Adult eGFR Extra SST Tube PT & PTT Troponin 0 Hr. Troponin 1 Hr. XR Chest Single View XR Hand 3+ Views Left XR Hand 3+ Views Right Medications Administered Given Percocet 5 mg-325 mg oral tablet, 1 tab(s), Oral Disposition Plan Patient Discharge Condition Disposition: Discharged home Condition: Improved and stable Counseled: Patient and/or family were counseled to workup, results, treatment plan and follow-up recommendations Discharge Prescription List Prescriptions Percocet 5 mg-325 mg oral tablet, 1 tab(s), Oral, q6hr, PRN Follow-up With When Contact Information Roberta Ames In 3 days 12/27/2023 EDT [address] [place] [address]- Business (1) Additional Instructions: VIET CANNON In 3 days 12/27/2023 EDT [address] [place] [address]- Business (1) Additiona (more content not included)... Normal [facility] Comment on above: Result Comment: Elec tronically Signed By: Isaias Caballero PA-C\.br\Date and Time Signed: 12/24/23 18:42 EDT\.br\Electronically Co-Signed By: Joe Catrer MD\.br\Date and Time Co-Signed: 12/30/23 16:17 EDT Abstracton 12-29-2023 Abstract [id number] Ml Hassan 1950 Date Provider Department [place] 12/29/2023 [facility] Family [facility] Problem Relation Age of Onset Lung cancer Mother Lung cancer Father Family Status - Relation Status Age at Mother Father Normal [facility] Office Visiton 12-29-2023 Follow-up visit [id number] Ml Hassan 1950 M Date Provider Department Center 12/29/2023 271-EVERTONCAROLINWILLIE CHAUDHARY CHUN [facility] Family History Problem Relation Age of Onset Lung cancer Mother Lung cancer Father Family Status - Relation Status Age at Mother Father Level of Service:[id number] IN OFFICE/OUTPATIENT ESTABLISHED MOD MDM 30 MIN Normal [facility] Orders Onlyon 12-29-2023 Orders Only [id number] Ml Hassan 1950 M Date Provider Department Center 12/29/2023 [id number], HISTORICAL CHUN [facility] Family History Problem Relation Age of Onset Lung cancer Mother Lung cancer Father Family Status - Relation Status Age at Mother Father Normal [facility] BMPon 12-24-2023 Anion gap [Moles/Vol] 12 mmol/L Normal 6-16 [facility] Comment on above: Performed By: #### 2 [id number] #### [facility] [address] [place] [address] Calcium [Mass/Vol] 9.1 mg/dL Normal 8.9-11.1 [facility] Comment on above: Performed By: #### 2 [id number] #### [facility] [address] [place] [address] Chloride [Moles/Vol] 105 mmol/L Normal 101-111 [facility] Comment on above: Performed By: #### 2 [id number] #### [facility] [address] [place] [address] CO2 [Moles/Vol] 22 mmol/L Normal 21-31 [facility] Comment on above: Performed By: #### 2 138466 #### [facility] [address] [place] [address] Creatinine [Mass/Vol] 1.3 mg/dL Normal 0.5-1.3 [facility] Comment on above: Performed By: #### 2 [id number] #### [facility] [address] [place] [address] Glucose [Mass/Vol] 123 mg/dL Normal 55-199 [facility] Comment on above: Performed By: #### 2 690759 #### [facility] [address] [place] [address] Potassium [Moles/Vol] 4.4 mmol/L Normal 3.5-5.3 [facility] Comment on above: Performed By: #### 2 756342 #### [facility] [address] [place] [address] Sodium [Moles/Vol] 135 mmol/L Normal 135-145 [facility] Comment on above: Performed By: #### 2 525578 #### [facility] [address] [place] [address] Urea nitrogen [Mass/Vol] 24 mg/dL High 5-21 [facility] Comment on above: Performed By: #### 2 844380 #### [facility] [address] [place] [address] Urea nitrogen/Creatinine [Mass ratio] 18 No Units Normal 10-20 [facility] Comment on above: Performed By: #### 2 928384 #### [facility] [address] [place] [address] CBC w/ Auto Diffon 4 Basophils/100 WBC (Bld) 1.2 % Normal 0.0-2.0 [facility] Comment on above: Performed By: #### 2 997792 #### [facility] [address] [place] [address] Basophils/Leukocytes Auto (Bld) [Pure # fraction] 0.1 E9/L Normal 0.0-0.2 [facility] Comment on above: Performed By: #### 2 463315 #### [facility] [address] [place] [address] Eosinophils (Bld) [#/Vol] 0.2 E9/L Normal 0.0-0.5 [facility] Comment on above: Performed By: #### 2 841814 #### [facility] [address] [place] [address] Eosinophils/100 WBC (Bld) 3.5 % Normal 0.0-8.0 [facility] Comment on above: Performed By: #### 2 907837 #### [facility] [address] [place] [address] Erythrocyte distribution width (RBC) [Ratio] 13.3 % Normal 10.9-14.2 [facility] Comment on above: Performed By: #### 2 969521 #### [facility] [address] [place] [address] Hematocrit (Bld) [Volume fraction] 40.1 % Normal 37.7-49.0 [facility] Comment on above: Performed By: #### 2 728735 #### [facility] [address] [place] [address] Hemoglobin (Bld) [Mass/Vol] 13.5 g/dL Normal 13.5-17.5 [facility] Comment on above: Performed By: #### 2 757338 #### [facility] [address] [place] [address] Lymphocytes (Bld) [#/Vol] 1.3 E9/L Normal 1.0-4.0 [facility] Comment on above: Performed By: #### 2 569926 #### [facility] [address] [place] [address] Lymphocytes/100 WBC (Bld) 20.8 % Normal 14.0-50.0 [facility] Comment on above: Performed By: #### 2 488379 #### [facility] [address] [place] [address] MCH (RBC) [Entitic mass] 30.9 pg Normal 27.0-34.0 [facility] Comment on above: Performed By: #### 2 096545 #### [facility] [address] [place] [address] MCHC (RBC) [Mass/Vol] 33.7 g/dL Normal 31.4-36.0 [facility] Comment on above: Performed By: #### 2 137205 #### [facility] [address] [place] [address] MCV (RBC) [Entitic vol] 91.7 fL Normal 80.0-100.0 [facility] Comment on above: Performed By: #### 2 669748 #### [facility] [address] [place] [address] Monocytes (Bld) [#/Vol] 0.9 E9/L Normal 0.2-1.0 [facility] Comment on above: Performed By: #### 2 624663 #### [facility] [address] [place] [address] Neutrophils (Bld) [#/Vol] 3.8 E9/L Normal 2.0-7.5 [facility] Comment on above: Performed By: #### 2 839517 #### [facility] [address] [place] [address] Neutrophils/100 WBC (Bld) 60.0 % Normal 36.0-75.0 [facility] Comment on above: Performed By: #### 2 297601 #### [facility] [address] [place] [address] Platelet mean volume (Bld) [Entitic vol] 9.4 fL Normal 6.4-10.8 [facility] Comment on above: Performed By: #### 2 158999 #### [facility] [address] [place] [address] Platelets (Bld) [#/Vol] 206.0 E9/L Normal 150.0-500.0 [facility] Comment on above: Performed By: #### 2 932010 #### [facility] [address] [place] [address] RBC (Bld) [#/Vol] 4.4 E12/L Normal 4.3-5.9 [facility] Comment on above: Performed By: #### 2 971430 #### [facility] [address] [place] [address] WBC corrected for nucl RBC Auto (Bld) [#/Vol] 6.3 E9/L Normal 4.0-11.0 [facility] Comment on above: Result Comment: Slid e review performed Performed By: #### 2 [id number] #### [facility] [address] [place] [address] CT Head or Brain w/o Contras ton 12-24-2023 CT Head or Brain w/o Contrast Exam Date/Time: 12/24/2023 11:30 EDT Reason for Exam: Head trauma, mod-severe;Other (please specify) Report IMPRESSION: NO ACUTE INTRACRANIAL PROCESS IDENTIFIED. MODERATE FOREHEAD SCALP SOFT TISSUE SWELLING/HEMATOMA. EXAM: CT Head or Brain w/o Contrast DATE: 12/24/2023 11:16 AM CLINICAL HISTORY: Head trauma, mod-severe. COMPARISON: None available. TECHNIQUE: Routine. All CT scans at this facility use dose modulation, iterative reconstruction, and/or weight based dosing when appropriate to reduce radiation dose to as low as reasonably achievable. FINDINGS: A moderate-sized area of forehead scalp scalp swelling/hematoma is present the midline. There is no intracranial hemorrhage, mass effect, midline shift, extra-axial collection, evidence of hydrocephalus, skull fracture, or a recent ischemic infarct identified. Mild generalized cerebral volume loss is present, with mild patchy supratentorial white matter changes most consistent with chronic small vessel ischemic disease. The mastoid air cells and visualized paranasal sinuses are essentially clear. Ordering Provider: Isaias Caballero FINAL REPORT Dictated: 12/24/2023 11:47 am Cory Malave MD Signed (Electronic Signature): 12/24/2023 11:47 am Signed by: Cory Malave MD Transcribed by: DAVIDSON Technologist: WILL Technical Comments Contrast: None Normal [facility] CT Spine Cervical w/o Contra ston 12-24-2023 CT Spine Cervical w/o Contrast Exam Date/Time: 12/24/2023 11:30 EDT Reason for Exam: Neck trauma;Other (please specify) Report IMPRESSION: NO FRACTURE OR EVIDENCE OF CERVICAL SPINE INJURY IDENTIFIED. EXAM: CT Spine Cervical w/o Contrast DATE: 12/24/2023 CLINICAL HISTORY: Neck trauma. COMPARISON: None available. TECHNIQUE: Spiral unenhanced images were obtained of the cervical spine, with routine reconstructions performed. All CT scans at this facility use dose modulation, iterative reconstruction, and/or weight based dosing when appropriate to reduce radiation dose to as low as reasonably achievable. FINDINGS: The spine is visualized from the craniovertebral junction through the T1-T2 level. There is no acute fracture, dislocation, or acute paraspinal soft tissue abnormalities identified. 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 Moderate to marked left neural foraminal narrowing C4-5 through C6-7. Ordering Provider: Isaias Caballero FINAL REPORT Dictated: 12/24/2023 11:51 am Cory Malave MD Signed (Electronic Signature): 12/24/2023 11:51 am Signed by: Cory Malave MD Transcribed by: DAVIDSON Technologist: WILL Normal [facility] Consent for Treatmenton 12-02 Consent for Treatment [id number]# 1.00TIFF [facility] Discharge Instructionson Discharge Instructions [id number]# 1.00TIFF Normal [facility] ED Clinical Summaryon 2023 ED Clinical Summary [place] [address] ED Clinical Summary Person Information Name: ML HASSAN Janneth/[facility] Age: 73 Years : 1950 Sex: Male Language: Tuvaluan PCP: VIET CANNNO DO Marital Status: Visit Id: Visit Reason: Wrist pain-swelling; Closed head injury without LOC; Trauma - minor; Fall; FALL Speciality: Acuity: 2 Enc Type: Emergency Med Service: Emergency Arrival: 12/24/2023 10:53:12 Discharge: 12/24/2023 14:32:03 LOS: 000 03:39 Checkin: 12/24/2023 10:53:12 Checkout: 12/24/2023 14:32:03 Dispo Type: Home (Routine DC) EVENTS: Event Name Event Status Request Date/Time Start Date/Time Complete Date/Time Arrive Complete 12/24/2023 10:53:12 12/24/2023 10:53:12 12/24/2023 10:53:12 Document Home Meds Request 12/24/2023 10:53:12 Triage Complete 12/24/2023 10:53:12 12/24/2023 11:05:08 12/24/2023 11:05:08 Bed Assign Complete 12/24/2023 10:53:12 12/24/2023 10:53:12 12/24/2023 10:53:12 Dr Exam Complete 12/24/2023 10:53:12 12/24/2023 10:56:18 12/24/2023 10:56:18 RN Exam Complete 12/24/2023 10:53:12 12/24/2023 11:08:54 12/24/2023 11:08:54 Registration Complete 12/24/2023 10:56:18 12/24/2023 11:58:21 12/24/2023 11:58:21 EKG Complete 12/24/2023 11:02:34 12/24/2023 11:15:26 Meds Admin Request 12/24/2023 11:02:34 Pending Labs Request 12/24/2023 11:02:34 Lab Complete 12/24/2023 11:02:34 12/24/2023 11:38:19 X-Ray Complete 12/24/2023 11:02:34 12/24/2023 11:23:09 12/24/2023 11:45:13 CT Complete 12/24/2023 11:02:34 12/24/2023 11:03:47 12/24/2023 11:30:40 Pending Labs Complete 12/24/2023 11:11:53 12/24/2023 11:11:53 12/24/2023 11:32:32 Lab Complete 12/24/2023 11:11:53 12/24/2023 11:11:53 12/24/2023 11:32:32 Trauma II Request 12/24/2023 11:14:59 X-Ray Complete 12/24/2023 11:31:32 12/24/2023 11:43:20 12/24/2023 11:45:13 Wet Read Request 12/24/2023 11:45:13 Reg Complete Request 12/24/2023 11:58:21 Reg Bed Request Complete 12/24/2023 11:58:21 12/24/2023 11:58:21 12/24/2023 11:58:21 Meds Admin Complete 12/24/2023 12:10:18 12/24/2023 12:16:25 Pending Labs Complete 12/24/2023 12:13:17 12/24/2023 12:13:17 12/24/2023 12:13:17 X-Ray Complete 12/24/2023 12:22:22 12/24/2023 12:24:53 12/24/2023 12:36:07 Patient Care Complete 12/24/2023 14:04:17 12/24/2023 14:21:49 Discharge Complete 12/24/2023 14:04:52 12/24/2023 14:32:09 12/24/2023 14:32:09 Transfer Complete 12/24/2023 14:32:09 12/24/2023 14:32:09 12/24/2023 14:32:09 ADDRESS: [address] [place] [address] [place] [id number] PHYS DOC NOTES: MEDICAL INFORMATION: Prescriptions Given: New Medications [facility], [address], [place] [id number], [phone] acetaminophen-oxycodo ne (Percocet 5 mg-325 mg oral tablet) 1 Tablets By Mouth every 6 hours as needed as needed for pain for 3 Days. Refills: 0. Medications to Continue with No Changes Other Medications albuterol (ProAir HFA) cilazapril-hydrochlor othiazide (Apo-Cilazapril/HCTZ) fluticasone nasal (Flonase) folic acid (folic acid 0.4 mg Tab) 1 Tablets By Mouth every day. lisinopril methotrexate montelukast (Singulair) nebivolol (Bystolic) niacin omeprazole (Prilosec) tamsulosin (tamsulosin 0.4 mg Cap) 1 Capsules By Mouth every day. Refills: 11. tizanidine (Zanaflex) PATIENT EDUCATION INFORMATION: Instructions: Metacarpal Fracture; Head Injury, Adult Follow up: With: Address: When: Roberta Ames [address] [place] [address] Business (1) In 3 days 12/27/2023 With: Address: When: VIET CANNON [address] [place] [phone] Business (1) In 3 days 12/27/2023 DIAGNOSIS: Fall; Fracture, metacarpal; Head injury; Right bundle branch block Normal [facility] ED Patient Education Noteon 12-24-2023 ED Patient Education Note Neurology Head Injury, Adult There are many types of head injuries. Head injuries can be as minor as a small bump, or they can be a serious medical issue. More severe head injuries include: ? A jarring injury to the brain (concussion). ? A bruise (contusion) of the brain. This means there is bleeding in the brain that can cause swelling. ? A cracked skull (skull fracture). ? Bleeding in the brain that collects, clots, and forms a bump (hematoma). After a head injury, most problems occur within the first 24 hours, but side effects may occur up to 7?10 days after the injury. It is important to watch your condition for any changes. You may need to be observed in the emergency department or urgent care, or you may be admitted to the hospital. What are the causes? There are many possible causes of a head injury. Serious head injuries may be caused by car accidents, bicycle or motorcycle accidents, sports injuries, falls, or being struck by an object. What are the symptoms? Symptoms of a head injury include a contusion, bump, or bleeding at the site of the injury. Other physical symptoms may include: ? Headache. ? Nausea or vomiting. ? Dizziness. ? Blurred or double vision. ? Being uncomfortable around bright lights or loud noises. ? Seizures. ? Feeling tired. ? Trouble being awakened. ? Loss of consciousness. Mental or emotional symptoms may include: ? Irritability. ? Confusion and memory problems. ? Poor attention and concentration. ? Changes in eating or sleeping habits. ? Anxiety or depression. How is this diagnosed? This condition can usually be diagnosed based on your symptoms, a description of the injury, and a physical exam. You may also have imaging tests done, such as a CT scan or an MRI. How is this treated? Treatment for this condition depends on the severity and type of injury you have. The main goal of treatment is to prevent complications and allow the brain time to heal. Mild head injury If you have a mild head injury, you may be sent home, and treatment may include: ? Observation. A responsible adult should stay with you for 24 hours after your injury and check on you often. ? Physical rest. ? Brain rest. ? Pain medicines. Severe head injury If you have a severe head injury, treatment may include: ? Close observation. This includes hospitalization with the following care: ? Frequent physical exams. ? Frequent checks of how your brain and nervous system are working (neurological status). ? Checking your blood pressure and oxygen levels. ? Medicines to relieve pain, prevent seizures, and decrease brain swelling. ? Airway protection and breathing support. This may include using a ventilator. ? Treatments that monitor and manage swelling inside the brain. ? Brain surgery. This may be needed to: ? Remove a collection of blood or blood clots. ? Stop the bleeding. ? Remove a part of the skull to allow room for the brain to swell. Follow these instructions at home: Activity ? Rest and avoid activities that are physically hard or tiring. ? Make sure you get enough sleep. ? Let your brain rest by limiting activities that require a lot of thought or attention, such as: ? Watching TV. ? Playing memory games and puzzles. ? Job-related work or homework. ? Working on the computer, using social media, and texting. ? Avoid activities that could cause another head injury, such as playing sports, until your health care provider approves. Having another head injury, especially before the first one has healed, can be dangerous. ? Ask your health care provider when it is safe for you to return to your regular activities, including work or school. Ask your health care provider for a lhbu-qc-yxmv plan for gradually returning to activities. ? Ask your health care provider when you can drive, ride a bicycle, or use heavy machinery. Your ability to react may be slower after a brain injury. Do not do these activities if you are dizzy. Lifestyle ? Do not drink alcohol until your health care provider approves. Do not use drugs. Alcohol and certain drugs may slow your recovery and can put you at risk of further injury. ? If it is harder than usual to remember things, write them down. ? If you are easily distracted, try to do one thing at a time. ? Talk with family members or close friends when making important decisions. ? Tell your friends, family, a trusted colleague, and falsework builder about your injury, symptoms, and restrictions. Have them watch for any new or worsening problems. General instructions ? Take lcwl-dce-jhhaodk and prescription medicines only as told by your health care provider. ? Have someone stay with you for 24 hours after your head injury. This person should watch you for any changes in your symptoms and be ready to seek medical help. ? Keep all follow-up visits as told by your health care pr (more content not included)... Normal [facility] ED Patient Summaryon 024 ED Patient Summary [address] [address] Patient Discharge Instructions Person Information Name: ML HASSAN Age: 73 Years Arrival Date: 12/24/2023 10:53:12 Discharge Diagnosis: Fall; Fracture, metacarpal; Head injury; Right bundle branch block Primary Care Physician: VIET CANNON DO Provider Information Primary Provider: Advanced Wheel And Axle Inspector:Isaias Caballero PA-C The exam and treatment you received in the Emergency Department were for an urgent problem and are not intended as complete care. It is important that you follow up with a doctor, nurse practitioner, or physician?s assistant infant toddler teacher for ongoing care. If your symptoms become worse or you do not improve as expected and you are unable to reach your usual health care provider, you should return to the Emergency Department. We are available 24 hours a day. SONYAML DEL REAL has been given the following list of patient education materials, prescriptions and follow-up instructions: Follow-up Instructions: With: Address: When: Roberta Ames [address] [place] [address] Business (1) In 3 days 12/27/2023 With: Address: When: VIET CANNON [address] [place] [address] Business (1) In 3 days 12/27/2023 In the event that this physician does not participate in your insurance network, please consult with your insurance company to find a nearby participating provider. Patient Education Materials: Metacarpal Fracture; Head Injury, Adult A MESSAGE TO ALL PATIENTS REGARDING OPIOIDS PRESCRIPTION OPIOIDS: WHAT YOU NEED TO KNOW Prescription opioids can be used to help relieve gcycgddm-ii-tjqjys pain and are often prescribed following a surgery or injury, or for certain health conditions. These medications can be an important part of the treatment but also come with serious risks. It is important to work with your healthcare provider to make sure you are getting the safest, most effective care. WHAT ARE THE RISKS AND SIDE EFFECTS OF OPIOID USE? Prescription opioids carry serious risks of addiction and overdose, especially with prolonged use. An opioid overdose, often marked by slowed breathing, can cause sudden . The use of prescription opioids can have a number of side effects as well, even when taken as directed: ? Tolerance?meaning you might need to take more of the medication for the same pain relief ? Physical dependence?meaning you have symptoms of withdrawal when a medication is stopped ? Increased sensitivity to pain ? Constipation ? Nausea, vomiting, and dry mouth ? Sleepiness and dizziness ? Confusion ? Depression ? Low levels of testosterone that can result in lower sex drive, energy, and strength ? Itching and sweating RISKS ARE GREATER WITH: ? History of drug misuse, substance use disorder, or overdose ? Mental health conditions (such as depression or anxiety) ? Sleep apnea ? Older age (65 years and older) ? Avoid alcohol while taking prescription opioids. Also, unless specifically advised by your health care provider, medications to avoid include: ? Benzodiazepines (such as Xanax or Valium) ? Muscle relaxants (such as Soma or Flexeril) ? Hypnotics (such as Ambien or Lunesta) ? Other prescription opioids KNOW YOUR OPTIONS Talk to your health care provider about ways to manage your pain that don?t involve prescription opioids. Some of these options may actually work better and have fewer risks and side effects. Options may include: ? Pain relievers such as acetaminophen, ibuprofen, and naproxen ? Some medication that are also used for depression or seizures ? Physical therapy and exercise ? Cognitive behavioral therapy, a psychological, goal-directed approach, in which patients learn how to modify physical, behavioral, and emotional triggers of pain and stress. IF YOU ARE PRESCRIBED OPIOIDS FOR PAIN: ? Never take opioids in greater amounts or more often than prescribed. ? Follow up with your primary health care provider. o Work together to create a plan on how to manage your pain. o Talk about ways to help manage your pain that don?t involve prescription opioids. o Talk about any and all concerns and side effects. ? Help prevent misuse and abuse o Never sell or share prescription opioids. o Never use another person?s prescription opioids. ? Store prescription opioids in a secure place and out of reach of others (this may include visitors, children, friends, and family). ? Safely dispose of unused prescription opioids: Find your community drug take-back program or your pharmacy mail-back program, or flush them down the toilet, following guidance from the Food and Drug Administration (www.fda.gov/Drugs/Re sourcesForYou). ? Visit www.cdc.gov/drugoverd ose to learn about the risks of opioids abuse and overdose. ? If you casandra (more content not included)... [facility] ED Traumaon 12-24-2023 ED Trauma [id number] #1.00TIFF [facility] EMS Documentationon 12-24-19 24 EMS Documentation Please click on link to see report [facility] Comment on above: Result Comment: Miss lucrecia Attachment - total size limit for all attachments exceeded [email or web address] Can be viewed in source system Monitor Recordon 12-24-2023 Monitor Record [id number]# 1.00TIFF [facility] Monitor Record [id number]# 1.00TIFF [facility] Monitor Record [id number]# 1.00TIFF [facility] Monitor Record [id number]# 1.00TIFF Normal [facility] PT & PTTon 12-24-2023 aPTT Coag (PPP) [Time] 33.9 second(s) Normal 25.1-36.5 [facility] Comment on above: Result Comment: Para meter 15 days - 4 weeks 1 - 5 months 6 - 11 months 1 - 5 years 6 - 10 years 11 - 17 years PTT Mean: 35.4 (27.6-45.6) Mean: 33.5 (24.8-40.7) Mean: 32.4 (25.1-40.7) Mean: 31.6 (24.0-39.2) Mean: 31.6 (26.9-38.7) Mean: 31.0 (24.6-38.4) Pediatric Reference ranges were obtained from a study by Jay Plasencia et al. prepared from 1437 samples obtained at 7 different centers using the same coagulation reagent and instrumentation as [facility]. Currently there are no coagulation studies available worldwide for children to 14 days, and no normal ranges. Heparin therapeutic range (represented by Anti-Factor Xa activity of 0.2 - 0.4 U/mL) corresponds to PTT of 56.6 - 109.0 sec. Performed By: #### 1 [id number] #### [facility] [address] [place] [address] INR Coag (PPP) [Relative time] 1.04 {INR} Invalid Interpretation Code [facility] Comment on above: Result Comment: INR results are specifically intended to assess patients stabilized on long-term Anticoagulation therapy suggested INR?s ?Less Intensive Anticoagulation? 2.0 ? 3.0 Conventional Range 3.0 ? 4.5 Performed By: #### 1 [id number] #### [facility] [address] [place] [address] PT Coag (PPP) [Time] 11.7 second(s) Normal 9.4-12.5 [facility] Comment on above: Result Comment: 15 d ays - 4 weeks 1 - 5 months 6 -11 months 1-5 years 6-10 years 11 -17 years Mean: 11.2 (9.5-12.6) Mean: 11.0 (9.7-12.8) Mean: 11.0 (9.8-13.0) Mean: 11.3 (9.9-13.4) Mean: 11.7 (10.0-14.6) Mean: 11.8 (10.0 - 14.1) Pediatric Reference ranges were obtained from a study by Jay Plasencia et al. prepared from 1437 samples obtained at 7 different centers using the same coagulation reagent and instrumentation as [facility]. Currently there are no coagulation studies available worldwide for children to 14 days, and no normal ranges. Performed By: #### 1 [id number] #### [facility] [address] [place] [address] Pre-Arrival Noteon Pre-Arrival Note Pre-Arrival Summary Name: , KIERANEMS Current Date: 12/24/2023 10:53:45 EDT Gender: Male Date of : Age: 73 Pre-Arrival Type: EMS ETA: 12/24/2023 11:11:00 EDT Primary Care Physician: Presenting Problem: Fall Pre-Arrival User: Jeff GAN, Tram Don Referring Source: Location: [place] Completion Date/Time: 12/24/2023 10:42:00 [facility] Emergency Department Pre-Hospital Report Form __ Vital Signs: 166/82; 64; 18; 97%RA; GCS 15 Pre-Hospital Report: Pt fell, hit head w/ no LOC. On anticoags. L Chest abrasion, L wrist pain. Hematoma and Lac on forehead. Treatment in Route: Response to Treatment: Misc. Issues: Normal [facility] Troponin 0 Hr.on 12-24-2023 Troponin 13.70 pg/mL Low 15.90-38.40 [facility] Comment on above: Result Comment: The 95% CI (Confidence Interval) PPV (Positive Predictive Value) for myocardial infarction in females is 38 pg/mL, in males 51 pg/mL. The results should be used in conjunction with clinical conditions of myocardial infarction. (Accupal High Sensitivity Troponin I Instructions For Use, Stroz Friedberg, March 2018) Performed By: #### 1 [id number] #### [facility] [address] [place] [address] Troponin 1 Hr.on 12-24-2023 Troponin 13.30 pg/mL Low 15.90-38.40 [facility] Comment on above: Order Comment: Tropo siri 1-hr due @ 1207, [id number] 12/24/2023 11:16:58 EDT Result Comment: The 95% CI (Confidence Interval) PPV (Positive Predictive Value) for myocardial infarction in females is 38 pg/mL, in males 51 pg/mL. The results should be used in conjunction with clinical conditions of myocardial infarction. (Accupal High Sensitivity Troponin I Instructions For Use, Stroz Friedberg, March 2018) Performed By: #### 1 [id number] ####[facility] [id number] [place] [address] XR Chest Single Viewon 12-23 XR Chest Single View Exam Date/Time: 12/24/2023 11:45 EDT Reason for Exam: Shortness of breath (SOB) Report IMPRESSION: NO EVIDENCE OF ACTIVE CARDIOPULMONARY DISEASE, BY PORTABLE CHEST RADIOGRAPHY. EXAM: XR Chest Single View DATE: 12/24/2023 11:23 AM CLINICAL HISTORY: Shortness of breath (SOB). COMPARISON: None available. TECHNIQUE: A portable upright AP radiograph of the chest was obtained. FINDINGS: There is no significant pulmonary infiltrate, cardiomegaly, vascular congestion, sizable pleural effusion, pneumothorax, or displaced fractures identified. Ordering Provider: Isaias Caballero FINAL REPORT Dictated: 12/24/2023 1:50 pm Cory Malave MD Signed (Electronic Signature): 12/24/2023 1:50 pm Signed by: Cory Malave MD Transcribed by: DAVIDSON Technologist: STEPHEN Technical Comments Radiation Dose: Ka,r in mGy = na DAP = na Normal [facility] XR Hand 3+ Views Lefton 12-02 XR Hand 3+ Views Left Exam Date/Time: 12/24/2023 11:45 EDT Reason for Exam: Pain, Traumatic Report IMPRESSION: MILDLY DISPLACED FRACTURES OF THE LEFT FIFTH METACARPAL BASE. EXAM: XR Hand 3+ Views Left DATE: 12/24/2023 11:43 AM CLINICAL HISTORY: Pain, Traumatic. COMPARISON: None available. TECHNIQUE: PA, lateral, and oblique radiographs of the left hand were obtained. FINDINGS: Mildly displaced mildly comminuted fractures are present of the base of the left fifth metacarpal, with the main fracture fragments in near anatomic alignment. There is no other fracture, dislocation, worrisome bone destruction, abnormal radiodense foreign bodies, or other posttraumatic complication identified elsewhere. Moderate degenerative changes are present in the first carpometacarpal joint, with minimal degenerative changes elsewhere. Ordering Provider: Isaias Caballero FINAL REPORT Dictated: 12/24/2023 1:52 pm Cory Malave MD Signed (Electronic Signature): 12/24/2023 1:52 pm Signed by: Cory Malave MD Transcribed by: DAVIDSON Technologist: Technical Comments Radiation Dose: Ka,r in mGy = na DAP = na Normal [facility] XR Hand 3+ Views Righton XR Hand 3+ Views Right Exam Date/Time: 12/24/2023 12:36 EDT Reason for Exam: Pain, Traumatic Report IMPRESSION: NO DISPLACED FRACTURE OR SIGNIFICANT POSTTRAUMATIC COMPLICATION IDENTIFIED. EXAM: XR Hand 3+ Views Right DATE: 12/24/2023 12:24 PM CLINICAL HISTORY: Pain, Traumatic. COMPARISON: None available. TECHNIQUE: PA, lateral, and oblique radiographs of the right hand were obtained. FINDINGS: There is no fracture, significant degenerative changes, dislocation, worrisome bone destruction, radiodense foreign bodies, or other posttraumatic complication identified. Ordering Provider: Isaias Caballero FINAL REPORT Dictated: 12/24/2023 3:07 pm Cory Malave MD Signed (Electronic Signature): 12/24/2023 3:07 pm Signed by: Cory Malave MD Transcribed by: DAVIDSON Technologist: Technical Comments Radiation Dose: Ka,r in mGy = na DAP = na Normal [facility] eGFRon 12-24-2023 eGFR 57 mL/min/1.73 m2 Low >=59 [facility] Comment on above: Order Comment: Order added by Discern Expert. Performed By: #### 1 [id number] #### [facility] [address] [place] [address] Office Visiton 11-30-2023 Follow-up visit [id number] Ml Hassan 1950 M Date Provider Department Center 11/30/2023 [facility] Gabino Haynes Family History Problem Relation Age of Onset Lung cancer Mother Lung cancer Father Family Status - Relation Status Age at Mother Father Level of Service:31410 IN OFFICE/OUTPATIENT ESTABLISHED MOD MDM 30 MIN Normal [facility] 36on 11-25-2023 36 Messi Yun RN from [facility] cardiac rehab informed me Mr. Hassan's BP was 238/92 after walking the treadmill for PAD rehab. We advised patient to go to the ED. Mr. Hassan did not want to do this. I reviewed his meds with Messi and advised patient to take an extra dose of lisinopril (2.5mg) when he gets home. Messi said his BP came down to 160 systolic before patient left rehab today. I made him an apt with Dr. Barfield for this upcoming Thursday, 11/29 at 9am. Advised patient to report to the ED for another high BP episode of this kind. Normal [facility] Basophils Auto (Bld) [#/Vol] on 11-05-2023 Basophils (Bld) [#/Vol] 0.1 10 3/uL 0.0-0.1 [facility] Basophils/100 WBC Auto (Bld) on 11-05-2023 Basophils/100 WBC (Bld) 1.0 % 0.2-2.0 [facility] Cholesterol in LDL Calc [Mas s/Vol]on 11-05-2023 Cholesterol in LDL [Mass/Vol] 54.2 mg/dL [facility] Comment on above: <100 mg/dl [id number] 0-129 mg/dl NEAR OR ABOVE [id number] mg/dl BORDERLINE [id number] mg/dl HIGH>190 mg/dl VERY HIGH Cholesterol in VLDL Calc [Ma ss/Vol]on 11-05-2023 Cholesterol in VLDL [Mass/Vol] 28.8 mg/dL [facility] Eosinophils/100 WBC Auto (Bl d)on 11-05-2023 Eosinophils/100 WBC (Bld) 2.8 % 0.9-7.0 [facility] Erythrocyte distribution wid th Auto (RBC) [Ratio]on 11-05-2023 Erythrocyte distribution width (RBC) [Ratio] 13.2 % 11.0-15.0 [facility] Estimated glomerular filtrat ion rate (GFR) non- Americanon 11-05-2023 GFR/1.73 sq M.predicted among non-blacks MDRD (S/P/Bld) [Vol rate/Area] 48 mL/min/{1.73_m2} >=60 [facility] Globulin Calc (S) [Mass/Vol] on 11-05-2023 Globulin (S) [Mass/Vol] 3.2 g/dL [facility] Hematocrit Auto (Bld) [Volum e fraction]on 11-05-2023 Hematocrit (Bld) [Volume fraction] 41.4 % 42.0-54.0 [facility] Hemoglobin [Mass/volume] in Bloodon 11-05-2023 Hemoglobin (Bld) [Mass/Vol] 13.1 g/dL 14.0-18.0 [facility] Laboratory - Chemistry and C hemistry - challengeon 11-05-2023 Albumin [Mass/Vol] 3.7 g/dL 3.4-5.0 [facility] ALP [Catalytic activity/Vol] 46 U/L 46-116 [facility] ALT [Catalytic activity/Vol] 26 U/L 16-63 [facility] AST [Catalytic activity/Vol] 20 U/L 15-37 [facility] Bilirubin [Mass/Vol] 0.7 mg/dL 0.2-1.0 [facility] Calcium [Mass/Vol] 9.2 mg/dL 8.5-10.1 [facility] Chloride [Moles/Vol] 103 mmol/L 98-107 [facility] Cholesterol [Mass/Vol] 135 mg/dL <=200 [facility] Cholesterol in HDL [Mass/Vol] 52 mg/dL 40-60 [facility] Comment on above: > or =60 mg/dl - LOW CARDIOVASCULAR RISK<40 mg/dl - HIGH CARDIOVASCULAR RISK CO2 [Moles/Vol] 26.0 mmol/L 21.0-32.0 [facility] Creatinine [Mass/Vol] 1.43 mg/dL 0.70-1.30 [facility] GFR/1.73 sq M.predicted MDRD (S/P/Bld) [Vol rate/Area] 58 mL/min/{1.73_m2} >=60 [facility] Glucose [Mass/Vol] 100 mg/dL 74-106 [facility] Potassium [Moles/Vol] 4.0 mmol/L 3.5-5.1 [facility] Protein [Mass/Vol] 6.9 g/dL 6.4-8.2 [facility] Sodium [Moles/Vol] 140 mmol/L 136-145 [facility] Triglyceride [Mass/Vol] 144 mg/dL <=150 [facility] Urea nitrogen [Mass/Vol] 23.0 mg/dL 7.0-18.0 [facility] Urea nitrogen/Creatinine [Mass ratio] 16.1 mg/mg [facility] Laboratory - Hematology and Cell countson 11-05-2023 Immature granulocytes/100 WBC (Bld) 0.8 % 0.0-0.5 [facility] Leukocytes [#/volume] correc paulo for nucleated erythrocytes in Blood by Automated counon 11-05-2023 WBC corrected for nucl RBC Auto (Bld) [#/Vol] 7.1 10 3/uL 4.0-11.0 [facility] Lymphocytes Auto (Bld) [#/Vo l]on 11-05-2023 Lymphocytes (Bld) [#/Vol] 1.5 10 3/uL 1.2-3.8 [facility] Lymphocytes/100 WBC Auto (Bl d)on 11-05-2023 Lymphocytes/100 WBC (Bld) 21.1 % 20.5-60.0 [facility] MCH Auto (RBC) [Entitic mass ]on 11-05-2023 MCH (RBC) [Entitic mass] 29.8 pg 25.9-34.0 [facility] MCHC Auto (RBC) [Mass/Vol]on 11-05-2023 MCHC (RBC) [Mass/Vol] 31.6 g/dL 29.9-35.2 [facility] MCV Auto (RBC) [Entitic vol] on 11-05-2023 MCV (RBC) [Entitic vol] 94.3 fL 80.0-94.0 [facility] Monocytes Auto (Bld) [#/Vol] on 11-05-2023 Monocytes (Bld) [#/Vol] 1.0 10 3/uL 0.3-0.8 [facility] Monocytes/100 WBC Auto (Bld) on 11-05-2023 Monocytes/100 WBC (Bld) 14.0 % 1.7-12.0 [facility] Neutrophils Auto (Bld) [#/Vo l]on 11-05-2023 Neutrophils (Bld) [#/Vol] 4.3 10 3/uL 1.4-6.5 [facility] Neutrophils/100 WBC Auto (Bl d)on 11-05-2023 Neutrophils/100 WBC (Bld) 60.3 % 43.0-75.0 [facility] No Panel Informationon 11-04 Eosinophils # (Auto) 0.2 10 3/uL 0.0-0.7 [facility] Immature Granulocyte # (Auto) 0.06 10 3/uL 0.00-0.03 [facility] Prostate Specific Antigen Screen 1.17 ng/mL <=4.00 [facility] Platelet mean volume Auto (B ld) [Entitic vol]on 11-05-2023 Platelet mean volume (Bld) [Entitic vol] 10.7 fL 9.5-13.5 [facility] Platelets Auto (Bld) [#/Vol] on 11-05-2023 Platelets (Bld) [#/Vol] 213 10 3/uL 150-450 [facility] RBC Auto (Bld) [#/Vol]on RBC (Bld) [#/Vol] 4.39 10 6/uL 4.70-6.10 [facility] Serum or plasma albumin/glob ulin mass ratioon 11-05-2023 Albumin/Globulin [Mass ratio] 1.2 {ratio} [facility] Serum or plasma anion gap de terminationon 11-05-2023 Anion gap [Moles/Vol] 15.0 mmol/L [facility] Serum or plasma total choles terol/high density lipoprotein (HDL) cholesterol mass fernando 11-05-2023 Cholesterol.total/Ana sterol in HDL [Mass ratio] 2.6 {ratio} [facility] Comment on above: 3.3 - 4.4 LOW RISK4. 4 - 7.1 AVERAGE RISK7.1 - 11.0 MODERATE RISK>11.0 HIGH RISK Centriole Ab [Titer] in Seru m by Immunofluorescenceon 09-30-2023 Centriole Ab IF (S) [Titer] TNP . [facility] Centromere Ab [Titer] in Ser um by Immunofluorescenceon 09-30-2023 Centromere Ab IF (S) [Titer] TNP . [facility] Laboratory - Chemistry and C hemistry - challengeon 09-30-2023 Urate [Mass/Vol] 7.3 mg/dL 3.5-7.2 [facility] Laboratory - Hematology and Cell countson 09-30-2023 ESR (Bld) [Velocity] 8 mm/h <=20 [facility] Midbody Ab [Titer] in Serum by Immunofluorescenceon 09-30-2023 Midbody Ab IF (S) [Titer] TNP . [facility] Mitotic spindle apparatus Ab [Titer] in Serum or Plasma by Immunofluorescenceon 09-30-2023 Mitotic spindle apparatus Ab IF [Titer] TNP . [facility] No Panel Informationon 09-30 Anti-Nuclear Antibody Comment 2 Comment . [facility] Comment on above: Pattern Potential Di sease Association Homogeneous Systemic Lupus Erythematosus, Drug Induced Systemic Lupus Erythematosus, Chronic Autoimmune hepatitis, Juvenile Idiopathic Arthritis Speckled Sjogren Syndrome, Systemic Lupus Erythematosus, Subacute Cutaneous Lupus, Lupus, Congenital Heart Block, Mixed Connective Tissue Disease, Scleroderma-diffuse, Scleroderma-Autoimmune Myositis Overlap Syndrome, Systemic Lupus Dfvqskpafgewx-Wglmkrartkw-Wnqragcpov Myositis Overlap Syndrome, Systemic Autoimmune Rheumatic Disease, Undifferentiated Connective Tissue Disease Nucleolar Systemic Sclerosis, Scleroderma-Autoimmune Myositis Overlap Syndrome, Sjogren Syndrome, Raynaud phenomenon, Pulmonary Arterial Hypertension, Systemic Autoimmune Rheumatic Disease, Cancer Centromere Scleroderma-CREST, Limited Cutaneous SSc, Raynaud's Phenomenon, Primary Biliary Cholangitis Nuclear Dot Primary Biliary Cholangitis Nuclear Primary Biliary Cholangitis, AutoimmuneMembrane Hepatitis/Liver disease, Systemic Autoimmune Rheumatic Disease, Autoimmune Cytopenias, Linear Scleroderma, Antiphospholipid Syndrome Performed at: - [facility] [address] [id number] Director: Mike Meng PhD, Phone: [phone] C-Reactive Protein, Quantitative <0.50 mg/dL <=0.50 [facility] Nuclear dots nuclear Ab anna pierre [Titer] in Serum by Immunofluorescenceon 09-30-2023 Nuclear dots nuclear Ab pattern IF (S) [Titer] TNP . [facility] Nuclear membrane pores nucle ar Ab pattern [Titer] in Serum by Immunofluorescenceon 09-30-2023 Nuclear membrane pores nuclear Ab pattern IF (S) [Titer] TNP . [facility] PCNA extractable nuclear Ab [Titer] in Serum by Immunofluorescenceon 09-30-2023 PCNA extractable nuclear Ab IF (S) [Titer] TNP . [facility] Serum homogeneous pattern an tinuclear antibody (CHENCHO) titeron 09-30-2023 Homogenous nuclear Ab pattern (S) [Titer] 1:80 . [facility] Comment on above: ICAP nomenclature: A C-1 Serum nuclear antibody titer on 09-30-2023 Nuclear Ab (S) [Titer] Positive . [facility] Comment on above: Negative <1:80 [place] 1:80 Positive >1:80 Serum nucleolar pattern anti nuclear antibody (CHENCHO) titeron 09-30-2023 Nucleolar nuclear Ab pattern (S) [Titer] [place] . [facility] Serum or plasma rheumatoid f actor measurement (units/volume)on 09-30-2023 Rheumatoid factor Qn [IU]/mL <14.0 [facility] Comment on above: Performed at: CB - [facility] [address] [id number] Director: Mike Meng PhD, Phone: [phone] Serum speckled pattern antin uclear antibody (CHENCHO) titeron 09-30-2023 Speckled nuclear Ab pattern (S) [Titer] [place] . [facility] Office Visiton 06-18-2023 Follow-up visit [id number] Ml Hassan 1950 M Date Provider Department Center 06/18/2023 [facility]IE DOHERTY [facility] Family History Problem Relation Age of Onset Lung cancer Mother Lung cancer Father Family Status - Relation Status Age at Mother Father Level of Service:54045 IN OFFICE/OUTPATIENT ESTABLISHED LOW MDM 20-29 MIN Normal [facility] Cult,Bloodon 06-17-2023 Cult,Blood Specimen Description .BLOOD Special Requests RIGHT AC 20ML Culture NO GROWTH 6 DAYS Report Status FINAL 06/17/2023 [facility] Comment on above: Performed By: #### T ROPI, LIP, BMP, LACDS, CDP #### [facility] [address] [place] [address] Chip Mixing Machine Operator: Michael Gamez MD Cult,Blood Specimen Description .BLOOD Special Requests RIGHT HAND 20ML Culture NO GROWTH 6 DAYS Report Status FINAL 06/17/2023 [facility] Comment on above: Performed By: #### T ROPI, LIP, BMP, LACDS, CDP #### [facility] [address] [place] [address] [employer] Mixing Machine Operator: Michael Gamez MD Organism ID w/ Sension 06-14 Organism ID w/ Sensi Specimen Descriptio n .FECES Culture SALMONELLA SPECIES Susceptibility to follow. Report Status FINAL 06/13/2023 [facility] Comment on above: Performed By: #### T ROPI, LIP, BMP, LACDS, CDP #### [facility] [address] [place] [address] [employer] Mixing Machine Operator: Michael Gamez MD Basic Metabolic Profon 06-13 Anion gap [Moles/Vol] 10 mmol/L Normal 04-19 [facility] Comment on above: Performed By: #### B MP, MG #### [facility] [address] [place] [address] [employer] Mixing Machine Operator: Michael Gamez MD BUN/CRE Ratio 10 Normal 04-22 [facility] Comment on above: Performed By: #### B MP, MG #### [facility] [address] [place] [address] [employer] Mixing Machine Operator: Michael Gamez MD Calcium [Mass/Vol] 8.8 mg/dL Normal 8.6-10.4 [facility] Comment on above: Performed By: #### B MP, MG #### [facility] [address] [place], [place] [id number] [employer] Mixing Machine Operator: Michael Gamez MD Chloride [Moles/Vol] 105 mmol/L Normal 98-107 [facility] Comment on above: Performed By: #### B MP, MG #### [facility] [address] [place], [place] [id number] [employer] Mixing Machine Operator: Michael Gamez MD CO2 [Moles/Vol] 19 mmol/L Low 20-31 [facility] Comment on above: Performed By: #### B MP, MG #### [facility] [address] [place], [place] [id number] [employer] Mixing Machine Operator: Michael Gamez MD Creatinine [Mass/Vol] 1.8 mg/dL High 0.7-1.2 [facility] Comment on above: Performed By: #### B MP, MG #### [facility] [address] [place], [place] [id number] [employer] Mix[employer] Machine Operator: Michael Gamez MD GFR/1.73 sq M.predicted among non-blacks MDRD (S/P/Bld) [Vol rate/Area] 39 mL/min/{1.73_m2} Low >60 [facility] Comment on above: Result Comment: These [...] Performed By: #### B MP, MG #### [facility] [address] [place] [address] [employer] Machine Operator: Michael Gamez MD Glucose [Mass/Vol] 105 mg/dL High 70-99 [facility] Comment on above: Performed By: #### B MP, MG #### [facility] [address] [place], [place] [phone] [employer] Operator: Michael Gamez MD Potassium [Moles/Vol] 3.9 mmol/L Normal 3.7-5.3 [facility] Comment on above: Performed By: #### B MP, MG #### [facility] [address] [place], [place] [phone] [employer] Operator: Michael Gamez MD Sodium [Moles/Vol] 134 mmol/L Low 135-144 [facility] Comment on above: Performed By: #### B MP, MG #### [facility] [address] [place], [place] [phone] [employer] Operator: Michael Gamez MD Urea nitrogen [Mass/Vol] 18 mg/dL Normal 8-23 [facility] Comment on above: Performed By: #### B MP, MG #### [facility] [address] [place], [place] [phone] [employer] Operator: Michael Gamez MD Magnesiumon 06-13-2023 Magnesium [Mass/Vol] 2.1 mg/dL Normal 1.6-2.6 [facility] Comment on above: Performed By: #### B MP, MG #### [facility] [address] [place], [place] [phone] [employer] Operator: Michael Gamez MD Basic Metabolic Profon 06-12 Anion gap [Moles/Vol] 9 mmol/L Normal 9-17 [facility] Comment on above: Performed By: #### T ROPI, LIP, BMP, LACDS, CDP #### [facility] [address] [place], [place] [phone] [employer] Operator: Michael Gamez MD BUN/CRE Ratio 14 Normal 9-20 [facility] Comment on above: Performed By: #### T ROPI, LIP, BMP, LACDS, CDP #### [facility] [address] [place] [address] [employer] Operator: Michael Gamez MD Calcium [Mass/Vol] 8.8 mg/dL Normal 8.6-10.4 [facility] Comment on above: Performed By: #### T ROPI, LIP, BMP, LACDS, CDP #### [facility] [address] [place] [address] [employer] Operator: Michael Gamez MD Chloride [Moles/Vol] 108 mmol/L High 98-107 [facility] Comment on above: Performed By: #### T ROPI, LIP, BMP, LACDS, CDP #### [facility] [address] [place] [address] [employer] Operator: Michael Gamez MD CO2 [Moles/Vol] 19 mmol/L Low 20-31 [facility] Comment on above: Performed By: #### T ROPI, LIP, BMP, LACDS, CDP #### [facility] [address] [place] [address] [employer] Operator: Michael Gamez MD Creatinine [Mass/Vol] 2.2 mg/dL High 0.7-1.2 [facility] Comment on above: Performed By: #### T ROPI, LIP, BMP, LACDS, CDP #### [facility] [address] [place] [address] [employer] Operator: Michael Gamez MD GFR/1.73 sq M.predicted among non-blacks MDRD (S/P/Bld) [Vol rate/Area] 30 mL/min/{1.73_m2} Low >60 [facility] Comment on above: Result Comment: These [...] renal tubular secretion. Performed By: #### T SHAAN, HIRAM, BMP, LACDS, CDP #### [facility] [address] [place] [address] [employer] Operator: Michael Gamez MD Glucose [Mass/Vol] 120 mg/dL High 70-99 [facility] Comment on above: Performed By: #### T AMAI, LIP, BMP, LACDS, CDP #### [facility] [address] [place] [address] [employer] Operator: Michael Gamez MD Potassium [Moles/Vol] 3.6 mmol/L Low 3.7-5.3 [facility] Comment on above: Performed By: #### T SHAAN LIP, BMP, LACDS, CDP #### [facility] [address] [place] [address] [employer] Operator: Michael Gamez MD Sodium [Moles/Vol] 136 mmol/L Normal 135-144 [facility] Comment on above: Performed By: #### T SHAAN, LIP, BMP, LACDS, CDP #### [facility] [address] [place] [address] [employer] Operator: Michael Gamez MD Urea nitrogen [Mass/Vol] 30 mg/dL High 8-23 [facility] Comment on above: Performed By: #### T AMAI, LIP, BMP, LACDS, CDP #### [facility] [address] [place] [phone] [employer] Operator: Michael Gamez MD CBC with Diffon 06-12-2023 Abs. Basophil 0.04 k/uL Normal 0.00-0.20 [facility] Comment on above: Performed By: #### T SHAAN, LIP, BMP, LACDS, CDP #### [facility] [address] [place] [phone] [employer] Operator: Michael Gamez MD Abs.Imm.Granulocyte 0.05 k/uL Normal 0.00-0.30 [facility] Comment on above: Performed By: #### T ROPI, LIP, BMP, LACDS, CDP #### [facility] [address] [place] [phone] [employer] Operator: Michael Gamez MD Abs.Neutrophil (Seg) 7.42 k/uL High 2.1-6.5 [facility] Comment on above: Performed By: #### T ROPI, LIP, BMP, LACDS, CDP #### [facility] [address] [place] [address] [employer] Operator: Michael Gamez MD Basophils/100 WBC (Bld) 0 % Normal 0-2 [facility] Comment on above: Performed By: #### T ROPI, LIP, BMP, LACDS, CDP #### [facility] [address] [place] [phone] [employer] Operator: Michael Gamez MD Eosinophils (Bld) [#/Vol] 0.05 10*3/uL Normal 0.00-0.40 [facility] Comment on above: Performed By: #### T ROPI, LIP, BMP, LACDS, CDP #### [facility] [address] [place] [address] [employer] Operator: Michael Gamez MD Eosinophils/100 WBC (Bld) 1 % Normal 0-5 [facility] Comment on above: Performed By: #### T ROPI, LIP, BMP, LACDS, CDP #### [facility] [address] [place] [phone] [employer] Operator: Michael Gamez MD Erythrocyte distribution width (RBC) [Ratio] 13.4 % Normal 12.1-15.2 [facility] Comment on above: Performed By: #### T ROPI, LIP, BMP, LACDS, CDP #### [facility] [address] [place] [address] [employer] Operator: Michael Gamez MD Hematocrit (Bld) [Volume fraction] 36.7 % Low 41.0-53.0 [facility] Comment on above: Performed By: #### T ROPI, LIP, BMP, LACDS, CDP #### [facility] [address] [place] [phone] [employer] Operator: Michael Gamez MD Hemoglobin (Bld) [Mass/Vol] 12.3 g/dL Low 13.5-17.5 [facility] Comment on above: Performed By: #### T ROPI, LIP, BMP, LACDS, CDP #### [facility] [address] [place] [address] [employer] Operator: Michael Gamez MD Immature granulocytes/100 WBC (Bld) 1 % Normal 0-5 [facility] Comment on above: Performed By: #### T ROPI, LIP, BMP, LACDS, CDP #### [facility] [address] [place] [phone] [employer] Operator: Michael Gamez MD Lymphocytes (Bld) [#/Vol] 0.84 10*3/uL Low 1.00-4.80 [facility] Comment on above: Performed By: #### T ROPI, LIP, BMP, LACDS, CDP #### [facility] [address] [place] [phone] [employer] Operator: Michael Gamez MD Lymphocytes/100 WBC (Bld) 9 % Low 13-44 [facility] Comment on above: Performed By: #### T ROPI, LIP, BMP, LACDS, CDP #### [facility] [address] [place] [address] [employer] Operator: Michael Gamez MD MCH (RBC) [Entitic mass] 30.4 pg Normal 26.0-34.0 [facility] Comment on above: Performed By: #### T ROPI, LIP, BMP, LACDS, CDP #### [facility] [address] [place] [address] [employer] Operator: Michael Gamez MD MCHC (RBC) [Mass/Vol] 33.5 g/dL Normal 31.0-37.0 [facility] Comment on above: Performed By: #### T ROPI, LIP, BMP, LACDS, CDP #### [facility] [address] [place] [address] [employer] Operator: Michael Gamez MD MCV (RBC) [Entitic vol] 90.6 fL Normal 80.0-100.0 [facility] Comment on above: Performed By: #### T ROPI, LIP, BMP, LACDS, CDP #### [facility] [address] [place] [address] [employer] Operator: Michael Gamez MD Monocytes (Bld) [#/Vol] 1.30 10*3/uL High 0.00-1.00 [facility] Comment on above: Performed By: #### T ROPI, LIP, BMP, LACDS, CDP #### [facility] [address] [place] [address] [employer] Operator: Michael Gamez MD Monocytes/100 WBC (Bld) 13 % High 5-9 [facility] Comment on above: Performed By: #### T ROPI, LIP, BMP, LACDS, CDP #### [facility] [address] [place] [address] [employer] Operator: Michael Gamez MD Neutrophil (Seg) 77 % High 39-75 [facility] Comment on above: Performed By: #### T ROPI, LIP, BMP, LACDS, CDP #### [facility] [address] [place] [address] [employer] Operator: Michael Gamez MD Platelet mean volume (Bld) [Entitic vol] 11.1 fL Normal 6.0-12.0 [facility] Comment on above: Performed By: #### T ROPI, LIP, BMP, LACDS, CDP #### [facility] [address] [place], [place] [phone] [employer] Operator: Michael Gamez MD Platelets (Bld) [#/Vol] 143 10*3/uL Normal 140-450 [facility] Comment on above: Performed By: #### T ROPI, LIP, BMP, LACDS, CDP #### [facility] [address] [place], [place] [phone] [employer] Operator: Michael Gamez MD RBC (Bld) [#/Vol] 4.05 10*6/uL Low 4.50-5.90 [facility] Comment on above: Performed By: #### T SHAAN, LIP, BMP, LACDS, CDP #### [facility] [address] [place], [place] [phone] [employer] Operator: Michael Gamez MD WBC (Bld) [#/Vol] 9.7 10*3/uL Normal 3.5-11.0 [facility] Comment on above: Performed By: #### T SHAAN, LIP, BMP, LACDS, CDP #### [facility] [address] [place], [place] [phone] [employer] Operator: Michael Gamez MD Magnesiumon 06-12-2023 Magnesium [Mass/Vol] 2.2 mg/dL Normal 1.6-2.6 [facility] Comment on above: Performed By: #### T SHAAN, LIP, BMP, LACDS, CDP #### [facility] [address] [place], [place] [phone] [employer] Operator: Michael Gamez MD XR CHEST (2 VW)on 06-12-2023 XR CHEST (2 VW) EXAM: XR CHEST (2 VW ) HISTORY: SOB COMPARISON: 06/09/2023 IMPRESSION: FINDINGS/IMPRESSION: 1. Heart size upper normal. 2. Lungs clear. Interpreted by: Miguel Lucia Jr., MD Signed by: Miguel Lucia Jr., MD 06/12/23 Final result Normal [facility] Basic Metabolic Profon 06-11 Anion gap [Moles/Vol] 12 mmol/L Normal 9-17 [facility] Comment on above: Performed By: #### B MP, MG #### [facility] [address] [place] [address] [employer] Operator: Michael Gamez MD BUN/CRE Ratio 12 Normal 9-20 [facility] Comment on above: Performed By: #### B MP, MG #### [facility] [address] [place] [address] [employer] Operator: Michael Gamez MD Calcium [Mass/Vol] 8.3 mg/dL Low 8.6-10.4 [facility] Comment on above: Performed By: #### B MP, MG #### [facility] [address] [place], [place] [phone] [employer] Operator: Michael Gamez MD Chloride [Moles/Vol] 101 mmol/L Normal 98-107 [facility] Comment on above: Performed By: #### B MP, MG #### [facility] [address] [place] [address] [employer] Operator: Michael Gamez MD CO2 [Moles/Vol] 18 mmol/L Low 20-31 [facility] Comment on above: Performed By: #### B MP, MG #### [facility] [address] [place], [place] [phone] [employer] Operator: Michael Gamez MD Creatinine [Mass/Vol] 2.3 mg/dL High 0.7-1.2 [facility] Comment on above: Performed By: #### B MP, MG #### [facility] [address] [place], [place] [phone] [employer] Operator: Michael Gamez MD GFR/1.73 sq M.predicted among non-blacks MDRD (S/P/Bld) [Vol rate/Area] 29 mL/min/{1.73_m2} Low >60 [facility] Comment on above: Result Comment: These [...] Performed By: #### B MP, MG #### [facility] [address] [place], [place] [phone] [employer] Operator: Michael Gamez MD Glucose [Mass/Vol] 122 mg/dL High 70-99 [facility] Comment on above: Performed By: #### B MP, MG #### [facility] [address] [place], [place] [phone] [employer] Operator: Michael Gamez MD Potassium [Moles/Vol] 3.5 mmol/L Low 3.7-5.3 [facility] Comment on above: Performed By: #### B MP, MG #### [facility] [address] [place], [place] [phone] [employer] Operator: Michael Gamez MD Sodium [Moles/Vol] 131 mmol/L Low 135-144 [facility] Comment on above: Performed By: #### B MP, MG #### [facility] [address] [place], [place] [phone] [employer] Operator: Michael Gamez MD Urea nitrogen [Mass/Vol] 28 mg/dL High 8-23 [facility] Comment on above: Performed By: #### B MP, MG #### [facility] [address] [place], [place] [phone] [employer] Operator: Michael Gamez MD C diff Ag + Toxinon 06-11-20 23 C diff Ag + Toxin Negative Normal NEG [facility] Comment on above: Result Comment: No C . difficile antigen and Toxin Detected. Performed By: #### T ROPI, LIP, BMP, LACDS, CDP #### [facility] [address] [place] [phone] [employer] Operator: Michael Gamez MD CBC with Diffon 06-11-2023 Abs. Basophil 0.04 k/uL Normal 0.00-0.20 [facility] Comment on above: Performed By: #### T ROPI, LIP, BMP, LACDS, CDP #### [facility] [address] [place] [address] [employer] Operator: Michael Gamez MD Abs.Imm.Granulocyte 0.05 k/uL Normal 0.00-0.30 [facility] Comment on above: Performed By: #### T ROPI, LIP, BMP, LACDS, CDP #### [facility] [address] [place] [address] [employer] Operator: Michael Gamez MD Abs.Neutrophil (Seg) 6.91 k/uL High 2.1-6.5 [facility] Comment on above: Performed By: #### T ROPI, LIP, BMP, LACDS, CDP #### [facility] [address] [place] [address] [employer] Operator: Michael Gamez MD Basophils/100 WBC (Bld) 1 % Normal 0-2 [facility] Comment on above: Performed By: #### T ROPI, LIP, BMP, LACDS, CDP #### [facility] [address] [place] [phone] [employer] Operator: Michael Gamez MD Eosinophils (Bld) [#/Vol] 0.01 10*3/uL Normal 0.00-0.40 [facility] Comment on above: Performed By: #### T ROPI, LIP, BMP, LACDS, CDP #### [facility] [address] [place], [place] [phone] [employer] Operator: Michael Gamez MD Eosinophils/100 WBC (Bld) 0 % Normal 0-5 [facility] Comment on above: Performed By: #### T ROPI, LIP, BMP, LACDS, CDP #### [facility] [address] [place] [phone] [employer] Operator: Michael Gamez MD Erythrocyte distribution width (RBC) [Ratio] 13.4 % Normal 12.1-15.2 [facility] Comment on above: Performed By: #### T ROPI, LIP, BMP, LACDS, CDP #### [facility] [address] [place] [address] [employer] Operator: Michael Gamez MD Hematocrit (Bld) [Volume fraction] 38.7 % Low 41.0-53.0 [facility] Comment on above: Performed By: #### T ROPI, LIP, BMP, LACDS, CDP #### [facility] [address] [place] [phone] [employer] Operator: Michael Gamez MD Hemoglobin (Bld) [Mass/Vol] 12.9 g/dL Low 13.5-17.5 [facility] Comment on above: Performed By: #### T ROPI, LIP, BMP, LACDS, CDP #### [facility] [address] [place] [phone] [employer] Operator: Michael Gamez MD Immature granulocytes/100 WBC (Bld) 1 % Normal 0-5 [facility] Comment on above: Performed By: #### T ROPI, LIP, BMP, LACDS, CDP #### [facility] [address] [place] [phone] [employer] Operator: Michael Gamez MD Lymphocytes (Bld) [#/Vol] 0.81 10*3/uL Low 1.00-4.80 [facility] Comment on above: Performed By: #### T ROPI, LIP, BMP, LACDS, CDP #### [facility] [address] [place] [phone] [employer] Operator: Michael Gamez MD Lymphocytes/100 WBC (Bld) 9 % Low 13-44 [facility] Comment on above: Performed By: #### T ROPI, LIP, BMP, LACDS, CDP #### [facility] [address] [place] [address] [employer] Operator: Michael Gamez MD MCH (RBC) [Entitic mass] 30.0 pg Normal 26.0-34.0 [facility] Comment on above: Performed By: #### T ROPI, LIP, BMP, LACDS, CDP #### [facility] [address] [place] [address] [employer] Operator: Michael Gamez MD MCHC (RBC) [Mass/Vol] 33.3 g/dL Normal 31.0-37.0 [facility] Comment on above: Performed By: #### T ROPI, LIP, BMP, LACDS, CDP #### [facility] [address] [place] [address] [employer] Operator: Michael Gamez MD MCV (RBC) [Entitic vol] 90.0 fL Normal 80.0-100.0 [facility] Comment on above: Performed By: #### T ROPI, LIP, BMP, LACDS, CDP #### [facility] [address] [place] [phone] [employer] Operator: Michael Gamez MD Monocytes (Bld) [#/Vol] 0.82 10*3/uL Normal 0.00-1.00 [facility] Comment on above: Performed By: #### T ROPI, LIP, BMP, LACDS, CDP #### [facility] [address] [place] [phone] [employer] Operator: Michael Gamez MD Monocytes/100 WBC (Bld) 10 % High 5-9 [facility] Comment on above: Performed By: #### T ROPI, LIP, BMP, LACDS, CDP #### [facility] [address] [place], [place] [phone] [employer] Operator: Michael Gamez MD Neutrophil (Seg) 80 % High 39-75 [facility] Comment on above: Performed By: #### T ROPI, LIP, BMP, LACDS, CDP #### [facility] [address] [place], [place] [phone] [employer] Operator: Michael Gamez MD Platelet mean volume (Bld) [Entitic vol] 10.6 fL Normal 6.0-12.0 [facility] Comment on above: Performed By: #### T ROPI, LIP, BMP, LACDS, CDP #### [facility] [address] [place] [address] [employer] Operator: Michael Gamez MD Platelets (Bld) [#/Vol] 154 10*3/uL Normal 140-450 [facility] Comment on above: Performed By: #### T ROPI, LIP, BMP, LACDS, CDP #### [facility] [address] [place], [place] [phone] [employer] Operator: Michael Gamez MD RBC (Bld) [#/Vol] 4.30 10*6/uL Low 4.50-5.90 [facility] Comment on above: Performed By: #### T ROPI, LIP, BMP, LACDS, CDP #### [facility] [address] [place] [address] [phone] [employer] Operator: Michael Gamez MD WBC (Bld) [#/Vol] 8.6 10*3/uL Normal 3.5-11.0 [facility] Comment on above: Performed By: #### T ROPI, LIP, BMP, LACDS, CDP #### [facility] [address] [place] [address] [employer] Operator: Michael Gamez MD CT ABDOMEN PELVIS WO CONTRAS Ton 06-11-2023 CT ABDOMEN PELVIS WO CONTRAST EXAMINATION: CT ABDOMEN PELVIS WO CONTRAST, 06/11/2023 8:27 AM EST HISTORY: worsening renal failure, diarrhea COMPARISON: [place] CT abdomen pelvis TECHNIQUE: CT scan of [...] Lucia Jr., MD 06/11/23 Final result Normal [facility] Lactic Acidon 06-11-2023 Lactate [Moles/Vol] 0.6 mmol/L Normal 0.5-2.2 [facility] Comment on above: Performed By: #### T ROPI, LIP, BMP, LACDS, CDP #### [facility] [address] [place] [address] [employer] Operator: Michael Gamez MD Liver Profileon 06-11-2023 Albumin [Mass/Vol] 3.7 g/dL Normal 3.5-5.2 [facility] Comment on above: Performed By: #### T ROPI, LIP, BMP, LACDS, CDP #### [facility] [address] [place] [address] [employer] Operator: Michael Gamez MD Alkaline Phos 38 U/L Low 40-129 [facility] Comment on above: Performed By: #### T ROPI, LIP, BMP, LACDS, CDP #### [facility] [address] [place], [place] [phone] [employer] Operator: Michael Gamez MD ALT [Catalytic activity/Vol] 19 U/L Normal 5-41 [facility] Comment on above: Performed By: #### T ROPI, LIP, BMP, LACDS, CDP #### [facility] [address] [place] [address] [employer] Operator: Michael Gamez MD AST [Catalytic activity/Vol] 43 U/L High <40 [facility] Comment on above: Performed By: #### T ROPI, LIP, BMP, LACDS, CDP #### [facility] [address] [place] [address] [employer] Operator: Michael Gamez MD Bilirubin [Mass/Vol] 0.7 mg/dL Normal 0.3-1.2 [facility] Comment on above: Performed By: #### T ROPI, LIP, BMP, LACDS, CDP #### [facility] [address] [place] [address] [employer] Operator: Michael Gamez MD Bilirubin, Indirect Can not be calculated Normal 0.0-1 .0 [facility] Comment on above: Performed By: #### T ROPI, LIP, BMP, LACDS, CDP #### [facility] [address] [place] [address] [employer] Operator: Michael Gamez MD Bilirubin.indirect [Mass/Vol] mg/dL Normal <0.3 [facility] Comment on above: Performed By: #### T ROPI, LIP, BMP, LACDS, CDP #### [facility] [address] [place] [address] [employer] Operator: Michael Gamez MD Protein [Mass/Vol] 6.6 g/dL Normal 6.4-8.3 [facility] Comment on above: Performed By: #### T ROPI, LIP, BMP, LACDS, CDP #### [facility] [address] [place], [place] [phone] [employer] Operator: Michael Gamez MD Magnesiumon 06-11-2023 Magnesium [Mass/Vol] 2.0 mg/dL Normal 1.6-2.6 [facility] Comment on above: Performed By: #### B MP, MG #### [facility] [address] [place] [address] [employer] Operator: Michael Gamez MD Stool PCR [place] 06-11-20 Campylobacter sp PCR NEGATIVE: No Campylobacter spp. (jejuni or coli) DNA Detected Normal CAMNEG [facility] Comment on above: Performed By: #### T SHAAN, LIP, BMP, LACDS, CDP #### [facility] [address] [place] [address] [employer] Operator: Michael Gamez MD E coli enterotox PCR NEGATIVE: No Enterotoxigenic E. coli (ETEC) Heat-labile and heat-stable (LT/ST) Normal EECNEG [facility] Comment on above: Result Comment: DNA Detected Performed By: #### T SHAAN, LIP, BMP, LACDS, CDP #### [facility] [address] [place], [place] [phone] [employer] Operator: Michael Gamez MD Plesiomonas sp PCR Negative Normal PLENEG [facility] Comment on above: Performed By: #### T ROPI, LIP, BMP, LACDS, CDP #### [facility] [address] [place], [place] [phone] [employer] Operator: Michael Gamez MD Salmonella sp PCR Positive Abnormal SALNEG [facility] Comment on above: Result Comment: Resu lts reported to the appropriate Health Department Performed By: #### T ROPDarlene, LIP, BMP, LACDS, CDP #### [facility] [address] [place], [place] [phone] [employer] Operator: Michael Gamez MD Shigatoxin gene PCR Negative Normal STXNEG [facility] Comment on above: Performed By: #### T ROPI, LIP, BMP, LACDS, CDP #### [facility] [address] [place], [place] [phone] [employer] Operator: Michael Gamez MD Shigella sp PCR Negative Normal SHINEG [facility] Comment on above: Performed By: #### T ROPI, LIP, BMP, LACDS, CDP #### [facility] [address] [place] [address] [employer] Operator: Michael Gamez MD Vibrio sp PCR NEGATIVE: No Vibrio (V. vulnificus, V, parahaemolyticus and V. cholerae) DNA Normal VIBNEG [facility] Comment on above: Result Comment: Dete cted Performed By: #### T ROPI, LIP, BMP, LACDS, CDP #### [facility] [address] [place] [address] [employer] Operator: Michael Gamez MD Yersinia gene PCR Negative Normal YERNEG [facility] Comment on above: Performed By: #### T ROPI, LIP, BMP, LACDS, CDP #### [facility] [address] [place], [place] [phone] [employer] Operator: Michael Gamez MD Basic Metab w/rfx MGon 06-10 Anion gap [Moles/Vol] 13 mmol/L Normal - [facility] Comment on above: Performed By: #### T ROPI, LIP, BMP, LACDS, CDP #### [facility] [address] [place], [place] [phone] [employer] Operator: Michael Gamez MD BUN/CRE Ratio 17 Normal - [facility] Comment on above: Performed By: #### T ROPI, LIP, BMP, LACDS, CDP #### [facility] [address] [place], [place] [phone] [employer] Operator: Michael Gamez MD Calcium [Mass/Vol] 9.2 mg/dL Normal 8.6-10.4 [facility] Comment on above: Performed By: #### T SHAAN LIP, BMP, LACDS, CDP #### [facility] [address] [place], [place] [phone] [employer] Operator: Michael Gamez MD Chloride [Moles/Vol] 97 mmol/L Low 98-107 [facility] Comment on above: Performed By: #### T ROPI, LIP, BMP, LACDS, CDP #### [facility] [address] [place], [place] [phone] [employer] Operator: Michael Gamez MD CO2 [Moles/Vol] 20 mmol/L Normal 20-31 [facility] Comment on above: Performed By: #### T SHAAN, LIP, BMP, LACDS, CDP #### [facility] [address] [place], [place] [phone] [employer] Operator: Michael Gamez MD Creatinine [Mass/Vol] 1.5 mg/dL High 0.7-1.2 [facility] Comment on above: Performed By: #### T SHAAN, LIP, BMP, LACDS, CDP #### [facility] [address] [place], [place] [phone] [employer] Operator: Michael Gamez MD GFR/1.73 sq M.predicted among non-blacks MDRD (S/P/Bld) [Vol rate/Area] 48 mL/min/{1.73_m2} Low >60 [facility] Comment on above: Result Comment: These [...] T ROPI, LIP, BMP, LACDS, CDP #### [facility] [address] [place], [place] [phone] [employer] Operator: Michael Gamez MD Glucose [Mass/Vol] 147 mg/dL High 70-99 [facility] Comment on above: Performed By: #### T ROPI, LIP, BMP, LACDS, CDP #### [facility] [address] [place], [place] [phone] [employer] Operator: Michael Gamez MD Potassium [Moles/Vol] 3.9 mmol/L Normal 3.7-5.3 [facility] Comment on above: Performed By: #### T ROPI, LIP, BMP, LACDS, CDP #### [facility] [address] [place], [place] [phone] [employer] Operator: Michael Gamez MD Sodium [Moles/Vol] 130 mmol/L Low 135-144 [facility] Comment on above: Performed By: #### T ROPI, LIP, BMP, LACDS, CDP #### [facility] [address] [place] [address] [employer] Operator: Michael Gamez MD Urea nitrogen [Mass/Vol] 25 mg/dL High 8-23 [facility] Comment on above: Performed By: #### T ROPI, LIP, BMP, LACDS, CDP #### [facility] [address] [place] [address] [employer] Operator: Michale Gamez MD Basic Metabolic Profon 06-10 Anion gap [Moles/Vol] 12 mmol/L Normal 9-17 [facility] Comment on above: Performed By: #### B MP #### [facility] [address] [place] [address] [employer] Operator: Michael Gamez MD BUN/CRE Ratio 14 Normal 9-20 [facility] Comment on above: Performed By: #### B MP #### [facility] [address] [place] [address] [employer] Operator: Michael aGmez MD Calcium [Mass/Vol] 8.3 mg/dL Low 8.6-10.4 [facility] Comment on above: Performed By: #### B MP #### [facility] [address] [place], [place] [phone] [employer] Operator: Michael Gamez MD Chloride [Moles/Vol] 103 mmol/L Normal 98-107 [facility] Comment on above: Performed By: #### B MP #### [facility] [address] [place], [place] [phone] [employer] Operator: Michael Gamez MD CO2 [Moles/Vol] 18 mmol/L Low 20-31 [facility] Comment on above: Performed By: #### B MP #### [facility] [address] [place] [address] [employer] Operator: Michael Gamez MD Creatinine [Mass/Vol] 1.6 mg/dL High 0.7-1.2 [facility] Comment on above: Performed By: #### B MP #### [facility] [address] [place] [address] [employer] Operator: Michael Gamez MD GFR/1.73 sq M.predicted among non-blacks MDRD (S/P/Bld) [Vol rate/Area] 45 mL/min/{1.73_m2} Low >60 [facility] Comment on above: Result Comment: These [...] secretion. Performed By: #### B MP #### [facility] [address] [place] [address] [employer] Operator: Michael Gamez MD Glucose [Mass/Vol] 119 mg/dL High 70-99 [facility] Comment on above: Performed By: #### B MP #### [facility] [address] [place], [place] [phone] [employer] Operator: Michael Gamez MD Potassium [Moles/Vol] 3.4 mmol/L Low 3.7-5.3 [facility] Comment on above: Performed By: #### B MP #### [facility] [address] [place], [place] [phone] [employer] Operator: Michael Gamez MD Sodium [Moles/Vol] 133 mmol/L Low 135-144 [facility] Comment on above: Performed By: #### B MP #### [facility] [address] [place], [place] [phone] [employer] Operator: Michael Gamez MD Urea nitrogen [Mass/Vol] 23 mg/dL Normal 8-23 [facility] Comment on above: Performed By: #### B MP #### [facility] [address] [place] [address] [employer] Operator: Michael Gamez MD C diff Ag + Toxinon 06-10-20 23 Specimen Description .FECES Normal [facility] Comment on above: Performed By: #### T HIRAM GARDUNO BMP, LACDS, CDP #### [facility] [address] [place] [address] [employer] Operator: Michael Gamez MD CBC with Diffon 06-10-2023 Abs. Basophil 0.03 k/uL Normal 0.00-0.20 [facility] Comment on above: Performed By: #### T HIRAM GARDUNO BMP, LACDS, CDP #### [facility] [address] [place] [address] [employer] Operator: Michael Gamez MD Abs.Imm.Granulocyte 0.08 k/uL Normal 0.00-0.30 [facility] Comment on above: Performed By: #### T ROPI, LIP, BMP, LACDS, CDP #### [facility] [address] [place] [address] [employer] Operator: Michael Gamez MD Abs.Neutrophil (Seg) 12.23 k/uL High 2.1-6.5 [facility] Comment on above: Performed By: #### T ROPI, LIP, BMP, LACDS, CDP #### [facility] [address] [place] [phone] [employer] Operator: Michael Gamez MD Basophils/100 WBC (Bld) 0 % Normal 0-2 [facility] Comment on above: Performed By: #### T ROPI, LIP, BMP, LACDS, CDP #### [facility] [address] [place] [address] [employer] Operator: Michael Gamez MD Eosinophils (Bld) [#/Vol] 0.00 10*3/uL Normal 0.00-0.40 [facility] Comment on above: Performed By: #### T ROPI, LIP, BMP, LACDS, CDP #### [facility] [address] [place] [address] [employer] Operator: Michael Gamez MD Eosinophils/100 WBC (Bld) 0 % Normal 0-5 [facility] Comment on above: Performed By: #### T ROPI, LIP, BMP, LACDS, CDP #### [facility] [address] [place] [address] [employer] Operator: Michael Gamez MD Erythrocyte distribution width (RBC) [Ratio] 13.3 % Normal 12.1-15.2 [facility] Comment on above: Performed By: #### T ROPI, LIP, BMP, LACDS, CDP #### [facility] [address] [place] [address] [employer] Operator: Michael Gamez MD Hematocrit (Bld) [Volume fraction] 44.6 % Normal 41.0-53.0 [facility] Comment on above: Performed By: #### T ROPI, LIP, BMP, LACDS, CDP #### [facility] [address] [place] [phone] [employer] Operator: Michael Gamez MD Hemoglobin (Bld) [Mass/Vol] 15.0 g/dL Normal 13.5-17.5 [facility] Comment on above: Performed By: #### T ROPI, LIP, BMP, LACDS, CDP #### [facility] [address] [place] [address] [employer] Operator: Michael Gamez MD Immature granulocytes/100 WBC (Bld) 1 % Normal 0-5 [facility] Comment on above: Performed By: #### T ROPI, LIP, BMP, LACDS, CDP #### [facility] [address] [place] [address] [employer] Operator: Michael Gamez MD Lymphocytes (Bld) [#/Vol] 0.68 10*3/uL Low 1.00-4.80 [facility] Comment on above: Performed By: #### T ROPI, LIP, BMP, LACDS, CDP #### [facility] [address] [place] [address] [employer] Operator: Michael Gamez MD Lymphocytes/100 WBC (Bld) 5 % Low 13-44 [facility] Comment on above: Performed By: #### T ROPI, LIP, BMP, LACDS, CDP #### [facility] [address] [place] [phone] [employer] Operator: Michael Gamez MD MCH (RBC) [Entitic mass] 30.6 pg Normal 26.0-34.0 [facility] Comment on above: Performed By: #### T ROPI, LIP, BMP, LACDS, CDP #### [facility] [address] [place] [phone] [employer] Operator: Michael Gamez MD MCHC (RBC) [Mass/Vol] 33.6 g/dL Normal 31.0-37.0 [facility] Comment on above: Performed By: #### T ROPI, LIP, BMP, LACDS, CDP #### [facility] [address] [place] [address] [employer] Operator: Michael Gamez MD MCV (RBC) [Entitic vol] 91.0 fL Normal 80.0-100.0 [facility] Comment on above: Performed By: #### T ROPI, LIP, BMP, LACDS, CDP #### [facility] [address] [place] [address] [employer] Operator: Michael Gamez MD Monocytes (Bld) [#/Vol] 0.98 10*3/uL Normal 0.00-1.00 [facility] Comment on above: Performed By: #### T ROPI, LIP, BMP, LACDS, CDP #### [facility] [address] [place] [address] [employer] Operator: Michael Gamez MD Monocytes/100 WBC (Bld) 7 % Normal 5-9 [facility] Comment on above: Performed By: #### T ROPI, LIP, BMP, LACDS, CDP #### [facility] [address] [place] [address] [employer] Operator: Michael Gamez MD Neutrophil (Seg) 87 % High 39-75 [facility] Comment on above: Performed By: #### T ROPI, LIP, BMP, LACDS, CDP #### [facility] [address] [place] [address] [employer] Operator: Michael Gamez MD Platelet mean volume (Bld) [Entitic vol] 10.2 fL Normal 6.0-12.0 [facility] Comment on above: Performed By: #### T ROPI, LIP, BMP, LACDS, CDP #### [facility] [address] [place], [place] [phone] [employer] Operator: Michael Gamez MD Platelets (Bld) [#/Vol] 164 10*3/uL Normal 140-450 [facility] Comment on above: Performed By: #### T ROPI, LIP, BMP, LACDS, CDP #### [facility] [address] [place], [place] [phone] [employer] Operator: Michael Gamez MD RBC (Bld) [#/Vol] 4.90 10*6/uL Normal 4.50-5.90 [facility] Comment on above: Performed By: #### T ROPI, LIP, BMP, LACDS, CDP #### [facility] [address] [place], [place] [phone] [employer] Operator: Michael Gamez MD WBC (Bld) [#/Vol] 14.0 10*3/uL High 3.5-11.0 [facility] Comment on above: Performed By: #### T ROPI, LIP, BMP, LACDS, CDP #### [facility] [address] [place], [place] [phone] [employer] Operator: Michael Gamez MD Magnesiumon 06-10-2023 Magnesium [Mass/Vol] 2.0 mg/dL Normal 1.6-2.6 [facility] Comment on above: Performed By: #### T ROPI, LIP, BMP, LACDS, CDP #### [facility] [address] [place], [place] [phone] [employer] Operator: Michael Gamez MD Basic Metabolic Profon 06-09 Anion gap [Moles/Vol] 15 mmol/L Normal 9-17 [facility] Comment on above: Performed By: #### T ROPI, LIP, BMP, LACDS, CDP #### [facility] [address] [place], [place] [phone] [employer] Operator: Michael Gamez MD BUN/CRE Ratio 20 Normal 9-20 [facility] Comment on above: Performed By: #### T ROPI, LIP, BMP, LACDS, CDP #### [facility] [address] [place], [place] [phone] [employer] Operator: Michael Gamez MD Calcium [Mass/Vol] 10.3 mg/dL Normal 8.6-10.4 [facility] Comment on above: Performed By: #### T ROPI, LIP, BMP, LACDS, CDP #### [facility] [address] [place], [place] [phone] [employer] Operator: Michael Gamez MD Chloride [Moles/Vol] 99 mmol/L Normal 98-107 [facility] Comment on above: Performed By: #### T ROPI, LIP, BMP, LACDS, CDP #### [facility] [address] [place] [address] [employer] Operator: Michael Gamez MD CO2 [Moles/Vol] 20 mmol/L Normal 20-31 [facility] Comment on above: Performed By: #### T ROPI, LIP, BMP, LACDS, CDP #### [facility] [address] [place], [place] [phone] [employer] Operator: Michael Gamez MD Creatinine [Mass/Vol] 1.2 mg/dL Normal 0.7-1.2 [facility] Comment on above: Performed By: #### T ROPI, LIP, BMP, LACDS, CDP #### [facility] [address] [place], [place] [phone] [employer] Operator: Michael Gamez MD GFR/1.73 sq M.predicted among non-blacks MDRD (S/P/Bld) [Vol rate/Area] mL/min/{1.73_m2} Normal >60 [facility] Comment on above: Result Comment: These [...] renal tubular secretion. Performed By: #### T SHAAN, LIP, BMP, LACDS, CDP #### [facility] [address] [place] [address] [employer] Operator: Michael Gamez MD Glucose [Mass/Vol] 162 mg/dL High 70-99 [facility] Comment on above: Performed By: #### T SHAAN, LIP, BMP, LACDS, CDP #### [facility] [address] [place] [address] [employer] Operator: Michael Gamez MD Potassium [Moles/Vol] 3.5 mmol/L Low 3.7-5.3 [facility] Comment on above: Performed By: #### T SHAAN, LIP, BMP, LACDS, CDP #### [facility] [address] [place], [place] [phone] [employer] Operator: Michael Gamez MD Sodium [Moles/Vol] 134 mmol/L Low 135-144 [facility] Comment on above: Performed By: #### T SHAAN, LIP, BMP, LACDS, CDP #### [facility] [address] [place], [place] [phone] [employer] Operator: Michael Gamez MD Urea nitrogen [Mass/Vol] 24 mg/dL High 8-23 [facility] Comment on above: Performed By: #### T ROPI, LIP, BMP, LACDS, CDP #### [facility] [address] [place], [place] [phone] [employer] Operator: Michael Gamez MD C diff Ag + Toxinon 06-09-20 23 C diff Ag + Toxin Negative Normal NEG [facility] Comment on above: Result Comment: No C . difficile antigen and Toxin Detected. Performed By: #### T ROPI, LIP, BMP, LACDS, CDP #### [facility] [address] [place], [place] [phone] [employer] Operator: Michael Gamez MD Specimen Description .FECES Normal [facility] Comment on above: Performed By: #### T ROPI, LIP, BMP, LACDS, CDP #### [facility] [address] [place] [address] [employer] Operator: Michael Gamez MD CBC with Diffon 06-09-[address] (Bld) [Interp] Platelet morphology normal. Normal [facility] Comment on above: Result Comment: Scan manas to verify automated differential. Performed By: #### T ROPI, LIP, BMP, LACDS, CDP #### [facility] [address] [place] [phone] [employer] Operator: Michael Gamez MD Abs. Basophil 0.02 k/uL Normal 0.00-0.20 [facility] Comment on above: Performed By: #### T ROPI, LIP, BMP, LACDS, CDP #### [facility] [address] [place] [address] [employer] Operator: Michael Gamez MD Abs.Imm.Granulocyte 0.07 k/uL Normal 0.00-0.30 [facility] Comment on above: Performed By: #### T ROPI, LIP, BMP, LACDS, CDP #### [facility] [address] [place] [phone] [employer] Operator: Michael Gamez MD Abs.Neutrophil (Seg) 13.43 k/uL High 2.1-6.5 [facility] Comment on above: Performed By: #### T ROPI, LIP, BMP, LACDS, CDP #### [facility] [address] [place] [address] [employer] Operator: Michael Gamez MD Basophils/100 WBC (Bld) 0 % Normal 0-2 [facility] Comment on above: Performed By: #### T ROPI, LIP, BMP, LACDS, CDP #### [facility] [address] [place] [address] [employer] Operator: Michael Gamez MD Eosinophils (Bld) [#/Vol] 0.01 10*3/uL Normal 0.00-0.40 [facility] Comment on above: Performed By: #### T ROPI, LIP, BMP, LACDS, CDP #### [facility] [address] [place] [phone] [employer] Operator: Michael Gamez MD Eosinophils/100 WBC (Bld) 0 % Normal 0-5 [facility] Comment on above: Performed By: #### T ROPI, LIP, BMP, LACDS, CDP #### [facility] [address] [place] [address] [employer] Operator: Michael Gamez MD Erythrocyte distribution width (RBC) [Ratio] 13.1 % Normal 12.1-15.2 [facility] Comment on above: Performed By: #### T ROPI, LIP, BMP, LACDS, CDP #### [facility] [address] [place] [address] [employer] Operator: Michael Gamez MD Hematocrit (Bld) [Volume fraction] 46.9 % Normal 41.0-53.0 [facility] Comment on above: Performed By: #### T ROPI, LIP, BMP, LACDS, CDP #### [facility] [address] [place] [address] [employer] Operator: Michael Gamez MD Hemoglobin (Bld) [Mass/Vol] 15.9 g/dL Normal 13.5-17.5 [facility] Comment on above: Performed By: #### T ROPI, LIP, BMP, LACDS, CDP #### [facility] [address] [place] [address] [employer] Operator: Michael Gamez MD Immature granulocytes/100 WBC (Bld) 1 % Normal 0-5 [facility] Comment on above: Performed By: #### T ROPI, LIP, BMP, LACDS, CDP #### [facility] [address] [place] [phone] [employer] Operator: Michael Gamez MD Lymphocytes (Bld) [#/Vol] 0.74 10*3/uL Low 1.00-4.80 [facility] Comment on above: Performed By: #### T ROPI, LIP, BMP, LACDS, CDP #### [facility] [address] [place] [address] [employer] Operator: Michael Gamez MD Lymphocytes/100 WBC (Bld) 5 % Low 13-44 [facility] Comment on above: Performed By: #### T ROPI, LIP, BMP, LACDS, CDP #### [facility] [address] [place] [address] [employer] Operator: Michael Gamez MD MCH (RBC) [Entitic mass] 30.1 pg Normal 26.0-34.0 [facility] Comment on above: Performed By: #### T ROPI, LIP, BMP, LACDS, CDP #### [facility] [address] [place] [address] [employer] Operator: Michael Gamez MD MCHC (RBC) [Mass/Vol] 33.9 g/dL Normal 31.0-37.0 [facility] Comment on above: Performed By: #### T ROPI, LIP, BMP, LACDS, CDP #### [facility] [address] [place] [address] [employer] Operator: Michael Gamez MD MCV (RBC) [Entitic vol] 88.8 fL Normal 80.0-100.0 [facility] Comment on above: Performed By: #### T ROPI, LIP, BMP, LACDS, CDP #### [facility] [address] [place] [address] [employer] Operator: Michael Gamez MD Monocytes (Bld) [#/Vol] 1.22 10*3/uL High 0.00-1.00 [facility] Comment on above: Performed By: #### T ROPI, LIP, BMP, LACDS, CDP #### [facility] [address] [place] [address] [employer] Operator: Michael Gamez MD Monocytes/100 WBC (Bld) 8 % Normal 5-9 [facility] Comment on above: Performed By: #### T ROPI, LIP, BMP, LACDS, CDP #### [facility] [address] [place] [phone] [employer] Operator: Michael Gamez MD Neutrophil (Seg) 87 % High 39-75 [facility] Comment on above: Performed By: #### T ROPI, LIP, BMP, LACDS, CDP #### [facility] [address] [place] [address] [employer] Operator: Michael Gamez MD Platelet mean volume (Bld) [Entitic vol] 10.7 fL Normal 6.0-12.0 [facility] Comment on above: Performed By: #### T ROPI, LIP, BMP, LACDS, CDP #### [facility] [address] [place] [address] [employer] Operator: Michael Gamez MD Platelets (Bld) [#/Vol] 178 10*3/uL Normal 140-450 [facility] Comment on above: Performed By: #### T ROPI, LIP, BMP, LACDS, CDP #### [facility] [address] [place] [phone] [employer] Operator: Michael Gamez MD RBC (Bld) [#/Vol] 5.28 10*6/uL Normal 4.50-5.90 [facility] Comment on above: Performed By: #### T ROPI, LIP, BMP, LACDS, CDP #### [facility] [address] [place], [place] [phone] [employer] Operator: Michael Gamez MD WBC (Bld) [#/Vol] 15.5 10*3/uL High 3.5-11.0 [facility] Comment on above: Performed By: #### T ROPI, LIP, BMP, LACDS, CDP #### [facility] [address] [place], [place] [phone] [employer] Operator: Michael Gamez MD Lactate, Sepsison 06-09-2023 Lactic Acid, Sepsis 1.5 mmol/L Normal 0.5-1.9 [facility] Comment on above: Performed By: #### T ROPI, LIP, BMP, LACDS, CDP #### [facility] [address] [place], [place] [phone] [employer] Operator: Michael Gamez MD Lipaseon 06-09-2023 Lipase [Catalytic activity/Vol] 21 U/L Normal 13-60 [facility] Comment on above: Performed By: #### T ROPI, LIP, BMP, LACDS, CDP #### [facility] [address] [place], [place] [phone] [employer] Operator: Michael Gamez MD [id number] 06-09-2023 SARS-CoV-2 (COVID-19) RNA SUSAN+probe Ql (Unsp spec) Not detected Normal NOTDET [facility] Comment on above: Result Comment: Rapid [...] management decisions. Fact sheet for Healthcare Providers: https://www.fda.gov/media/823375/download Fact sheet for Patients: https://www.fda.gov/media/962114/download Methodology: Isothermal Nucleic Acid Amplification Performed By: #### T ROPI, LIP, BMP, LACDS, CDP #### [facility] [address] [place] [address] [employer] Operator: Michael Gamez MD Troponinon 06-09-2023 Troponin, High Sens 33 ng/L High 022 [facility] Comment on above: Result Comment: High Sensitivity Troponin values cannot be compared with other Troponin methodologies. Performed By: #### T ROPI, LIP, BMP, LACDS, CDP #### [facility] [address] [place], [place] [phone] [employer] Operator: Michael Gamez MD Troponin, High Sens 30 ng/L High 022 [facility] Comment on above: Result Comment: High Sensitivity Troponin values cannot be compared with other Troponin methodologies. Performed By: #### T ROPI, LIP, BMP, LACDS, CDP #### [facility] [address] [place], [place] [phone] [employer] Operator: Michael Gamez MD Urinalysis, Routineon 2022 Bilirubin, SemiQt,Ur Negative Normal NEG [facility] Comment on above: Performed By: #### T ROPI, LIP, BMP, LACDS, CDP #### [facility] [address] [place], [place] [phone] [employer] Operator: Michael Gamez MD Blood, Urine 2+ Abnormal NEG [facility] Comment on above: Performed By: #### T ROPI, LIP, BMP, LACDS, CDP #### [facility] [address] [place], [place] [phone] [employer] Operator: Michael Gamez MD Clarity (U) Clear Normal CLEAR [facility] Comment on above: Performed By: #### T ROPI, LIP, BMP, LACDS, CDP #### [facility] [address] [place] [address] [employer] Operator: Michael Gamez MD Color (U) Yellow Normal YEL [facility] Comment on above: Performed By: #### T ROPI, LIP, BMP, LACDS, CDP #### [facility] [address] [place] [address] [employer] Operator: Michael Gamez MD Comment Normal [facility] Comment on above: Performed By: #### T ROPI, LIP, BMP, LACDS, CDP #### [facility] [address] [place] [address] [employer] Operator: Michael Gamez MD Glucose Ql (U) Negative Normal NEG [facility] Comment on above: Performed By: #### T ROPI, LIP, BMP, LACDS, CDP #### [facility] [address] [place] [address] [employer] Operator: Michael Gamez MD Ketones Ql (U) Negative Normal NEG [facility] Comment on above: Performed By: #### T ROPI, LIP, BMP, LACDS, CDP #### [facility] [address] [place] [address] [employer] Operator: Michael Gamez MD Leukocyte esterase Test strip Ql (U) Negative Normal NEG [facility] Comment on above: Performed By: #### T ROPI, LIP, BMP, LACDS, CDP #### [facility] [address] [place] [address] [employer] Operator: Michael Gamez MD Nitrite,Ur Negative Normal NEG [facility] Comment on above: Performed By: #### T ROPI, LIP, BMP, LACDS, CDP #### [facility] [address] [place], [place] [phone] [employer] Operator: Michael Gamez MD PH,Ur 5.0 Normal 5.0-8.0 [facility] Comment on above: Performed By: #### T ROPI, LIP, BMP, LACDS, CDP #### [facility] [address] [place] [address] [employer] Operator: Michael Gamez MD Protein Ql (U) 2+ mg/dL Abnormal NEG [facility] Comment on above: Performed By: #### T ROPI, LIP, BMP, LACDS, CDP #### [facility] [address] [place] [address] [employer] Operator: Michael Gamez MD Spec. [place],Ur 1.025 Normal 1.005-1.030 [facility] Comment on above: Performed By: #### T ROPI, LIP, BMP, LACDS, CDP #### [facility] [address] [place] [address] [employer] Operator: Michael Gamez MD Urobilinogen,Ur Normal Normal 0.0-1.0 [facility] Comment on above: Performed By: #### T ROPI, LIP, BMP, LACDS, CDP #### [facility] [address] [place] [address] [employer] Operator: Michael Gamez MD Urinalysis,Microon 3 ----- Normal [facility] Comment on above: Performed By: #### T ROPI, LIP, BMP, LACDS, CDP #### [facility] [address] [place] [address] [employer] Operator: Michael Gamez MD Casts 0 TO 2 Normal [facility] Comment on above: Result Comment: FINE GRANULAR Performed By: #### T ROPI, LIP, BMP, LACDS, CDP #### [facility] [address] [place] [address] [employer] Operator: Michael Gamez MD Epithelial cells LM Ql (Urine sed) NONE SEEN Normal [facility] Comment on above: Performed By: #### T ROPI, LIP, BMP, LACDS, CDP #### [facility] [address] [place] [address] [employer] Operator: Michael Gamez MD Mucus Strands 1+ Abnormal NONE [facility] Comment on above: Performed By: #### T ROPI, LIP, BMP, LACDS, CDP #### [facility] [address] [place] [address] [employer] Operator: Michael Gamez MD Urine RBC's 2 TO 5 Normal 0-2 [facility] Comment on above: Performed By: #### T ROPI, LIP, BMP, LACDS, CDP #### [facility] [address] [place] [address] [employer] Operator: Michael Gamez MD Urine WBC's 0 TO 2 Normal 0 [facility] Comment on above: Performed By: #### T ROPI, LIP, BMP, LACDS, CDP #### [facility] [address] [place] [address] [employer] Operator: Michael Gamez MD XR CHEST PORTABLEon 06-09-20 XR CHEST PORTABLE EXAM: XR CHEST PORTABLE HISTORY: sob COMPARISON: None. TECHNIQUE: An AP [...] Callie Valencia MD 06/09/23 Final result Normal [facility] Office Visiton 05-21-2023 Follow-up visit [id number] Ml Hassan Coleen 1950 M Date Provider Department Center 05/21/2023 [facility] Family History Problem Relation Age of Onset Lung cancer Mother Lung cancer Father Family Status - Relation Status Age at Mother Father Level of Service:34693 IN OFFICE/OUTPATIENT ESTABLISHED MOD MDM 30-39 MIN Normal [facility] Orders Onlyon 05-21-2023 Orders Only [id number] Ml Hassan 1950 M Date Provider Department Center 05/21/2023 [facility] Family History Problem Relation Age of Onset Lung cancer Mother Lung cancer Father Family Status - Relation Status Age at Mother Father Normal [facility] CBC AUTO DIFFon 11-11-2022 BASO # 0.1 103/ul Normal 0.0-0.1 [facility] Comment on above: Performed By: #### C BC ####[facility] [address] [place] [address]Dr. Selam Card Basophils/100 WBC (Bld) 1.0 % Normal 0.2-2.0 [facility] Comment on above: Performed By: #### C BC ####[facility] [address]ufpyo[address] [place] [address]Dr. Selam Card EO # 0.3 103/ul Normal 0.0-0.7 [facility] Comment on above: Performed By: #### C BC ####[facility] [address] [place] [address]Dr. Selam Card Eosinophils/100 WBC (Bld) 4.1 % Normal 0.9-7.0 [facility] Comment on above: Performed By: #### C BC ####[facility] Ebpknvkxuh[address] [place] [address]Dr. Selam Card Erythrocyte distribution width (RBC) [Ratio] 12.9 % Normal 11.0-15.0 [facility] Comment on above: Performed By: #### C BC ####[facility] Q[address]isnihzkl[address] [place] [address]Dr. Selam Card Hematocrit (Bld) [Volume fraction] 42.8 % Normal 42.0-54.0 [facility] Comment on above: Performed By: #### C BC ####[facility] Brfcojlxhv[address] [place] [address]Dr. Selam Kyaw Hemoglobin (Bld) [Mass/Vol] 14.0 g/dL Normal 14.0-18.0 [facility] Comment on above: Performed By: #### C BC ####[facility] Ekxqkrwxah[address] [place] [address]Dr. Irinatevin Kyaw IG # 0.06 10e3/ul Critically high 0.00-0.03 [facility] Comment on above: Performed By: #### C BC ####[facility] Z[address]hwvwkub[address] [place] [address]Dr. Selam Card IG % 0.9 % Critically high 0.0-0.5 [facility] Comment on above: Performed By: #### C BC ####[facility] Y[address]iyvdf[address] [place] [address]Dr. Selam Card LYMPH # 1.5 103/ul Normal 1.2-3.8 [facility] Comment on above: Performed By: #### C BC ####[facility] [address] [place], [place] [address]Dr. Selam Card Lymphocytes/100 WBC (Bld) 20.7 % Normal 20.5-60.0 [facility] Comment on above: Performed By: #### C BC ####[facility] [address]rhbthtr[address] [place] [address]Dr. Irinatevin Card MANUAL DIFF REQ NO Normal [facility] Comment on above: Performed By: #### C BC ####[facility] Jorxgxswms[address] [place] [address]DrElizabeth Selam Kyaw MCH (RBC) [Entitic mass] 30.1 pg Normal 25.9-34.0 [facility] Comment on above: Performed By: #### C BC ####[facility] [address] [place], [place] [address]DrElizabeth Selam Kyaw MCHC (RBC) [Mass/Vol] 32.7 g/dL Normal 29.9-35.2 [facility] Comment on above: Performed By: #### C BC ####[facility] [address] [place], [place] [address]Dr. Selam Kyaw MCV (RBC) [Entitic vol] 92.0 fL Normal 80.0-94.0 [facility] Comment on above: Performed By: #### C BC ####[facility] [address]czp[address] [place] [address]Dr. Selam Card MONO # 0.9 103/ul Critically high 0.3-0.8 [facility] Comment on above: Performed By: #### C BC ####[facility] F[address]qscvfol[address] [place] [address]Dr. Selam Card Monocytes/100 WBC (Bld) 13.0 % Critically high 1.7-12. 0 [facility] Comment on above: Performed By: #### C BC ####[facility] X[address] [place], [place] [address]Dr. Irinatevin Kyaw NEUT # 4.2 103/ul Normal 1.4-6.5 [facility] Comment on above: Performed By: #### C BC ####[facility] [address] [place], [place] [address]Dr. Irinatevin Card Neutrophils/100 WBC (Bld) 60.3 % Normal 43.0-75.0 [facility] Comment on above: Performed By: #### C BC ####[facility] W[address]kn[address]hlcba[address] [place] [address]Dr. Selam Kyaw Platelet mean volume (Bld) [Entitic vol] 10.3 fL Normal 9.5-13.5 [facility] Comment on above: Performed By: #### C BC ####[facility] [address] [place], [place] [address]Dr. Irinatevin Kyaw PLT 201 103/ul Normal 150-450 [facility] Comment on above: Performed By: #### C BC ####[facility] [address]prx[address] [place], [place] [address]Dr. Selam Card RBC 4.65 106/ul Critically low 4.70-6.10 [facility] Comment on above: Performed By: #### C BC ####[facility] Kw[address]seqwf[address] [place], [place] [address]Dr. Selam Card WBC 7.0 103/ul Normal 4.0-11.0 [facility] Comment on above: Performed By: #### C BC ####[facility] Kwromworwe[address] [place], [place] [address]Vf. Selam Card LIPID PROFILEon 11-11-2022 CHOL-HDL RATIO NORM SEE BELOW Normal [facility] Comment on above: Result Comment: 3.3 - 4.4 LOW RISK 4.4 - 7.1 AVERAGE RISK 7.1 - 11.0 MODERATE RISK >11.0 HIGH RISK Performed By: #### L IPID, BMP ####[facility] Liuueycnjs[address] [place], [place] [address]Nn. Selam Card Cholesterol [Mass/Vol] 140 mg/dL Normal <=200 [facility] Comment on above: Performed By: #### L IPID, BMP ####[facility] K[address]qwb[address]e42[address] [place], [place] [address]Dk. Selam Kyaw Cholesterol in HDL [Mass/Vol] 50 mg/dL Normal 40-60 [facility] Comment on above: Performed By: #### L IPID, BMP ####[facility] Wyprbnx[address]ou2074 [place], [place] [address]Ow. Selam Kyaw Cholesterol in LDL [Mass/Vol] 55.2 mg/dL Normal [facility] Comment on above: Performed By: #### L IPID, BMP ####[facility] Sdrwigydob[address] [place], [place] [address]Ua. Selam Kyaw Cholesterol.total/Ana sterol in HDL [Mass ratio] 2.8 {ratio} Normal [facility] Comment on above: Performed By: #### L IPID, BMP ####[facility] Unwfcxlipe13[address] [place], [place] [address]Pz. Selam Card HDL NORMAL > or = 60 mg/dl - LO W CARDIOVASCULAR RISK <40 mg/dl - HIGH CARDIOVASCULAR RISK Normal [facility] Comment on above: Performed By: #### L IPID, BMP ####[facility] [address]fl[address] [place], [place] [address]Mx. Selam Kyaw LDL CALC NORMAL SEE BELOW Normal [facility] Comment on above: Result Comment: <100 mg/dl OPTIMAL 100 - 129 mg/dl NEAR OR ABOVE OPTIMAL 130 - 159 mg/dl BORDERLINE HIGH 160 - 189 mg/dl HIGH >190 mg/dl VERY HIGH Performed By: #### L IPID, BMP ####[facility] [address]vx[address] [place] [id number]. Selam Card Triglyceride [Mass/Vol] 174 mg/dL Critically high <=150 [facility] Comment on above: Performed By: #### L IPID, BMP ####[facility] R[address]wej[address] [place] [address]Dr. Selam Card VLDL CALC 34.8 mg/dL Normal [facility] Comment on above: Performed By: #### L IPID, BMP ####[facility] Sou[address]egxksi[address] [place] [address]Dr. Selam Card PROF CHEM 8 (BAS METB)on Anion gap [Moles/Vol] 11.1 mmol/L Normal [facility] Comment on above: Performed By: #### L IPID, BMP ####[facility] Kbupmwnwpw[address] [place] [address]Dr. Selam Card Calcium [Mass/Vol] 9.6 mg/dL Normal 8.5-10.1 [facility] Comment on above: Performed By: #### L IPID, BMP ####[facility] Kbm[address]ccasmn[address] [place] [address]Dr. Selam Card Chloride [Moles/Vol] 104 mmol/L Normal 98-107 [facility] Comment on above: Performed By: #### L IPID, BMP ####[facility] Jzfacvpbrx80[address] [place] [address]Dr. Selam Card CO2 [Moles/Vol] 29.1 mmol/L Normal 21.0-32.0 [facility] Comment on above: Performed By: #### L IPID, BMP ####[facility] Byetfbstbq14[address] [place] [address]Dr. Selam Card Creatinine [Mass/Vol] 1.13 mg/dL Normal 0.70-1.30 [facility] Comment on above: Performed By: #### L IPID, BMP ####[facility] Laganlispi[address] [place] [id number]. Selam Card EGFR-AF NAMIBIAN >60 Normal >=60 [facility] Comment on above: Performed By: #### L IPID, BMP ####[facility] Gphisiatlt[address] [place] [address]Dr. Selam Kyaw EGFR-NON AF NAMIBIAN >60 Normal >=60 [facility] Comment on above: Performed By: #### L IPID, BMP ####[facility] Z[address]yfcm[address]xa[address] [place] [address]Dr. Irinatevin Kyaw Glucose [Mass/Vol] 113 mg/dL Critically high 74-106 [facility] Comment on above: Performed By: #### L IPID, BMP ####[facility] Swvppaolga[address] [place] [address]Dr. Selam Card Potassium [Moles/Vol] 4.2 mmol/L Normal 3.5-5.1 [facility] Comment on above: Performed By: #### L IPID, BMP ####[facility] [address]aukxlotti[address] [place] [address]Dr. Irinatevin Kyaw Sodium [Moles/Vol] 140 mmol/L Normal 136-145 [facility] Comment on above: Performed By: #### L IPID, BMP ####[facility] H[address]bczjj[address] [place] [address]Dr. Irinatevin Kyaw Urea nitrogen [Mass/Vol] 23.0 mg/dL Critically high 7.0-18.0 [facility] Comment on above: Performed By: #### L IPID, BMP ####[facility] A[address]rozvbb[address] [place] [address]Dr. Selam Card Urea nitrogen/Creatinine [Mass ratio] 20.4 mg/mg Normal [facility] Comment on above: Performed By: #### L IPID, BMP ####[facility] Y[address]scsgdum[address] [place] [id number]. Selam Card XR SHOULDER RT INJon 09-20-2 022 XR SHOULDER RT INJ EXAMINATION: XR [...] for long-term results. Electronically authenticated by: DUSTY DEVLIN Date: 2022-04-22 14:35 Normal [facility] VC CONSULT FOLLOWUPon 2021 VC CONSULT FOLLOWUP Patient: ML HASSAN Exam Date: 04/15/2022 : 1950 Gender:M Ordering : DR MICHAEL VANCE M.D. Admission #: [id number] Family : Order #: [id number] CLICK HERE TO VIEW EXAM RADIOLOGY REPORT [...] physical exam and consultation Dictated by: Michael Vance MD on 04/15/2022 at 10:57 Approved by: Michael Vance MD on 04/15/2022 at 11:00 Normal [facility] VC EXT VENOUS LT LIMITEDon 0 04-15-2022 VC EXT VENOUS LT LIMITED Patient: ML HASSAN Exam Date: 04/15/2022 : 1950 Gender:M Ordering : DR MICHAEL VANCE M.D. Admission #: [id number] Family : Order #: [id number] CLICK HERE TO VIEW EXAM RADIOLOGY REPORT [...] to thrombus *Exam performed in accordance with [employer] practice guidelines- Peripheral venous ultrasound, October 27, 2009. 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 Admission #: [id number] Family : Order #: [id number] CLICK HERE TO VIEW EXAM RADIOLOGY REPORT [...] Varithena(r) 2. Intraoperative ultrasound guidance Physician: Michael Vance M.D. Anesthesia: None Indications for Procedure: 71-year-old [...] treate (more content not included)... Normal [facility] VC CONSULT FOLLOWUPon 2021 VC CONSULT FOLLOWUP Patient: ML HASSAN Exam Date: 03/11/2022 : 1950 Gender:M Ordering : DR MICHAEL VANCE M.D. Admission #: [id number] Family : Order #: [id number] CLICK HERE TO VIEW EXAM RADIOLOGY REPORT [...] physical exam and consultation Dictated by: Michael Vance MD on 03/11/2022 at 11:23 Approved by: Michael Vance MD on 03/11/2022 at 11:28 Normal [facility] VC EXT VENOUS KG LIMITEDon 03-11-2022 VC EXT VENOUS KG LIMITED Patient: ML HASSAN. Exam Date: 03/11/2022 : 1950 Gender:M Ordering : DR MICHAEL VANCE M.D. Admission #: [id number] Family : Order #: [id number] CLICK HERE TO VIEW EXAM RADIOLOGY REPORT [...] up to 5 mm Dictated by: Michael Vance MD on 03/11/2022 at 11:08 Approved by: Michael Vance MD on 03/11/2022 at 11:10 Normal [facility] VC INJ FOAM SCLERO W US MLTI on 02-25-2022 VC INJ FOAM SCLERO W US MLTI Patient: ML HASSAN Exam Date: 02/25/2022 : 1950 Gender:M Ordering : DR MICHAEL VANCE M.D. Admission #: [id number] Family : Order #: [id number] CLICK HERE TO VIEW EXAM RADIOLOGY REPORT [...] Varithena(r) 2. Intraoperative ultrasound guidance Physician: Dusty Devlin M.D. Anesthesia: None. Indications for Procedure: 71 [...] PERSONNEL: Mg Garvey R.N. Dictated by: Dusty Devlin M.D. on 02/25/2022 at 12:34 Approved by: Dusty Devlin M.D. on 02/25/2022 at 13:14 Normal [facility] VC CONSULT FOLLOWUPon 2021 VC CONSULT FOLLOWUP Patient: ML HASSAN Exam Date: 02/24/2022 : 1950 Gender:M Ordering : DR MICHAEL VANCE M.D. Admission #: [id number] Family : Order #: [id number] CLICK HERE TO VIEW EXAM RADIOLOGY REPORT [...] physical exam and consultation Dictated by: Dusty Devlin M.D. on 02/24/2022 at 09:30 Approved by: Dusty Devlin M.D. on 02/24/2022 at 09:39 Normal [facility] VC EXT VENOUS RT LIMITEDon 0 02-24-2022 VC EXT VENOUS RT LIMITED Patient: ML HASSAN Exam Date: 02/24/2022 : 1950 Gender:M Ordering : DR MICHAEL VANCE M.D. Admission #: [id number] Family : Order #: [id number] CLICK HERE TO VIEW EXAM RADIOLOGY REPORT [...] the posterior tibial veins. Dictated by: Dusty Devlin M.D. on 02/24/2022 at 09:05 Approved by: Dusty Devlin M.D. on 02/24/2022 at 09:07 [facility] VC INJ FOAM SCLERO W US MLTI on 02-18-2022 VC INJ FOAM SCLERO W US MLTI Patient: ML HASSAN Exam Date: 02/18/2022 : 1950 Gender:M Ordering : DR MICHAEL VANCE M.D. Admission #: [id number] Family : Order #: [id number] CLICK HERE TO VIEW EXAM RADIOLOGY REPORT [...] Varithena(r) 2. Intraoperative ultrasound guidance Physician: Dusty Devlin M.D. Anesthesia: None. Indications for Procedure: 71 [...] jordin (more content not included)... Normal [facility] VC CONSULT FOLLOWUPon 2021 VC CONSULT FOLLOWUP Patient: ML HASSAN Exam Date: 01/29/2022 : 1950 Gender:M Ordering : DR MICHAEL VANCE M.D. Admission #: [id number] Family : Order #: [id number] CLICK HERE TO VIEW EXAM RADIOLOGY REPORT [...] physical exam and consultation Dictated by: Michael Vance MD on 01/29/2022 at 09:45 Approved by: Michael Vance MD on 01/29/2022 at 09:48 Normal [facility] VC EXT VENOUS LT LIMITEDon 0 01-29-2022 VC EXT VENOUS LT LIMITED Patient: ML HASSAN Exam Date: 01/29/2022 : 1950 Gender:M Ordering : DR MICHAEL VANCE M.D. Admission #: [id number] Family : Order #: [id number] CLICK HERE TO VIEW EXAM RADIOLOGY REPORT [...] varicosities remain. *Exam performed in accordance with [employer] practice guidelines- Peripheral venous ultrasound, October 27, 2009. CONCLUSION: Post ablation occlusion of the small saphenous vein with heat induced thrombus 4.7 mm from the saphenous popliteal junction Short-segment of associated deep vein thrombus from clot propagation in a single gastrocnemius vein Dictated by: Michael Vance MD on 01/29/2022 at 09:33 Approved by: Michael Vance MD on 01/29/2022 at 09:35 Normal [facility] VC ENDOVENOUS ABL 1ST V LTon 01-22-2022 VC ENDOVENOUS ABL 1ST V LT Patient: ML HASSAN. Exam Date: 01/22/2022 : 1950 Gender:M Ordering : DR MICHAEL VANCE M.D. Admission #: [id number] Family : Order #: [id number] CLICK HERE TO VIEW EXAM RADIOLOGY REPORT PROCEDURE: VEIN CENTER ENDOVENOUS ABLATION FIRST VEIN LEFT COMPARISON: VC ENDOVENOUS ABL 1ST V LT, 12/25/2021. INDICATIONS: Pain co-occurrent and due to varicose veins of bilateral legs I83.813 OPERATIVE REPORT: The risks and benefits of the procedure had been previously discussed, and were rediscussed at length. Informed written consent was obtained by me and Mg verduzco. Time out procedure was [...] left small saphenous vein. Dictated by: Dusty Devlin M.D. on 01/22/2022 at 13:53 Approved by: Dusty Devlin M.D. on 01/22/2022 at 13:55 Normal [facility] VC CONSULT FOLLOWUPon 2021 VC CONSULT FOLLOWUP Patient: ML HASSAN Exam Date: 01/01/2022 : 1950 Gender:M Ordering : DR MICHAEL VANCE M.D. Admission #: [id number] Family : Order #: [id number] CLICK HERE TO VIEW EXAM RADIOLOGY REPORT [...] physical exam and consultation Dictated by: Michael Vance MD on 01/01/2022 at 09:57 Approved by: Michael Vance MD on 01/01/2022 at 10:10 Normal [facility] VC EXT VENOUS LT LIMITEDon 0 01-01-2022 VC EXT VENOUS LT LIMITED Patient: LM HASSAN. Exam Date: 01/01/2022 : 1950 Gender:M Ordering : DR MICHAEL VANCE M.D. Admission #: [id number] Family : Order #: [id number] CLICK HERE TO VIEW EXAM RADIOLOGY REPORT [...] to thrombus *Exam performed in accordance with [employer] practice guidelines- Peripheral venous ultrasound, October 27, 2009. CONCLUSION: Post ablation occlusion of the left great saphenous vein with heat induced thrombus 1.7 cm from the saphenofemoral junction Dictated by: Michael Vance MD on 01/01/2022 at 09:55 Approved by: Michael Vance MD on 01/01/2022 at 09:56 Normal [facility] VC ENDOVENOUS ABL 1ST V LTon 12-25-2021 VC ENDOVENOUS ABL 1ST V LT Patient: ML HASSAN. Exam Date: 12/25/2021 : 1950 Gender:M Ordering : DR MICHAEL VANCE M.D. Admission #: [id number] Family : Order #: [id number] CLICK HERE TO VIEW EXAM RADIOLOGY REPORT [...] left great saphenous vein. Dictated by: Michael Vance MD on 12/25/2021 at 14:07 Approved by: Michael Vance MD on 12/25/2021 at 14:09 Normal [facility] VC CONSULT FOLLOWUPon 2021 VC CONSULT FOLLOWUP Patient: ML HASSAN Exam Date: 12/11/2021 : 1950 Gender:M Ordering : DR MICHAEL VANCE M.D. Admission #: [id number] Family : Order #: [id number] CLICK HERE TO VIEW EXAM RADIOLOGY REPORT [...] physical exam and consultation Dictated by: Michael Vance MD on 12/11/2021 at 08:55 Approved by: Michael Vance MD on 12/11/2021 at 08:57 Normal [facility] VC EXT VENOUS RT LIMITEDon 0 12-11-2021 VC EXT VENOUS RT LIMITED Patient: ML HASSAN Exam Date: 12/11/2021 : 1950 Gender:M Ordering : DR MICHAEL VANCE M.D. Admission #: [id number] Family : Order #: [id number] CLICK HERE TO VIEW EXAM RADIOLOGY REPORT [...] from the saphenofemoral junction Dictated by: Michael Vance MD on 12/11/2021 at 08:33 Approved by: Michael Vance MD on 12/11/2021 at 08:38 Normal [facility] LIPID PROFILEon 12-03-2021 CHOL-HDL RATIO NORM SEE BELOW Normal [facility] Comment on above: Result Comment: 3.3 - 4.4 LOW RISK 4.4 - 7.1 AVERAGE RISK 7.1 - 11.0 MODERATE RISK >11.0 HIGH RISK Performed By: #### L IPID, LIVER #### [facility] [address] [place] [address] [address] Selam Crad Cholesterol [Mass/Vol] 131 mg/dL Normal <=200 [facility] Comment on above: Performed By: #### L IPID, LIVER #### [facility] [address] [place] [address] [address] Selam Card Cholesterol in HDL [Mass/Vol] 50 mg/dL Normal 40-60 [facility] Comment on above: Performed By: #### L IPID, LIVER #### [facility] [address] [place] [address] [address] Selam Card Cholesterol in LDL [Mass/Vol] 45.8 mg/dL Normal [facility] Comment on above: Performed By: #### L IPID, LIVER #### [facility] [address] [place] [address] [address] Selam Card Cholesterol.total/Ana sterol in HDL [Mass ratio] 2.6 {ratio} Normal [facility] Comment on above: Performed By: #### L IPID, LIVER #### [facility] [address] [place] [address] [address] Selam Card HDL NORMAL > or = 60 mg/dl - LO W CARDIOVASCULAR RISK <40 mg/dl - HIGH CARDIOVASCULAR RISK Normal [facility] Comment on above: Performed By: #### L IPID, LIVER #### [facility] [address] [address] [address] Selam Card LDL CALC NORMAL SEE BELOW Normal [facility] Comment on above: Result Comment: <100 mg/dl OPTIMAL 100 - 129 mg/dl NEAR OR ABOVE OPTIMAL 130 - 159 mg/dl BORDERLINE HIGH 160 - 189 mg/dl HIGH >190 mg/dl VERY HIGH Performed By: #### L IPID, LIVER #### [facility] [address] [address] [address] Selam Card Triglyceride [Mass/Vol] 176 mg/dL Critically high <=150 [facility] Comment on above: Performed By: #### L IPID, LIVER #### [facility] [address] [place] [address] [address] Selam Card VLDL CALC 35.2 mg/dL Normal [facility] Comment on above: Performed By: #### L IPID, LIVER #### [facility] [address] [place] [address] [address] Selam Card LIVER PROFILEon 12-03-2021 Albumin [Mass/Vol] 4.0 g/dL Normal 3.4-5.0 [facility] Comment on above: Performed By: #### L IPID, LIVER #### [facility] [address] [place] [address] Dr. Selam Card Albumin/Globulin [Mass ratio] 1.3 {ratio} Normal [facility] Comment on above: Performed By: #### L IPID, LIVER #### [facility] [address] [place] [address] Dr. Selam Card ALP [Catalytic activity/Vol] 44 U/L Critically low 46-116 [facility] Comment on above: Performed By: #### L IPID, LIVER #### [facility] [address] [place] [address] Dr. Selam Card ALT [Catalytic activity/Vol] 27 U/L Normal 16-63 [facility] Comment on above: Performed By: #### L IPID, LIVER #### [facility] [address] [place] [address] Dr. Selam Card AST [Catalytic activity/Vol] 25 U/L Normal 15-37 [facility] Comment on above: Performed By: #### L IPID, LIVER #### [facility] [address] [place] [address] Dr. Selam Card BILI, CONJUGATED 0.2 mg/dL Normal 0.0-0.2 [facility] Comment on above: Performed By: #### L IPID, LIVER #### [facility] [address] [place] [address] Dr. Selam Card Bilirubin [Mass/Vol] 1.0 mg/dL Normal 0.2-1.0 [facility] Comment on above: Performed By: #### L IPID, LIVER #### [facility] [address] [place] [address] Dr. Selam Card Globulin (S) [Mass/Vol] 3.1 g/dL Normal [facility] Comment on above: Performed By: #### L IPID, LIVER #### [facility] [address] [place], [place] [address] Dr. Selam Card Protein [Mass/Vol] 7.1 g/dL Normal 6.1-8.2 [facility] Comment on above: Performed By: #### L IPID, LIVER #### [facility] [address] [place], [place] [address] Dr. Selam Card VC ENDOVENOUS ABL 1ST V RTon 12-02-2021 VC ENDOVENOUS ABL 1ST V RT Patient: ML HASSAN Exam Date: 12/02/2021 : 1950 Gender:M Ordering : DR MICHAEL VANCE M.D. Admission #: [id number] Family : Order #: [id number] CLICK HERE TO VIEW EXAM RADIOLOGY REPORT PROCEDURE: VEIN CENTER ENDOVENOUS ABLATION FIRST VEIN RIGHT GREAT SAPHENOUS VEIN COMPARISON: VC VENOUS REFLUX KG LMT, 11/25/2021. INDICATIONS: Pain co-occurrent and due to varicose veins of bilateral legs I83.813 OPERATIVE REPORT: The risks and benefits of the procedure had been previously discussed, and were rediscussed at length. Informed written consent was obtained by me and Mg Garvey assisted. Time out procedure was performed. The right [...] right great saphenous vein. Dictated by: Michael Vance MD on 12/02/2021 at 12:11 Approved by: Michael Vance MD on 12/02/2021 at 12:13 Normal [facility] CREATININEon 11-27-2021 Creatinine [Mass/Vol] 1.03 mg/dL Normal 0.70-1.30 [facility] Comment on above: Performed By: #### C AMANDA ####[facility] [address] [place], [place] [address]GzElizabeth Doss Card EGFR-AF NAMIBIAN >60 Normal >=60 [facility] Comment on above: Performed By: #### C AMANDA ####[facility] [address] [place], [place] [address]Ls. Selam Card EGFR-NON AF NAMIBIAN >60 Normal >=60 [facility] Comment on above: Performed By: #### C AMANDA ####[facility] [id number] [place], [place] [address]If. Selam Card CTA ABD ARIAS WWO CON [...] and lower extremities. Electronically authenticated by: DUSTY DEVLIN Date: 2021-11-27 10:48 Normal [facility] VC COMP CONSULTATIONon 11-25 VC COMP CONSULTATION Patient: ML HASSAN Exam Date: 11/25/2021 : 1950 Gender:M Ordering : DR MICHAEL VANCE M.D. Admission #: [id number] Family : Order #: [id number] CLICK HERE TO VIEW EXAM RADIOLOGY REPORT [...] sy (more content not included)... Normal [facility] VC VENOUS REFLUX KG LMTon 0 11-25-2021 VC VENOUS REFLUX KG LMT Patient: ML HASSAN Exam Date: 11/25/2021 : 1950 Gender:M Ordering : DR MICHAEL VANCE M.D. Admission #: [id number] Family : Order #: [id number] CLICK HERE TO VIEW EXAM RADIOLOGY REPORT [...] Note: 70% area of reduction in right MERCHANDISING REPRESENTATIVE noted. Incompetent SFJ/GSV, SPJ/SSV, AASV, and multiple [...] and SSV. Flow: Deep venous reflux visualized. 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 Largest is mid/medial [...] branch saphenous tributaries/varicose veins Dictated by: Michael Vance MD on 11/25/2021 at 12:58 Approved by: Michael Vance MD on 11/25/2021 at 13:02 Normal [facility] Cult,Urineon 05-09-2020 Cult,Urine Specimen Description .CLEAN CATCH URINE Special Requests NOT REPORTED Culture NO GROWTH Report Status FINAL 05/09/2020 Normal [facility] Comment on above: Performed By: #### U #### [facility] [employer] [address] [place] [address] Chip Mixing Machine Operator: Andrei Pryor MD [facility] [address] [place] [address] Chip Mixing Machine Operator: Clifford Fofana MD Urinalysis w/ Microon 2019 ----- Normal [facility] Comment on above: Performed By: #### U AMIC #### [facility] [address] [place] [id number] Chip Mixing Machine Operator: Clifford Fofana MD Bacteria LM.HPF (Urine sed) [#/Area] TRACE Abnormal NONE [facility] Comment on above: Performed By: #### U AMIC #### [facility] [address] [place] [address] Chip Mixing Machine Operator: Clifford Fofana MD Epithelial cells LM.HPF (Urine sed) [#/Area] 0 TO 2 Normal 0-5 [facility] [place] Comment on above: Performed By: #### U AMIC #### [facility] [address] [place] [id number] Chip Mixing Machine Operator: Clifford Fofana MD RBC (U) [#/Vol] 2 TO 5 Normal 0-2 [facility] Comment on above: Performed By: #### U AMIC #### [address] [place] [address]83 Chip Mixing Machine Operator: Clifford Fofana MD WBC (U) [#/Vol] 5 TO 10 Normal 0-5 [facility] Comment on above: Performed By: #### U AMIC #### [facility] [address] [place] [address] Chip Mixing Machine Operator: Clifford Fofana MD Acetoacetic Acid,Ur Negative Normal NEG [facility] Comment on above: Performed By: #### U AMIC #### [facility] [address] [place] [address]83 Chip Mixing Machine Operator: Clifford Fofana MD Bilirubin, SemiQt,Ur Negative Normal NEG [facility] Comment on above: Performed By: #### U AMIC #### [facility] [address] [place] [phone] Chip Mixing Machine Operator: Clifford Fofana MD Color (U) YELLOW Normal YEL [facility] Comment on above: Performed By: #### U AMIC #### [facility] [address] [place] 8759383 Chip Mixing Machine Operator: Clifford Fofana MD Glucose Ql (U) Negative Normal NEG [facility] Comment on above: Performed By: #### U AMIC #### [facility] [address] [place], [place] 7599783 Chip Mixing Machine Operator: Clifford Fofana MD Hemoglobin, Ur 2+ Abnormal NEG [facility] Comment on above: Performed By: #### U AMIC #### [facility] [address] [place] [address] Dr. [place], [place] 8323383 Chip Mixing Machine Operator: Clifford Fofana MD Leukocyte esterase Test strip Ql (U) TRACE Abnormal NEG [facility] Comment on above: Performed By: #### U AMIC #### [facility] [address] [place] [address] [place] [place], [place] [phone] Chip Mixing Machine Operator: Clifford Fofana MD Nitrite,Ur Negative Normal [facility] Comment on above: Performed By: #### U AMIC #### [facility] [address] [place] [address] [place]. [place], [place] 3047683 Chip Mixing Machine Operator: Clifford Fofana MD pH (U) 6.0 [pH] Normal 5.0-9.0 [facility] Comment on above: Performed By: #### U AMIC #### [facility] [address] [place], [place] 3759383 Chip Mixing Machine Operator: Clifford Fofana MD Protein Ql (U) Negative Normal NEG [facility] Comment on above: Performed By: #### U AMIC #### [facility] [address] [place], [place] 6984783 Chip Mixing Machine Operator: Clifford Fofana MD Specific gravity (U) [Rel density] 1.020 Normal 1.010-1.020 [facility] Comment on above: Performed By: #### U AMIC #### [facility] [address] [place] [address] Chip Mixing Machine Operator: Clifford Fofana MD Turbidity CLEAR Normal CLEAR [facility] Comment on above: Performed By: #### U AMIC #### [facility] [address] [place], [place] 6158483 Chip Mixing Machine Operator: Clifford Fofana MD Urobilinogen,Ur Normal Normal NORM [facility] Comment on above: Performed By: #### U AMIC #### [facility] [address] [place], [place] 1059983 Chip Mixing Machine Operator: Clifford Fofana MD Amorphous sediment LM Ql (Urine sed) NOT REPORTED Normal NONE [facility] Comment on above: Performed By: #### U AMIC #### [facility] [address] [place] [phone] Chip Mixing Machine Operator: Clifford Fofana MD Casts LM.LPF (Urine sed) [#/Area] NOT REPORTED Normal [facility] Comment on above: Performed By: #### U AMIC #### [address] [place], [place] 5440383 Chip Mixing Machine Operator: Clifford Fofana MD Comment NOT REPORTED Normal [facility] Comment on above: Performed By: #### U AMIC #### [facility] [address] [place], [place] 3751683 Chip Mixing Machine Operator: Clifford Fofana MD Crystals LM Nom (Urine sed) NOT REPORTED Normal NONE [facility] Comment on above: Performed By: #### U AMIC #### [facility] [address] [place] [address] Chip Mixing Machine Operator: Clifford Fofana MD Epithelial, Renal NOT REPORTED Normal 0 [facility] Comment on above: Performed By: #### U AMIC #### [facility] [address] [place], [place] [phone] Chip Mixing Machine Operator: Clifford Fofana MD Mucus Strands NOT REPORTED Normal [facility] Comment on above: Performed By: #### U AMIC #### [facility] [address] [place], [place] 0894983 Chip Mixing Machine Operator: Clifford Fofana MD Other Observations NOT REPORTED Normal NREQ [facility] Comment on above: Performed By: #### U AMIC #### [facility] [address] [place], [place] [phone] Chip Mixing Machine Operator: Clifford Fofana MD Trichomonas NOT REPORTED Normal [facility] Comment on above: Performed By: #### U AMIC #### [facility] [address] [place] [address] Chip Mixing Machine Operator: Clifford Fofana MD Yeast LM Ql (Urine sed) NOT REPORTED Normal [facility] Comment on above: Performed By: #### U AMIC #### [facility] [address] [place] [address] Chip Mixing Machine Operator: Clifford Fofana MD Urinalysis with Microscopico n 05-08-2020 Amorphous, UA NOT REPORTED None [facility], [place] Bacteria, UA TRACE Abnormal None [facility] Bilirubin Urine Negative NEGATIVE [facility] Casts UA NOT REPORTED /LPF [facility] Color, UA YELLOW YELLOW [facility] Crystals, UA NOT REPORTED None /HPF [facility] Epithelial Cells UA 0 TO 2 [place], [place] Glucose, Ur Negative NEGATIVE [facility] Interpretation and review of laboratory results Abnormal [facility] Ketones Ql (U) Negative NEGATIVE [facility] Leukocyte esterase Test strip Ql (U) TRACE Abnormal NEGATIVE [facility] Mucus, UA NOT REPORTED None [facility] Nitrite, Urine Negative NEGATIVE [facility] Other Observations UA NOT REPORTED NOT REQ. M [facility], [place] pH, UA 6.0 [place], [place] Protein (U) [Mass/Vol] Negative NEGATIVE [place], [place] RBC (U) [#/Vol] 2 TO 5 [place] Renal Epithelial, UA NOT REPORTED 0 /HPF Me [place], [place] Specific [place], UA 1.020 [place] Trichomonas, UA NOT REPORTED None [place] Turbidity UA CLEAR CLEAR [place] Urinalysis Comments NOT REPORTED [place] Urine Hgb 2+ Abnormal NEGATIVE [place] Urobilinogen, Urine Normal Normal [place] WBC, UA 5 TO 10 [place] Yeast, UA NOT REPORTED None [place] OPERATIVE REPORTon 0 OPERATIVE REPORT [address] [id number] OPERATIVE REPORT PATIENT NAME: ML HASSAN : 1950 MED REC NO: [id number] ROOM: ACCOUNT NO: [id number] ADMIT DATE: 04/10/2020 PROVIDER: Vilma Sotomayor DATE OF PROCEDURE: 04/10/2020 SURGEON: Dr. Vilma Sotomayor. BATTING MACHINE OPERATOR: None. PREOPERATIVE DIAGNOSES: 1. BPH with lower [...] tabs, given to the patient. PROSTHESIS: A 22-Iraqi three-way Salazar catheter. DISPOSITION: Stable. FINDINGS: Trilobar hyperplasia of the prostate. INDICATIONS: The patient is a 69-year-old male with previous history of UroLift, now here for definitive therapy in the form of PVP GreenLight. DESCRIPTION OF PROCEDURE: The patient was taken back to the operating room after informed consent including all risks, benefits, and alternatives were obtained. [facility], where he was induced under general anesthesia, given IV Cipro for preoperative antibiotic prophylaxis. To begin the case, he was prepped and draped in normal sterile fashion, placed in dorsal lithotomy. He had a 24-Iraqi sheath with 30-degree lens passed through the [...] We then removed the scope, inserted a 22-Iraqi three-way Salazar catheter, hand irrigated to clear. He was then awoken from general anesthesia, transferred [facility], and taken to the PACU in satisfactory condition by Nursing and Anesthesia Teams. PLAN: The patient will be discharged home per PACU criteria and follow up with us in two days for Salazar catheter removal. VILMA SOTOMAYOR RONY/Harsha_CGNOS_I Doc#: [id number] CC: Normal [facility] CBC Auto Differentialon 09-0 Basophils (Bld) [#/Vol] 0.00 10*3/uL [place] Basophils/100 WBC (Bld) 0 % 0 - 2 % M [place], [place] Differential Type YES [place] Eosinophils (Bld) [#/Vol] 0.20 10*3/uL [place] Eosinophils/100 WBC (Bld) 3 % 0 - 5 % [place] Erythrocyte distribution width (RBC) [Ratio] 13.4 % 12.1 - 15.2 % [place] Hematocrit (Bld) [Volume fraction] 42.7 % 41 - 53 % [place] Hemoglobin (Bld) [Mass/Vol] 14.4 g/dL 13.5 - 17.5 g/dL [place] Lymphocytes (Bld) [#/Vol] 1.40 10*3/uL [place] Lymphocytes/100 WBC (Bld) 17 % 13 - 44 % [place] MCH (RBC) [Entitic mass] 31.3 pg 26 - 34 pg [place] MCHC (RBC) [Mass/Vol] 33.8 g/dL 31 - 37 g/dL [place], [place] MCV (RBC) [Entitic vol] 92.6 fL 80 - 100 fL [place] Monocytes (Bld) [#/Vol] 0.70 10*3/uL [place] Monocytes/100 WBC (Bld) 9 % 5 - 9 % [place] Platelet mean volume (Bld) [Entitic vol] NOT REPORTED 6 - 12 fL [place] Platelets (Bld) [#/Vol] NOT REPORTED [place] Platelets (Bld) [#/Vol] 207 10*3/uL [place] RBC (Bld) [#/Vol] 4.61 10*6/uL 4.5 - 5.9 m/uL [place], [place] RBC morphology finding Nom (Bld) NOT REPORTED [place] Segmented neutrophils/100 WBC (Bld) 71 % 39 - 75 % [place] Segs Absolute 5.60 [place] WBC (Bld) [#/Vol] NOT REPORTED per 100 WBC [place] WBC (Bld) [#/Vol] 7.9 10*3/uL [place] WBC Morphology NOT REPORTED [place] COVID-19on 04-06-2020 SARS-CoV-2 Not Detected Not Detected [place] Comment on above: The specimen is NEGATIVE for SARS-CoV-2, the novel coronavirus associated with COVID-19. A negative result does not rule out COVID-19. This test has been authorized by the FDA under an Emergency Use Authorization (EUA) for use by authorized laboratories. [employer] SARS-CoV-2 Reagents for [employer] are designed to detect the virus that causes COVID-19 in patients with signs and symptoms of infection who are suspected of COVID-19. An individual without symptoms of COVID-19 and who is not shedding SARS-CoV-2 virus would expect to have a negative (not detected) result in this assay. Fact sheet for Healthcare Providers: https://www.fda.gov/media/673616/download Fact sheet for Patients: https://www.fda.gov/media/002761/download METHODOLOGY: RT-PCR SARS-CoV-2, PCR [place] SARS-CoV-2, Rapid [place] Source .NASOPHARYNGEAL SWAB [place] Otheron 04-06-2020 Immature granulocytes (Bld) [#/Vol] NOT REPORTED [place] Cult,Urineon 12-03-2019 Cult,Urine Specimen Description .CLEAN CATCH URINE Special Requests NOT REPORTED Culture NO GROWTH Report Status FINAL 12/02/2019 Normal [facility] Comment on above: Performed By: #### U RC #### [facility] [employer] [address] [place] [id number] Chip Mixing Machine Operator: Andrei Pryor MD [facility] [address] [place] [address] [place] [address] Chip Mixing Machine Operator: Clifford Fofana MD Urinalysis w/ Microon 2019 ----- Normal [facility] Comment on above: Performed By: #### U AMIC #### [facility] [address] [place] [address] Chip Mixing Machine Operator: Clifford Fofana MD Acetoacetic Acid,Ur Negative Normal NEG [facility] Comment on above: Performed By: #### U AMIC #### [facility] [address] [place] [address] Chip Mixing Machine Operator: Clifford Fofana MD Bacteria LM.HPF (Urine sed) [#/Area] TRACE Abnormal NONE [facility] Comment on above: Performed By: #### U AMIC #### [facility] [address] [place], [place] 5291783 Chip Mixing Machine Operator: Clifford Fofana MD Bilirubin, SemiQt,Ur Negative Normal [facility] Comment on above: Performed By: #### U AMIC #### [facility] [address] [place] 659[address]3 Chip Mixing Machine Operator: Clifford Fofana MD Color (U) YELLOW Normal YEL [facility] Comment on above: Performed By: #### U AMIC #### [facility] [address] [place] 7959083 Chip Mixing Machine Operator: Clifford Ffoana MD Epithelial cells LM.HPF (Urine sed) [#/Area] None Normal 0-5 [facility] [place] Comment on above: Performed By: #### U AMIC #### [facility] [address] [place] 1980983 Chip Mixing Machine Operator: Clifford Fofana MD Glucose Ql (U) Negative Normal [facility] Comment on above: Performed By: #### U AMIC #### [facility] [address] [place], [place] 0544183 Chip Mixing Machine Operator: Clifford Fofana MD Hemoglobin, Ur Negative Normal [facility] Comment on above: Performed By: #### U AMIC #### [facility] [address] [place], [place] 2702683 Chip Mixing Machine Operator: Clifford Fofana MD Leukocyte esterase Test strip Ql (U) Negative Normal [facility] Comment on above: Performed By: #### U AMIC #### [facility] [address] [place], [place] 4446183 Chip Mixing Machine Operator: Clifford Fofana MD Nitrite,Ur Negative [facility] Comment on above: Performed By: #### U AMIC #### [facility] [address] [place] 5607183 Chip Mixing Machine Operator: Clifford Fofana MD pH (U) 5.5 [pH] Normal 5.0-9.0 [facility] Comment on above: Performed By: #### U AMIC #### [facility] [address] [place], [place] 3480283 Chip Mixing Machine Operator: Clifford Fofana MD Protein Ql (U) Negative Normal NEG [facility] Comment on above: Performed By: #### U AMIC #### [facility] [address] [place], [place] 8406883 Chip Mixing Machine Operator: Clifford Fofana MD RBC (U) [#/Vol] None Normal 0-2 [facility] Comment on above: Performed By: #### U AMIC #### [facility] [address] [place], [place] 7744383 Chip Mixing Machine Operator: Clifford Fofana MD Specific gravity (U) [Rel density] >1.030 High 1.010-1.020 [facility] Comment on above: Performed By: #### U AMIC #### [facility] [address] [place], [place] 4480783 Chip Mixing Machine Operator: Clifford Fofana MD Turbidity CLEAR Normal CLEAR [facility] Comment on above: Performed By: #### U AMIC #### [facility] [address] [place], [place] 2803883 Chip Mixing Machine Operator: Clifford Fofana MD Urobilinogen,Ur Normal Normal NORM [facility] Comment on above: Performed By: #### U AMIC #### [facility] [address] [place], [place] 3533483 Chip Mixing Machine Operator: Clifford Fofana MD WBC (U) [#/Vol] None Normal 0-5 [facility] Comment on above: Performed By: #### U AMIC #### [facility] [address] [place], [place] 1400483 Chip Mixing Machine Operator: Clifford Fofana MD Amorphous sediment LM Ql (Urine sed) NOT REPORTED Normal [facility] Comment on above: Performed By: #### U AMIC #### [facility] [address] [place] [address] Chip Mixing Machine Operator: Clifford Fofana MD Casts LM.LPF (Urine sed) [#/Area] NOT REPORTED Normal [facility] Comment on above: Performed By: #### U AMIC #### [facility] [address] [place] [address] Chip Mixing Machine Operator: Clifford Fofana MD Comment NOT REPORTED Normal [facility] Comment on above: Performed By: #### U AMIC #### [facility] [address] [place] [address] Chip Mixing Machine Operator: Clifford Fofana MD Crystals LM Nom (Urine sed) NOT REPORTED Normal NONE [facility] Comment on above: Performed By: #### U AMIC #### [facility] [address] [place] [address]83 Chip Mixing Machine Operator: Clifford Fofana MD Epithelial, Renal NOT REPORTED Normal 0 [facility] Comment on above: Performed By: #### U AMIC #### [facility] [address] [place], [place] 2346283 Chip Mixing Machine Operator: Clifford Fofana MD Mucus Strands NOT REPORTED Normal NONE [facility] Comment on above: Performed By: #### U AMIC #### [facility] [address] [place], [facility] Chip Mixing Machine Operator: Clifford Fofana MD Other Observations NOT REPORTED Normal NREQ [facility] Comment on above: Performed By: #### U AMIC #### [facility] [address] [place], [place] 6735283 Chip Mixing Machine Operator: Clifford Fofana MD Trichomonas NOT REPORTED Normal NONE [facility] [place] Comment on above: Performed By: #### U AMIC #### [facility] [address] [place], [place] 4228883 Chip Mixing Machine Operator: Clifford Fofana MD Yeast LM Ql (Urine sed) NOT REPORTED Normal NONE [facility] Comment on above: Performed By: #### U [facility] #### [facility] [address] [place] [address] Chip Mixing Machine Operator: Clifford Fofana MD Urinalysis with Microscopico n 12-01-2019 Amorphous, UA NOT REPORTED None [facility], [place] Bacteria, UA TRACE Abnormal None [place] Bilirubin Urine Negative NEGATIVE [facility], [place] Casts UA NOT REPORTED /LPF [place] Color, UA YELLOW YELLOW [place] Crystals, UA NOT REPORTED None /HPF [place] Epithelial Cells UA None [place] Glucose, Ur Negative NEGATIVE [place] Interpretation and review of laboratory results Abnormal [place] Ketones Ql (U) Negative NEGATIVE [place] Leukocyte esterase Test strip Ql (U) Negative NEGATIVE [place] Mucus, UA NOT REPORTED None [place] Nitrite, Urine Negative NEGATIVE [place] Other Observations UA NOT REPORTED NOT REQ. M [facility], [place] pH, UA 5.5 [place] Protein (U) [Mass/Vol] Negative NEGATIVE [place] RBC (U) [#/Vol] None [place] Renal Epithelial, UA NOT REPORTED 0 /HPF Me [facility], [place] Specific [place], UA >1.030 [place], [place] Trichomonas, UA NOT REPORTED None [facility], [place] Turbidity UA CLEAR CLEAR [place] Urinalysis Comments NOT REPORTED [place] Urine Hgb Negative NEGATIVE [place] Urobilinogen, Urine Normal Normal [place] WBC, UA None [facility], [place] Yeast, UA NOT REPORTED None [place] Cardiovascular Lab Reporton 07-29-2018 Cardiovascular Lab Report [facility] Patient Name: [facility] MR #: [id number] Physician: Willie Barfield, Department of M.D. Medicine Service Date: 07/29/2018 Division of Birthdate: 1950 Cardiology Room #: 3AB [id number] [facility] Cardiovascular Services [place] [address] [address] [place] [address] Cardiovascular Laboratory Report FINAL IMPRESSIONS: 1. Severe [...] high-intensity statin therapy, a beta-kp, +/- an angiotensin-convertin g enzyme inhibitor are indicated. 5. Follow up with [facility] in the [facility] in the next 2-4 weeks. 6. Follow up with Dr. Cannon as scheduled. PROCEDURES: Bilateral selective coronary angiography, percutaneous balloon angioplasty and Synergy drug-eluting stent placement of the left anterior descending coronary artery, placement of a 6-Iraqi MynxGrip closure device. METHODS: After risks, benefits, and alternatives were explained, written informed consent was obtained. The patient was prepped and draped in usual sterile fashion over the right groin. Using 1% lidocaine solution, local infiltration anesthesia was achieved. This was accomplished using a micropuncture kit. A 6-Iraqi 11 cm sheath was exchanged in without difficulty. Baseline femoral angiography was performed. Bilateral selective coronary angiography was performed using JL4 and JR4 catheters. After reviewing the images, it was elected to proceed with an interventional procedure. A 6-Iraqi XB 3.5 guide catheter was advanced over [...] was elected to conclude the procedure. A 6-Iraqi MynxGrip closure device was deployed; however, hemostasis [...] Linda/Willie Barfield M.D. Date Trans: 07/29/2018 10:45 Linda/olena [id number] cc: Viet Cannon D.O. [address] [place] [phone] [facility] Vital Signs Date Time Vital Sign Value Performing Clinician Facility 03-17-2024 10:41-0400 Body height 180.34 cm [facility] 03-17-2024 10:41-0400 Body mass index (BMI) [Ratio] 33.6 kg/m2 [facility] 03-17-2024 10:41-0400 Body weight 109.48 kg [facility] 03-17-2024 10:41-0400 Diastolic blood pressure 81 mm[Hg] [facility] 03-17-2024 10:41-0400 Heart rate 67 /min [facility] 03-17-2024 10:41-0400 Respiratory rate 12 /min [facility] 03-17-2024 10:41-0400 Systolic blood pressure 173 mm[Hg] [facility] 11-18-2023 11:10-0400 Body height 180.34 cm [facility] 11-18-2023 11:10-0400 Body mass index (BMI) [Ratio] 34.2 kg/m2 [facility] 11-18-2023 11:10-0400 Body weight 111.18 kg [facility] 11-18-2023 11:10-0400 Diastolic blood pressure 65 mm[Hg] [facility] 11-18-2023 11:10-0400 Heart rate 80 /min [facility] 11-18-2023 11:10-0400 Respiratory rate 12 /min [facility] 11-18-2023 11:10-0400 Systolic blood pressure 135 mm[Hg] [facility] 10-30-2023 12:08-0400 Diastolic blood pressure 76 mm[Hg] Harry Ledesma MD Work Phone: [facility] 10-30-2023 12:08-0400 Heart rate 74 /min Harry Ledesma MD Work Phone: [facility] 10-30-2023 12:08-0400 Systolic blood pressure 128 mm[Hg] Harry Ledesma MD Work Phone: [facility] 10-30-2023 12:07-0400 Body height 180.3 cm Harry Ledesma MD Work Phone: [facility] 10-30-2023 12:07-0400 Body mass index (BMI) [Ratio] 33.89 kg/m2 Harry Ledesma MD Work Phone: [facility] 10-30-2023 12:07-0400 Body weight 110.22 kg Harry Ledesma MD Work Phone: [facility] 10-30-2023 12:07-0400 Respiratory rate 18 /min Harry Ledesma MD Work Phone: [facility] 09-22-2023 11:30-0500 Diastolic blood pressure 88 mm[Hg] [facility] 09-22-2023 11:30-0500 Systolic blood pressure 138 mm[Hg] [facility] 09-22-2023 10:31-0500 Body height 180.34 cm [facility] 09-22-2023 10:31-0500 Body mass index (BMI) [Ratio] 33.7 kg/m2 [facility] 09-22-2023 10:31-0500 Body weight 109.54 kg [facility] 09-22-2023 10:31-0500 Diastolic blood pressure 80 mm[Hg] [facility] 09-22-2023 10:31-0500 Heart rate 67 /min [facility] 09-22-2023 10:31-0500 Respiratory rate 12 /min [facility] 09-22-2023 10:31-0500 Systolic blood pressure 156 mm[Hg] [facility] 06-17-2023 15:45-0500 Body height 180.34 cm Viet Ball Other [facility] Other 06-17-2023 15:45-0500 Body mass index (BMI) [Ratio] 33.36 kg/m2 Viet Ball Other [facility] Other 06-17-2023 15:45-0500 Body weight 108.5 kg Viet Ball Other [facility] Other 06-17-2023 15:45-0500 Diastolic blood pressure 81 mm[Hg] Viet Ball Other [employer] Other 06-17-2023 15:45-0500 Respiratory rate 12 /min Viet Ball Other [employer] Other 06-17-2023 15:45-0500 Systolic blood pressure 175 mm[Hg] Viet Ball Other [employer] Other 01-01-2023 11:00-0400 Body height 180.34 cm Viet Ball Other [employer] Other 01-01-2023 11:00-0400 Body mass index (BMI) [Ratio] 33.5 kg/m2 Viet Ball Other [facility] Other 01-01-2023 11:00-0400 Body weight 108.95 kg Viet Ball Other [facility] Other 01-01-2023 11:00-0400 Diastolic blood pressure 69 mm[Hg] Viet Ball Other [facility] Other 01-01-2023 11:00-0400 Respiratory rate 12 /min Viet Ball Other [facility] Other 01-01-2023 11:00-0400 Systolic blood pressure 127 mm[Hg] Viet Ball Other [facility] Other 11-10-2022 15:00-0400 Body height 180.34 cm Viet Ball Other [facility] Other 11-10-2022 15:00-0400 Body mass index (BMI) [Ratio] 34.06 kg/m2 Viet Ball Other [facility] Other 11-10-2022 15:00-0400 Body weight 110.77 kg Viet Ball Other [facility] Other 11-10-2022 15:00-0400 Diastolic blood pressure 70 mm[Hg] Viet Ball Other [facility] Other 11-10-2022 15:00-0400 Respiratory rate 12 /min Viet Ball Other [facility] Other 11-10-2022 15:00-0400 Systolic blood pressure 128 mm[Hg] Viet Ball Other [facility] Other 08-27-2022 11:30-0500 Body height 180.34 cm Viet Ball Other [employer] Other 08-27-2022 11:30-0500 Body mass index (BMI) [Ratio] 33.02 kg/m2 Viet Ball Other [employer] Other 08-27-2022 11:30-0500 Body temperature 96.9 [degF] Viet Ball Other [employer] Other 08-27-2022 11:30-0500 Body weight 107.41 kg Viet Ball Other [facility] Other 08-27-2022 11:30-0500 Diastolic blood pressure 84 mm[Hg] Viet Ball Other [employer] Other 08-27-2022 11:30-0500 SaO2% (BldA) [Mass fraction] 95 % Viet Ball Other [employer] Other 08-27-2022 11:30-0500 Systolic blood pressure 132 mm[Hg] Viet Ball Other [employer] Other 07-03-2022 16:30-0500 Body height 180.34 cm Nick Bosch Other [employer] Other 07-03-2022 16:30-0500 Body mass index (BMI) [Ratio] 33.75 kg/m2 Nick Bosch Other [employer] Other 07-03-2022 16:30-0500 Body weight 109.77 kg Nick Bosch Other [employer] Other 07-03-2022 16:30-0500 Diastolic blood pressure 60 mm[Hg] Nick Bosch Other [employer] Other 07-03-2022 16:30-0500 SaO2% (BldA) [Mass fraction] 97 % Nick Bosch Other [employer] Other 07-03-2022 16:30-0500 Systolic blood pressure 110 mm[Hg] Nick Bosch Other [employer] Other 06-16-2022 11:30-0500 Body height 180.34 cm Nick Bosch Other [employer] Other 06-16-2022 11:30-0500 Body mass index (BMI) [Ratio] 33.47 kg/m2 Nick Bosch Other [employer] Other 06-16-2022 11:30-0500 Body weight 108.86 kg Nick Bosch Other [employer] Other 06-16-2022 11:30-0500 Diastolic blood pressure 60 mm[Hg] Nick Bosch Other [employer] Other 06-16-2022 11:30-0500 SaO2% (BldA) [Mass fraction] 97 % Nick Bosch Other [employer] Other 06-16-2022 11:30-0500 Systolic blood pressure 120 mm[Hg] Nick Bosch Other [employer] Other 05-29-2022 15:00-0400 Body height 180.34 cm Nick Bosch Other [employer] Other 05-29-2022 15:00-0400 Body mass index (BMI) [Ratio] 34.59 kg/m2 Nick Bosch Other [employer] Other 05-29-2022 15:00-0400 Body weight 112.49 kg Nick Bosch Other [employer] Other 05-29-2022 15:00-0400 SaO2% (BldA) [Mass fraction] 97 % Nick Bosch Other [employer] Other 04-10-2020 16:15-0400 BP Diastolic 74 mm[Hg] [facility] [place] 04-10-2020 16:15-0400 BP Systolic 170 mm[Hg] [facility] [place] [facility] [place] 04-10-2020 16:15-0400 Pulse (Heart Rate) 72 /min [facility] [place] 04-10-2020 16:15-0400 Pulse Oximetry 96 % [facility] [place] [facility] [place] 04-10-2020 16:00-0400 Respiratory Rate 16 /min Vilma Sotomayor [facility], [place] 04-10-2020 15:15-0400 Body Temperature 97.2 [degF] Vilma Carter [facility], [place] 04-10-2020 11:43-0400 BMI (Body Mass Index) 33.47 kg/m2 Vilma Carter [facility], [place] 04-10-2020 11:43-0400 Body weight 108.86 kg Vilma Sotomayor [facility], [place] 04-10-2020 11:43-0400 Height 180.3 cm [facility] [place] Encounters Encounter Date Encounter Type Care Provider Facility Start: 05-03-2024 End: 05-03-2024 [facility] Work Phone: Start: 05-03-2024 End: 05-03-2024 Patient encounter procedure [facility] Work Phone: Start: 03-17-2024 End: 03-17-2024 [facility] Work Phone: Start: 03-17-2024 End: 03-17-2024 Patient encounter procedure [facility] Work Phone: Start: 03-15-2024 End: 03-15-2024 ambulatory [facility] Start: 03-07-2024 End: 03-07-2024 ambulatory [facility] Start: 01-19-2024 End: 01-19-2024 ambulatory ROBERTA AMES Not Available Start: 12-29-2023 End: 12-29-2023 ambulatory [facility] Start: 12-25-2023 End: 12-25-2023 ambulatory ROBERTA AMES Not Available Start: 12-24-2023 End: 12-24-2023 Emergency department patient visit Joe Carter Facility:[facility] Start: 11-30-2023 End: 11-30-2023 ambulatory [facility] Start: 11-18-2023 End: 11-18-2023 ambulatory [facility] Work Phone: Start: 11-18-2023 End: 11-18-2023 Patient encounter procedure [facility] Work Phone: Start: 11-05-2023 Non-patient / Non-visit [facility] Work Phone: Start: 10-29-2023 End: 10-29-2023 Office outpatient new 45 minutes Harry Ledesma MD Work Phone: [facility] Comment on above: Claudication (CMS-HC C) (Primary Dx); PAD (peripheral artery disease) (CMS-HCC); Varicose veins of bilateral lower extremities with pain Start: 10-13-2023 End: 10-13-2023 ambulatory FRENCH SANDOVAL Not Available Start: 09-30-2023 Non-patient / Non-visit [facility] Work Phone: Start: 09-29-2023 Non-patient / Non-visit [facility] Work Phone: Start: 09-22-2023 End: 09-22-2023 ambulatory [facility] Work Phone: Start: 09-22-2023 End: 09-22-2023 Patient encounter procedure [facility] Work Phone: Start: 06-18-2023 End: 06-18-2023 ambulatory AB [facility] Start: 06-17-2023 End: 06-17-2023 ambulatory Viet Cannon Other [employer] Other Start: 06-17-2023 Telephone encounter Viet Cannon [facility] Start: 06-17-2023 Transitional care manage srvc 14 day discharge Viet Cannon [facility] Start: 06-16-2023 End: 06-17-2023 ambulatory [facility]ET CANNON [facility] Start: 06-15-2023 End: 06-16-2023 [facility] Start: 06-14-2023 Telephone encounter Viet RICE [facility] Start: 06-14-2023 End: 06-15-2023 ambulatory VIET CANNON [facility] Other Start: 06-09-2023 End: 06-13-2023 Evaluation and management of inpatient VIET CANNON [facility] Start: 05-21-2023 End: 05-21-2023 [facility] Start: 05-08-2023 End: 05-08-2023 ambulatory Viet Cannon Other [employer] Other Start: 05-08-2023 Office outpatient vi sit 15 minutes Viet Cannon [facility] Start: 05-08-2023 Telephone encounter Viet RICE [facility] Start: 01-01-2023 End: 01-01-2023 ambulatory Viet Cannon Other [employer] Other Start: 01-01-2023 Office outpatient vi sit 15 minutes Viet Cannon [facility] Start: 12-10-2022 End: 12-10-2022 ambulatory Viet Cannon Other [employer] Other Start: 12-10-2022 Telephone encounter Viet RICE [facility] Start: 11-11-2022 End: 11-12-[address] WILLIE BARFIELD Facility:[facility] Start: 11-10-2022 End: 11-10-2022 ambulatory Viet Cannon Other [employer] Other Start: 11-10-2022 Patient encounter procedure Viet Cannon [facility] Start: 10-06-2022 End: 10-06-2022 ambulatory Viet Cannon Other [employer] Other Start: 10-06-2022 Telephone encounter Viet RICE [facility] Start: 09-10-2022 End: 09-11-[address] VIET CANNON Facility:[facility] Start: 09-02-2022 End: 09-02-2022 ambulatory Vite Cannon Other [employer] Other Start: 09-02-2022 Telephone encounter Viet RICE [facility] Start: 09-01-2022 End: 09-01-2022 ambulatory Viet Cannon Other [employer] Other Start: 09-01-2022 Telephone encounter Viet RICE [facility] Start: 08-27-2022 End: 08-27-2022 ambulatory Viet Cannon Other [employer] Other Start: 08-27-2022 Office outpatient vi sit 25 minutes Viet Cannon [facility] Start: 08-22-2022 End: 08-22-2022 ambulatory Viet Cannon Other [employer] Other Start: 08-22-2022 Telephone encounter Viet RICE [facility] Start: 08-15-2022 End: 08-15-2022 ambulatory Viet Cannon Other [employer] Other Start: 08-15-2022 Telephone encounter Viet RICE [facility] Start: 07-03-2022 End: 07-03-2022 ambulatory Nick Jan Other [employer] Other Start: 07-03-2022 Office outpatient vi sit 25 minutes Nick Bosch [facility] Start: 06-24-2022 (Procedure) Short Nick Bosch [facility] Start: 06-24-2022 End: 06-24-2022 ambulatory Nick Bosch Other [facility] Other Start: 06-16-2022 End: 06-16-2022 ambulatory Nick Bosch Other [facility] Other Start: 06-16-2022 Office outpatient vi sit 25 minutes Nick Bosch [facility] Start: 06-05-2022 (Procedure) Short Nick Bosch [facility] Start: 06-05-2022 End: 06-05-2022 ambulatory Nick Bosch Other [facility] Other Start: 05-29-2022 End: 05-29-2022 ambulatory Nick Bosch Other [employer] Other Start: 05-29-2022 Office outpatient ne w 45 minutes Nick Bosch [facility] Start: 05-15-2022 End: 06-20-[address] VIET CANNON Facility:[facility] Start: 04-22-2022 End: 04-22-[address] VIET CANNON Facility:[facility] Start: 04-15-2022 Adult health examination Viet Cannon Other [employer] Other Start: 04-15-2022 End: 04-16-2022 ambulatory Michael Vance Facility:[facility] Start: 04-10-2022 End: 04-11-2022 ambulatory Michael Vance Facility:[facility] Start: 03-11-2022 End: 03-12-2022 ambulatory Michael Vance Facility:[facility] Start: 02-28-2022 End: 02-28-[address] VIET CANNON Facility:[facility] Start: 02-25-2022 End: 02-26-2022 ambulatory Michael Vance Facility:[facility] Start: 02-24-2022 End: 02-25-2022 ambulatory Michael Vance Facility:[facility] Start: 02-18-2022 End: 02-19-2022 ambulatory Michael Vance Facility:[facility] Start: 01-29-2022 End: 01-30-2022 ambulatory Michael Vance Facility:[facility] Start: 01-22-2022 End: 01-23-2022 ambulatory Michael Vance Facility:[facility] Start: 01-01-2022 End: 01-02-2022 ambulatory Michael Vance Facility:[facility] Start: 12-25-2021 End: 12-26-2021 ambulatory Michael Vance Facility:[facility] Start: 12-11-2021 End: 12-12-2021 ambulatory Michael West Facility:[facility] Start: 12-03-2021 End: 12-04-[address] WILLIE BARFIELD Facility:[facility] Start: 12-02-2021 End: 12-03-2021 ambulatory Michael Vance Facility:[facility] Start: 11-27-2021 End: 11-28-2021 ambulatory Michael Vance Facility:[facility] Start: 11-25-2021 End: 11-26-2021 ambulatory Michael Vance Facility:[facility] Start: 05-08-2020 End: 05-09-2020 Patient encounter procedure ABBY MIMSCARLOS [facility] Start: 05-08-2020 End: 05-08-2020 Subsequent hospital visit by physician Viet Cannon [facility] Comment on above: Groin pain, left; Left testicular pain Start: 04-10-2020 End: 04-10-2020 Patient encounter procedure [facility] Start: 04-10-2020 End: 04-10-2020 Subsequent hospital visit by physician Vilma Sotomayor Work Phone: [facility] Start: 04-06-2020 End: 04-06-2020 Subsequent hospital visit by physician Viet Cannon [facility] Laboratory Comment on above: BPH with obstruction /lower urinary tract symptoms; Pre-op testing Start: 04-06-2020 End: 04-06-2020 Subsequent hospital visit by physician Dwight Covid19 Pat Screening Schedule [facility] PRE ADMIT Comment on above: Arrived Start: 12-01-2019 End: 12-02-2019 Patient encounter procedure [facility] Start: 12-01-2019 End: 12-01-2019 Subsequent hospital visit by physician Viet Cannon [facility] Laboratory Comment on above: Dysuria Start: 07-29-2018 End: 07-30-2018 Patient encounter procedure WILLIE BARFIELD Facility:[facility] Procedures Date Procedure Procedure Detail Performing Clinician Start: 11-11-2022 PSA screening Michael vicente Comment on above: Performed By: #### P [facility] ####[facility] [id number] [place], [place] [address] Card Start: 05-08-2020 Culture bacterial quanttative colony count urine VILMA SOTOMAYOR Start: 05-08-2020 Urnls dip stick/tabl et reagent auto microscopy VILMA SOTOMAYOR Start: 05-08-2020 Urnls dip stick/tabl et reagent auto microscopy Abby Jakub Danielle Work Phone: Start: 04-10-2020 DISCHARGE PATIENT DANIELA Foley BARBY Start: 04-10-2020 Continuous pulse oximetry VILMA SOTOMAYOR Start: 04-10-2020 ENCOURAGE DEEP BREAT OSCAR AND COUGHING VILMA SOTOMAYOR Start: 04-10-2020 INITIATE OXYGEN THER APY PROTOCOL VILMA SOTOMAYOR Start: 04-10-2020 NURSING COMMUNICATION T TOYA SOTOMAYOR Start: 04-10-2020 BEDREST VILMA HECK Start: 04-10-2020 NOTIFY PHYSICIAN (SPECIFY) VILMA SOTOMAYOR Start: 04-10-2020 VITAL SIGNS VILMA HECK Start: 04-10-2020 DIET NPO, NOW VILMA STOCK Start: 04-10-2020 INITIATE OXYGEN THER APY PROTOCOL VILMA SOTOMAYOR Start: 04-10-2020 NOTIFY PHYSICIAN (SPECIFY) VILMA SOTOMAYOR Start: 04-10-2020 NURSING COMMUNICATION T TOYA SOTOMAYOR Start: 04-10-2020 PLACE INTERMITTENT PNEUMATIC COMPRESSION DEVICE VILMA SOTOMAYOR Start: 04-10-2020 VOID MANAGEMENT CONSULTING TO OR BEN SOTOMAYOR Start: 04-10-2020 FULL CODE VILMA HECK Start: 04-10-2020 INSERT PERIPHERAL IV TH ROSENDOLETY BARBY Start: 04-10-2020 VERIFY INFORMED CONSENT VILMA SOTOMAYOR Start: 04-10-2020 VITAL SIGNS VILMA HECK Start: 04-06-2020 COVID-19 Thor Demetrio goss Work Phone: Start: 04-06-2020 Blood count complete auto&auto difrntl wbc Kristina Penaloza [employer] Work Phone: Start: 12-01-2019 Culture bacterial quanttative colony count urine VILMA SOTOMAYOR Start: 12-01-2019 Urnls dip stick/tabl et reagent auto microscopy VILMA SOTOMAYOR Start: 12-01-2019 Urnls dip stick/tabl et reagent auto microscopy Vilma Sotomayor Work Phone: Start: 11-26-2017 Screening for malign ant neoplasm of colon Viet Ball Other Start: 09-16-2017 General examination of patient Viet Cannon Other Start: 04-09-2016 Screening for malign ant neoplasm of prostate Viet Cannon Other Depression screening Carisa Cannon Other Plan of Treatment Date Care Activity Detail Author Start: 01-14-2024 End: 01-14-2024 Patient encounter procedure 01/14/2024 10:40 AM EDT Office Visit [facility] [address] [place] [address] Harry Ledesma MD [address] [place] [address] [facility] Start: 04-03-2023 COVID-19 Vaccine ( season) COVID-19 Vaccine ( season) [facility] Start: 04-03-2023 Influenza vaccination Influenza Vacc ine [facility] Start: 01-09-2023 Adult BMI Screening Adult BMI Screen ing [facility] Start: 05-31-2020 End: 05-31-2020 Office Visit 05/31/2020 Office Visit Urology Abby Danielle PA-C [address] [place] [address] [facility] [address] [place] [address] [facility] Start: 04-12-2020 End: 04-12-2020 Office Visit 04/12/2020 Office Visit Urology Vilma Sotomayor MD [address] [place] [address], [address] [place] [address] [facility]rology Start: 04-10-2020 End: 04-10-2020 Hospital Encounter [facility] OR Comment on above: CYSTOSCOPY TRANSURET HRAL RESECTION PROSTATE LASER-PVP GREEN[facility]IGHT Start: 04-03-2020 [facility] Start: 01-09-2020 End: 01-09-2020 Office Visit 01/09/2020 Office Visit Urology Vilma Sotomayor MD [address] [place] [address], [address] [place] [address] [phone] [facility] Start: 12-01-2019 Annual Wellness Visi t (AWV) Annual Wellness Visit (AWV) [place], [place] Start: 2013 Fall Risk Screening Fall Risk Screen ing [facility] Start: 2013 Pneumococcal 65+ yea rs Vaccine (1 of 1 - PPSV23) Pneumococcal 65+ years Vaccine (1 of 1 - PPSV23) [place], [place] Start: 1998 Administration of varicella zoster vaccine Zoster (Shingles) Vaccine (1 of 2) [facility] Start: 1998 Screening for malign ant neoplasm of colon Colon cancer screen colonoscopy [place], [place] Start: 1998 Shingles Vaccine (1 of 2) Pedraza gles Vaccine (1 of 2) [place], [place] Start: 1988 Lipid panel Lipid screen [place], [place] Start: 1967 DTaP,Tdap and Td Vac cines (1 - Tdap) DTaP,Tdap and Td Vaccines (1 - Tdap) [facility] Start: 1967 DTaP/Tdap/Td vaccine (1 - Tdap) DTaP/Tdap/Td vaccine (1 - Tdap) [place], [place] Start: 1966 Adult BMI Follow Up Plan Adult BMI Follow Up Plan [facility] Start: 1960 Depression Screening Depression Scre ening [facility] Start: 1960 Tobacco Screening Tobacco Screening [facility] Start: 1948 Abdominal aortic ane urysm screening AAA screen [place], [place] Start: 1948 Creatinine measurement Creatinine mo nitoring [place], [place] Start: 1948 Hepatitis C screening Hepatitis C sc reen [place], [place] Start: 1948 Medicare Annual Well ness Visit Medicare Annual Wellness Visit [facility] Start: 1948 Potassium monitoring Potassium monit oring [place], [place] End: 12-01-2019 Culture, Urine Culture, Urine Microbiology Routine Dysuria 1 Occurrences starting 12/01/2019 until 12/01/2019 [facility]: 1 Occurrences starti ng 12/01/2019 until 12/01/2019 Culture, Urine [place] End: 05-08-2020 Culture, Urine Culture, Urine Microbiology Routine Groin pain, left Left testicular pain 1 Occurrences starting 05/08/2020 until 05/08/2020 [facility] Comment on above: 1 Occurrences starti ng 05/08/2020 until 05/08/2020 Oxygen therapy [[facility] Data Set] Initiate Oxygen Therapy Protocol Respiratory Care Routine Daily until discontinued starting 04/10/2020 [facility] Comment on above: Daily until disconti nued starting 04/10/2020 Phase I & II - meter ed glucose Phase I & II - metered glucose Point of Care Testing Routine As Needed until discontinued starting 04/10/2020 [place], [place] Comment on above: As Needed until disc ontinued starting 04/10/2020 Rheumatoid factor [Units/volume] in Serum or Plasma [facility] Immunizations Immunization Date Immunization Notes Care Provider Fa itz 05-03-2024 influenza, high dose seasonal, preservative-free [facility] 06-04-2023 influenza virus vaccine, unspecified formulation [facility] 06-04-2023 influenza, high dose seasonal, preservative-free Viet Cannon Other [facility] Other 05-21-2022 influenza, high dose seasonal, preservative-free Viet Cannon Other [facility] Other 05-21-2022 influenza virus vaccine, split virus (incl. purified surface antigen) Viet Cannon Other [facility] Other 05-21-2022 influenza virus vaccine, unspecified formulation [facility] 06-26-2021 COVID-19 Vaccine Moderna - Documentation Purposes Only Viet Cannon Other [facility] 06-12-2021 COVID-19 Vaccine Moderna - Documentation Purposes Only Viet Cannon Other [facility] 05-13-2021 influenza virus vaccine, split virus (incl. purified surface antigen) Viet Cannon Other [facility] Other 05-13-2021 influenza virus vaccine, unspecified formulation [facility] 10-12-2020 COVID-19 Vaccine Moderna - Documentation Purposes Only Viet Cannon Other [facility] 09-14-2020 COVID-19 Vaccine Moderna - Documentation Purposes Only Viet Cannon Other [facility] 05-15-2020 influenza virus vaccine, split virus (incl. purified surface antigen) Viet Cannon Other [facility] Other 05-15-2020 influenza virus vaccine, unspecified formulation [facility] 05-09-2019 influenza virus vaccine, split virus (incl. purified surface antigen) Viet Cannon Other [facility] Other 05-09-2019 influenza virus vaccine, unspecified formulation [facility] 04-20-2018 influenza virus vaccine, split virus (incl. purified surface antigen) Viet Cannon Other [facility] [employer] Other 04-20-2018 influenza virus vaccine, unspecified formulation [facility] 05-13-2017 influenza virus vaccine, split virus (incl. purified surface antigen) Viet Cannon Other [facility] Other 05-13-2017 influenza virus vaccine, unspecified formulation [facility] 06-02-2016 pneumococcal polysaccharide vaccine, 23 valent Viet Cannon Other [facility] 04-09-2016 influenza virus vaccine, split virus (incl. purified surface antigen) Viet Davis Other [facility] Other 04-09-2016 influenza virus vaccine, unspecified formulation [facility] 05-17-2015 pneumococcal conjuga te vaccine, 13 valent Viet Cannon Other [facility] 05-10-2015 influenza virus vaccine, split virus (incl. purified surface antigen) Viet Cannon Other [employer] Other 05-10-2015 influenza virus vaccine, unspecified formulation [facility] 05-18-2013 tetanus and diphther ia toxoids, adsorbed, preservative free, for adult use (5 Lf of tetanus toxoid and 2 Lf of diphtheria toxoid) Viet Cannon Other [facility] pneumococcal Conjuga te, unspecified formulation; Translations: [Need for prophylactic vaccination against Streptococcus pneumoniae (pneumococcus)] Viet Cannon Other [employer] Other Payers Date Payer Category Payer Unknown [id number] 2019 Medicare MEDICARE MEDICAR E PART A AND B xxxxxxxxxxx 2019-Present [phone] [place] [address] xxxxxxxxxxx [id number] 2019 Unknown BCBS ANTHEM MEDI CARE SUPP xxxxxxxxxxxx 2019-Present [address] [place] [address] xxxxxxxxxxxx [id number] .[id number] 2019 Unknown ANTHEM TRADITION AL [id number] 2019-Present [phone] [address] [place] [address] [id number] .[id number] 2013 Medicare MEDICARE MEDICAR E PART A & B [id number] 2013-Present [phone] [address] [place] [address] [id number] .[id number] 1959 Medicare [id number] 1.2.840.641559.1.13.239.2.7.3 .586394.315 1959 Unknown [id number] 1.2.840.443394.1.13.239.2.7.3 .675405.315 1948 Unknown [id number] 2.16.840.1.049265.3.579.2.647 1948 Unknown [id number] 2.16.840.1.613727.3.579.2.173 1948 Unknown [id number] 2.16.840.1.406095.3.579.2.173 1948 Unknown [id number] 2.16.840.1.965170.3.579.2.173 1948 Unknown [id number] 2.16.840.1.898699.3.579.2.593 1948 Unknown [id number] 2.16.840.1.535251.3.579.2.593 1948 Unknown [id number] 2.16.840.1.080436.3.579.2.593 1948 Unknown [id number] 2.16.840.1.468583.3.579.2.593 1948 Unknown [id number] 2.16.840.1.614268.3.579.2.593 1948 Unknown [id number] 2.16.840.1.737678.3.579.2.593 1948 Unknown [id number] 2.16.840.1.234270.3.579.2.593 1948 Unknown [id number] 2.16.840.1.479554.3.579.2.593 1948 Unknown [id number] 2.16.840.1.023578.3.579.2.593 1948 Unknown [id number] 2.16.840.1.403691.3.579.2.593 1948 Unknown [id number] 2.16.840.1.790783.3.579.2.593 1948 Unknown [id number] 2.16.840.1.853659.3.579.2.593 1948 Unknown [id number] 2.16.840.1.701466.3.579.2.593 1948 Unknown [id number] 2.16.840.1.570138.3.579.2.593 1948 Unknown [id number] 2.16.840.1.532649.3.579.2.593 1948 Unknown [id number] 2.16.840.1.705483.3.579.2.593 1948 Unknown [id number] 2.16.840.1.002959.3.579.2.593 1948 Unknown [id number] 2.16.840.1.343311.3.579.2.593 1948 Unknown [id number] 2.16.840.1.210338.3.579.2.593 1948 Unknown [id number] 2.16.840.1.557152.3.579.2.593 1948 Unknown [id number] 2.16.840.1.555049.3.579.2.174 1948 Unknown [id number] 2.16.840.1.823671.3.579.2.174 1948 Unknown [id number] 2.16.840.1.664606.3.579.2.174 1948 Unknown [id number] 2.16.840.1.728152.3.579.2.174 1948 Unknown [id number] 2.16.840.1.262100.3.579.2.727 1948 Unknown [id number] 2.16.840.1.728398.3.579.2.727 1948 Unknown [id number] 2.16.840.1.284821.3.579.2.727 1948 Unknown [id number] 2.16.840.1.823508.3.579.2.125 9 1948 Unknown [id number] 2.16.840.1.053131.3.579.2.125 9 1948 Unknown [id number] 2.16.840.1.289878.3.579.2.125 9 1948 Unknown [id number] 2.16.840.1.469821.3.579.2.125 9 Medicare Medicare-OP No Part B [id number] Self-pay Self Pay [id number] [id number] [facility] [id number] Social History Date Type Detail Facility Start: 12-01-2019 End: 09-22-2023 Tobacco smoking status NHIS Former smoker [facility] End: 08-03-1989 History of tobacco use Current smoker [place], [place] Start: 12-01-2019 End: 10-30-2023 Cigarettes smoked current (pack per day) - Reported [place], [place] Start: 12-01-2019 End: 05-08-2020 Alcohol intake Ex-drinker (finding) [facility] Start: 12-01-2019 Alcohol Comment quit 1986 [place], [place] Start: 1950 Sex Assigned At Not on file [place] Start: 03-30-2020 End: 05-08-2020 Tobacco use and exposure Never used [place] Exposure to SARS-CoV -2 (event) Not sure [place] Start: 01-10-2019 End: 10-30-2023 Sex Assigned At [facility] [employer] Other Start: 1950 Sex Assigned At Male [facility] Start: 01-09-2022 Tobacco smoking status NHIS Tobacco smoking consumption unknown [facility] Childcare Unknown [facility] Clinical Notes 05-29-2022 to 03-15-2024 Harry Ledesma MD - 10/29/2023 2:00 PM EDT Note Date & Type Note Facility 03-15-2024 Note [facility] Consult Note [place] [facility] Reason for visit: Sinus pause HPI: Ml Hassan is a 73 y.o. year old with past medical history of CAD, hypertension, GUADALUPE on CPAPhyperlipidemia has been previously seen by Dr. ESTEVES. He has been noted to have elevated blood pressure and is being managed for that. He had a recent syncopal episode in December 2023 which resulted in facial trauma and fracture of his left hand. Since that time he has not had any further episodes of falls prior evaluations have revealed no evidence of any valvular stenosis and his EF was noted to be 65% in December 2023. He had an event monitor placed in January 2024 which resulted in a sinus pause of 3.4 seconds during sleeping hours. Patient has not experienced any further episodes since the event monitor has been placed. PMH: Past Medical History: Diagnosis Date Sciatica PSH: Past Surgical History: Procedure Laterality Date CARDIAC CATHETERIZATION Left 07/29/2018 drug-eluting stent LAD CHOLECYSTECTOMY HERNIA REPAIR SH: Social Determinants of Health Tobacco Use: Medium Risk (06/20/2022) Patient History Smoking Tobacco Use: Former Smokeless Tobacco Use: Never Passive Exposure: Past Alcohol Use: Not on file Financial Resource Strain: Not on file Food Insecurity: Not on file Transportation Needs: Not on file Physical Activity: Not on file Stress: Not on file Social Connections: Not on file Intimate Partner Violence: Unknown (09/24/2023) [place] Safety & Environment Fear of Current or Ex-Partner: Not on file Emotionally Abused: Not on file Physically Abused: Not on file Sexually Abused: Not on file Physically or Sexually Abused: Not on file Depression: Not on file Housing Stability: Not on file Utilities: Not on file Allergies: Allergies Allergen Reactions Prednisone Rash Hrsmzxs-Yrk-Qsr Reductase Inhibitors Other Weight: 109kg Visit Vitals BP 117/66 (BP Location: Right arm, Patient Position: Sitting) Pulse 60 Ht 1.803 m (5' 11 ) Wt 109 kg (240 lb) SpO2 95% BMI 33.47 kg/m??? Smoking Status Former BSA 2.34 m??? Meds: Current Outpatient Medications on File Prior to Visit Medication Sig Dispense Refill albuterol 90 mcg/actuation inhaler INHALE 1 PUFF EVERY 12 HOURS alirocumab (Praluent Pen) 75 mg/mL pen injector Taking monthly - not every 2 weeks ALPRAZolam (Xanax) 0.25 mg tablet 1 (one) Tablet 1-2 hours prior to testing aspirin 81 mg EC tablet Take 1 tablet every day by oral route. carvedilol (Coreg) 6.25 mg tablet Take 1 tablet (6.25 mg) by mouth with breakfast and with evening meal. 90 tablet 3 clopidogrel (Plavix) 75 mg tablet Take 1 tablet (75 mg) by mouth in the morning. 90 tablet 3 famotidine (Pepcid) 20 mg tablet Take 1 tablet by mouth in the morning and at bedtime. folic acid (Folvite) 1 mg tablet TAKE 1 TABLET BY MOUTH EVERY DAY after A meal gabapentin (Neurontin) 300 mg capsule Take 1 capsule by mouth in the morning and at bedtime. gemfibrozil (Lopid) 600 mg tablet Take 1 tablet (600 mg) by mouth before breakfast and before evening meal. 180 tablet 3 lisinopril 2.5 mg tablet TAKE 1 TABLET BY MOUTH EVERY DAY IN THE MORNING 90 tablet 3 methylPREDNISolone (Medrol) 2 mg tablet if needed. montelukast (Singulair) 10 mg tablet Take 1 tablet by mouth in the morning. nitroglycerin (Nitrostat) 0.[address] 1 tablet by sublingual route as needed. 100 tablet 2 spironolactone (Aldactone) 25 mg tablet TAKE 1 TABLET BY MOUTH EVERY DAY or as directed 90 tablet 3 tiZANidine (Zanaflex) 4 mg tablet TAKE 2 TABLETS BY MOUTH EVERY DAY AT BEDTIME carvedilol (Coreg) 3.125 mg tablet Take 1 tablet (3.125 mg) by mouth in the morning and at bedtime. 180 tablet 3 traZODone (Desyrel) 50 mg tablet Take 2 tablets by mouth at bedtime. No current facility-administered medications on file prior to visit. ROS: Review of Systems Constitutional: Positive for malaise/fatigue. Musculoskeletal: Positive for back pain. All other systems reviewed and are negative. Physical Exam: Constitutional General Appearance: well-nourished, well-developed, appears stated age Level of Distress: comfortable Psychiatric Mental Status: alert, normal affect Orientation: oriented to time, place, and person Insight: good judgement Eyes Lids and Conjunctivae: non-injected, no xanthelasma ENMT Ears: no lesions on external ear Nose: no lesions on external nose Oropharynx: no cyanosis, no pallor Neck Neck: supple, trachea midline Carotid Arteries: bilateral normal upstroke, no bruits Jugular Veins: normal jugular venous pressure Thyroid: not enlarged Lungs Respiratory Effort: unlabored Chest Exam: normal curvature, no thoracic deformity Auscultation: clear, no wheezing, no rales, no rhonchi Cardiovascular Rate And Rhythm: regular Heart Sounds: normal S1, normal s2, no gallop Systolic Murmur: not heard Diastolic Murmur: not (more content not included)... [facility] 03-07-2024 Note [facility] Cardiology Clinic Note Chief Complaint: Patient here for follow up event monitor. Denies chest pain, SOB, palpitations, lightheadedness/syncope. Denies recurrent syncope/falls. HPI: Ml Hassan is a 73 y.o. male With a history of coronary artery disease, hypertension, dyslipidemia who is here due to elevated blood pressure readings seen at rehab He is also notices blood pressures are in the 140s to 150s at home No significant changes to his medication regimen apart from taking Praluent once a month rather than twice Denies symptoms; specifically, no chest pain, no shortness of breath, no orthopnea, no paroxysmal external dyspnea, no leg swelling Is using his CPAP machine regularly His states that he has been drinking more coffee than usual recently UPDATE 12/29/2023 Mr Hassan Unfortunately suffered a significant fall resulting in facial trauma, ecchymosis, and a broken bone in his left hand. While he is on sure whether this was a trip or syncope, he does not recall losing consciousness. He was able to talk to the people around him at the time without any significant delay. He denied preceding chest pain, palpitations, or shortness of breath. His blood pressure at home has been improved in the 120s to 130s systolic. Heart rate has been in the lower side on the 50s. He denies dizziness, lightheadedness, or presyncope. He was evaluated in the emergency room, underwent a CT scan of the head and neck and discharged. UPDATE 03/07/2024 No further syncopal episodes or accidental trips. Denies lightheadedness or dizziness. No chest pain, no shortness of breath Cardiology ROS: Review of Systems Constitutional: Positive for malaise/fatigue. Musculoskeletal: Positive for back pain. All other systems reviewed and are negative. Past Medical History He has a past medical history of Sciatica. Surgical History He has a past surgical history that includes Cholecystectomy; Hernia repair; and Cardiac catheterization (Left, 07/29/2018). Social History He reports that he quit smoking about 34 years ago. His smoking use included cigarettes. He has been exposed to tobacco smoke. He has never used smokeless tobacco. He reports that he does not currently use alcohol. No history on file for drug use. Family History Family History Problem Relation Name Age of Onset Lung cancer Mother Lung cancer Father Allergies Prednisone and Viiilvr-epe-oud reductase inhibitors Medications Current Outpatient Medications: albuterol 90 mcg/actuation inhaler, INHALE 1 PUFF EVERY 12 HOURS, Disp: , Rfl: alirocumab (Praluent Pen) 75 mg/mL pen injector, Taking monthly - not every 2 weeks, Disp: , Rfl: aspirin 81 mg EC tablet, Take 1 tablet every day by oral route., Disp: , Rfl: carvedilol (Coreg) 6.25 mg tablet, Take 1 tablet (6.25 mg) by mouth with breakfast and with evening meal., Disp: 90 tablet, Rfl: 3 clopidogrel (Plavix) 75 mg [...] tablet, Rfl: 3 lisinopril 2.5 mg tablet, TAKE 1 TABLET BY MOUTH EVERY DAY IN THE MORNING, Disp: 90 tablet, Rfl: 3 methylPREDNISolone (Medrol) 2 mg tablet, if needed., Disp: , Rfl: montelukast (Singulair) 10 mg [...] by mouth at bedtime., Disp: , Rfl: ALPRAZolam (Xanax) 0.25 mg tablet, 1 (one) Tablet 1-2 hours prior to testing, Disp: , Rfl: carvedilol (Coreg) 3.125 mg tablet, Take 1 tablet (3.125 mg) by mouth in the morning and at bedtime., Disp: 180 tablet, Rfl: 3 folic acid (Folvite) 1 mg tablet, TAKE 1 TABLET BY MOUTH EVERY DAY after A meal, Disp: , Rfl: gabapentin (Neurontin) 300 mg capsule, Take 1 capsule by mouth in the morning and at bedtime., Disp: , Rfl: Last Recorded Vitals BP 140/72 (BP Location: Right arm, Patient Position: Sitting) Pulse 58 Ht 1.803 m (5' 11 ) Wt 110 kg (242 lb) SpO2 97% BMI 33.75 kg/m??? Physical Examination: GENERAL: alert and oriented x3, well developed, in no acute distress. HEAD: atraumatic, normocephalic. EYES: REYNALDO, EOMI. NECK: trachea midline, no JVD present, no carotid bruits present. CARDIAC: S1, S2 present. RRR. No murmur, rubs, or gallops. RESPIRATORY: CTAB, no increased effort of breathing, no rales, rhonchi, or wheezing. ABDOMEN: soft, nontende (more content not included)... [facility] 12-29-2023 Note [facility] Cardiology Clinic Note Chief Complaint: Patient here for follow up recent fall. He doesn't remember falling or passing out. He isn't sure what happened. BP has been around 130's systolic when he checks at home. Still denies chest pain, SOB, palpitations, and lightheadedness. HPI: Ml Hassan is a 73 y.o. male With a history of coronary artery disease, hypertension, dyslipidemia who is here due to elevated blood pressure readings seen at rehab He is also notices blood pressures are in the 140s to 150s at home No significant changes to his medication regimen apart from taking Praluent once a month rather than twice Denies symptoms; specifically, no chest pain, no shortness of breath, no orthopnea, no paroxysmal external dyspnea, no leg swelling Is using his CPAP machine regularly His states that he has been drinking more coffee than usual recently UPDATE 12/29/2023 Mr Hassan Unfortunately suffered a significant fall resulting in facial trauma, ecchymosis, and a broken bone in his left hand. While he is on sure whether this was a trip or syncope, he does not recall losing consciousness. He was able to talk to the people around him at the time without any significant delay. He denied preceding chest pain, palpitations, or shortness of breath. His blood pressure at home has been improved in the 120s to 130s systolic. Heart rate has been in the lower side on the 50s. He denies dizziness, lightheadedness, or presyncope. He was evaluated in the emergency room, underwent a CT scan of the head and neck and discharged. Cardiology ROS: Review of Systems Constitutional: Positive for malaise/fatigue. Musculoskeletal: Positive for back pain. All other systems reviewed and are negative. Past Medical History He has a past medical history of Sciatica. Surgical History He has a past surgical history that includes Cholecystectomy; Hernia repair; and Cardiac catheterization (Left, 07/29/2018). Social History He reports that he quit smoking about 34 years ago. His smoking use included cigarettes. He has been exposed to tobacco smoke. He has never used smokeless tobacco. He reports that he does not currently use alcohol. No history on file for drug use. Family History Family History Problem Relation Name Age of Onset Lung cancer Mother Lung cancer Father Allergies Prednisone and Uwlptwt-yyf-pkr reductase inhibitors Medications Current Outpatient Medications: albuterol 90 mcg/actuation inhaler, INHALE 1 PUFF EVERY 12 HOURS, Disp: , Rfl: alirocumab (Praluent Pen) 75 mg/mL pen injector, Taking monthly - not every 2 weeks, Disp: , Rfl: ALPRAZolam (Xanax) 0.25 mg tablet, 1 (one) Tablet 1-2 hours prior to testing, Disp: , Rfl: aspirin 81 mg EC tablet, Take 1 tablet every day by oral route., Disp: , Rfl: carvedilol (Coreg) 3.125 mg tablet, Take 1 tablet (3.125 mg) by mouth in the morning and at bedtime., Disp: 180 tablet, Rfl: 3 carvedilol (Coreg) 6.25 mg tablet, Take 1 tablet (6.25 mg) by mouth with breakfast and with evening meal., Disp: 90 tablet, Rfl: 3 famotidine (Pepcid) [...] tablet, Rfl: 3 lisinopril 2.5 mg tablet, TAKE 1 TABLET BY MOUTH EVERY DAY IN THE MORNING, Disp: 90 tablet, Rfl: 3 methylPREDNISolone (Medrol) [...] Disp: , Rfl: Last Recorded Vitals BP 162/70 Pulse 67 Ht 1.803 m (5' 11 ) Wt 106 kg (234 lb) SpO2 97% BMI 32.64 kg/m??? Physical Examination: GENERAL: alert and oriented [...] bilaterally. No rash/skin discoloration present. NEURO: strength/sensation (more content not included)... [facility] 11-30-2023 Note o [facility] 11-30-2023 Note [facility] Cardiology Clinic Note Chief Complaint: Patient here for follow up hypertension at [facility]. Last week BP was 238/95 after walking on the treadmill. He denies chest pain, SOB, palpitations, and lightheadedness/syncope. Had lipid panel a few weeks ago. HPI: Ml Hassan is a 73 y.o. male With a history of coronary artery disease, hypertension, dyslipidemia who is here due to elevated blood pressure readings seen at rehab He is also notices blood pressures are in the 140s to 150s at home No significant changes to his medication regimen apart from taking Praluent once a month rather than twice Denies symptoms; specifically, no chest pain, no shortness of breath, no orthopnea, no paroxysmal external dyspnea, no leg swelling Is using his CPAP machine regularly His states that he has been drinking more coffee than usual recently Cardiology ROS: Review of Systems Constitutional: Positive for malaise/fatigue. Musculoskeletal: Positive for back pain. All other systems reviewed and are negative. Past Medical History He has a past medical history of Sciatica. Surgical History He has a past surgical history that includes Cholecystectomy; Hernia repair; and Cardiac catheterization (Left, 07/29/2018). Social History He reports that he quit smoking about 34 years ago. His smoking use included cigarettes. He has been exposed to tobacco smoke. He has never used smokeless tobacco. He reports that he does not currently use alcohol. No history on file for drug use. Family History Family History Problem Relation Name Age of Onset Lung cancer Mother Lung cancer Father Allergies Prednisone and Mwtagal-ydj-npi reductase inhibitors Medications Current Outpatient Medications: albuterol [...] tablet, Rfl: 3 lisinopril 2.5 mg tablet, TAKE 1 TABLET BY MOUTH EVERY DAY IN THE MORNING, Disp: 90 tablet, Rfl: 3 methylPREDNISolone (Medrol) [...] Disp: , Rfl: Last Recorded Vitals BP 154/67 (BP Location: Right arm, Patient Position: Sitting) Pulse 62 Ht 1.803 m (5' 11 ) Wt 109 kg (241 lb) SpO2 97% BMI 33.61 kg/m??? Physical Examination: GENERAL: alert and oriented [...] PSYCH: appropriate mood, affect, and judgement. Investigations: Lipid profile : 2544, cholesterol 135, HDL 52, LDL 54.2 Echocardiogram 2020: Global left ventricular systolic function is normal; EF 55 to 60%. No segmental wall motion abnormalities. Mild diastolic dysfunction. Biatrial enlargement. The right ventricle is normal in size and systolic function. No significant valvular abnormalities. His stress test 05/2023 was nonischemic. The inferior defect with diaphragm attenuation. He had no high risk findings such as TID. His ejection fraction was preserved. Wall motion was nor (more content not included)... [facility] 10-29-2023 History of Present illness Narrative Images from the original note were not included. [facility] [address] [id number] Subjective: Patient ID: Ml Hassan is a [...] Problem List Diagnosis Coronary arteriosclerosis Pulmonary HTN ([facility]) Polymyalgia rheumatica ([facility]) Dyspnea Greater trochanteric pain syndrome Fatigue Claudication ([facility]) Varicose veins of bilateral lower extremities with [...] route as needed., Disp: , Rfl: omega 5-ets-dqa-fish oil (Fish OiL) 300-1,000 mg capsule, Take [...] Diverticulosis Episode of recurrent major depressive disorder ([facility]) Gastroesophageal reflux disease without esophagitis Hyperlipidemia Primary [...] (See Comments) Other reaction(s): Intolerance Nervousness, hyper Mfkufms-Hsa-Udl Reductase Inhibitors Other (See Comments) Other reaction(s): [...] and all orders for this visit: Claudication ([facility]) [facility] (peripheral artery disease) ([facility]) - [facility] - [place], [place] Varicose veins of bilateral lower extremities [...] Harry Ledesma MD documented in this encounter [facility] 06-18-2023 Note [facility] Cardiology Clinic Note Chief Complaint: Patient here for follow up stress test. Was recently hospitalized at [facility] with salmonella poisoning. Denies chest pain. HPI: [...] Mother Lung cancer Father Allergies Prednisone and Eotajhd-tty-pcf reductase inhibitors Medications Current Outpatient Medications: albuterol [...] Coronary arteriosclerosis I25.10: Atherosclerotic heart disease of [place] coronary artery without angina pectoris 2. Diastolic dysfunction - Euvolemic I50.30: Unspecified diastolic (congestive) heart failure lisinopril 2.5 mg tablet - TAKE 1 TABLET BY MOUTH EVERY DAY Qty: 90 tablet(s) Refills: 3 Pharmacy: [id number] 3. Polymyalgia rheumatica M35.3: Polymyalgia rheumatica POLYMYALGIA RHEUMATICA: CARE INSTRUCTIONS 4. Statin not tolerated - Rhabdomyolysis on prior statin therapy Z78.9: Other specified health status 5. Dyslipidemia E78.5: Hyperlipidemia, unspecified 6. Chronic venous insufficiency (more content not included)... [facility] 06-17-2023 Evaluation note Encounter Date Diagnosis Assessment Notes Jun, Obstructive sleep apnea (ICD-10 - G47.33) Not satisfied w/ how he feels in morning and wondering if he needs adjustments. This patient is aware of the benefits associated with GUADALUPE: With continued use, the patient reduces the risk for CA, CVA, HTN, cardiac dysrhythmias and sudden cardiac [...] Most symptoms have resolved. Completed antibiotics therapy. [place] diet, avoid salads, juice, milk etc Jun, [...] JESSICA as needed. Increase activity, continue abstinence [employer] Chief Complaint: Patient [...] recently. Particular when he walks to the [place] back he feels tired. He denies chest [...] Mother Lung cancer Father Allergies Prednisone and Mmtimgo-arg-xge reductase inhibitors Medications Current Outpatient Medications: albuterol [...] Coronary arteriosclerosis I25.10: Atherosclerotic heart disease of [place] coronary artery without angina pectoris 2. Diastolic dysfunction - Euvolemic I50.30: Unspecified diastolic (congestive) heart failure lisinopril 2.5 mg tablet - TAKE 1 TABLET BY MOUTH EVERY DAY Qty: 90 tablet(s) Refills: 3 Pharmacy: [id number] 3. Polymyalgia rheumatica M35.3: Polymyalgia rhe (more content not included)...[facility]10-06-2023 Evaluation note* Encounter Date Diagnosis Assessment [...] inhalers for cough and pulmonary secretion clearance [employer] Other 06-01-2023 Evaluation note* Encounter Date Diagnosis [...] [BMI ] 33.0-33.9, adult (ICD-10 - Z68.33) [employer] Other 04-10-2023 Evaluation note* Encounter Date Diagnosis [...] use, the patient reduces the risk for CA, CVA, HTN, cardiac dysrhythmias and sudden cardiac [...] High risk medication use (ICD-10 - Z79.899) [employer] Other 01-31-2023 Evaluation note* Encounter Date Diagnosis Assessment Notes Treatment Notes Treatment Clinical Notes Aug, PAD (peripheral artery disease) (ICD-10 - I73.9) [employer] Other 01-30-2023 Evaluation note* Encounter Date Diagnosis Assessment Notes Treatment Notes Treatment Clinical Notes Aug, PAD (peripheral artery disease) (ICD-10 - I73.9) [facility] Other 01-25-2023 Evaluation note* Encounter Date Diagnosis [...] Praluent injections. Will be discussing, w/ the Chlorine Plant Operator, the benefits of once monthly dosing [...] exercise for 30 minutes, 3-5 times weekly. [facility] Other 12-01-2022 Evaluation note* Encounter Date Diagnosis [...] hold Plavix 7 days prior to procedure. [employer] Other 11-14-2022 Evaluation note* Encounter Date Diagnosis [...] nerve blocks in the future if needed [employer] Other 10-27-2022 Evaluation note* Encounter Date Diagnosis [...] progress notes from the refering provider, Dr. Cannon. I independently reviewed his recent lumbar spine [...] negative findings were considered in medical decision-making. [employer] Other Evaluation noteNo InformationNort [employer] Other Evaluation note* Diagnosis Onset Date Resolution Status Inflammatory polyarthritis a cute Lumbar spondylosis acute PMR (polymyalgia rheumatica) acute Primary osteoarthritis of knees, bilateral acute [facility] Work Phone: Evaluation note* Diagnosis Claudication ([facility])- Primary Unspecified peripheral vascular disease PAD (peripheral artery disease) ([facility]) Unspecified peripheral vascular disease Varicose veins of bilateral lower extremities with pain documented in this encounter [facility]* Diagnosis Onset Date Resolution Status Essential (primary) hypertension acute Exercise-induced leg cramps acute Inflammatory polyarthritis a cute Lumbar spondylosis acute PMR (polymyalgia rheumatica) acute Primary osteoarthritis of knees, bilateral acute ASHD (arteriosclerotic heart disease) acute Elevated cholesterol acute Essential (primary) hypertension acute Lumbar spondylosis acute Mucopurulent chronic bronchitis acute Screening PSA (prostate specific antigen) noneactive [facility] Work Phone: Evaluation note* Diagnosis Onset Date Resolution Status ASHD (arteriosclerotic heart disease) acute Elevated cholesterol acute Essential (primary) hypertension acute Lumbar spondylosis acute Mucopurulent chronic bronchitis acute NSVT (nonsustained ventricular tachycardia) acute Obstructive sleep apnea acut e Peripheral artery disease ac [place] Second degree AV block, Mobitz type I acute [facility] Work Phone: History general Narrative - Reported* Type Description Date Medical History Polymyalgia rheumatica Medical History Stent placement -- heart attack 2006 Surgical History Stent placement, multiple Hospitalization History see above [employer] Other History general Narrative - Reported* Type Description Date Medical History Polymyalgia rheumatica Medical History Stent placement -- heart attack 2006 Medical History Obstructive sleep apnea Medical History [...] II Medical History Other atherosclerosi s of [place] arteries of extremities, bilateral legs Medical History [...] History EGD 01/2018 Hospitalization History see above [facility] Other InstructionsNot on filedocumented in this encounter [facility] Purpose Family History Relationship Condition Age at Onset Recorded Date/T little daughter Crohn's disease Unknown Not Specified Diabetes mellitus Unknown Malignant neoplasm Unknown father Malignant neoplasm Unknown Unknown Relationship Condition Age at Onset Recorded Date/T little daughter Crohn's disease Unknown mother Diabetes mellitus Unknown Malignant neoplasm Unknown father Malignant neoplasm Unknown Unknown Advance Directives Documents on File Type Date Recorded Patient Rn Registry Expl anation Advance Directives and Living Will Power of Roofing Superintendent Documents on File Type Date Recorded Patient Rn Registry Expl anation ACP-Advance Directive ACP-Power of Roofing Superintendent Documents on File Type Date Recorded Patient Rn Registry Expl anation ACP-Advance Directive ACP-Power of Roofing Superintendent Latest Code Status on File Code Status Date Activated Date Inactivated Comments Full Code 04/10/2020 11:22 AM Latest Code Status on File Code Status Date Activated Date Inactivated Comments Full Code 04/10/2020 11:22 AM 04/10/2020 6:55 PM Advance Directive Response Recorded Date/ Time Advance Directives No February 23 8:54am Advance Directive Response Recorded Date/ Time Advance Directives No February 23 9:54am Assessments Diagnosis Dysuria Diagnosis BPH with obstruction/lower [...] (This helps to flush the urinary tract.) Salazar Catheter care as instructed. Call Dr. Stoomayor ([phone]) if you develop: Fever over 100 degrees Prolonged soreness/pain Unusual bleeding/bruising Unable to urinate or if urine is bloody You cannot pass urine 8 hours after the test. You have pain in your belly or your back just below your rib cage. (This is called flank pain.) You have frequent urge to urinate but can pass only small amounts of urine. Call Dr. Sotomayor office for follow-up appointment ([phone]). Salazar Catheter Care Instructions A urinary catheter is [...] Discharge instructions given to pt and . Salazar catheter care demonstrated and bag emptied. Verbalized [...] a responsible adult. Yes * Mere Danielle APRN - CRNA - 04/04/2020 10:20 AM EDT Pt chart [...] (polymyalgia rheumatica) Primary osteoarthritis of knees, bilateral Chief Complaint issues with both leg Amb Documentation Medicare Wellness Reason for Visit Essential (primary) hypertension Exercise-induced leg cramps Inflammatory polyarthritis Lumbar spondylosis PMR (polymyalgia rheumatica) Primary osteoarthritis of knees, bilateral ASHD (arteriosclerotic heart disease) Elevated cholesterol Essential (primary) hypertension Lumbar spondylosis Mucopurulent chronic bronchitis Screening PSA (prostate specific antigen) Chief Complaint 4 month follow up Reason for Visit ASHD (arteriosclerot ic heart disease) Elevated cholesterol Essential (primary) hypertension Lumbar spondylosis Mucopurulent chronic bronchitis NSVT (nonsustained ventricular tachycardia) Obstructive sleep apnea Peripheral artery disease Second degree AV block, Mobitz type I Chief Complaint 4 month follow up flu shot Reason for Visit ASHD (arteriosclerot ic heart disease) Elevated cholesterol Essential (primary) hypertension Lumbar spondylosis Mucopurulent chronic bronchitis NSVT (nonsustained ventricular tachycardia) Obstructive sleep apnea Peripheral artery disease Second degree AV block, Mobitz type I Additional Source Comments (unrecognized sect ion and content) No Status Records FoundNo Status Records FoundNo Status Records FoundNo Status Records FoundNo Status Records FoundNo Status Records FoundNo Status Records FoundNo Status Records FoundNo Status Records FoundNo Status Records FoundNo Status Records FoundNo Status Records FoundNo Status Records Found INFORMATION SOURCE (unrecogn ized section and content) DATE CREATED AUTHOR 03/13/2019 [facility] DATE CREATED AUTHOR AUTHOR'S ORGANIZ ATION 05/10/2020 [facility] DATE CREATED AUTHOR AUTHOR'S ORGANIZ ATION 11/17/2022 [facility] DATE CREATED AUTHOR AUTHOR'S ORGANIZ ATION 06/18/2023 Emma white DATE CREATED AUTHOR AUTHOR'S ORGANIZ ATION 12/26/2023 [facility] DATE CREATED AUTHOR AUTHOR'S ORGANIZ ATION 01/01/2024 [facility] DATE CREATED AUTHOR AUTHOR'S ORGANIZ ATION 01/21/2024 [facility] DATE CREATED AUTHOR AUTHOR'S ORGANIZ ATION 03/17/2024 [facility] Reason for Visit (unrecogniz ed section and content) Status Reason Specialty Diagnoses / Procedures Referre d By Contact Referred To Contact Diagnoses BPH (benign prostatic hyperplasia) BPH Procedures IN LASER VAPORIZATION SURGERY PROSTATE, COMPLETE CYSTOSCOPY TRANSURETHRAL RESECTION PROSTATE LASER-PVP Vilma Sweeney MD [address], [address] [place] [address] [facility] Reason Comments Circulatory Problem New patient complain s of right toes cold/numbness . Achy and painful to back of bilateral lower legs at times. Patient notes achy limits distance he can walk. Previous laser treatment. Specialty Diagnoses / Procedures Referred By Contlora t Referred To Contact Vascular Surgery Diagnoses PAD (peripheral artery disease) ([facility]) Viet Cannon DO [address] [place] [address] [facility] [address] [place] [address] Referral ID Status Reason Start Date Expiration Date Visits Requested Visits Authorized [id number] Pending Review Specialty Services Required 10/07/2023 10/06/2024 1 1 Care Teams (unrecognized sec tion and content) Team Status: Active Member Role Status Dates Viet Cannon DO Primary Care Provider Active Team Status: Inactive Member Role Status Dates Viet Cannon DO Primary Care Provide r, Attending Provider Active Start: September 22, 2023 End: September 22, 2023 Barrel Inspector Tight Relationship Specialty Start Date End Date Viet Cannon DO [address] [id number] PCP - General Internal Medicine 12/18/21 Team Status: Active Member Role Status Dates Viet Cannon DO Primary Care Provider Active Start: September 29, 2023 DAKSHA Bai Attending Provider Active Start : September 29, 2023 Team Status: Active Member Role Status Dates Viet Cannon DO Primary Care Provide r, Attending Provider Active Start: September 30, 2023 Team Status: Active Member Role Status Dates Viet Cannon DO Primary Care Provide r, Attending Provider Active Start: November 05, 2023 Team Status: Inactive Member Role Status Dates Viet Cannon , DO Primary Care Provide r, Attending Provider Active Start: November 18, 2023 End: November 18, 2023 Team Status: Inactive Member Role Status Dates Viet Cannon , DO Primary Care Provide r, Attending Provider Active Start: March 17, 2024 End: March 17, 2024 Team Status: Inactive Member Role Status Dates Viet Cannon , DO Primary Care Provider Active Start: May 03, 2024 End: May 03, 2024 Alesia Mercado APRN [employer] Attending Provider Act karen Start: May 03, 2024 End: May 03, 2024 Goals (unrecognized section and content) Goals may [...] BE BASED ON THE PRIMARY CLINICAL RECORDS. [facility] [employer] provides no warranty or guarantee of the accuracy or completeness of information in this document.
[2024-07-29 07:09] LABS: Basophils Absolute Auto 0.1 10^3/uL (0.0-0.1); Basophils Percent Auto 0.8 % (0.2-2.0); Eosinophils Absolute Auto 0.2 10^3/uL (0.0-0.7); Eosinophils Percent Auto 3.3 % (0.9-7.0); Hematocrit 42.5 % (42.0-54.0); Hemoglobin 13.6 g/dL (14.0-18.0); Immature Granulocytes Abs Auto 0.03 10^3/uL (0.00-0.03); Immature Granulocytes Pct Auto 0.5 % (0.0-0.5); Lymphocytes Absolute Auto 1.5 10^3/uL (1.2-3.8); Lymphocytes Percent Auto 22.9 % (20.5-60.0); Mean Corpuscular Hemoglobin 30.8 pg (25.9-34.0); Mean Corpuscular Volume 96.2 fL (80.0-94.0); Mean Platelet Volume 10.4 fL (9.5-13.5); Monocytes Absolute Auto 0.7 10^3/uL (0.3-0.8); Monocytes Percent Auto 10.7 % (1.7-12.0); Neutrophils Percent Auto 61.8 % (43.0-75.0); Platelet Count 214 10^3/uL (150-450); Red Blood Count 4.42 10^6/uL (4.70-6.10); Red Cell Distribution Width 12.7 % (11.0-15.0); White Blood Count 6.4 10^3/uL (4.0-11.0)
[2024-07-29 07:18] LABS: Estimated Average Glucose 128 mg/dL; Glycohemoglobin A1C 6.1 % (4.5-6.2)
[2024-07-29 07:47] LABS: Thyroid Stimulating Hormone 3.759 uIU/mL (0.358-3.740)
[2024-07-30 03:07] LABS: Vitamin B12 280 pg/mL (232-1245)
[2024-08-02 14:07] LABS: Albumin 3.8 g/dL (2.9-4.4); Alpha-1-Globulin 0.2 g/dL (0.0-0.4); Alpha-2-Globulin 0.8 g/dL (0.4-1.0); Free Kappa Lt Chains,S 20.3 mg/L (3.3-19.4); Free Lambda Lt Chains,S 18.5 mg/L (5.7-26.3); Gamma Globulin 0.6 g/dL (0.4-1.8); Immunoglobulin A, Qn, Serum 226 mg/dL (61-437); Immunoglobulin G, Qn, Serum 745 mg/dL (603-1613); Immunoglobulin M, Qn, Serum 10 mg/dL (15-143); Protein, Total 6.6 g/dL (6.0-8.5)
== END 2024-07-29 06:48 | disposition home or self-care (01) ==
LOC: LAB 06:47
PROVIDERS: Family Provider Internal Medicine Interventional Cardiology; PCP Internal Medicine; Visit Provider Internal Medicine
DX: R20.2 Paresthesia of skin (principal); I10 Essential (primary) hypertension; I25.10 Atherosclerotic heart disease of native coronary artery without angina pectoris; Z79.899 Other long term (current) drug therapy; D64.9 Anemia, unspecified; R53.83 Other fatigue
CPT/HCPCS: 36415; 82607; 82728; 82746; 82784; 83036; 83521; 84155; 84165; 84443; 85025

== ENCOUNTER 2025-05-02 11:14 | Outpatient (OUT) | payer MEDICARE, BC, SELFPAY ==
[2025-05-02 11:41] LABS: Hematocrit 40.9 % (42.0-54.0); Hemoglobin 13.4 g/dL (14.0-18.0); Immature Granulocytes Abs Auto 0.03 10^3/uL (0.00-0.03); Immature Granulocytes Pct Auto 0.4 % (0.0-0.5); Lymphocytes Absolute Auto 1.5 10^3/uL (1.2-3.8); Mean Corpuscular HGB Conc 32.8 g/dL (29.9-35.2); Mean Corpuscular Hemoglobin 30.2 pg (25.9-34.0); Mean Corpuscular Volume 92.3 fL (80.0-94.0); Platelet Count 255 10^3/uL (150-450); Red Blood Count 4.43 10^6/uL (4.70-6.10); White Blood Count 8.2 10^3/uL (4.0-11.0)
[2025-05-02 11:54] LABS: Alanine Aminotransferase 32 U/L (16-63); Albumin Globulin Ratio 1.2; Albumin Level 4.3 g/dL (3.4-5.0); Alkaline Phosphatase 54 U/L (46-116); Anion Gap 10.8; Aspartate Amino Transferase 25 U/L (15-37); Blood Urea Nitrogen 28.0 mg/dL (7.0-18.0); Calcium 9.4 mg/dL (8.5-10.1); Carbon Dioxide 26.9 mmol/L (21.0-32.0); Chloride 102 mmol/L (98-107); Cholesterol 172 mg/dL (<=200); Estimated GFR (African America >60 (>=60 mL/min/1.73m^2); Estimated GFR (Non-African Ame 59 (>=60 mL/min/1.73m^2); Globulin 3.6 g/dL; Glucose 103 mg/dL (74-106); HDL Cholesterol 44 mg/dL (40-60); Potassium 4.7 mmol/L (3.5-5.1); Sodium 135 mmol/L (136-145); Total Protein 7.9 g/dL (6.4-8.2); Triglycerides 131 mg/dL (<=150); VLDL CHOLESTEROL 26.2 mg/dL
== END 2025-05-02 11:15 | disposition home or self-care (01) ==
LOC: LAB 11:17
PROVIDERS: Family Provider Internal Medicine Interventional Cardiology; PCP Internal Medicine; Visit Provider Internal Medicine
DX: E78.00 Pure hypercholesterolemia, unspecified (principal); I25.10 Atherosclerotic heart disease of native coronary artery without angina pectoris; N18.9 Chronic kidney disease, unspecified; Z12.5 Encounter for screening for malignant neoplasm of prostate; I12.9 Hypertensive chronic kidney disease with stage 1 through stage 4 chronic kidney disease, or unspecified chronic kidney disease
CPT/HCPCS: 36415; 80053; 80061; 85025; G0103